=== PATIENT | female | born 1960 | race Caucasian/White ===

== ENCOUNTER 2023-02-11 09:30 | Emergency (ER) | payer BC, SELFPAY ==
[2023-02-11 09:40] VITALS: BP 94/77; PULSE 107; RESP 18; TEMP 37.1; O2SAT 98; BMI 30.3
--- NOTE | 2023-02-11 09:50 | XR_ITS ---
[facility] [id number] Patient Name: ANDREA JEWELL MRN: [id number] date: 1960 Sex: F Assigned Patient Location: ER Current Patient Location: ED.MAIN Accession/Order Number: [id number] Exam Date: 02/11/2023 10:05 Report Date: 02/11/2023 10:49 At the request of: SHILOH METZGER Procedure: XR chest 1V EXAM: XR chest 1V HISTORY: SOB, Covid positive COMPARISON: None. TECHNIQUE: Chest X-ray AP, 1 view FINDINGS: Support devices: None. Lungs/pleura: No consolidation, effusion, or pneumothorax. Heart and mediastinum: Normal contours. Bones: No acute abnormality identified. XR/XR chest 1V Impression: No consolidation to suggest pneumonia. However, Covid pneumonia can be radiographically occult in early phase. Electronically authenticated by: CHARMAINE HYATT Date: 02/11/2023 10:49
--- NOTE | 2023-02-11 09:51 | ED_ITS ---
HPI - URI/Sore Throat General Chief Complaint: Upper Respiratory Infection Stated Complaint: COUGH/FEVER Time Seen by Provider: 02/11/23 09:40 Source: patient Limitations: no limitations History of Present Illness HPI Narrative: 62-year-old female presents for cough and not feeling well. She's been sick for three days. She tested positive for coated this morning at home. No vomiting or diarrhea. She's not vaccinated. She's had Covid previously. Her cough has been nonproductive. No vomiting or diarrhea. Related Data Home Medications Medication Instructions Recorded Confirmed aspirin 81 mg capsule 81 mg PO DAILY 02/11/23 02/11/23 atorvastatin 80 mg tablet 80 mg PO DAILY 02/11/23 02/11/23 clopidogrel 75 mg tablet mg 02/11/23 lisinopril 10 mg tablet 10 mg PO DAILY 02/11/23 02/11/23 metoprolol succinate 25 mg 25 mg PO Q12H 02/11/23 02/11/23 tablet,extended release 24 hr Allergies Allergy/AdvReac Type Severity Reaction Status Date / Time tetanus and diphtheria AdvReac Intermediate Verified 02/11/23 09:39 toxoids Review of Systems ROS0 Narrative A ten point review of systems is negative except as noted above. PFSH PFSH Social History Smoking status: Never smoker Exam Narrative Exam Narrative: Nurses note and vital signs reviewed and patient is not hypoxic. General: The patient appears well and in no apparent distress. Patient is resting comfortably on cart. Skin: Warm, dry, no pallor noted. There is no rash noted. Head: Normocephalic, atraumatic Eye: Normal conjunctiva, no drainage Ears, Nose, Mouth, and Throat: oral mucosa is moist. Nares patent. Cardiovascular: Regular Rate and Rhythm Respiratory: Patient is in no distress, no accessory muscle use, lungs are clear to auscultation, no wheezing, rales or rhonchi Back: non-tender GI: soft and nontender Musculoskeletal: The patient has no evidence of calf tenderness, no pitting edema, symmetrical pulses noted bilaterally Neurological: A&O, normal speech Psychiatric: Cooperative Constitutional Vital Signs, click to edit/add: Last Vital Signs Temp 98.7 F 02/11/23 09:40 Pulse 107 H 02/11/23 09:40 Resp 18 02/11/23 09:40 BP 94/77 02/11/23 09:40 Pulse Ox 98 02/11/23 09:40 O2 Del Method Room Air 02/11/23 09:40 Course Vital Signs Vital signs: Vital Signs Temperature 98.7 F 02/11/23 09:40 Pulse Rate 107 H 02/11/23 09:40 Respiratory Rate 18 02/11/23 09:40 Blood Pressure 94/77 02/11/23 09:40 Pulse Oximetry 98 02/11/23 09:40 Oxygen Delivery Method Room Air 02/11/23 09:40 Temperature 98.7 F 02/11/23 09:40 Pulse Rate 107 H 02/11/23 09:40 Respiratory Rate 18 02/11/23 09:40 Blood Pressure 94/77 02/11/23 09:40 Pulse Oximetry 98 02/11/23 09:40 Oxygen Delivery Method Room Air 02/11/23 09:40 MDM - URI/Sore Throat MDM Narrative Medical decision making narrative: chest x-ray per radiology shows no acute findings. There is no indication for further testing and she is able to be treated at home. Treatment diagnosis and follow-up were discussed with the patient. Differential Diagnosis Differential diagnosis: Likely upper respiratory infection, viral infection and other (Covid, pneumonia) Imaging Data Chest x-ray: Radiologist's impression: Procedure: XR chest 1V EXAM: XR chest 1V HISTORY: SOB, Covid positive COMPARISON: None. TECHNIQUE: Chest X-ray AP, 1 view FINDINGS: Support devices: None. Lungs/pleura: No consolidation, effusion, or pneumothorax. Heart and mediastinum: Normal contours. Bones: No acute abnormality identified. Impression: No consolidation to suggest pneumonia. However, Covid pneumonia can be radiographically occult in early phase. Electronically authenticated by: CHARMAINE HYATT Date: 02/11/2023 10:49 Discharge Plan Discharge Chief Complaint: Upper Respiratory Infection Clinical Impression: COVID-19 Patient Disposition: Home, Self-Care Time of Disposition Decision: 10:59 Mode of Transportation: Private Vehicle Prescriptions / Home Meds: No Action atorvastatin 80 mg tablet 80 mg PO DAILY clopidogrel 75 mg tablet lisinopril 10 mg tablet 10 mg PO DAILY metoprolol succinate 25 mg tablet extended release 24 hr 25 mg PO Q12H aspirin 81 mg capsule 81 mg PO DAILY Instructions: Droplet Precautions (ED), COVID-19 (Coronavirus Disease 2019) (ED), Face Coverings (Masks) and COVID-19 (ED), How to Recover from COVID-19 at Home (ED) Stand Alone Forms: Portal Instructions Referrals: Kenya Guardado NP [Primary Care Provider] - 1 week
== END 2023-02-11 11:08 | disposition home or self-care (01) ==
PROVIDERS: Emergency Provider Emergency Medicine; PCP Nurse Practitioner
DX: U07.1 COVID-19 (principal); Z28.310 Unvaccinated for COVID-19; Z86.16 Personal history of COVID-19; Z79.82 Long term (current) use of aspirin; Z79.899 Other long term (current) drug therapy
CPT/HCPCS: 71045; 99283

== ENCOUNTER 2023-11-21 11:12 | Outpatient (OUT) | payer BC, SELFPAY ==
--- NOTE | 2023-11-21 | MM_ITS ---
Patient Name: ANDREA JEWELL MR#: [id number] : 1960 Exam Date: 11/21/2023 Ordering Doctor: ALPESH Guardado CNP RADIOLOGY REPORT PROCEDURE: MM TOMOSYNTHESIS SCREENING BI COMPARISON: MG MAMM SCREEN RENE W CAD, 09/10/2019. MG MAMM SCREEN 3D RENE CAD, 12/07/2020. INDICATIONS: SCREENING Calculator Name NCI Breast Cancer Risk Assessment Tool 5 Year Breast Cancer Risk 1.20% Lifetime Breast Cancer Risk 5.70% Personal Breast Cancer No Personal Ovarian Cancer No Treatments None Family Cancers Grandfather-maternal with lung cancer at age ~45; Grandmother-maternal with colon cancer at age ~64. LOCATION: [facility] BREAST COMPOSITION: The breasts are heterogeneously dense,which may obscure small masses. FINDINGS: DIAGNOSTIC CATEGORY 2--BENIGN FINDING. NO CHANGE FROM COMPARISON. Scattered benign-appearing calcifications are present. Scattered benign-appearing lymph nodes are present. RIGHT BREAST: No significant suspicious finding. LEFT BREAST: No significant suspicious finding. RECOMMENDATIONS: ROUTINE MAMMOGRAM AND CLINICAL EVALUATION IN 12 MONTHS. PLEASE NOTE: A NORMAL MAMMOGRAM DOES NOT EXCLUDE THE POSSIBILITY OF BREAST CANCER. A CLINICALLY SUSPICIOUS PALPABLE LUMP SHOULD BE BIOPSIED. Dictated by: Deshawn Gonzalez MD on 11/21/2023 at 15:39 Approved by: Deshawn Gonzalez MD on 11/21/2023 at 15:41
== END 2023-11-21 11:13 | disposition home or self-care (01) ==
PROVIDERS: PCP Nurse Practitioner; Visit Provider Nurse Practitioner
DX: Z12.31 Encounter for screening mammogram for malignant neoplasm of breast (principal); Z80.1 Family history of malignant neoplasm of trachea, bronchus and lung; Z80.0 Family history of malignant neoplasm of digestive organs
CPT/HCPCS: 77063; 77067

== ENCOUNTER 2023-11-28 07:32 | Outpatient (OUT) | payer BC, SELFPAY ==
--- OUTSIDE RECORDS SUMMARY | 2023-11-28 07:35 | XMS_ITS | CCD ---
Author Organization [facility] CliniSyde Care Team Providers Care Precipitator Operator Name Role Phone UNKNOWN, PROVIDER Unavailable Unavailable HOWARD, VLADISLAV Unavailable Unavailable UNKNOWN, PROVIDER Unavailable Unavailable HOWARD, VLADISLAV Unavailable Unavailable Unavailable Unavailable Aichholz, Kenya Jo Unavailable MISC, DR COTE Admitting Unavailable MISC, DR COTE Attending Unavailable DR JOANN COOLEY Consulting Unavailable [facility] KENYA Primary Care Unavailable Madan Barroso Consulting Unavailable AICHOLZ, FORM MAKER KENYA Primary Care Unavailable LAKSHMIPATHY ., NARENDRANATH Admitting Milly vailable LAKSHMIPATHY ., NARENDRANATH Attending Milly vailable DR JOANN COOLEY Admitting Unavailable MICHELE, DR JOANN Juan Attending Unavailable DR JOANN COOLEY Consulting Unavailable AICHHOLZ, FORM MAKER KENYA Primary Care Unavailable DOMONIQUE TILLMAN Consulting Unavailable [facility], [facility] KENYA Primary Care Unavailable LAKSHMIPATHY ., NARENDRANATH Consulting Milly vailable LAKSHMIPATHY ., NARENDRANATH Admitting Milly vailable LAKSHMIPATHY ., NARENDRANATH Attending Milly vailable [facility], [facility] KENYA Primary Care Unavailable ARLENE HUERTAS Consulting Unavailable LAKSHMIPATHY ., NARENDRANATH Admitting Milly vailable LAKSHMIPATHY ., NARENDRANATH Attending Milly vailable LAKSHMIPATHY ., NARENDRANATH Consulting Milly vailable DR RICARDO NGUYEN V Consulting Unavailable AICHOLZ, [facility] KENYA Primary Care Unavailable FAWWAD, LACKEY H Admitting Unavailable FAWWAD, LACKEY H Attending Unavailable FAWWAD, LACKEY H Consulting Unavailable Madan Barroso Consulting Unavailable AICHHOLZ, [employer] KENYA Primary Care Unavailable FAWWAD, LACKEY H Admitting Unavailable FAWWAD, LACKEY H Attending Unavailable SHAIKH Gavin MILLER Consulting Unavailable AICHHOLZ, [employer] KENYA Primary Care Unavailable BHUMIKA, DR MOORE Admitting Unavailable STEPANIC, DR MOORE Attending Unavailable STEPANIC, DR MOORE Consulting Unavailable CONCHA, DR NASIM Brooks Admitting Unavailabl e CONCHA, DR NASIM Brooks Attending Unavailabl e CONCHA, DR NASIM Brooks Consulting Unavailabl e AICHHOLZ, [employer] KENYA Primary Care Unavailable WEST, DR RICARDO Damico Consulting Unavailable AICHHOLZ, [employer] MA[employer] KENYA Admitting Unavailable AICHHOLZ, [employer] KENYA Attending Unavailable AICHHOLZ, [employer] MA[employer] KENYA Primary Care Unavailable AICHHOLZ, [employer] KENYA Consulting Unavailable Aichholz, Mrs. Kenya Phillips Primary Care Unavailab chetna Cooley, MsChamp Savagena Janelle Quijano Referring Rajwinder Cooley, Ms. Barbara Quijano Attending Rajwinder Kern, Dr. Nasmi Mckenzie Attending Unava ilable Aicnickolas, Mrs. Kenya Phillips Primary Care Unavailab chetna Kern, Dr. Nasim Mckenzie Referring Unava NASIM Worley Referring Unavailable AICKAREN, KENYA PHILLIPS Primary Care Unavailable NASIM KERN Attending Unavailable AICHHOLJose Francisco, KENYA JACQUELINE Primary Care Unavailable AICHJOONZ, KENYA Attending Unavailable OSVALDO PAEZ Attending Unavailable CALOS KUHN Attending Unavailable CALOS KUHN Referring Unavailable Allergies Allergy Classification Reported Allergen(s) Allergy Type Date of Onset Reaction(s) Facility (12 sources) Isosorbide; Translations: [isosorbide] Drug Allergy 03-27-19 24 [facility] Repository (10 sources) oxyCODONE; Translations: [oxyCODONE HCl TABS] Drug Allergy Gatro[facility] upset, [facility] Work [facility]: (10 sources) Tetanus Toxoid Fluid SOLN; Translations: [Tetanus Toxoid Fluid SOLN] Allergy to drug (finding) Other [facility] Work Phone: (1 source) Acetaminophen / oxyCODONE Drug Allergy [facility] Repository (1 source) Allopurinol Drug Allergy 08-19-19 13 [facility] Repository (2 sources) oxyCODONE; Translations: [OXYCODONE] Drug Allergy 03-27-[address] [facility] Repository (2 sources) Tetanus vaccine; Translations: [TETANUS TOXOID] Propensity to adverse reactions to drug (disorder) 03-27-[address] [facility] Repository Medications Completed/Discontinued Medications Medication Drug Class(es) Dates Sig (Normalized) Sig (Original) aspirin 81 mg delayed release oral tablet (7 sources) Platelet Aggregation Inhibitor, Nonsteroidal Anti-inflammatory Drug take 1 tablet by mouth once daily Aspirin 81 MG Oral Tablet Delayed Release TAKE 1 TABLET DAILY. Quantity: 90 Refills: 3 Ordered: 16-Sep-2022 Nasim Kern DO Active atorvastatin 80 mg oral tablet (7 sources) HMG-CoA Reductase Inhibitor Start: 11-30-2021 take 1 tablet by mouth at bedtime Atorvastatin Calcium 80 MG Oral Tablet TAKE 1 TABLET Bedtime Quantity: 90 Refills: 3 Ordered: 16-Sep-2022 Nasim Kern DO Start : 30-Nov-2021 Active take 1 tablet by mouth at bedtim e Atorvastatin Calcium 80 MG Oral Tablet TAKE 1 TABLET AT BEDTIME. Quantity: 90 Refills: 3 Ordered: 07-Sep-2021 DO Active clopidogrel 75 mg oral tablet (7 sources) P2Y12 Platelet Inhibitor Start: 02-15-2021 take 1 tablet by mouth once daily Clopidogrel Bisulfate 75 MG Oral Tablet TAKE 1 TABLET DAILY. Quantity: 90 Refills: 3 Ordered: 09-Feb-2022 Nasim Kern DO Start : 15-Feb-2021 Active lisinopril 10 mg oral tablet (8 sources) Angiotensin Converting Enzyme Inhibitor Start: 04-13-2021 take 1 tablet by mouth once daily Lisinopril 10 MG Oral Tablet TAKE 1 TABLET BY MOUTH EVERY DAY Quantity: 90 Refills: 3 Ordered: 30-Mar-2022 Nasim Kern DO Start : 13-Apr-2021 Active 24 hr metoprolol succinate 25 mg extended release oral tablet (8 sources) beta-Adrenergic Tk Start: 04-12-2021 take 1 tablet by mouth once daily Metoprolol Succinate ER 25 MG Oral Tablet Extended Release 24 Hour TAKE 1 TABLET BY MOUTH EVERY DAY Quantity: 90 Refills: 3 Ordered: 30-Mar-2022 Nasim Kern DO Start : 12-Apr-2021 Active nitroglycerin 0.4 mg sublingual tablet (7 sources) Nitrate Vasodilator Nitroglycerin 0.4 MG Sublingual Tablet Sublingual PLACE 1 TABLET UNDER THE TONGUE EVERY 5 MINUTES FOR UP TO 3 DOSES NEEDED FOR CHEST PAIN.CALL 911 IF PAIN PERSISTS. Quantity: 1 Refills: 0 Ordered: 07-Sep-2021 DO Active oxyCODONE (2 sources) Opioid Agonist oxyCODONE HCl TA BS TAKE 1 TABLET EVERY 8 HOURS NEEDED FOR PAIN. Quantity: 0 Refills: 0 Ordered: 16-Sep-2022 DO Active Problems Active Problems Problem Classification Problem Date Documented Date Episodic/Chronic Acute myocardial infarction (3 sources) Acute myocardial infarction; Translations: [Acute myocardial infarction, unspecified] Onset: 01-11-2017 Coronary atherosclerosis and other heart disease (19 sources) Angina pectoris, unspecified; Translations: [Coronary atherosclerosis] Onset: 05-10-2017 Chronic Coronary atherosclerosis and other heart disease (5 sources) Coronary angioplasty status; Translations: [CORONARY ANGIOPLASTY STATUS] Onset: 09-22-2021 Episodic Disorders of lipid metabolism (8 sources) Hyperlipidemia; Translations: [Other and unspecified hyperlipidemia] Onset: 09-27-2021 Chronic Essential hypertension (15 sources) Essential hypertension; Translations: [Unspecified essential hypertension] Onset: 09-21-2021 Chronic Essential hypertension (1 source) Essential hypertension Onset: 05-10-2017 Immunizations and screening for infectious disease (7 sources) Patient encounter status; Translations: [Other specified vaccination] Episodic Joint disorders and dislocations; trauma-related (4 sources) Unspecified internal derangement of left knee; Translations: [UNS INTERNAL DERANGEMENT LEFT KNEE] Onset: 08-03-2021 Chronic Other bone disease and musculoskeletal deformities (1 source) Osteonecrosis, unspecified; Translations: [OSTEONECROSIS UNSPECIFIED] Onset: 07-14-2022 Chronic Other connective tissue disease (4 sources) Trochanteric bursitis, left hip; Translations: [TROCHANTERIC BURSITIS LEFT HIP] Onset: 06-30-2022 Episodic Other infections; including parasitic (7 sources) H/O: infectious disease; Translations: [Personal history of other infectious and parasitic diseases] Episodic Other nervous system disorders (1 source) Other specified mononeuropathies of left lower limb; Translations: [OTH SPEC MONONEUROPATH LT LOW LIMB] Onset: 07-12-2022 Chronic Other nervous system disorders (1 source) Other chronic pain; Translations: [OTHER CHRONIC PAIN] Onset: 07-04-2022 Chronic Other nervous system disorders (1 source) Other specified mononeuropathies; Translations: [OTHER SPECIFIED MONONEUROPATHIES] Onset: 07-04-2022 Chronic Other non-traumatic joint disorders (5 sources) Pain in left hip; Translations: [PAIN IN LEFT HIP] Onset: 07-04-2022 Episodic Other nutritional; endocrine; and metabolic disorders (1 source) Obesity; Translations: [Obesity, unspecified] Chronic Other nutritional; endocrine; and metabolic disorders (2 sources) Body mass index (BMI) 30.0-30.9, adult; Translations: [Body mass index (BMI) 30.0-30.9, adult] Onset: 09-27-2023 Chronic Other nutritional; endocrine; and metabolic disorders (7 sources) Overweight in adulthood with body mass index of 25 or more but less than 30; Translations: [Overweight] Episodic Other skin disorders (1 source) Presence of artificial skin; Translations: [PRESENCE OF ARTIFICIAL SKIN] Onset: 09-27-2021 Chronic Residual codes; unclassified (2 sources) Other specified health status; Translations: [Other specified health status] Onset: 09-27-2023 Episodic Spondylosis; intervertebral disc disorders; other back problems (4 sources) Lumbago with sciatica, unspecified side; Translations: [LUMBAGO WITH SCIATICA UNS SIDE] Onset: 06-03-2022 Episodic Unclassified (1 source) Old myocardial infarction / I25.2(ICD-9) Onset: 05-10-2017 Unclassified (1 source) Coronary angioplasty status / Z98.61(ICD-9) Onset: 05-10-2017 Unclassified (1 source) Shortness of breath / R06.02(ICD-9) Onset: 05-10-2017 Unclassified (1 source) Chest pain, unspecified / R07.9(ICD-9) Onset: 05-10-2017 Unclassified (1 source) Angina pectoris, unspecified / I20.9(ICD-9) Onset: 05-10-2017 Unclassified (1 source) Athscl heart disease of [place] cor art w unsp ang pctrs / I25.119(ICD-9) Onset: 05-10-2017 Unclassified (1 source) Pure hypercholesterolemia, unspecified / E78.00(ICD-9) Onset: 05-10-2017 Unclassified (1 source) Family hx of ischem heart dis and oth dis of the circ sys / Z82.49(ICD-9) Onset: 05-10-2017 Unclassified (1 source) CONTACT W/AND (SUSP) EXPOS COVID-19; Translations: [CONTACT W/AND (SUSP) EXPOS COVID-19] Onset: 09-27-2021 Past or Other Problems Problem Classification Problem Date Documented Da te Episodic/Chronic E Codes: Natural/environment (1 source) Overexertion from prolonged static or awkward postures, initial encounter; Translations: [OVEREXERT PROLNG STAT/AWK PST INIT] Onset: 07-27-2021 Episodic Other connective tissue disease (4 sources) Pain in left leg; Translations: [PAIN IN LEFT LEG] Onset: 07-26-2021 Episodic Other non-traumatic joint disorders (3 sources) Pain in left knee; Translations: [PAIN IN LEFT KNEE] Onset: 07-25-2021 Episodic Sprains and strains (1 source) Strain of other muscle(s) and tendon(s) at lower leg level, left leg, initial encounter; Translations: [STRAIN OTH MSC TEND LOW LT LEG INIT] Onset: 07-27-2021 Episodic Unclassified (7 sources) Never smoked tobacco; Translations: [Never a smoker] Results Test Name Value Interpretation Reference Range Facility STRESS TEST ONLYon STRESS TEST ONLY [address], [address] [place] [address] Exercise Stress Test Patient Name: ANDREA JEWELL Ordering Provider: [id number] NASIM KERN Study Date: 10/19/2023 Reading Physician: [id number] Dupree MD MRN/PID: [id number] Supervising Physician: Jovanni Dupree MD Fellow: Date of /Age: 3 1960 / 63 years Fellow: Gender: F Nurse: Lorenza Aquino RN Admission Status: Top Precipitator Operator: NA Height: 167.64 cm Technologist: Weight: 86.18 kg Additional Staff: BSA: 1.96 m2 BMI: 30.67 kg/m2 Patient Location: Study Type: STRESS TEST ONLY Diagnosis/ICD: Old myocardial infarction-I25.2; Atherosclerotic heart disease-I25.10 Indication: Hypertension CPT Codes: Stress Test Interpretation-86585; Stress Test Supervision-[id number] Falls Risk: Low: Patient has low risk for sustaining a fall; environmental safety interventions in place. Study Details: Correct procedure and correct patient verified verbally. Patient Performance: The patient exercised to stage I on a Adis protocol for 3 minutes and 7 seconds, achieving 4.70 METS. The peak heart rate achieved was 117 bpm, which was 74 % of the age predicted target heart rate of 159 bpm. The resting blood pressure was 112/76 mmHg with a heart rate of 77 bpm. The standing blood pressure was 110/78 mmHg with a heart rate of 78 bpm. The patient's functional capacity was below average. The patient developed leg fatigue and fatigue during the stress exam. The symptoms resolved with rest. The blood pressure response was normal. The test was terminated due to: fatigue and leg fatigue and musculoskeletal weakness. Mild sinus tachycardia. Double Product (HR x BP): 166. Baseline ECG: Resting ECG showed normal sinus rhythm. Normal sinus rhythm. Stress Stage Data: + +--- +------+-------+ HR Sys BP Kumar BP + +--- +------+-------+ Baseline Resting 77 112 76 + +--- +------+-------+ Baseline Standing 78 110 78 + +--- +------+-------+ Stage I 115 128 74 + +--- +------+-------+ Stage II 117 142 68 + +--- +------+-------+ Recovery ECG: The heart rate recovery was normal. + +---+---- --+-------+ HR Sys BP Kumar BP + +---+---- --+-------+ Recovery I 117 142 68 + +---+---- --+-------+ Recovery II 117 132 70 + +---+---- --+-------+ Recovery III 85 122 76 + +---+---- --+-------+ Recovery IV 82 112 72 + +---+---- --+-------+ Summary: 1. Submaximal graded exercise stress test without diagnostic ST-T changes for ischemia. 2. No provoked chest pain or arrhythmia. 3. Appropriate hemodynamic response to exercise. 4. Poor exercise tolerance. [id number] Carina Dupree MD Electronically signed on 10/19/2023 at 4:59:33 PM Final [facility] Office Visit (Cardiology)on 09-16-2022 Follow-up visit Diagnoses/Problems Assessed Atherosclerosis of coronary artery of [place] heart without angina pectoris (414.01) (I25.10) Essential hypertension (401.9) (I10) History of PTCA (V45.82) (Z98.61) History of mycobacterial infection (V12.09) (Z86.19) Hyperlipidemia (272.4) (E78.5) Overweight with body mass index (BMI) of 29 to 29.9 in adult (278.02,V85.25) (E66.3,Z68.29) Orders Atherosclerosis of coronary artery of [place] heart without angina pectoris, Essential hypertension, History of mycobacterial infection, History of PTCA, Hyperlipidemia ALT - Alanine Aminotransferase, Serum; Status:Active; Requested for:[id number]; AST; Status:Active; Requested for:[id number]; Basic Metabolic Panel; Status:Active; Requested for:[id number]; CRP, High Sensitivity; Status:Active; Requested for:[id number]; Lipid Panel; Status:Active; Requested for:[id number]; Atherosclerosis of coronary artery of [place] heart without angina pectoris, History of PTCA Renew: Aspirin 81 MG Oral Tablet Delayed Release; TAKE 1 TABLET DAILY Hyperlipidemia Renew: Atorvastatin Calcium 80 MG Oral Tablet; TAKE 1 TABLET Bedtime Patient Instructions Please bring all medicines, vitamins, and herbal supplements with you when you come to the office. Prescriptions will not be filled unless you are compliant with your follow up appointments or have a follow up appointment scheduled as per instruction of your physician. Refills should be requested at the time of your visit. Follow up in 1 year The provider reviewed the following test(s) and result(s) with the patient: laboratory tests Chief Complaint ANDREA JEWELL is being seen for an annual follow-up of. Patient is a 62-year-old female returns for follow-up she is doing very well. She is already undergone knee and hip replacement without any adverse consequences or major adverse cardiac events. She has a history of SCAD status post anterior UT in 2017, with extensive revascularization of the LAD, remains on DAPT therapy now 6 years out but I believe this can be discontinued at this juncture. She has preserved left ventricular function, no heart failure, no angina or nitrate usage or hospitalizations other than her orthopedic procedures Recommendations: Discontinue clopidogrel, proceed with high-sensitivity CRP and lipid panel and follow-up otherwise in 1 year Surgical History Problems History of Cardiac catheterization with stent placement History of section Denied: History of Complete colonoscopy History of Foot surgery History of Hip replacement History of Percutaneous transluminal coronary angioplasty Current Meds Medication NameInstruction Aspirin EC Low Dose 81 MG Oral Tablet Delayed ReleaseTAKE 1 TABLET DAILY DIRECTED. Atorvastatin Calcium 80 MG Oral TabletTAKE 1 TABLET Bedtime Clopidogrel Bisulfate 75 MG Oral TabletTAKE 1 TABLET DAILY. Lisinopril 10 MG Oral TabletTAKE 1 TABLET BY MOUTH EVERY DAY Metoprolol Succinate ER 25 MG Oral Tablet Extended Release 24 HourTAKE 1 TABLET BY MOUTH EVERY DAY Nitroglycerin 0.4 MG Sublingual Tablet SublingualPLACE 1 TABLET UNDER THE TONGUE EVERY 5 MINUTES FOR UP TO 3 DOSES NEEDED FOR CHEST PAIN.CALL 911 IF PAIN PERSISTS. oxyCODONE HCl TABSTAKE 1 TABLET EVERY 8 HOURS NEEDED FOR PAIN. Allergies Medication isosorbide Adverse Reaction; Headache; Updated By: Tara Martinez; 09/07/2021 10:39:05 AM oxyCODONE HCl TABS Adverse Reaction; Gatrointestinal upset; Vomiting; Updated By: Tara Martinez; 09/07/2021 10:39:05 AM Tetanus Toxoid Fluid SOLN Allergy; Updated By: Tara Martinez; 09/07/2021 10:39:05 AM Social History Problems Caffeine use (V49.89) (Z78.9) pop and tea occasionally Never a smoker No alcohol use No illicit drug use Review of Systems Constitutional: not feeling tired. Cardiovascular: no intermittent leg claudication and as noted in HPI. Respiratory: no cough and no shortness of breath. Gastrointestinal: no change in bowel habits and no blood in stools. Integumentary: no skin rashes. Neurological: no seizures and no frequent falls. All other systems have been reviewed and are negative for complaint. Vitals Vital Signs Recorded: [id number] 10:10AM Heart Rate92, L Radial Yqiezope777, LUE, Sitting Lisxzwesw87, LUE, Sitting Height5 ft 6 in Jjrzvf105 lb BMI Bszudasyzr72.54 kg/m2 BSA Calculated1.93 Tobacco Useb) No Physical Exam Constitutional: alert and in no acute distress. Neck: neck is supple, symmetric, trachea midline, no masses and no thyromegaly . Pulmonary: no increased work of breathing or signs of respiratory distress and lungs clear to auscultation. Cardiovascular: carotid pulses 2+ bilaterally with no bruit , JVP was normal, no thrills , regular rhythm, normal S1 and S2, no murmurs , pedal pulses 2+ bilaterally and no edema . Abdomen: abdomen non-tender, no masses and no hepatomegaly . Skin: skin warm and dry, normal skin turgor . Psychiatric judgment and insight is no (more content not included)... Normal Second Half Playbook Tobacco Screening.on 023 Tobacco use status [facility] b) No -[facility] 250 DO Work Phone: Office Visit (Cardiology)on 07-15-2022 Follow-up visit Diagnoses/Problems Assessed Atherosclerosis of coronary artery of [place] heart without angina pectoris (414.01) (I25.10) Essential hypertension (401.9) (I10) Hyperlipidemia (272.4) (E78.5) Class 1 obesity with body mass index (BMI) of 30.0 to 30.9 in adult (278.00,V85.30) (E66.9,Z68.30) Orders Class 1 obesity with body mass index (BMI) of 30.0 to 30.9 in adult Healthy Weight Tips; Status:Complete; Done: [id number] Patient Instructions Please bring all medicines, vitamins, and herbal supplements with you when you come to the office. Prescriptions will not be filled unless you are compliant with your follow up appointments or have a follow up appointment scheduled as per instruction of your physician. Refills should be requested at the time of your visit. PLAN: Through informed decision making process incorporating patients unique circumstances, the following treatment plan will be initiated: 1. Prescription drug management of cardiovascular medication for efficacy, adherence to treatment, side effect assessment and polypharmacy. Current treatment clinically warranted and to continue without modifications. 2. Return for follow-up; in the interim, contact the office if new symptoms arise. Dr. Kern as scheduled 3. Ok to interrupt Plavix 5-7 days prior to procedure and resume post-op once ok with surgeon Chief Complaint Cardiac risk stratification prior to left THR. ANDREA JEWELL is being seen for a cardiovascular evaluation of pre-operative clearance. Patient presents to the office ambulatory with steady gait. Last evaluated in clinic Dr. Kern September 2021. Following that office visit she had uneventful total knee replacement with Plavix interruption, no postoperative MACE. She presents to the office today to obtain cardiac risk stratification prior to a left total hip replacement, no date scheduled. She denies any hospitalizations or significant changes to interval medical history other than progressive hip pain. 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 Heart rate is slightly elevated in the office related to being anxious and worried and also discomfort is contributing. She is compliant with metoprolol. Cardiovascular history: 1. 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 p/m/dLAD PCI/VANNESSA Diag2 PTCA CX AND RCA normal 2. Dec 2016 Echo: EF 50-55%, MR trace 3. No documented history of dysrhythmia Patient presents to the office today with activity level > 4 METS. Daily activity includes: Factory work, housework including mopping and sweeping the floors. Total DASI: 23.45 METs: 5.62 Prior angina: Sudden onset of diaphoresis and shortness of breath, denies reoccurrence Last nitroglycerin usage: Denies EKG in office: Normal sinus rhythm without evidence of ischemia ACC/AHA guidelines: 1. Major clinical markers: -Acute coronary syndrome or UT within 30 days: No -Decompensated heart failure: No -Significant arrhythmia: No -Severe valvular heart disease: No 2. Intermediate clinical markers -History of ischemic heart disease (prior UT, current chest pain secondary to ischemia, use of nitrates or EKG changes): Yes -Compensated/prior heart failure: No -Diabetes requiring insulin: No -Renal insufficiency with creatinine greater than 2: No 3. Minor clinical markers: -Age greater than or equal to 70: No -Abnormal EKG: No -Rhythm other than sinus rhythm: No -Low functional capacity: No -Prior CVA: No -Uncontrolled hypertension: No Surgery specific risk: Intermediate orthopedic repair According to ACC/AHA guidelines, a patient with functional capacity greater than 4 METS proceeding with intermediate surgical specific risk may proceed to the operating room without additional testing. RM Revised Cardiac Risk Index: Low risk with 0.9% Mace Concomitant medication review: No cardiovascular contraindication to interrupt antiplatelet treatment. At this time, there are no prohibitive cardiovascular risk to proceed with much-needed procedure. History of Present Illness The patient states she has been generally doing well since the last visit. Comorbid Illnesses: hypertension and hyperlipidemia. Symptoms: denies chest pain at rest, denies exertional chest pain, denies dyspnea, denies fatigue, denies exercise intolerance, denies palpitations, denies edema, denies orthopnea, denies dizziness and denies orthostatic dizziness. Associated symptoms: no syncope. Her symptoms do not limit her activities. Disease Monitoring: Surgical History Problems History of Cardiac catheterization with stent placement History of section Denied: History of Complete colonoscopy History of Foot surgery History of Percutaneous transluminal coronary angioplasty Current Meds Medication NameInstruction Aspirin EC Low Dose 81 MG Oral Tablet Delayed Release (more content not included)... Normal Second Half Playbook Tobacco Screening.on 023 Adult depression screening assessment No -[facility] DO Work Phone: Tobacco use status CPHS b) No -[facility] DO Work Phone: MRI HIP LT WO CONon 07-12-19 23 MRI HIP LT WO CON HISTORY: Left hip pa in for the past 4 months. MRI HIP LT WO CON: 07/11/2022 9:52 AM EDT COMPARISON: Radiographs of the pelvis and left hip 05/19/2022. TECHNIQUE: Multiplanar, multisequence MRI images of the pelvis and left hip were obtained without contrast. FINDINGS: There is mild discogenic disease at the L4-L5 level. The bone marrow signal intensity appears age appropriate. Within the subchondral bone of the superior aspect of the right femoral head there is a small curvilinear focus of decreased T1 and STIR signal intensity measuring 5 x 11 mm in transverse and AP dimension. There is no significant surrounding bone marrow edema. There are mild degenerative changes of the pubic symphysis. There is a large serpiginous area of abnormal decreased T1 and STIR signal intensity involving the subchondral bone of 100% of the weightbearing portion of the superior and anterosuperior aspect of the left femoral head. This associated with mild collapse of the articular surface in these regions. There is a large amount of surrounding bone marrow edema throughout the left femoral head/neck. There appear to be mild degenerative changes of the left hip joint. There is a large joint effusion of the left hip. There is a small amount of soft tissue edema along the lateral aspect of the greater trochanters bilaterally, but there is no significant tendinopathy or tear of the gluteal tendons. IMPRESSION: 1. There is a large focus of avascular necrosis involving 100% of the weightbearing portion of the left femoral head with mild collapse of the articular surface and a large amount of surrounding bone marrow edema in the left femoral head/neck. There are associated mild degenerative changes of the left hip joint and a large joint effusion of the left hip. 2. There is a small 5 x 11 mm chronic appearing focus of avascular necrosis involving the superior aspect of the right femoral head, but there is no surrounding bone marrow edema or collapse of the articular surface identified. 3. Possible mild bilateral greater trochanteric bursitis without evidence of significant gluteal tendinopathy. This report was placed in the wet read folder to be faxed and called to the referring clinician's office (Danay Land) on the afternoon of 07/11/2022 shortly after the study was presented for interpretation. Electronically authenticated by: ARLENE HUERTAS Date: 2022-07-11 13:15 Normal [facility] MRI LSPINE WO CONon 06-04-19 MRI LSPINE WO CON EXAMINATION: MRI LSPINE WO CON HISTORY: Lumbago with sciatica COMPARISON: No relevant comparison available. TECHNIQUE: A variety of imaging planes and parameters were utilized for visualization of suspected pathology. FINDINGS: For the purposes of numbering, sagittal T2 image # 8 extends from the T11 vertebral body superiorly to the S2-S3 level inferiorly. PARASPINAL AREA: Normal with no visible mass. BONES: Normal alignment with no acute fracture or spondylolisthesis. Mild heterogeneous appearance of the marrow, likely age-related change CORD/CAUDA EQUINA: Normal caliber, contour, and signal intensity. DISC LEVELS: 12-L1: No significant disc/facet abnormality, spinal stenosis, or foraminal stenosis. L1-L2: No significant disc/facet abnormality, spinal stenosis, or foraminal stenosis. L2-L3: Mild disc desiccation. Left foraminal disc protrusion extending up to 2 mm. No central or foraminal stenosis L3-L4: Mild disc space narrowing and disc desiccation. Mild diffuse disc bulge. No central or foraminal stenosis L4-L5: Disc desiccation. Mild diffuse disc bulge with no central or foraminal stenosis L5-S1: No significant disc/facet abnormality, spinal stenosis, or foraminal stenosis. IMPRESSION: Mild discogenic changes. No central or foraminal stenosis Electronically authenticated by: RICARDO NGUYEN Date: 2022-06-03 15:23 Normal [facility] XR LSPINE MIN 4 VIEWSon 05-04 XR LSPINE MIN 4 VIEWS EXAMINATION: XR LSPINE MIN 4 VIEWS HISTORY: Lumbago with sciatica ; lumbar and left hip pain for 4 months COMPARISON: No relevant comparison available. FINDINGS: BONES: No significant spondylosis, scoliosis, fracture, or visible bony lesion. DISC SPACES: No significant disc height narrowing, subluxation, or endplate abnormality. PARASPINOUS: Negative. No paraspinous abnormality is seen. OTHER: Negative. IMPRESSION: 1. No appreciable significant degenerative changes of the lumbar spine. Consider MRI for further evaluation if symptoms persist. Electronically authenticated by: MADAN ZIAMYLIZBETH Date: 2022-05-19 09:42 Normal [facility] CBC AUTO DIFFon 09-21-2021 BASO # 0.0 103/ul Normal 0.0-0.1 [facility] Comment on above: Performed By: #### C BC #### [facility] [address] [address] [address] Gwendolyn Maza Basophils/100 WBC (Bld) 0.4 % Normal 0.2-2.0 [facility] Comment on above: Performed By: #### C BC #### [facility] [address] [place] [address] Dr. Gwendolyn Maza EO # 0.1 103/ul Normal 0.0-0.7 [facility] Comment on above: Performed By: #### C BC #### [facility] [address] [address] [address] Gwendolyn Maza Eosinophils/100 WBC (Bld) 1.9 % Normal 0.9-7.0 [facility] Comment on above: Performed By: #### C BC #### [facility] [address] [place] [address] Dr. Gwendolyn Maza Erythrocyte distribution width (RBC) [Ratio] 12.2 % Normal 11.0-15.0 [facility] Comment on above: Performed By: #### C BC #### [facility] [address] [place] [address] Dr. Gwendolyn Maza Hematocrit (Bld) [Volume fraction] 38.1 % Normal 36.0-48.0 [facility] Comment on above: Performed By: #### C BC #### [facility] [address] [place] [address] Dr. Gwendolyn Maza Hemoglobin (Bld) [Mass/Vol] 12.8 g/dL Normal 12.0-16.0 [facility] Comment on above: Performed By: #### C BC #### [facility] [address] [place] [address] Dr. Gwendolyn Maza IG # 0.01 10e3/ul Normal 0.00-0.03 [facility] Comment on above: Performed By: #### C BC #### [facility] [address] [place] [address] Dr. Gwendolyn Mzaa IG % 0.2 % Normal 0.0-0.5 [facility] Comment on above: Performed By: #### C BC #### [facility] [address] [place] [address] Dr. Gwendolyn Maza LYMPH # 0.9 103/ul Critically low 1.2-3.8 [facility] Comment on above: Performed By: #### C BC #### [facility] [address] [place] [address] Dr. Gwendolyn Maza Lymphocytes/100 WBC (Bld) 17.6 % Critically low 20.5-60.0 [facility] Comment on above: Performed By: #### C BC #### [facility] [address] [place] [address] Dr. Gwendolyn Maza MANUAL DIFF REQ NO Normal [facility] Comment on above: Performed By: #### C BC #### [facility] [address] [place] [address] Dr. Gwendoyln Maza MCH (RBC) [Entitic mass] 30.3 pg Normal 26.7-34.0 [facility] Comment on above: Performed By: #### C BC #### [facility] [address] [place] [address] Dr. Gwendolyn Maza MCHC (RBC) [Mass/Vol] 33.6 g/dL Normal 29.9-35.2 [facility] Comment on above: Performed By: #### C BC #### [facility] [address] [place] [address] Dr. Gwendolyn Maza MCV (RBC) [Entitic vol] 90.1 fL Normal 81.0-99.0 [facility] Comment on above: Performed By: #### C BC #### [facility] [address] [place] [address] Dr. Gwendolyn Maza MONO # 0.5 103/ul Normal 0.3-0.8 [facility] Comment on above: Performed By: #### C BC #### [facility] [address] [place] [address] Dr. Gwendolyn Maza Monocytes/100 WBC (Bld) 8.5 % Normal 1.7-12.0 [facility] Comment on above: Performed By: #### C BC #### [facility] [address] [place] [address] Dr. Gwendolyn Maza NEUT # 3.8 103/ul Normal 1.4-6.5 [facility] Comment on above: Performed By: #### C BC #### [facility] [address] [place] [address] Dr. Gwendolyn Maza Neutrophils/100 WBC (Bld) 71.4 % Normal 43.0-75.0 [facility] Comment on above: Performed By: #### C BC #### [facility] [address] [place] [address] Dr. Gwendolyn Maza Platelet mean volume (Bld) [Entitic vol] 8.4 fL Critically low 9.5-13.5 [facility] Comment on above: Performed By: #### C BC #### [facility] [address] [place] [address] Dr. Gwendolyn Maza PLT 229 103/ul Normal 150-450 [facility] Comment on above: Performed By: #### C BC #### [facility] [address] [place] [address] Dr. Gwendolyn Maza RBC 4.23 106/ul Normal 4.20-5.40 [facility] Comment on above: Performed By: #### C BC #### [facility] [address] [place] [address] Dr. Gwendolyn Maza WBC 5.3 103/ul Normal 4.0-11.0 [facility] Comment on above: Performed By: #### C BC #### [facility] [address] [place] [address] Dr. Gwendolyn Maza Covid-19 PCR (CVDTB)on 09-03 SARS-CoV-2 (COVID-19) RNA SAUL+probe Ql (Unsp spec) Not detected Normal NOT DETECTED [facility] Comment on above: Result Comment: When diagnostic testing is negative, the possibility of a false negative should be considered in the context of a patient's recent exposures and the presence of clinical signs and symptoms consistent with SARS-CoV-2. This test is not yet approved or cleared by the [place] FDA. When there are no FDA-approved or cleared tests available, and other criteria are met, FDA can make tests available under an emergency access mechanism called an Emergency Use Authorization (EUA). The EUA for this test is supported by the Engagement Lead of Health and Human Service's declaration that circumstances exist to justify the emergency use of in vitro diagnostics for the detection and/or diagnosis of the virus that causes COVID-19. This EUA will remain in effect for the duration of the COVID-19 declaration justifying emergency of IVDs, unless it is terminated or revoked by the FDA (after which the test may no longer be used). Performed By: #### C VDTB #### [facility] [address] [place] [address] Dr. Gwendolyn Maza LIPID PROFILEon 09-21-2021 CHOL-HDL RATIO NORM SEE BELOW Normal [facility] Comment on above: Result Comment: 3.3 - 4.4 LOW RISK 4.4 - 7.1 AVERAGE RISK 7.1 - 11.0 MODERATE RISK >11.0 HIGH RISK Performed By: #### C BC #### [facility] [address] [place] [address] Dr. Gwendolyn Maza Cholesterol [Mass/Vol] 207 mg/dL Critically high <=200 [facility] Comment on above: Performed By: #### C BC #### [facility] [address] [place] [address] Dr. Gwendolyn Maza Cholesterol in HDL [Mass/Vol] 49 mg/dL Normal 40-60 [facility] Comment on above: Performed By: #### C BC #### [facility] [address] [place] [address] Dr. Gwendolyn Maza Cholesterol in LDL [Mass/Vol] 112.2 mg/dL Normal [facility] Comment on above: Performed By: #### C BC #### [facility] [address] [address] [address] Gwendolyn Maza Cholesterol.total/ Cholesterol in HDL [Mass ratio] 4.2 {ratio} Normal [facility] Comment on above: Performed By: #### C BC #### [facility] [address] [address] [address] Gwendolyn Maza HDL NORMAL > or = 60 mg/dl - LO W CARDIOVASCULAR RISK <40 mg/dl - HIGH CARDIOVASCULAR RISK Normal [facility] Comment on above: Performed By: #### C BC #### [facility] [address] [address] [address] Gwendolyn Maza LDL CALC NORMAL SEE BELOW Normal [facility] Comment on above: Result Comment: <100 mg/dl OPTIMAL 100 - 129 mg/dl NEAR OR ABOVE OPTIMAL 130 - 159 mg/dl BORDERLINE HIGH 160 - 189 mg/dl HIGH >190 mg/dl VERY HIGH Performed By: #### C BC #### [facility] [address] [address] [address] Gwendolyn Maza Triglyceride [Mass/Vol] 229 mg/dL Critically high <=150 [facility] Comment on above: Performed By: #### C BC #### [facility] [address] [address] [address] Gwendolyn Maza VLDL CALC 45.8 mg/dL Normal [facility] Comment on above: Performed By: #### C BC #### [facility] [address] [address] [address] Gwendolyn Maza PROF CHEM 8 (BAS METB)on Anion gap [Moles/Vol] 11.5 mmol/L Normal [facility] Comment on above: Performed By: #### C BC #### [facility] [address] [place] [address] Dr. Gwendolyn Maza Calcium [Mass/Vol] 9.3 mg/dL Normal 8.5-10.1 [facility] Comment on above: Performed By: #### C BC #### [facility] [address] [address] [address] Gwendolyn Maza Chloride [Moles/Vol] 104 mmol/L Normal 98-107 [facility] Comment on above: Performed By: #### C BC #### [facility] [address] [address] [address] Gwendolyn Maza CO2 [Moles/Vol] 28.9 mmol/L Normal 21.0-32.0 [facility] Comment on above: Performed By: #### C BC #### [facility] [address] [address] [address] Gwendolyn Maza Creatinine [Mass/Vol] 1.21 mg/dL Critically high 0.55-1.02 [facility] Comment on above: Performed By: #### C BC #### [facility] [address] [place] [address] Dr. Gwendolyn Maza EGFR-AF GAMBIAN 55 mL/min/1.73m2 Critically low >=60 [facility] Comment on above: Performed By: #### C BC #### [facility] [address] [place] [address] Dr. Gwendolyn Maza EGFR-NON AF GAMBIAN 46 mL/min/1.73m2 Critically low >=60 [facility] Comment on above: Performed By: #### C BC #### [facility] [address] [place] [address] Dr. Gwendolyn Maza Glucose [Mass/Vol] 105 mg/dL Normal 74-106 [facility] Comment on above: Performed By: #### C BC #### [facility] [address] [place] [address] Dr. Gwendolyn Maza Potassium [Moles/Vol] 4.4 mmol/L Normal 3.5-5.1 [facility] Comment on above: Performed By: #### C BC #### [facility] [address] [address] [address] Gwendolyn Maza Sodium [Moles/Vol] 140 mmol/L Normal 136-145 [facility] Comment on above: Performed By: #### C BC #### [facility] [address] [address] [address] Gwendolyn Maza Urea nitrogen [Mass/Vol] 23.0 mg/dL Critically high 7.0-18.0 [facility] Comment on above: Performed By: #### C BC #### [facility] [address] [place] [address] Dr. Gwendolyn Maza Urea nitrogen/Creatinin e [Mass ratio] 19.0 mg/mg Normal [facility] Comment on above: Performed By: #### C BC #### [facility] [address] [place] [address] Dr. Gwendolyn Pavonn 09-21-2021 AST [Catalytic activity/Vol] 20 U/L Normal 15-37 [facility] Comment on above: Performed By: #### C BC #### [facility] [address] [place] [address] Dr. Gwendolyn Jarrett 09-21-2021 ALT [Catalytic activity/Vol] 44 U/L Normal 14-59 [facility] Comment on above: Performed By: #### C BC #### [facility] [address] [place] [address] Dr. Gwendolyn Maza PHQ-2 VITALSon 09-07-2021 Adult depression screening assessment No [facility] DO Work Phone: Fall risk assessment c) Not medically indicated [facility] 250 DO Work Phone: Tobacco use status [facility] b) No [facility] DO Work Phone: MRI KNEE LT WO CONon 022 MRI KNEE LT WO CON EXAMINATION: MRI KNE E LT WO CON HISTORY: Derangement of left knee COMPARISON: No relevant comparison available. TECHNIQUE: A complete multi-planar MRI was performed. FINDINGS: MEDIAL COMPARTMENT MEDIAL MENISCUS: Oblique tear extending into the inferior surface of the posterior horn. Partial extrusion of the medial meniscus truncated appearance of the medial portion of the posterior horn best seen on coronal image 23. A free fragment is not definitively seen CARTILAGE: Mild to moderate chondromalacia BONES: Joint space narrowing and marginal osteophyte formation MCL AND MEDIAL CAPSULE: Normal medial collateral ligament and medial capsule. LATERAL COMPARTMENT LATERAL MENISCUS: Increased signal in the anterior horn possibly representing a tear CARTILAGE: No visible defect. BONES: No marrow pathology, fracture, or significant arthropathy. LCL/POSTEROLAT COMPLEX: Normal lateral collateral ligament, fascicles, lateral capsule and ligaments. ANTERIOR COMPARTMENT PATELLA: No marrow pathology, fracture, or significant arthropathy. CARTILAGE: Moderate chondromalacia of the medial patellar facet with subchondral bone edema TENDONS: Normal. EFFUSION: Small joint effusion. ACL: Mildly increased signal with intact fibers PCL: Normal appearing ligament. MENISCOFEMORAL: Normal meniscofemoral ligaments. OTHER: Negative. 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 FINDINGS: REGION: Left lower extremity THROMBI: None. COMPRESSIBILITY: Normal compressibility. FLOW: Normal waveform and antegrade flow between 5 and 20 cm/s. OTHER: None. IMPRESSION: 1. No deep vein thrombus within the left lower extremity. Electronically authenticated by: MADAN BARROSO Date: 2021-07-26 11:03 Normal [facility] XR KNEE LT 4V or >on 022 XR KNEE LT 4V or > PLAIN FILM OF THE KN EE LEFT HISTORY: Knee pain. COMPARISON: None TECHNIQUE: 4 views of the knee are submitted for review. FINDINGS: Tibial spine spurring is demonstrated. There is no evidence for acute fracture. Bone mineralization is within normal limits. Soft tissues are edematous. Joint spaces demonstrate degenerative change. IMPRESSION: Degenerative change of the knee. Electronically authenticated by: DOMONIQUE TILLMAN Date: 2021-07-25 00:58 Normal [facility] Vital Signs Date Time Vital Sign Value Performing Clinician Anirudh mendez 09-16-2022 10:10-0400 Body height 167.64 cm Kenya Guardado Work Phone: [facility] DO Work Phone: 09-16-2022 10:10-0400 Body mass index (BMI) [Ratio] 29.54 kg/m2 Kenya Guardado Work Phone: [facility] 250 DO Work Phone: 09-16-2022 10:10-0400 Body surface area Derived from formula 1.93 m2 Kenya Guardado Work Phone: [facility] DO Work Phone: 09-16-2022 10:10-0400 Body weight 83.01 kg Kenya Guardado Work Phone: [facility] 250 DO Work Phone: 09-16-2022 10:10-0400 Diastolic blood pressure 60 mm[Hg] Kenya Guardado Work Phone: [facility] DO Work Phone: 09-16-2022 10:10-0400 Heart rate 92 /min Kenya Guardado Work Phone: [facility] 250 DO Work Phone: 09-16-2022 10:10-0400 Systolic blood pressure 104 mm[Hg] Kenya Guardado Work Phone: [facility] 250 DO Work Phone: 07-15-2022 09:18-0400 Body height 167.64 cm Kenya Guardado Work Phone: [facility] 250 DO Work Phone: 07-15-2022 09:18-0400 Body mass index (BMI) [Ratio] 30.34 kg/m2 Kenya Guardado Work Phone: [facility] 250 DO Work Phone: 07-15-2022 09:18-0400 Body surface area Derived from formula 1.95 m2 Kenya Guardado Work Phone: [facility] 250 DO Work Phone: 07-15-2022 09:18-0400 Body weight 85.28 kg Kenya Guardado Work Phone: [facility] 250 DO Work Phone: 07-15-2022 09:18-0400 Diastolic blood pressure 84 mm[Hg] Kenya Alfonsoholjose francisco Work Phone: [facility] 250 DO Work Phone: 07-15-2022 09:18-0400 Heart rate 101 /min Kenya Alfonsoholjose francisco Work Phone: [facility] 250 DO Work Phone: 07-15-2022 09:18-0400 Systolic blood pressure 108 mm[Hg] Kenya Alfonsoholjose francisco Work Phone: [facility] 250 DO Work Phone: 09-07-2021 10:41-0400 Body height 167.64 cm Kenya Alfonsoholjose francisco Work Phone: [facility] 250 DO Work Phone: 09-07-2021 10:41-0400 Body mass index (BMI) [Ratio] 29.38 kg/m2 Kenya Alfonsoholjose francisco Work Phone: [facility] 250 DO Work Phone: 09-07-2021 10:41-0400 Body surface area Derived from formula 1.92 m2 Kenya Phillips Lorgavinholjose francisco Work Phone: [facility] 250 DO Work Phone: 09-07-2021 10:41-0400 Body weight 82.56 kg Kenya Phillips Lorgavinnickolas Work Phone: [facility] 250 DO Work Phone: 09-07-2021 10:41-0400 Diastolic blood pressure 68 mm[Hg] Kenya Phillips Aichholz Work Phone: [facility] 250 DO Work Phone: 09-07-2021 10:41-0400 Heart rate 72 /min Kenya Jacqueline Aichholz Work Phone: [facility] 250 DO Work Phone: 09-07-2021 10:41-0400 Systolic blood pressure 110 mm[Hg] Kenya Jacqueline Aichholz Work Phone: [facility] 250 DO Work Phone: Encounters Encounter Date Encounter Type Care Provider Facility Start: 11-15-2023 End: 11-15-2023 ambulatory CALOS KUHN Not Available Start: 11-13-2023 End: 11-13-2023 ambulatory OSVALDO PAEZ Not Available Start: 11-08-2023 End: 11-08-2023 ambulatory KENYA GUARDADO Not Available Start: 10-19-2023 End: 10-19-2023 ambulatory [facility] Start: 09-27-2023 End: 09-27-2023 ambulatory [facility] Start: 09-16-[address] Reyes [facility] Facility: Start: 09-16-2022 Office outpatient vi sit 15 minutes Kenya Jacqueline Aichholz Work Phone: [facility] 250 DO Work Phone: Start: 09-16-2022 Patient encounter procedure Kenya Jacqueline Aichholz Work Phone: [facility] 250 DO Work Phone: Start: 07-15-2022 Office outpatient vi sit 25 minutes Kenya Jacqueline Aichholz Work Phone: [facility] DO Work Phone: Start: 07-15-2022 [address] Mrs[address] Kenya Guardado Facility:[id number] Start: 07-11-2022 End: 07-12-2022 ambulatory ALPESH GUARDADO Facility:[facility] Start: 07-08-2022 ambulatory ALPESH GUARDADO Facil ity:[facility] Start: 06-30-2022 End: 07-01-2022 ambulatory ALPESH GUARDADO Facility:[facility] Start: 06-03-2022 End: 06-04-[address] RICARDO NGUYEN Facility:[facility] Start: 05-19-2022 End: 05-20-2022 ambulatory Madan Barroso Facility:[facility] Start: 03-30-2022 Rx Renewal Kenya Alfonsoho lz Work Phone: [facility] DO Work Phone: Start: 02-08-2022 Rx Renewal Kenya Alfonsoho lz Work Phone: [facility] DO Work Phone: Start: 09-27-2021 Encounter for preprocedural laboratory examination DR TERESA BAI [facility] Start: 09-21-2021 End: 09-22-2021 Encounter for preprocedural laboratory examination ALPESH GUARDADO Facility:H1 Start: 09-21-2021 End: 09-22-2021 ambulatory ALPESH GUARDADO Facility:H1 Start: 09-07-2021 Office outpatient vi sit 25 minutes Kenya Guardado Work Phone: [facility] 250 DO Work Phone: Start: 08-03-2021 End: 08-04-[address] RICARDO NGUYEN Facility:H1 Start: 07-26-2021 End: 07-27-[address] DOCTOR GARCIA Facility:H1 Start: 07-25-2021 End: 07-25-[address] JOANN COOLEY Facility:H1 Start: 04-12-2021 Rx Renewal Nasim mckinley DO Work Phone: [facility] 250 DO Work Phone: Start: 02-15-2021 Rx Renewal Nasim mckinley DO Work Phone: [facility] 250 DO Work Phone: Start: 05-10-2017 Ambulatory PROVIDER UNKNOWN Facili ty:[id number] Start: 01-11-2017 Ambulatory PROVIDER UNKNOWN Facili ty:[id number] Procedures Date Procedure Procedure Detail Performing Clinician Cardiac catheterization Kenya Phillips Aichholz Work Phone: section Kenya Phillips Aic olz Work Phone: History of percutane ous transluminal coronary angioplasty History of PTCA Kenya Phillips Aicholz Work Phone: Operative procedure on foot Kenya Phillips Aichholz Work Phone: Percutaneous translu ana coronary angioplasty Kenya Phillips Aichholz Work Phone: Total replacement of hip Lis dennis Phillips Aicholz Work Phone: NEGATED: Highlighted row has not occurred! Total colonoscopy Kenya Phillips Aicholz Work Phone: Plan of Treatment Date Care Activity Detail Author Start: 09-27-2023 FUV, Provider: Nasim Kern, Status: Pen, Time: 9:00 AM FUV, Provider: Nasim Kern, Status: Pen, Time: 9:00 AM [facility] DO Work Phone: Start: 09-07-2022 FUV, Provider: Nasim Kern, Status: Pen, Time: 9:40 AM FUV, Provider: Nasim Kern, Status: Pen, Time: 9:40 AM [facility] 250 DO Work Phone: Start: 09-07-2021 FUV, Provider: Nasim Kern, Status: Pen, Time: 10:15 AM FUV, Provider: Nasim Kern, Status: Pen, Time: 10:15 AM [facility] 250 DO Work Phone: Immunizations Immunization Date Immunization Notes Care Provider Cortez yeboah 12-04-2020 influenza, seasonal, injectable Kenya HorowitzPlain Vanillanickolas Work Phone: [facility] 250 DO Work Phone: Comment on above: Series: 01-04-2020 influenza, injectabl e, quadrivalent, preservative free Kenya Phillips Dine perfectjose francisco Work Phone: [place] [address] DO Work Phone: 12-05-2019 influenza virus vacc ine, unspecified formulation Kenya Phillips Dine perfectz Work Phone: [place] [address] DO Work Phone: 12-04-2018 influenza virus vacc ine, unspecified formulation Kenya Phillips Dine perfectjose francisco Work Phone: [place] [address] DO Work Phone: 04-02-2017 influenza virus vacc ine, unspecified formulation Kenya HorowitzChannel Mjose francisco Work Phone: [place] [address] DO Work Phone: 03-06-2017 pneumococcal polysaccharide vaccine, 23 valent Kenya Phillips Dine perfectjose francisco Work Phone: [place] [address] DO Work Phone: 12-05-2015 influenza virus vacc ine, unspecified formulation [facility] Work Phone: [place] [address] DO Work Phone: Payers Date Payer Category Payer Unknown [id number] 2.16.84 [id number] 1962 Unknown [id number] 2.16.84 0.1.099031.3.579.2.593 1962 Unknown [id number] 2.16.84 0.1.732908.3.579.2.593 1962 Unknown [id number] 2.16.84 0.1.852413.3.579.2.593 1962 Unknown [id number] 2.16.84 0.1.949127.3.579.2.593 1962 Unknown [id number] 2.16.84 0.1.440546.3.579.2.593 1962 Unknown [id number] 2.16.84 0.1.628373.3.579.2.593 1962 Unknown [id number] 2.16.84 0.1.836544.3.579.2.593 1962 Unknown [id number] 2.16.84 0.1.554591.3.579.2.593 1962 Unknown [id number] 2.16.84 0.1.213316.3.579.2.593 1962 Unknown [id number] 2.16. 840.1.424120.3.579.2.356 1962 Unknown [id number] 2.16. 840.1.480920.3.579.2.356 1962 Unknown [id number] 2.16.8 40.1.061781.3.579.2.1246 1962 Unknown [id number] 2.16.8 40.1.239655.3.579.2.1244 1962 Unknown [id number] 2.16.84 0.1.146771.3.579.2.1259 1962 Unknown [id number] 2.16.84 0.1.314459.3.579.2.1259 1962 Unknown [id number] 2.16.84 0.1.592626.3.579.2.1259 1962 Unknown [id number] 2.16.84 0.1.939905.3.579.2.1259 1959 Unknown [id number] 1959 Unknown [id number] Unknown [id number] Unknown ANTH Social History Date Type Detail Facility No alcohol use No alcohol use [facility] 250 DO Work Phone: Comment on above: pop and tea occasion ally; Consultation note 06-30-2022 Note Date & Type Note Facility 06-30-2022 Note CONSULTATION PROCEDURE DATE: 06/30/2022 PROCEDURE: Left trochanteric bursa injection in the office. PREOPERATIVE DIAGNOSIS: Pain secondary to left trochanteric bursitis. POSTOPERATIVE DIAGNOSIS: Pain secondary to left trochanteric bursitis. SOLUTION USED FOR INJECTION: 2 mL of 0.25% Marcaine, 2 mL of 2% lidocaine and Kenalog 10 mg, total of 5 mL and 2.5 mL used for the injection at each site. IMMEDIATE COMPLICATIONS: None. PROCEDURE: After informed consent was obtained from the patient, placed in the right lateral decubitus position. Skin overlying the area was prepped with alcohol. A 25 gauge 1 1/2 inch needle was inserted at an area just proximal to the insertion of the left gluteus medius, an area just superficial to the left greater trochanter. Needle tip was advanced. After encountering the same, we injected 2.5 mL of solution. No indication of intravascular or intraneural needle tip placement or injection. Post procedure needle was removed. Patient reports reduction in her pain symptoms. [facility] Consultation note 06-30-2022 Note Date & Type Note Facility 06-30-2022 Note CONSULTATION CONSULTATION DATE: 06/30/2022 TO: Kenya Guardado CNP CHIEF COMPLAINT: Includes left hip pain, buttock pain, groin pain. HISTORY OF PRESENT ILLNESS: Review of systems, past medical/surgical history were obtained and documented on the health questionnaire and is available upon request. She is a 62-year-old female, who reports having this pain starting three months ago. It occurred spontaneously, increased rapidly to its present state which she describes as 5-7/10, sharp in character, which increased with activities such as standing, walking and performing some transitioning maneuvers. She also reports that she is sensitive to even light touch over her left gluteal area and hip area. She feels most comfortable in the semi-recumbent position. She denies any change in bowel and bladder habits or new sensorimotor changes in the lower extremities. EXAM: Notable for patient having no clinical radiculopathy or myelopathy involving the lower extremities. She had exquisitely positive left sided FABERs sign with the patient experiencing left groin pain with this maneuver. She also has point tenderness at an area just proximal to the insertion of the gluteus medius, in an area that is consistent with her left trochanteric bursa. Lastly, the patient has dysesthesia and hyperesthesia overlying the distribution of the lateral cutaneous branch of the iliohypogastric nerve. 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 RECOMMENDATIONS: I have recommended she start aquatic therapy, obtain an MRI of the left hip without contrast. To proceed with a diagnostic left side injection of the lateral cutaneous branch of the iliohypogastric nerve under fluoroscopic guidance. I have given a script for aquatic therapy and Zanaflex 4 mg pills, one-quarter pill to one-half pill up to t.i.d. as tolerated. Of note, after undergoing left trochanteric bursa injection in the office, she reports a dramatic reduction in her pain symptoms. As part of providing excellent, safe, comprehensive care, the following was completed at our patient's visit: 1. A medication reconciliation and review to ensure accurate knowledge of current/active medications, including asking our patients to inform us about any khyv-quc-cuwqfyh medications or herbal remedies/nutritional supplements/alternative remedies. 2. A review to specifically ensure our patients have had annual screening for: elevated body mass index (BMI, see intake chart for exact total), tobacco use, screening for depression, and screening for unhealthy alcohol use. When screening is concerning, patients are provided with education and the specific recommendation to discuss the concerning health issue and treatment options with their primary care provider. [facility] Clinical Note 05-19-2022 Note Date & Type Note Facility 05-19-2022 Note PROCEDURE: XR HIP LT 2 3V W PELVIS HISTORY: Pain of left hip joint COMPARISON: None. FINDINGS: BONES:Small subchondral cyst within the femoral head, likely incidental. No fracture, dislocation, bone lesion. No significant joint space narrowing or periarticular degenerative osteophytes. SOFT TISSUES:No visible soft tissue swelling. EFFUSION:None visible. OTHER: Negative. IMPRESSION: 1. No acute bone abnormality. 2. Minimal degenerative changes. Electronically authenticated by: MADANALEKSANDER BARROSO Date: 2022-05-19 09:43 [facility] History of Present illness Narrative Note Date & Type Note Facility History of Present illness Narrative The patient states she has been generally doing well since the last visit. Comorbid Illnesses: hypertension and hyperlipidemia.Symptoms: denies chest pain at rest, denies exertional chest pain, denies dyspnea, denies fatigue, denies exercise intolerance, denies palpitations, denies edema, denies orthopnea, denies dizziness and denies orthostatic dizziness.Associated symptoms: no syncope.Her symptoms do not limit her activities.Disease Monitoring: [facility] 250 DO Work Phone: Summary Purpose Family History No Family History Records FoundUnknown Family Member Name Dates Details Family history of myocardial infarction: Father(V17.3, Z82.49) Status:Active No pertinent family history: Mother, Sister, Brother(V49.89, Z78.9) Status:Active Unknown Family Member Name Dates Details Family history of myocardial infarction: Father(V17.3, Z82.49) Status:Active No pertinent family history: Mother, Sister, Brother(V49.89, Z78.9) Status:Active Unknown Family Member Name Dates Details Family history of myocardial infarction: Father(V17.3, Z82.49) Status:Active No pertinent family history: Mother, Sister, Brother(V49.89, Z78.9) Status:Active Unknown Family Member Name Dates Details Family history of myocardial infarction: Father(V17.3, Z82.49) Status:Active No pertinent family history: Mother, Sister, Brother(V49.89, Z78.9) Status:Active Unknown Family Member Name Dates Details Family history of myocardial infarction: Father(V17.3, Z82.49) Status:Active No pertinent family history: Mother, Sister, Brother(V49.89, Z78.9) Status:Active Unknown Family Member Name Dates Details Family history of myocardial infarction: Father(V17.3, Z82.49) Status:Active No pertinent family history: Mother, Sister, Brother(V49.89, Z78.9) Status:Active Unknown Family Member Name Dates Details Family history of myocardial infarction: Father(V17.3, Z82.49) Status:Active No pertinent family history: Mother, Sister, Brother(V49.89, Z78.9) Status:Active Advance Directives No Advanced Directives Records FoundNo Advanced Directives Records FoundNo Advanced Directives Records FoundNo Advanced Directives Records FoundNo Advanced Directives Records FoundNo Advanced Directives Records FoundNo Advanced Directives Records Found Chief Complaint * ANDREA JEWELL is being seen for an annual follow-up of. * 61-year-old female returns for routine annual follow-up, she is doing extremely well and has no angina or recurrent coronary events. She underwent anterior UT secondary to SCAD (spontaneous coronary artery dissection); in 2017 and at that time underwent extensive revascularization of the LAD with dr hargrove-eluting stents. She remains on DAPT therapy. Last year's lipid panel was within goal * She is in need of preoperative clearance for arthroscopic knee surgery and is at overall low risk for any cardiac events especially given her excellent recovery and longevity over the past 5 years. * She will need to hold her clopidogrel and aspirin for at least 5 days prior to any surgical intervention and is clear for intended surgery. I would reinitiate her DAPT therapy following arthroscopy and will follow-up in 1 year and obtain appropriate lipid panel * Cardiac risk stratification prior to left THR. * ANDREA JEWELL is being seen for a cardiovascular evaluation of pre-operative clearance. * Patient presents to the office ambulatory with steady gait. Last evaluated in clinic Dr. Kern September 2021. Following that office visit she had uneventful total knee replacement with Plavix interruption, no postoperative MACE. She presents to the office today to obtain cardiac risk stratification prior to a left total hip replacement, no date scheduled. * She denies any hospitalizations or significant changes to interval medical history other than progressive hip pain. 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 Heart rate is slightly elevated in the office related to being anxious and worried and also discomfort is contributing. She is compliant with metoprolol. * Cardiovascular history: * 1. 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 * p/m/dLAD PCI/VANNESSA * Diag2 PTCA * CX & RCA normal * 2. Dec 2016 Echo: EF 50-55%, MR trace * 3. No documented history of dysrhythmia * Patient presents to the office today with activity level > 4 METS. Daily activity includes: Factory work, housework including mopping and sweeping the floors. * Total DASI: 23.45 * METs: 5.62 * Prior angina: Sudden onset of diaphoresis and shortness of breath, denies reoccurrence * Last nitroglycerin usage: Denies * EKG in office: Normal sinus rhythm without evidence of ischemia * ACC/AHA guidelines: * 1. Major clinical markers: * -Acute coronary syndrome or UT within 30 days: No * -Decompensated heart failure: No * -Significant arrhythmia: No * -Severe valvular heart disease: No * 2. Intermediate clinical markers * -History of ischemic heart disease (prior UT, current chest pain secondary to ischemia, use of nitrates or EKG changes): Yes * -Compensated/prior heart failure: No * -Diabetes requiring insulin: No * -Renal insufficiency with creatinine greater than 2: No * 3. Minor clinical markers: * -Age greater than or equal to 70: No * -Abnormal EKG: No * -Rhythm other than sinus rhythm: No * -Low functional capacity: No * -Prior CVA: No * -Uncontrolled hypertension: No * Surgery specific risk: Intermediate orthopedic repair * According to ACC/AHA guidelines, a patient with functional capacity greater than 4 METS proceeding with intermediate surgical specific risk may proceed to the operating room without additional testing. * RM Revised Cardiac Risk Index: Low risk with 0.9% Mace * Concomitant medication review: * No cardiovascular contraindication to interrupt antiplatelet treatment. * At this time, there are no prohibitive cardiovascular risk to proceed with much-needed procedure. ANDREA JEWELL is being seen for an annual follow-up of.* ANDREA JEWELL is being seen for an annual follow-up of. * Patient is a 62-year-old female returns for follow-up she is doing very well. She is already undergone knee and hip replacement without any adverse consequences or major adverse cardiac events. She has a history of SCAD status post anterior UT in 2017, with extensive revascularization of the LAD, re renan on DAPT therapy now 6 years out but I believe this can be discontinued at this juncture. * She has preserved left ventricular function, no heart failure, no angina or nitrate usage or hospitalizations other than her orthopedic procedures * Recommendations: Discontinue clopidogrel, proceed with high-sensitivity CRP and lipid panel and follow-up otherwise in 1 year Additional Source Comments INFORMATION SOURCE (unrecogn ized section and content) DATE CREATED AUTHOR 08/25/2017 [facility] Healthcare DATE CREATED AUTHOR AUTHOR'S ORGANIZ ATION 07/15/2022 [facility] DATE CREATED AUTHOR AUTHOR'S ORGANIZ ATION 09/17/2022 [facility] DATE CREATED AUTHOR AUTHOR'S ORGANIZ ATION 09/17/2022 [employer] DATE CREATED AUTHOR AUTHOR'S ORGANIZ ATION 10/24/2023 [facility] DATE CREATED AUTHOR AUTHOR'S ORGANIZ ATION 10/24/2023 [facility] DATE CREATED AUTHOR AUTHOR'S ORGANIZ ATION 11/20/2023 [facility] FOR RECORDS PERTAINING TO PATIENTS WHO ARE OR HAVE BEEN ENROLLED IN A CHEMICAL DEPENDENCY/SUBSTANCEABUSE PROGRAM, SOME INFORMATION MAY BE OMITTED. This clinical summary was aggregated from multiple sources. Caution should be exercised in using it in the provision of clinical care. This summary normalizes information from multiple sources, and as a consequence, information in this document may materially change the coding, format and clinical context of patient data. In addition, data may be omitted in some cases. CLINICAL DECISIONS SHOULD BE BASED ON THE PRIMARY CLINICAL RECORDS. [employer] provides no warranty or guarantee of the accuracy or completeness of information in this document.
== END 2023-11-28 07:33 | disposition home or self-care (01) ==
LOC: PST 07:32
PROVIDERS: PCP Nurse Practitioner; Visit Provider Surgery
DX: Z01.818 Encounter for other preprocedural examination (principal); Z12.11 Encounter for screening for malignant neoplasm of colon

== ENCOUNTER 2023-12-05 10:48 | Day surgery (SDC) | payer BC, SELFPAY ==
[2023-12-05 10:55] VITALS: BP 112/84; PULSE 90; TEMP 36.1; O2SAT 96; BMI 30.1
--- OUTSIDE RECORDS SUMMARY | 2023-12-05 11:05 | XMS_ITS | CCD ---
Author Organization [facility] [employer] Care Team Providers Care Engine Watchman Name Role Phone UNKNOWN, PROVIDER Unavailable Unavailable HOWARD, VLADISLAV Unavailable Unavailable UNKNOWN, PROVIDER Unavailable Unavailable HOWARD, VLADISLAV Unavailable Unavailable Unavailable Unavailable Aichholz, Kenya Jo Unavailable MISC, DR COTE Admitting Unavailable MISC, DR COTE Attending Unavailable DR JOANN COOLEY Consulting Unavailable [facility], [facility] KENYA Primary Care Unavailable Madan Barroso Consulting Unavailable AICHOLZ, VEHICLE BODY BUILDER KENYA Primary Care Unavailable LAKSHMIPATHY ., NARENDRANATH Admitting Milly vailable LAKSHMIPATHY ., NARENDRANATH Attending Milly vailable DR JOANN COOLEY Admitting Unavailable MICHELE, DR JAONN Juan Attending Unavailable DR JOANN COOLEY Consulting Unavailable AICHHOLZ, VEHICLE BODY BUILDER KENYA Primary Care Unavailable DOMONIQUE TILLMAN Consulting Unavailable [facility], [facility] KENYA Primary Care Unavailable LAKSHMIPATHY ., NARENDRANATH Consulting Milly vailable LAKSHMIPATHY ., NARENDRANATH Admitting Milly vailable LAKSHMIPATHY ., NARENDRANATH Attending Milly vailable AICHOL, [facility] KENYA Primary Care Unavailable ARLENE HUERTAS Consulting Unavailable LAKSHMIPATHY ., NARENDRANATH Admitting Milly vailable LAKSHMIPATHY ., NARENDRANATH Attending Milly vailable LAKSHMIPATHY ., NARENDRANATH Consulting Milly vailable DR RICARDO NGUYEN V Consulting Unavailable AICHOLZ, VEHIC[employer] B[employer] BUILDER KENYA Primary Care Unavailable FAWWAD, LACKEY H Admitting Unavailable FAWWAD, LACKEY H Attending Unavailable FAWWAD, LACKEY H Consulting Unavailable Madan Barroso Consulting Unavailable AICHHOLZ, VEHICLE BODY BUILDER KENYA Primary Care Unavailable FAWWAD, LACKEY H Admitting Unavailable FAWWAD, LACKEY H Attending Unavailable SHAIKH Gavin MILLER Consulting Unavailable AICHHOLZ, [employer]HIC[employer] BU[employer] KENYA Primary Care Unavailable BHUMIKA, DR MOORE Admitting Unavailable STEPANIC, DR MOORE Attending Unavailable STEPANIC, DR MOORE Consulting Unavailable CONCHA, DR NASIM Brooks Admitting Unavailabl e CONCHA, DR NASIM Brooks Attending Unavailabl e CONCHA, DR NASIM Brooks Consulting Unavailabl e AICHHOLZ, VEHICLE BODY BUILDER KENYA Primary Care Unavailable WEST, DR RICARDO Damico Consulting Unavailable AICHHOLZ, VEHICLE B[employer] BUILDER KENYA Admitting Unavailable AICHHOLZ, VEHICLE BODY BUILDER KENYA Attending Unavailable AICHHOLZ, VEHICLE BODY BUILDER KENYA Primary Care Unavailable AICHHOLZ, VEHICLE BODY BUILDER KENYA Consulting Unavailable Aichholz, Mrs. Kenya Phillips Primary Care Unavailab chetna Cooley, MsChamp Savagena Janelle Quijano Referring Rajwinder Cooley, Ms. Barbara Quijano Attending Rajwinder Kern, Dr. Nasim Mckenzie Attending Unava ilable Aicnickolas, Mrs. Kenya Phillips Primary Care Unavailab chetna eKrn, Dr. Nasim Mckenzie Referring Unava NASIM Worley Referring Unavailable AICKAREN, KENYA PHILLIPS Primary Care Unavailable NASIM KERN Attending Unavailable AICHHOLJose Francisco, KENYA JACQUELINE Primary Care Unavailable AICHJOONZ, KENYA Attending Unavailable OSVALDO PEAZ Attending Unavailable CALOS KUHN Attending Unavailable CALOS KUHN Referring Unavailable Allergies Allergy Classification Reported Allergen(s) Allergy Type Date of Onset Reaction(s) Facility (12 sources) Isosorbide; Translations: [isosorbide] Drug Allergy 03-27-19 24 [facility] Repository (10 sources) oxyCODONE; Translations: [oxyCODONE HCl TABS] Drug Allergy [facility] upset, [facility]: (10 sources) Tetanus Toxoid Fluid SOLN; Translations: [Tetanus Toxoid Fluid SOLN] Allergy to drug (finding) Other [facility] Work [facility]: (1 source) Acetaminophen / oxyCODONE Drug Allergy [facility] Repository (1 source) Allopurinol Drug Allergy 08-19-19 13 [facility] Repository (2 sources) oxyCODONE; Translations: [OXYCODONE] Drug Allergy 03-27-19 [facility] Repository (2 sources) Tetanus vaccine; Translations: [TETANUS TOXOID] Propensity to adverse reactions to drug (disorder) 03-27-19 [facility] Repository Medications Completed/Discontinued Medications Medication Drug Class(es) [...] Unclassified (1 source) Athscl heart disease of ewiia[place]ayp cor art w unsp ang pctrs / [...] Facility STRESS TEST ONLYon STRESS TEST ONLY [address], [address] [place] [address] Exercise Stress Test Patient Name: ANDREA JEWELL Ordering Provider: [id number] NASIM KERN Study Date: 10/19/2023 Reading Physician: [id number] Dupree MD MRN/PID: [id number] Supervising Physician: Jovanni Dupree MD Fellow: Date of /Age: 3 1960 / 63 years Fellow: Gender: F Nurse: Lorenza Aquino RN Admission Status: Wooden Barrel Mechanic: NA Height: 167.64 cm Technologist: Weight: 86.18 kg Additional Staff: BSA: 1.96 m2 BMI: 30.67 kg/m2 Patient Location: Study Type: STRESS TEST ONLY Diagnosis/ICD: Old myocardial infarction-I25.2; Atherosclerotic heart disease-I25.10 Indication: Hypertension CPT Codes: Stress Test Interpretation-80791; Stress Test Supervision-[id number] Falls Risk: Low: Patient has low risk [...] response to exercise. 4. Poor exercise tolerance. [id number] Carina Dupree MD Electronically signed on 10/19/2023 at 4:59:33 PM Final [facility] Office Visit (Cardiology)on 09-16-2022 Follow-up visit Diagnoses/Problems Assessed Atherosclerosis of coronary artery of ewiiaapaay[place] heart without angina pectoris (414.01) (I25.10) Essential hypertension (401.9) (I10) History of PTCA (V45.82) (Z98.61) History of mycobacterial infection (V12.09) (Z86.19) Hyperlipidemia (272.4) (E78.5) Overweight with body mass index (BMI) of 29 to 29.9 in adult (278.02,V85.25) (E66.3,Z68.29) Orders Atherosclerosis of coronary artery of ewiiaapaayp heart without angina pectoris, Essential hypertension, History of mycobacterial infection, History of PTCA, Hyperlipidemia ALT - Alanine Aminotransferase, Serum; Status:Active; Requested for:[id number]; AST; Status:Active; Requested for:[id number]; Basic Metabolic Panel; Status:Active; Requested for:[id number]; CRP, High Sensitivity; Status:Active; Requested for:[id number]; Lipid Panel; Status:Active; Requested for:[id number]; Atherosclerosis of coronary artery of ewiiaapaayp heart without angina pectoris, History of PTCA [...] a history of SCAD status post anterior W[place] in 2017, with extensive revascularization of the [...] negative for complaint. Vitals Vital Signs Recorded: [id number] 10:10AM Heart Rate92, L Radial Cszejcfd717, LUE, Sitting Nussqxfpb26, LUE, Sitting Height5 ft 6 in Ehxxvi479 lb BMI Byjamnlbqc91.54 kg/m2 BSA Calculated1.93 Tobacco Useb) No Physical [...] is no (more content not included)... Normal [facility] Tobacco Screening.on 023 Tobacco use status [facility] b) No -[facility] 250 DO Work Phone: Office Visit (Cardiology)on 07-15-2022 Follow-up visit Diagnoses/Problems Assessed Atherosclerosis of coronary artery of ewiiaapaayp heart without angina pectoris (414.01) (I25.10) Essential hypertension (401.9) (I10) Hyperlipidemia (272.4) (E78.5) Class 1 obesity with body mass index (BMI) of 30.0 to 30.9 in adult (278.00,V85.30) (E66.9,Z68.30) Orders Class 1 obesity with body mass index (BMI) of 30.0 to 30.9 in adult Healthy Weight Tips; Status:Complete; Done: [id number] Patient Instructions Please bring all medicines, vitamins, [...] Major clinical markers: -Acute coronary syndrome or [place] within 30 days: No -Decompensated heart failure: No -Significant arrhythmia: No -Severe valvular heart disease: No 2. Intermediate clinical markers -History of ischemic heart disease (prior [place], current chest pain secondary to ischemia, use [...] Delayed Release (more content not included)... Normal [facility] Tobacco Screening.on 023 Adult depression screening assessment No -[facility] [facility] DO Work Phone: Tobacco use status [facility] b) No -[facility] 250 DO Work Phone: MRI HIP LT [...] by: ARLENE HUERTAS Date: 2022-07-11 13:15 Normal [facility] MRI LSPINE WO CONon 06-04-19 MRI LSPINE [...] by: RICARDO NGUYEN Date: 2022-06-03 15:23 Normal [facility] XR LSPINE MIN 4 VIEWSon 05-04 XR [...] MADAN ZIAMYLIZBETH Date: 2022-05-19 09:42 Normal [facility] CBC AUTO DIFFon 09-21-2021 BASO # 0.0 103/ul Normal 0.0-0.1 [facility] Comment on above: Performed By: #### C BC #### [facility] [address] [address] [address] Gwendolyn Maza Basophils/100 WBC (Bld) 0.4 % Normal 0.2-2.0 [facility] Comment on above: Performed By: #### C BC #### [facility] [address] [place] [address] Dr. Gwendolyn Maza EO # 0.1 103/ul Normal 0.0-0.7 [facility] Comment on above: Performed By: #### C BC #### [facility] [address] [address] [address] Gwendolyn Maza Eosinophils/100 WBC (Bld) 1.9 % Normal 0.9-7.0 [facility] Comment on above: Performed By: #### C BC #### [facility] [address] [place] [address] Dr. Gwendolyn Maza Erythrocyte distribution width (RBC) [Ratio] 12.2 % Normal 11.0-15.0 [facility] Comment on above: Performed By: #### C BC #### [facility] [address] [place] [address] Dr. Gwendolyn Maza Hematocrit (Bld) [Volume fraction] 38.1 % Normal 36.0-48.0 [facility] Comment on above: Performed By: #### C BC #### [facility] [address] [place] [address] Dr. Gwendolyn Maza Hemoglobin (Bld) [Mass/Vol] 12.8 g/dL Normal 12.0-16.0 [facility] Comment on above: Performed By: #### C BC #### [facility] [address] [place] [address] Dr. Gwendolyn Maza IG # 0.01 10e3/ul Normal 0.00-0.03 [facility] Comment on above: Performed By: #### C BC #### [facility] [address] [place] [address] Dr. Gwendolyn Maza IG % 0.2 % Normal 0.0-0.5 [facility] Comment on above: Performed By: #### C BC #### [facility] [address] [place] [address] Dr. Gwendolyn Maza LYMPH # 0.9 103/ul Critically low 1.2-3.8 [facility] Comment on above: Performed By: #### C BC #### [facility] [address] [place] [address] Dr. Gwendolyn Maza Lymphocytes/100 WBC (Bld) 17.6 % Critically low 20.5-60.0 [facility] Comment on above: Performed By: #### C BC #### [facility] [address] [place] [address] Dr. Gwendolyn Maza MANUAL DIFF REQ NO Normal [facility] Comment on above: Performed By: #### C BC #### [facility] [address] [place] [address] Dr. Gwendolyn Maza MCH (RBC) [Entitic mass] 30.3 pg Normal 26.7-34.0 [facility] Comment on above: Performed By: #### C BC #### [facility] [address] [place] [address] Dr. Gwendolyn Maza MCHC (RBC) [Mass/Vol] 33.6 g/dL Normal 29.9-35.2 [facility] Comment on above: Performed By: #### C BC #### [facility] [address] [place] [address] Dr. Gwendolyn Maza MCV (RBC) [Entitic vol] 90.1 fL Normal 81.0-99.0 [facility] Comment on above: Performed By: #### C BC #### [facility] [address] [place] [address] Dr. Gwendolyn Maza MONO # 0.5 103/ul Normal 0.3-0.8 [facility] Comment on above: Performed By: #### C BC #### [facility] [address] [place] [address] Dr. Gwendolyn Maza Monocytes/100 WBC (Bld) 8.5 % Normal 1.7-12.0 [facility] Comment on above: Performed By: #### C BC #### [facility] [address] [place] [address] Dr. Gwendolyn Maza NEUT # 3.8 103/ul Normal 1.4-6.5 [facility] Comment on above: Performed By: #### C BC #### [facility] [address] [place] [address] Dr. Gwendolyn Maza Neutrophils/100 WBC (Bld) 71.4 % Normal 43.0-75.0 [facility] Comment on above: Performed By: #### C BC #### [facility] [address] [place] [address] Dr. Gwendolyn Maza Platelet mean volume (Bld) [Entitic vol] 8.4 fL Critically low 9.5-13.5 [facility] Comment on above: Performed By: #### C BC #### [facility] [address] [place] [address] Dr. Gwendolyn Maza PLT 229 103/ul Normal 150-450 [facility] Comment on above: Performed By: #### C BC #### [facility] [address] [place] [address] Dr. Gwendolyn Maza RBC 4.23 106/ul Normal 4.20-5.40 [facility] Comment on above: Performed By: #### C BC #### [facility] [address] [place] [address] Dr. Gwendolyn Maza WBC 5.3 103/ul Normal 4.0-11.0 [facility] Comment on above: Performed By: #### C BC #### [facility] [address] [place] [address] Dr. Gwendolyn Maza Covid-19 PCR (CVDTB)on 09-03 SARS-CoV-2 (COVID-19) RNA SAUL+probe Ql (Unsp spec) Not detected Normal NOT DETECTED [facility] Comment on above: Result Comment: When [...] for this test is supported by the Smt Machine Operator of Health and Human Service's declaration that [...] used). Performed By: #### C VDTB #### [facility] [address] [place] [address] Dr. Gwendolyn Maza LIPID PROFILEon 09-21-2021 CHOL-HDL RATIO NORM SEE BELOW Normal [facility] Comment on above: Result Comment: 3.3 - 4.4 LOW RISK 4.4 - 7.1 AVERAGE RISK 7.1 - 11.0 MODERATE RISK >11.0 HIGH RISK Performed By: #### C BC #### [facility] [address] [place] [address] Dr. Gwendolyn Maza Cholesterol [Mass/Vol] 207 mg/dL Critically high <=200 [facility] Comment on above: Performed By: #### C BC #### [facility] [address] [place] [address] Dr. Gwendolyn Maza Cholesterol in HDL [Mass/Vol] 49 mg/dL Normal 40-60 [facility] Comment on above: Performed By: #### C BC #### [facility] [address] [place] [address] Dr. Gwendolyn Maza Cholesterol in LDL [Mass/Vol] 112.2 mg/dL Normal [facility] Comment on above: Performed By: #### C BC #### [facility] [address] [address] [address] Gwendolyn Maza Cholesterol.total/ Cholesterol in HDL [Mass ratio] 4.2 {ratio} Normal [facility] Comment on above: Performed By: #### C BC #### [facility] [address] [address] [address] Gwendolyn Maza HDL NORMAL > or = 60 mg/dl - LO W CARDIOVASCULAR RISK <40 mg/dl - HIGH CARDIOVASCULAR RISK Normal [facility] Comment on above: Performed By: #### C BC #### [facility] [address] [address] [address] Gwendolyn Maza LDL CALC NORMAL SEE BELOW Normal [facility] Comment on above: Result Comment: <100 mg/dl OPTIMAL 100 - 129 mg/dl NEAR OR ABOVE OPTIMAL 130 - 159 mg/dl BORDERLINE HIGH 160 - 189 mg/dl HIGH >190 mg/dl VERY HIGH Performed By: #### C BC #### [facility] [address] [address] [address] Gwendolyn Maza Triglyceride [Mass/Vol] 229 mg/dL Critically high <=150 [facility] Comment on above: Performed By: #### C BC #### [facility] [address] [address] [address] Gwendolyn Maza VLDL CALC 45.8 mg/dL Normal [facility] Comment on above: Performed By: #### C BC #### [facility] [address] [address] [address] Gwendolyn Maza PROF CHEM 8 (BAS METB)on Anion gap [Moles/Vol] 11.5 mmol/L Normal [facility] Comment on above: Performed By: #### C BC #### [facility] [address] [place] [address] Dr. Gwendolyn Maza Calcium [Mass/Vol] 9.3 mg/dL Normal 8.5-10.1 [facility] Comment on above: Performed By: #### C BC #### [facility] [address] [address] [address] Gwendolyn Maza Chloride [Moles/Vol] 104 mmol/L Normal 98-107 [facility] Comment on above: Performed By: #### C BC #### [facility] [address] [address] [address] Gwendolyn Maza CO2 [Moles/Vol] 28.9 mmol/L Normal 21.0-32.0 [facility] Comment on above: Performed By: #### C BC #### [facility] [address] [address] [address] Gwendolyn Maza Creatinine [Mass/Vol] 1.21 mg/dL Critically high 0.55-1.02 [facility] Comment on above: Performed By: #### C BC #### [facility] [address] [place] [address] Dr. Gwendolyn Maza EGFR-AF PRYDEINIG 55 mL/min/1.73m2 Critically low >=60 [facility] Comment on above: Performed By: #### C BC #### [facility] [address] [place] [address] Dr. Gwendolyn Maza EGFR-NON AF PRYDEINIG 46 mL/min/1.73m2 Critically low >=60 [facility] Comment on above: Performed By: #### C BC #### [facility] [address] [place] [address] Dr. Gwendolyn Mzaa Glucose [Mass/Vol] 105 mg/dL Normal 74-106 [facility] Comment on above: Performed By: #### C BC #### [facility] [address] [place] [address] Dr. Gwendolyn Maza Potassium [Moles/Vol] 4.4 mmol/L Normal 3.5-5.1 [facility] Comment on above: Performed By: #### C BC #### [facility] [address] [address] [address] Gwendolyn Maza Sodium [Moles/Vol] 140 mmol/L Normal 136-145 [facility] Comment on above: Performed By: #### C BC #### [facility] [address] [address] [address] Gwendolyn Maza Urea nitrogen [Mass/Vol] 23.0 mg/dL Critically high 7.0-18.0 [facility] Comment on above: Performed By: #### C BC #### [facility] [address] [place] [address] Dr. Gwendolyn Maza Urea nitrogen/Creatinin e [Mass ratio] 19.0 mg/mg Normal [facility] Comment on above: Performed By: #### C BC #### [facility] [address] [place] [address] Dr. Gwendolyn Pavonn 09-21-2021 AST [Catalytic activity/Vol] 20 U/L Normal 15-37 [facility] Comment on above: Performed By: #### C BC #### [facility] [address] [place] [address] Dr. Gwendolyn Jarrett 09-21-2021 ALT [Catalytic activity/Vol] 44 U/L Normal 14-59 [facility] Comment on above: Performed By: #### C BC #### [facility] [address] [place] [address] Dr. Gwendolyn Maza PHQ-2 VITALSon 09-07-2021 Adult depression screening assessment No [facility] 250 DO Work Phone: Fall risk assessment c) Not medically indicated [facility] 250 DO Work Phone: Tobacco use status [facility] b) No [facility] 250 DO Work Phone: MRI KNEE LT [...] by: RICARDO NGUYEN Date: 2021-08-03 16:42 Normal [facility] US TUCKER DOP LEG LTon 07-27-19 22 US TUCEKR DOP LEG LT EXAMINATION: US TUCKER DOP LEG LT HISTORY: Pain in left leg COMPARISON: No relevant comparison available. FINDINGS: REGION: Left lower extremity THROMBI: None. COMPRESSIBILITY: Normal compressibility. FLOW: Normal waveform and antegrade flow between 5 and 20 cm/s. OTHER: None. IMPRESSION: 1. No deep vein thrombus within the left lower extremity. Electronically authenticated by: MADAN BARROSO Date: 2021-07-26 11:03 Normal [facility] XR KNEE LT 4V or >on [...] by: DOMONIQUE TILLMAN Date: 2021-07-25 00:58 Normal [facility] Vital Signs Date Time Vital Sign Value Performing Clinician Anirudh mendez 09-16-2022 10:10-0400 Body height 167.64 cm Kenya Guardado Work Phone: [facility] 250 DO Work Phone: 09-16-2022 10:10-0400 Body mass index (BMI) [Ratio] 29.54 kg/m2 Kenya Guardado Work Phone: [facility] 250 DO Work Phone: 09-16-2022 10:10-0400 Body surface area Derived from formula 1.93 m2 Kenya Guardado Work Phone: [facility] 250 DO Work Phone: 09-16-2022 10:10-0400 Body weight 83.01 kg Kenya Guardado Work Phone: [facility] 250 DO Work Phone: 09-16-2022 10:10-0400 Diastolic blood pressure 60 mm[Hg] Kenya Guardado Work Phone: [facility] 250 DO Work Phone: 09-16-2022 10:10-0400 Heart rate 92 /min Kenya Guardado Work Phone: [facility] [facility] DO Work Phone: 09-16-2022 10:10-0400 Systolic blood pressure 104 mm[Hg] Kenya Guardado Work Phone: [facility] [facility] DO Work Phone: 07-15-2022 09:18-0400 Body height 167.64 cm Kenya Guardado Work Phone: [facility] 250 DO Work Phone: 07-15-2022 09:18-0400 Body mass index (BMI) [Ratio] 30.34 kg/m2 Kenya Guardado Work Phone: [facility] 250 DO Work Phone: 07-15-2022 09:18-0400 Body surface area Derived from formula 1.95 m2 Kenya Guardado Work Phone: [facility] [facility] DO Work Phone: 07-15-2022 09:18-0400 Body weight 85.28 kg Kenya Guardado Work Phone: [facility] 250 DO Work Phone: 07-15-2022 09:18-0400 Diastolic blood pressure 84 mm[Hg] Kenya Alfonsoholjose franicsco Work Phone: [facility] 250 DO Work Phone: 07-15-2022 09:18-0400 Heart rate 101 /min Kenya Alfonsoholjose francisco Work Phone: [facility] 250 DO Work Phone: 07-15-2022 09:18-0400 Systolic blood pressure 108 mm[Hg] Kenya Alfonsoholjose francisco Work Phone: [facility] 250 DO Work Phone: 09-07-2021 10:41-0400 Body height 167.64 cm Kenya Alfonsoholjose francisco Work Phone: [facility] [facility] DO Work Phone: 09-07-2021 10:41-0400 Body mass index (BMI) [Ratio] 29.38 kg/m2 Kenya Alfonsoholjose francisco Work Phone: [facility] [facility] DO Work Phone: 09-07-2021 10:41-0400 Body surface area Derived from formula 1.92 m2 Kenya Phillips Lorgavinholjose francisco Work Phone: [facility] 250 DO Work Phone: 09-07-2021 10:41-0400 Body weight 82.56 kg Kenya Phillips Lorgavinnickolas Work Phone: [facility] 250 DO Work Phone: 09-07-2021 10:41-0400 Diastolic blood pressure 68 mm[Hg] Kenya Phillips Aichholz Work Phone: [facility] 250 DO Work Phone: 09-07-2021 10:41-0400 Heart rate 72 /min Kenya Jacqueline Aichholz Work Phone: [facility] 250 DO Work Phone: 09-07-2021 10:41-0400 Systolic blood pressure 110 mm[Hg] Kenya Jacqueline Aichholz Work Phone: [facility] 250 DO Work Phone: Encounters Encounter Date Encounter Type Care Provider Facility Start: 11-15-2023 End: 11-15-2023 ambulatory CALOS KUHN Not Available Start: 11-13-2023 End: 11-13-2023 ambulatory OSVALDO PAEZ Not Available Start: 11-08-2023 End: 11-08-2023 ambulatory KENYA GUARDADO Not Available Start: 10-19-2023 End: 10-19-2023 ambulatory [facility] Start: 09-27-2023 End: 09-27-2023 ambulatory [facility] Ambulatory Start: 09-16-[address] Reyes [facility] Facility: Start: 09-16-2022 Office outpatient vi sit 15 minutes Kenya Jacqueline Aichholz Work Phone: [facility] 250 DO Work Phone: Start: 09-16-2022 Patient encounter procedure Kenya Jacqueline Aichholz Work Phone: [facility] 250 DO Work Phone: Start: 07-15-2022 Office outpatient vi sit 25 minutes Kenya Jacqueline Aichholz Work Phone: [facility] 250 DO Work Phone: Start: 07-15-2022 ambulatory Mrs. Kenya Guardado Facility:[id number] Start: 07-11-2022 End: 07-12-2022 ambulatory ALPESH GUARDAOD Facility:H1 Start: 07-08-2022 ambulatory ALPESH GUARDADO Facil ity:H1 Start: 06-30-2022 End: 07-01-2022 ambulatory ALPESH GUARDADO Facility:H1 Start: 06-03-2022 End: 06-04-[address] RICARDO NGUYEN Facility:H1 Start: 05-19-2022 End: 05-20-2022 ambulatory Madan Barroso Facility:H1 Start: 03-30-2022 Rx Renewal Kenya Alfonsoho lz Work Phone: [facility] 250 DO Work Phone: Start: 02-08-2022 Rx Renewal Kenya Alfonsoho lz Work Phone: [facility] 250 DO Work Phone: Start: 09-27-2021 Encounter for preprocedural laboratory examination DR TERESA BAI [facility] Start: 09-21-2021 End: 09-22-2021 Encounter for preprocedural laboratory examination ALPESH GUARDADO Facility:[facility]1 Start: 09-21-2021 End: 09-22-2021 ambulatory ALPESH GUARDADO Facility:H1 Start: 09-07-2021 Office outpatient vi sit 25 minutes Kenya Guardado Work Phone: [facility] 250 DO Work Phone: Start: 08-03-2021 End: 08-04-[address] RICARDO NGUYEN Facility:H1 Start: 07-26-2021 End: 07-27-[address] DOCTOR GARCIA Facility:H1 Start: 07-25-2021 End: 07-25-[address] JOANN COOLEY Facility:H1 Start: 04-12-2021 Rx Renewal Nasim mckinley DO Work Phone: [facility] 250 DO Work Phone: Start: 02-15-2021 Rx Renewal Nasim mckinley DO Work Phone: [facility] DO Work Phone: Start: 05-10-2017 [...] Nasim Kern, Status: Pen, Time: 9:[address] [facility] DO Work Phone: Start: 09-07-2022 FUV, Provider: Nasim Kern, Status: Pen, Time: 9:40 AM FUV, Provider: Nasim Kern, Status: Pen, Time: 9:[address] [facility] DO Work Phone: Start: 09-07-2021 FUV, Provider: Nasim Kern, Status: Pen, Time: 10:15 AM FUV, Provider: Nasim Kern, Status: Pen, Time: 10:15 AM [facility] 250 DO Work Phone: Immunizations Immunization Date Immunization Notes Care Provider Cortez yeboah 12-04-2020 influenza, seasonal, injectable Kenya HorowitzVenX Medicalnickolas Work Phone: [facility] 250 DO Work Phone: Comment on above: Series: 01-04-2020 influenza, injectabl e, quadrivalent, preservative free Kenya Phillips RegulatoryBinderjose francisco Work Phone: [place] [address] DO Work Phone: 12-05-2019 influenza virus vacc ine, unspecified formulation Kenya Phillips RegulatoryBinderz Work Phone: [place] [address] DO Work Phone: 12-04-2018 influenza virus vacc ine, unspecified formulation Kenya Phillips RegulatoryBinderjose francisco Work Phone: [place] [address] DO Work Phone: 04-02-2017 influenza virus vacc ine, unspecified formulation Kenya HorowitzStartersFundjose francisco Work Phone: [place] [address] DO Work Phone: 03-06-2017 pneumococcal polysaccharide vaccine, 23 valent Kenya Phillips RegulatoryBinderjose francisco Work Phone: [place] [address] DO Work Phone: 12-05-2015 influenza virus vacc ine, unspecified formulation [facility] Work Phone: [place] [address] DO Work Phone: Payers Date Payer Category Payer Unknown [id number] 2.16.84 [id number] 1962 Unknown [id number] 2.16.84 [id number] 1962 Unknown [id number] 2.16.84 0.1.769470.3.579.2.593 1962 Unknown [id number] 2.16.84 0.1.287020.3.579.2.593 1962 Unknown [id number] 2.16.84 0.1.968380.3.579.2.593 1962 Unknown [id number] 2.16.84 0.1.731039.3.579.2.593 1962 Unknown [id number] 2.16.84 0.1.936395.3.579.2.593 1962 Unknown [id number] 2.16.84 0.1.346668.3.579.2.593 1962 Unknown [id number] 2.16.84 0.1.353788.3.579.2.593 1962 Unknown [id number] 2.16.84 0.1.129173.3.579.2.593 1962 Unknown [id number] 2.16. 840.1.473904.3.579.2.356 1962 Unknown [id number] 2.16. 840.1.324469.3.579.2.356 1962 Unknown [id number] 2.16.8 40.1.264920.3.579.2.1246 1962 Unknown [id number] 2.16.8 40.1.616582.3.579.2.1244 1962 Unknown [id number] 2.16.84 0.1.514986.3.579.2.1259 1962 Unknown [id number] 2.16.84 0.1.963952.3.579.2.1259 1962 Unknown [id number] 2.16.84 0.1.294334.3.579.2.1259 1962 Unknown [id number] 2.16.84 0.1.852366.3.579.2.1259 1959 Unknown [id number] 1959 Unknown [id number] Unknown [id number] Unknown ANTH Social History Date Type Detail Facility No alcohol use No alcohol use [facility] 250 DO Work Phone: Comment [...] reports reduction in her pain symptoms. [facility] Consultation note 06-30-2022 Note Date & [...] our patients to inform us about any [id number]-[id number] medications or herbal remedies/nutritional supplements/alternative remedies. 2. [...] options with their primary care provider. [facility] Clinical Note 05-19-2022 Note Date & [...] by: MADANALEKSANDER BARROSO Date: 2022-05-19 09:43 [facility] History of Present illness Narrative Note [...] symptoms do not limit her activities.Disease Monitoring: [facility] 250 DO Work Phone: Summary Purpose Family [...] or recurrent coronary events. 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 Intermediate clinical markers * -History of ischemic heart disease (prior WV, current chest pain secondary to ischemia, use [...] a history of SCAD status post anterior WV in 2017, with extensive revascularization of the [...] section and content) DATE CREATED AUTHOR 08/25/2017 [facility] DATE CREATED AUTHOR AUTHOR'S ORGANIZ ATION 07/15/2022 [facility] DATE CREATED AUTHOR AUTHOR'S ORGANIZ ATION 09/17/2022 [facility] DATE CREATED AUTHOR AUTHOR'S ORGANIZ ATION 09/17/2022 [facility] DATE CREATED AUTHOR AUTHOR'S ORGANIZ ATION 10/24/2023 [facility] DATE CREATED AUTHOR AUTHOR'S ORGANIZ ATION 10/24/2023 [facility] DATE CREATED AUTHOR AUTHOR'S ORGANIZ ATION 11/20/2023 [facility] Specialists [facility] FOR RECORDS PERTAINING TO PATIENTS WHO [...] BE BASED ON THE PRIMARY CLINICAL RECORDS. [employer] provides no warranty or guarantee of the accuracy or completeness of information in this document.
[2023-12-05] MEDS: LACTATED RINGER'S SOLUTION 1,000 ML 50 ML IV (11:12)
[2023-12-05 12:12] VITALS: BP 121/55; PULSE 82; O2SAT 96
--- NOTE | 2023-12-05 12:15 | W.PM.PROCNOT ---
Date of procedure: 12/05/23 Pre-op diagnosis: screening colonoscopy Post-op diagnosis: same as pre-op Procedure: Previous colonoscopy: never procedure: screening colonoscopy The patient was given IV conscious sedation.? The patient's SPO2 remained above 90% throughout the procedure. The colonoscope was inserted per rectum and advanced under direct vision to the cecum without difficulty.? The prep was good.? Findings: Terminal ileum os: normal Cecum/Ascending colon: normal Transverse colon: normal Descending/Sigmoid colon: normal Rectum/Anus: examined in normal and retroflexed positions and was normal Withdrawal Time was (minutes): 8* The colon was decompressed and the scope was removed.? The patient tolerated the procedure well. Recommendations/Plan: 1.? Lifestyle and dietary modifications as discussed 2.? F/U in 10 years for repeat c-scope 3.? Discussed with the family Anesthesia: MAC Surgeon: Romie Nichole Estimated blood loss (mL): 0 Pathology: none sent Condition: stable Disposition: PACU
[2023-12-05 12:27] VITALS: BP 121/55; PULSE 76; O2SAT 98
[2023-12-05 12:42] VITALS: BP 124/87; PULSE 81
== END 2023-12-05 12:42 | disposition home or self-care (01) ==
PROVIDERS: PCP Nurse Practitioner; Visit Provider Surgery
PROC: (CPT 00812; principal; 2023-12-05 11:50)
DX: Z12.11 Encounter for screening for malignant neoplasm of colon (principal); Z80.0 Family history of malignant neoplasm of digestive organs; I25.10 Atherosclerotic heart disease of native coronary artery without angina pectoris; E78.5 Hyperlipidemia, unspecified; Z95.5 Presence of coronary angioplasty implant and graft; I50.9 Heart failure, unspecified; I11.0 Hypertensive heart disease with heart failure
CPT/HCPCS: 00812; 45378; J2704

== ENCOUNTER 2024-01-08 14:47 | Outpatient (REF) | payer BC, SELFPAY ==
[2024-01-08 15:10] LABS: Internal Control Within Normal Limits; SARS-CoV-2 Ag NEGATIVE (NEGATIVE)
== END 2024-01-08 14:48 | disposition home or self-care (01) ==
LOC: LAB 14:47
PROVIDERS: PCP Nurse Practitioner; Visit Provider Nurse Practitioner
DX: J06.9 Acute upper respiratory infection, unspecified (principal)
CPT/HCPCS: 87811

== ENCOUNTER 2024-06-29 18:59 | Emergency (ER) | payer BC, SELFPAY ==
[2024-06-29 19:03] VITALS: BP 180/100; PULSE 88; TEMP 36.8; O2SAT 96; BMI 31.6
--- NOTE | 2024-06-29 19:12 | PC.NURSE ---
left hip pain, no obvious displacement observed
[2024-06-29] MEDS: KETOROLAC TROMETHAMINE 10 MG TABLET PO (19:34)
--- NOTE | 2024-06-29 19:54 | ED_ITS ---
HPI - Extremity Problem General Chief complaint: Extremity Problem, Nontraumatic Stated complaint: LEFT HIP PAIN Time Seen by Provider: 06/29/24 19:16 Source: patient Mode of arrival: walk-in History of Present Illness HPI Narrative: cc - left hip pain Pt with chronic left hip pain and prior left THR presents with steadily worsening pain in the lateral aspect of the left hip. She denies any injury. She is on her feet for 12 hours per shift at work. She also has long history of low back pain and has noticed some increase in pain in the lateral aspect of the left lower back, when I asked her about it. She is not complaining of it being a focal issue now-her biggest concern is the lateral left hip pain. Related Data Home Medications ?Medication ?Instructions ?Recorded ?Confirmed aspirin 81 mg capsule 81 mg PO DAILY 02/11/23 06/29/24 atorvastatin 80 mg tablet 80 mg PO DAILY 02/11/23 06/29/24 lisinopril 10 mg tablet 10 mg PO DAILY 02/11/23 06/29/24 metoprolol succinate 25 mg 25 mg PO DAILY 02/11/23 06/29/24 tablet,extended release 24 hr nitroglycerin 0.4 mg sublingual 0.4 mg sublingual Q5M 11/27/23 06/29/24 tablet Previous Rx's ?Medication ?Instructions ?Recorded methylprednisolone 4 mg tablets in 4 mg PO DAILY #21 ea 06/29/24 a dose pack (Medrol (Kamran)) Allergies Allergy/AdvReac Type Severity Reaction Status Date / Time isosorbide AdvReac Severe Headache Verified 11/27/23 10:18 oxycodone AdvReac Severe Dizziness Verified 11/27/23 10:19 tetanus and diphtheria AdvReac Intermediate Dizziness Verified 11/27/23 10:18 toxoids [facility] Medical History (Updated 06/29/24 @ 20:00 by Stephan Wooten) Foot fracture ?S92.909A - Unspecified fracture of unspecified foot, initial encounter for closed fracture (ICD-10) PONV (postoperative nausea and vomiting) ?R11.2 - Nausea with vomiting, unspecified (ICD-10) ?Z98.890 - Other specified postprocedural states (ICD-10) Myocardial infarction ?I21.9 - Acute myocardial infarction, unspecified (ICD-10) HTN (hypertension) ?I10 - Essential (primary) hypertension (ICD-10) Heart disease ?I51.9 - Heart disease, unspecified (ICD-10) CHF (congestive heart failure) ?I50.9 - Heart failure, unspecified (ICD-10) Surgical History (Updated 12/05/23 @ 11:03 by Aimee Negro, RN) Hx of total hip arthroplasty ?Z96.649 - Presence of unspecified artificial hip joint (ICD-10) H/O coronary angioplasty ?Z98.61 - Coronary angioplasty status (ICD-10) H/O section ?Z98.891 - History of uterine scar from previous surgery (ICD-10) Family History (Updated 12/05/23 @ 11:03 by Aimee Negro, RN) Other Family history of diabetes mellitus Family history of hypertension Family history of stroke Glaucoma Heart disease Social History (Updated 12/05/23 @ 11:02 by Aimee Negro, RN) Within the past year, how often did you have a drink containing alcohol: never Score interpretation: A score less than 3 is consistent with normal alcohol consumption. Smoking status: Never smoker Second hand tobacco smoke exposure: Yes Non-prescribed substance use: denies use Previous occupational history: [employer] Highest level of school completed/degree received: high school graduate Little interest or pleasure in doing things: not at all Feeling down, depressed, or hopeless: not at all Exam Narrative Exam Narrative: Vital signs reviewed and nurse's notes. The patient is not hypoxic. General: Alert, no acute distress, patient resting comfortably Skin: warm, intact, no pallor noted Head: Normocephalic, atraumatic Eye: Normal conjunctiva Respiratory: No acute distress Musculoskeletal: No evidence of deformity to the L hip. There is no swelling. There is no ecchymosis. No erythema or warmth noted. DP and PT pulses are intact 2+. Normal sensation, normal capillary refill less than 2 seconds. There is no cyanosis or mottling noted. The patient has tenderness to the lateral aspect of the left hip along what would be the greater trochanter. The patient has no tenderness to palpation or pain with movement of the left femur and left knee, respectively. The patient was able to flex and extend as well as internally and externally rotate the left hip although with pain. Patient was able to extend leg off the cart without difficulty. The patient has no pelvic instability. The patient has no shortening or rotation noted to the bilateral lower extremities. Passive internal rotation worsens the pain while passive external rotation decreases it. Examination of the lumbar spine shows some tenderness around the L1-L2 area as well as some left paraspinal soft tissue tenderness in that same region/dermatome. Neurological: alert and orient x4, normal sensory and motor observed without sensory deficit in the left lower extremity including at and distal to the left hip. Psychiatric: Cooperative Constitutional Vital Signs, click to edit/add: Last Vital Signs Temp 98.2 F 06/29/24 19:03 Pulse 88 06/29/24 19:03 Resp 18 06/29/24 19:03 BP 180/100 H 06/29/24 19:03 Pulse Ox 96 06/29/24 19:03 O2 Del Method Room Air 06/29/24 19:03 Course Vital Signs Vital signs: Vital Signs Temperature 98.2 F 06/29/24 19:03 Pulse Rate 88 06/29/24 19:03 Respiratory Rate 18 06/29/24 19:03 Blood Pressure 180/100 H 06/29/24 19:03 Pulse Oximetry 96 06/29/24 19:03 Oxygen Delivery Method Room Air 06/29/24 19:03 Temperature 98.2 F 06/29/24 19:03 Pulse Rate 88 06/29/24 19:03 Respiratory Rate 18 06/29/24 19:03 Blood Pressure 180/100 H 06/29/24 19:03 Pulse Oximetry 96 06/29/24 19:03 Oxygen Delivery Method Room Air 06/29/24 19:03 MDM - Extremity (Nontraumatic) MDM Narrative Medical decision making narrative: The patient was given oral Toradol for pain and x-rays of the left hip and pelvis were obtained. Hardware is intact without dislocation. I do not see any acetabular changes to suggest subtle fracture and I do not see any proximal femoral changes either. Patient was informed of results and given reassurance. She does have some associated radiation of pain stemming from the lumbar spine at the region that correlates with the same portion of the hip which is causing her pain. She also likely has some hip strain associated with arthritic changes that are chronic as well as increased prolonged use secondary to her activity. She was given a dose of steroid in the ED and then discharged home with a Medrol Dosepak prescription. She will continue to take Tylenol as needed for pain. I cautioned her about concurrent NSAID use while taking the Medrol. She will need to follow-up with her orthopedist or her primary care physician for further evaluation and treatment Discharge Plan Discharge Chief Complaint: Extremity Problem, Nontraumatic Clinical Impression: Acute pain of left hip, Acute left lumbar radiculopathy Patient Disposition: Home, Self-Care Time of Disposition Decision: 20:00 Prescriptions / Home Meds: New methylprednisolone [Medrol (Kamrna)] 4 mg tablets,dose pack 4 mg PO DAILY Qty: 21 0RF No Action atorvastatin 80 mg tablet 80 mg PO DAILY lisinopril 10 mg tablet 10 mg PO DAILY metoprolol succinate 25 mg tablet extended release 24 hr 25 mg PO DAILY aspirin 81 mg capsule 81 mg PO DAILY nitroglycerin 0.4 mg tablet, sublingual 0.4 mg sublingual Q5M Rx Instructions: do not exceed 3 doses per episode Print Language: Macedonian Instructions: Lumbar Radiculopathy (ED), Hip Pain (ED) Referrals: Kenya Guardado INSTRUCTIONAL SYSTEMS DESIGNER [Primary Care Provider] - 1 week
[2024-06-29] MEDS: PREDNISONE 20 MG TABLET 60 MG PO (20:07)
[2024-06-29 20:12] VITALS: BP 142/88
== END 2024-06-29 20:14 | disposition home or self-care (01) ==
PROVIDERS: Emergency Provider Emergency Medicine; PCP Nurse Practitioner
DX: M25.552 Pain in left hip (principal); M54.16 Radiculopathy, lumbar region
CPT/HCPCS: 73502; 99283; J7512

== ENCOUNTER 2024-07-31 12:23 | Outpatient (OUT) | payer BC, SELFPAY ==
--- OUTSIDE RECORDS SUMMARY | 2024-07-24 09:15 | XMS_ITS | Encounter Summary ---
Author Organization [facility] Address [address] [facility] [place] [address] Care Team Providers Care Shim Plug Cutter Name Role Phone Orlando Beatty MD Primary Care Provider [phone] Kenya Guardado NURSE SEXUAL ASSAULT Unavailable [phone] Reason for Referral * Imaging (Routine) - Authorized Specialty Diagnoses / Procedures Referred By Contac t Referred To Contact Radiology Diagnoses Acute left lumbar radiculopathy Procedures MR lumbar spine wo contrast Morris Puri PA [address] [place] [address] Phone: tel: fax: [facility] [address] [place] [address] Phone: tel: fax: Referral ID Status Reason Start Date Expiration Date V isits Requested Visits Authorized [id number] Authorized 07/24/2024 01/20/2025 1 1 Reason for Visit * Reason Comments Follow-up Encounter Details Date Type Department Care Team ([facility] Contact Info) Description 07/24/2024 9:15 AM EDT [facility] Visit [facility] [address] [address] Morris Puri PA [address] [place] [id number] Acute hip pain, left (Primary Dx); Acute left lumbar radiculopathy; History of total hip replacement, left Social History Tobacco Use Types Packs/Day Years Used Date Smoking Tobacco: Never Smokeless Tobacco: Never Alcohol Use Standard Drinks/Week Comments Never 0 (1 standard drink = 0.6 oz pure alcohol) caffine: soda 2 20oz bottles daily Humiliation, Afraid, Rape, and Kick questionnair e Answer Date Recorded Within the last year, have y ou been afraid of your partner or ex-partner? Patient declined 02/06/2023 Within the last year, have y ou been humiliated or emotionally abused in other ways by your partner or ex-partner? Patient declined 02/06/2023 Within the last year, have y ou been kicked, hit, slapped, or otherwise physically hurt by your partner or ex-partner? Patient declined 02/06/2023 Within the last year, have y ou been raped or forced to have any kind of sexual activity by your partner or ex-partner? Patient declined 02/06/2023 Social Connection and Isolation Panel [NHANES] A nswer Date Recorded In a typical week, how many times do you talk on the phone with family, friends, or neighbors? Three times a week 02/06/2023 How often do you get togethe r with friends or relatives? Twice a week 02/06/2023 How often do you attend chur or judaism services? Never 02/06/2023 Do you belong to any clubs o r organizations such as samaritan groups, unions, fraternal or athletic groups, or school groups? No 02/06/2023 How often do you attend meet ings of the clubs or organizations you belong to? Never 02/06/2023 Are you , , di vorced, , never , or living with a partner? 02/06/2023 AUDIT-C Answer Date Recorded Q1: How often do you have a drink containing alcohol? Never 02/06/2023 Q2: How many drinks containi ng alcohol do you have on a typical day when you are drinking? Patient does not drink Q3: How often do you have si x or more drinks on one occasion? Never 02/06/2023 Overall Financial Resource Strain (CARDIA) Answe r Date Recorded How hard is it for you to pa y for the very basics like food, housing, medical care, and heating? Not very hard 02/06/2023 [facility] [place] of Occupat ional Health - Occupational Stress Questionnaire Answer Date Recorded Do you feel stress - tense, restless, nervous, or anxious, or unable to sleep at night because your mind is troubled all the time - these days? Not at all 02/06/2023 Exercise Vital Sign Answer Date Recorde d On average, how many days pe r week do you engage in moderate to strenuous exercise (like a brisk walk)? 3 days On average, how many minutes do you engage in exercise at this level? Patient declined 02/06/2023 Hunger Vital Sign Answer Date Recorded Within the past 12 months, y ou worried that your food would run out before you got the money to buy more. Sometimes true Within the past 12 months, t he food you bought just didn't last and you didn't have money to get more. Never true 06/2022 PRAPARE - Transportation Answer Date Re corded In the past 12 months, has l ack of transportation kept you from medical appointments or from getting medications? No 06/2022 In the past 12 months, has l ack of transportation kept you from meetings, work, or from getting things needed for daily living? No 02/06/2023 Housing Stability Vital Sign Answer Colin [...] place to sleep or slept in a snf (including now)? Patient refused 02/06/2023 Comments Unknown Sex and Gender Information Value Date Recorded Sex Assigned at Not on file Legal Sex Female 8:15 PM EDT Gender Identity Not on file Sexual Orientation Not on file documented as of this encounter Progress Notes * BEATRIZ Cabrera - 07/24/2024 9:15 AM EDT Images from [...] requiring urgent evaluation. Visit was preformed using [employer]-pest control pilot speech recognition. documented in this encounter Plan of Treatment Upcoming Encounters Date Type Department Care Team (Late st Contact Info) Description 08/07/2024 11:00 AM EDT [facility] [address] [place] [address] Morris Puri PA [address] [facility] [address] [place] [address] 08/15/2024 11:30 AM EDT Office Visit [facility] [address] [place] [address] Kenya Guardado, TIFFANI [address] [place] [address] 11/11/2024 11:00 AM EDT Office Visit [facility] [address] [place] [address] Kenya Guardado, TIFFANI [address] [place] [address] 11/14/2025 9:00 AM EDT Office Visit [facility] [address] [place] [address] Morris Puri PA [address] [place] [address] [place] [address] Scheduled Orders Name Type Priority Associated Diagnoses Orde r Schedule MR lumbar spine wo contrast Imaging Routine Acute left lumbar radiculopathy Expected: 07/24/2024 (Approximate), Expires: 07/24/2025 documented as of this encounter Procedures Procedure [...] left documented in this encounter Care Teams Shim Plug Cutter Relationship Specialty Start Date End Date Orlando Beatty MD [address] [place] [address] PCP - General Family Medicine 11/08/23 Kenya Guardado NP [address] [place] [address] Nurse Practitioner Family Medicine 11/08/23 documented as of this encounter
--- OUTSIDE RECORDS SUMMARY | 2024-07-24 09:50 | XMS_ITS | Encounter Summary ---
Author Organization [facility] Address [address] [place] [address] Care Team Providers Care Respiratory Care Instructor Name Role Phone Orlando Beatty MD Primary Care Provider [phone] Kenya Guardado GLASS MOULD CLEANER Unavailable [phone] Encounter Details Date Type Department Care Team ([facility] Contact Info) Description 07/24/2024 9:50 AM EDT Ancillary Procedure [facility] [address] [place] [address] Social History Tobacco Use Types Packs/Day Years [...] 02/06/2023 How often do you attend chur ch or caodaism services? Never 02/06/2023 Do you belong to any clubs o r organizations such as baptist groups, unions, fraternal or athletic groups, or [...] care, and heating? Not very hard 02/06/2023 [facility] of Occupat ional Health - Occupational Stress [...] place to sleep or slept in a detention (including now)? Patient refused 02/06/2023 Comments Unknown Sex and Gender Information Value Date Recorded Sex Assigned at Not on file Legal Sex Female 8:15 PM EDT Gender Identity Not on file Sexual Orientation Not on file documented as of this encounter Plan of Treatment Upcoming Encounters Date Type Department Care Team (Late st Contact Info) Description 08/07/2024 11:00 AM EDT [facility] [address] [place] [address] Morris Puri PA [address] [place] [address] [place] [address] 08/15/2024 11:30 AM EDT [facility] Visit [facility] [address] [place] [place] [address] Kenya Guardado NP [address] [place] [address] 11/11/2024 11:00 AM EDT Office Visit [facility] [address] [place] [address] Kenya Guardado NP [address] [place] [address] 11/14/2025 9:00 AM EDT [facility] Visit [facility] [address] [facility] [address] Morris Puri, BEATRIZ [address] [facility] [address] [place] [address] documented as of this encounter Procedures Procedure [...] t documented in this encounter Visit Diagnoses Not on filedocumented in this encounter Care Teams Respiratory Care Instructor Relationship Specialty Start Date End Date Orlando Beatty MD [address] [place] [address] PCP - General Family Medicine 11/08/23 Kenya Guardado NP [address] [place] [address] Nurse Practitioner Family Medicine 11/08/23 documented as of this encounter
--- OUTSIDE RECORDS SUMMARY | 2024-07-31 11:30 | XMS_ITS | Encounter Summary ---
Author Organization [facility] Address [address] [place] [address] Care Team Providers Care Senior Administrative Assistant Name Role Phone Orlando Beatty MD Primary Care Provider [phone] Kenya Guardado COMPRESSED GAS TESTER Unavailable [phone] Reason for Visit * Reason Comments Fatigue Encounter Details Date Type Department Care Team ([facility] Contact Info) Description 07/31/2024 11:30 AM EDT Office Visit [facility] [address] [place] [address] Kenya Guardado, COMPRESSED GAS TESTER [address] [place] [address] Essential hypertension (CMS/HCC) (Primary Dx); Atherosclerosis of tatitlek coronary artery of tatitlek heart without angina pectoris (CMS/HCC); Mixed hyperlipidemia (CMS/HCC); Dizziness and giddiness; Arthralgia, unspecified joint; Other fatigue; Polyuria Social History Tobacco Use Types Packs/Day Years [...] week 07/31/2024 How often do you attend catholic or congregation serv ices? Never 07/31/2024 Do you belong to any clubs o r organizations such as catholic groups, unions, fraternal or athletic groups, or [...] care, and heating? Not very hard 07/31/2024 [facility] of Occupat ional Health - Occupational Stress [...] place to sleep or slept in a senior living (including now)? Patient refused 02/06/2023 Housing Stability Vital Sign Answer Colin e Recorded In the last 12 months, was t here a time when you were not able to pay the mortgage or rent on time? No 07/31/2024 Number of Times Moved in the Last Year Not on fi le 07/31/2024 At any time in the past 12 m [facility], were you homeless or living in a senior living (including now)? No 07/31/2024 Comments Unknown Sex and Gender Information Value Date Recorded Sex Assigned at Not on file Legal Sex Female 8:15 PM EDT Gender Identity Not on file Sexual Orientation Not on file documented as of this encounter Last Filed Vital Signs Vital Sign Reading Time Taken Comments Blood Pressure 122/80 07/31/2024 11:27 AM EDT Pulse 86 07/31/2024 11:27 AM EDT Temperature 36.9 C (98.5 F) 07/31/2024 11:27 AM EDT Respiratory Rate 19 07/31/2024 11:27 AM EDT Oxygen Saturation 98% 07/31/2024 11:27 AM EDT Inhaled Oxygen Concentration - - Weight 86.6 kg (191 lb) 07/31/2024 11:27 AM EDT Height - - Body Mass Index 30.83 01/08/2024 1:39 PM EST documented in this encounter Functional Status * Audit-C Score Answer Date of Assessment Author 0 07/31/2024 7:58 AM EDT Mychart, Generic * Q1: How often do you have a drink containing alcohol? Answer Date of Assessment Author Never 07/31/2024 7:58 AM EDT Mychart, Generic * Q2: How many drinks containing [...] as of this encounter Progress Notes * Kenya Guardado NP - 07/31/2024 6:49 AM EDTAssociated Problem(s): Hyperlipidemia (CMS/HCC) On statin therapy Check labs yearly and prn dose changes * Kenya Guardado NP - 07/31/2024 6:48 AM EDTAssociated Problem(s): Essential hypertension (CMS/HCC) Please check blood pressure daily and record DASH diet Limit caffeine Take medication as directed Contact office if chest pain, pressure, dizziness, shortness of breath, swelling legs Recommend slow position changes Meds: b diego, and raghav * Kenya Guardado NP - 07/31/2024 6:48 AM EDTAssociated Problem(s): Atherosclerosis of coronary artery of tatitlek heart without angina pectoris (C MS/HCC) Current meds: asa, statin, raghav, b diego documented in this encounter Plan of Treatment Upcoming Encounters Date Type Department Care Team (Late st Contact Info) Description 08/07/2024 11:00 AM EDT [facility] Visit [facility] [address] [address] Morris Puri PA 112 [facility] [address] [place] [address] 08/15/2024 11:30 AM EDT Office Visit [facility] [address] [place] [address] Kenya Guardado NP [address] [place] [address] 11/11/2024 11:00 AM EDT Office Visit [facility] [address] [place] [address] Kenya Guardado, TIFFANI [address] [place] [address] 11/14/2025 9:00 AM EDT Office Visit [facility] [address] [facility] [place] [address] Morris Puri PA 112 [facility] [address] [place] [address] documented as of this encounter Visit Diagnoses Diagnosis Essential hypertension (CMS/HCC)- Primary Unspecified essential hypertension Atherosclerosis of tatitlek coronary artery of tatitlek heart without angina pectoris (CMS/HCC) Mixed hyperlipidemia (CMS/HCC) Mixed hyperlipidemia Dizziness and giddiness Arthralgia, unspecified joint Other fatigue Polyuria documented in this encounter Care Teams Senior Administrative Assistant Relationship Specialty Start Date End Date Orlando Beatty MD [address] [place] [address] PCP - General Family Medicine 11/08/23 Kenya Guardado NP [address] [place] [address] Nurse Practitioner Family Medicine 11/08/23 documented as of this encounter
--- OUTSIDE RECORDS SUMMARY | 2024-07-31 12:26 | XMS_ITS | Encounter Summary ---
Author Organization [facility] Address [address] [place] [address] Care Team Providers Care Photographer Aerial Name Role Phone Orlando Beatty MD Primary Care Provider [phone] Kenya Guardado NP Unavailable [phone] Encounter Details Date Type Department Care Team (Latest Contact Info) Description 07/24/2024 Travel Social History Tobacco Use Types Packs/Day Years [...] often do you attend chur ch or zoroastrian services? Never 02/06/2023 Do you belong to any clubs o r organizations such as jehovah's witness groups, unions, fraternal or athletic groups, or [...] care, and heating? Not very hard 02/06/2023 [facility] of Occupat ional Health - Occupational Stress [...] place to sleep or slept in a custodial (including now)? Patient refused 02/06/2023 Comments Unknown [...] AM EDT Office Visit [facility] [address] [place] [address] Morris Puri PA [address] [facility] [place] [address] 08/15/2024 11:30 AM EDT Office Visit [facility] [address] [place] [address] Kenya Guardado NP [address] [place] [address] 11/11/2024 11:00 AM EDT Office Visit [facility] [address] [place] [address] Kenya Guardado NP [address] [place] [address] 11/14/2025 9:00 AM EDT Office Visit [facility] [place] [address] Morris Puri PA [address] [place] [address] [place] [address] documented as of this encounter Visit Diagnoses Not on filedocumented in this encounter Care Teams Photographer Aerial Relationship Specialty Start Date End Date Orlando Beatty MD [address] [place] [address] PCP - General Family Medicine 11/08/23 Kenya Guardado NP [address] [place] [address] Nurse Practitioner Family Medicine 11/08/23 documented as of this encounter
--- OUTSIDE RECORDS SUMMARY | 2024-07-31 12:26 | XMS_ITS | Encounter Summary ---
Author Organization [facility] Address [address] [place] [address] Phone Care Team Providers Care Aquaculturist Name Role Phone Kenya Guardado CONSTRUCTION PERSON-CERTIFIED ENDOSCOPY TECHNICIAN Primary Care Provider Encounter Details Date Type Department Care Team (Late st Contact Info) Description 08/31/2023 Scanned Document [facility] [address] [place] [address] Scanning, Generic Provider Social History Tobacco Use Types Packs/Day Years Used Date Smoking Tobacco: Never Alcohol Use Standard Drinks/Week Comments Never 0 (1 standard drink = 0.6 oz pur e alcohol) Comments Unknown Sex and Gender Information Value Date Recorded Sex Assigned at Not on file Legal Sex Female 9:53 PM EST Gender Identity Not on file Sexual Orientation Not on file documented as of this encounter Plan of Treatment Upcoming Encounters Date Type Department Care Team (Late st Contact Info) Description 09/26/2024 1:10 PM EDT Office Visit [facility] [address] [facility] [address] [place] [address] Eric Brewster, [address] [facility] 2, [address] [place], [place] [phone] documented as of this encounter Visit Diagnoses Not on filedocumented in this encounter Care Teams Aquaculturist Relationship Specialty Start Date End Date Kenya Guardado APRN-CERTIFIED ENDOSCOPY TECHNICIAN [address] [place] [address] PCP - General 03/06/99 documented as of this encounter
--- OUTSIDE RECORDS SUMMARY | 2024-07-31 12:26 | XMS_ITS | Encounter Summary ---
Author Organization [facility] Address [address] [place] [address] Phone Care Team Providers Care Flat Ironer Name Role Phone Kenya Guardado PARKING LOT LABORER-MANAGER TRANSFER Primary Care Provider Encounter Details Date Type Department Care Team (Late st Contact Info) Description 09/01/2023 Scanned Document [facility] [address] [place] [address] Scanning, Generic Provider Social History Tobacco Use [...] Description 09/26/2024 1:10 PM EDT Office Visit [facility] [address] [facility] [address] [place] [address] Eric Brewster, [address] [facility] 2, [address] [place], [place] [phone] documented as of this encounter Visit Diagnoses Not on filedocumented in this encounter Care Teams Flat Ironer Relationship Specialty Start Date End Date Kenya Guardado APRN-MANAGER TRANSFER [address] [place] [address] PCP - General 03/06/99 documented as of this encounter
--- OUTSIDE RECORDS SUMMARY | 2024-07-31 12:26 | XMS_ITS | Encounter Summary ---
Author Organization [facility] Address [address] [place] [address] Care Team Providers Care Language Arts Teacher Name Role Phone Orlando Beatty MD Primary Care Provider Kenya Guardado NP Unavailable [phone] Encounter Details Date Type Department Care Team (Latest Contact Info) Description 07/31/2024 Travel Social History Tobacco Use Types Packs/Day [...] week 07/31/2024 How often do you attend zoroastrian or yarsanism serv ices? Never 07/31/2024 Do you belong to any clubs o r organizations such as zoroastrian groups, unions, fraternal or athletic groups, or [...] care, and heating? Not very hard 07/31/2024 [facility] of Occupat ional Health - Occupational Stress [...] or rent on time? Patient refused 02/07/20 Number of Places Lived in the Last Year Not on f ile 02/06/2023 In the last 12 months, was t here a time when you did not have a steady place to sleep or slept in a mcfp (including now)? Patient refused 02/06/2023 Housing Stability Vital Sign Answer Colin e Recorded In the last 12 months, was t here a time when you were not able to pay the mortgage or rent on time? No 07/31/2024 Number of Times Moved in the Last Year Not on fi le 07/31/2024 At any time in the past 12 m [facility], were you homeless or living in a mcfp (including now)? No 07/31/2024 Comments Unknown Sex and Gender Information Value Date Recorded Sex Assigned at Not on file Legal Sex Female 8:15 PM EDT Gender Identity Not on file Sexual Orientation Not on file documented as of this encounter Functional Status * Audit-C Score Answer Date of Assessment Author 0 07/31/2024 7:58 AM EDT Mycjaniat, Generic * Q1: How often do you [...] Assessment Author Never 07/31/2024 7:58 AM EDT Mycjaniat, Generic documented as of this encounter Plan of Treatment Upcoming Encounters Date Type Department Care Team (Late st Contact Info) Description 08/07/2024 11:00 AM EDT [facility] Visit [facility] [address] [place] [address] Morris Puri PA 112 [facility] [address] [place] [address] 08/15/2024 11:30 AM EDT Office Visit [facility] [address] [place] [address] Kenya Guardado NP [address] [place] [address] 11/11/2024 11:00 AM EDT Office Visit [facility] [address] [place] [address] Kenya Guardado NP [address] [place] [address] 11/14/2025 9:00 AM EDT Office Visit [facility] [address] [place] [address] Morris Puri PA 112 [facility] [address] [place] [address] documented as of this encounter Visit Diagnoses Not on filedocumented in this encounter Care Teams Language Arts Teacher Relationship Specialty Start Date End Date Orlnado Beatty MD [address] [place] [address] PCP - General Family Medicine 11/08/23 Kenya Guardado NP [address] [place] [address] Nurse Practitioner Family Medicine 11/08/23 documented as of this encounter
--- OUTSIDE RECORDS SUMMARY | 2024-07-31 12:26 | XMS_ITS | Encounter Summary ---
Author Organization [facility] Address [address] [place] [address] Care Team Providers Care Fire Medic Name Role Phone Orlando Beatty MD Primary Care Provider [phone] Orlando Beatty MD Primary Care Provider [phone] Kenya Guardado NP Unavailable [phone] Encounter Details Date Type Department Care Team (Late Contact Info) Description 09/08/2022 Abstract [facility] [address] [place] [address] Alexis Bo, REFRIGERATOR TESTER [address] [place] [address] Social History Tobacco Use Types Packs/Day Years Used Date Smoking Tobacco: Never Smokeless Tobacco: Never Alcohol Use Standard Drinks/Week Comments Never 0 (1 standard drink = 0.6 oz pur e alcohol) Comments Unknown Sex and Gender Information Value Date Recorded Sex Assigned at Not on file Legal Sex Female 8:15 PM EDT Gender Identity Not on file Sexual Orientation Not on file COVID-19 Exposure Response Date Recorded In the last 10 days, have yo u been in contact with someone who was confirmed or suspected to have Coronavirus/COVID-19? No / Unsure 08/31/2022 8:48 AM EDT documented as of this encounter Plan of Treatment Upcoming Encounters Date Type Department Care Team ([facility] Contact Info) Description 08/07/2024 11:00 AM EDT Office Visit [facility] [address] [place] [address] Morris Puri PA [address] [facility] [address] [place] [address] 08/15/2024 11:30 AM EDT Office Visit [facility] [address] [place] [address] Kenya Guardado, TIFFANI [address] [place] [address] 11/11/2024 11:00 AM EDT Office Visit [facility] [address] [place] [address] Kenya Guardado, TIFFANI [address] [place] [address] 11/14/2025 9:00 AM EDT Office Visit [facility] [address] [place] [address] Morris Puri PA [address] [facility] [address] [place] [address] documented as of this encounter Visit Diagnoses Not on filedocumented in this encounter Care Teams Fire Medic Relationship Specialty Start Date End Date Orlando Beatty MD PCP - General Cardiology 07/14/22 11/07/23 Orlando Beatty MD [address] [place] [address] PCP - General Family Medicine 11/08/23 Kenya Guardado NP [address] [place] [address] Nurse Practitioner Family Medicine 11/08/23 documented as of this encounter
--- OUTSIDE RECORDS SUMMARY | 2024-07-31 12:26 | XMS_ITS | Encounter Summary ---
Author Organization [facility] Address [address] [place] [address] Care Team Providers Care Vocational Ed Instructor Name Role Phone Orlando Beatty MD Primary Care Provider [phone] Kenya Guardado NP Unavailable [phone] Encounter Details Date Type Department Care Team (Latest Contact Info) Description 07/17/2024 Travel Social History Tobacco Use Types Packs/Day [...] often do you attend chur ch or holiness services? Never 02/06/2023 Do you belong to any clubs o r organizations such as temple groups, unions, fraternal or athletic groups, or [...] care, and heating? Not very hard 02/06/2023 [facility] of Occupat ional Health - Occupational [...] place to sleep or slept in a correction (including now)? Patient refused 02/06/2023 Comments Unknown [...] EDT Office Visit [facility] [address] [place] [address] Morris Puri PA [address] [facility] [place] [address] 08/15/2024 11:30 AM EDT Office Visit [facility] [address] [place] [address] Kenya Guardado NP [address] [place] [address] 11/11/2024 11:00 AM EDT Office Visit [facility] [address] [place] [address] Kenya Guardado NP [address] [place] [address] 11/14/2025 9:00 AM EDT Office Visit [facility] [place] [address] Morris Puri PA [address] [place] [address] [place] [address] documented as of this encounter Visit Diagnoses Not on filedocumented in this encounter Care Teams Vocational Ed Instructor Relationship Specialty Start Date End Date Orlando Beatty MD [address] [place] [place] [address] PCP - General Family Medicine 11/08/23 Kenya Guardado NP [address] [place] [address] Nurse Practitioner Family Medicine 11/08/23 documented as of this encounter
--- OUTSIDE RECORDS SUMMARY | 2024-07-31 12:26 | XMS_ITS | Encounter Summary ---
Author Organization [facility] Address [address] [place] [address] Care Team Providers Care Museum Archivist Name Role Phone Orlando Beatty MD Primary Care Provider Kenya Guardado NP Unavailable [phone] Reason for Visit * Reason Onset Date Comments MRI 07/25/2024 Encounter Details Date Type Department Care Team ([facility] Contact Info) Description 07/25/2024 Telephone [facility] [address] [facility] [address] [place] [address] Morris Puri PA 112 [facility] 150 [place] [address] MRI Social History Tobacco Use Types Packs/Day Years [...] often do you attend chur ch or evangelical services? Never 02/06/2023 Do you belong to any clubs o r organizations such as episcopal groups, unions, fraternal or athletic groups, or [...] care, and heating? Not very hard 02/06/2023 [facility] of Occupat ional Health - [...] place to sleep or slept in a longterm (including now)? Patient refused 02/06/2023 Comments Unknown Sex and Gender Information Value Date Recorded Sex Assigned at Not on file Legal Sex Female 8:15 PM EDT Gender Identity Not on file Sexual Orientation Not on file documented as of this encounter Miscellaneous Notes * Telephone Encounter - DANIAL Mclean - 07/25/2024 11:32 AM EDT Called and left VM for Nena, patient does want MRI at [facility]. I faxed over the notes * Telephone Encounter - Naomy Dhaliwal - 07/25/2024 9:57 AM EDT Nena called from [facility] scheduling. She wanted to make sure the MRI order is suppose to go to them and not [facility]. If so please send office notes. Please call her back to let her know. [phone] ext [phone] documented in this encounter Plan of Treatment Upcoming Encounters Date Type Department Care Team (Late st Contact Info) Description 08/07/2024 11:00 AM EDT Office Visit [facility] [address] [place] [address] Morris Puri PA [address] [place] [facility] [address] [place] [address] 08/15/2024 11:30 AM EDT Office Visit [facility] [address] [place] [address] Kenya Guardado NP [address] [place] [address] 11/11/2024 11:00 AM EDT Office Visit [facility] [address] [place] [address] Kenya Guardado NP [address] [place] [address] 11/14/2025 9:00 AM EDT Office Visit [facility] [address] [place] [address] Morris Puri PA [address] [place] [facility] [address] [place] [address] documented as of this encounter Visit Diagnoses Not on filedocumented in this encounter Care Teams Museum Archivist Relationship Specialty Start Date End Date Orlando Beatty MD [address] [place] [address] PCP - General Family Medicine 11/08/23 Kenya Guardado NP [address] [place] [address] Nurse Practitioner Family Medicine 11/08/23 documented as of this encounter
--- OUTSIDE RECORDS SUMMARY | 2024-07-31 12:26 | XMS_ITS | Encounter Summary ---
Author Organization [facility] Address [address] [facility] [place] [address] Care Team Providers Care Infirmary Attendant Name Role Phone Orlando Beatty MD Primary Care Provider [phone] Kenya Guardado CHUCKING MACHINE OPERATOR Unavailable [phone] Encounter Details Date Type Department Care Team (Late Contact Info) Description 07/24/2024 Bamboo flowsheet [facility] [address] [place] [address] Morris Puri, BEATRIZ [address] [phone] Social History Tobacco Use Types Packs/Day Years [...] How often do you attend chur or denominational services? Never 02/06/2023 Do you belong to any clubs o r organizations such as anabaptism groups, unions, fraternal or athletic groups, or [...] care, and heating? Not very hard 02/06/2023 [facility] of Occupat ional [facility] - Occupational Stress Questionnaire Answer Date Recorded [...] skilled nursing (including now)? Patient refused 02/06/2023 Comments Unknown [...] 11:00 AM EDT Office Visit [facility] [address] [place] [address] Morris Puri PA [address] [place] [address] 08/15/2024 11:30 AM EDT Office Visit [facility] [address] [place] [address] Kenya Guardado NP [address] [place] [address] 11/11/2024 11:00 AM EDT Office Visit [facility] [address] [place] [address] Kenya Guardado NP [address] [place] [address] 11/14/2025 9:00 AM EDT Office Visit [facility] [address] [place] [address] Morris Puri, PA [address] [facility] [place] [address] documented as of this encounter Visit Diagnoses Not on filedocumented in this encounter Care Teams Infirmary Attendant Relationship Specialty Start Date End Date Orlando Beatty MD [address] [place] [address] PCP - General Family Medicine 11/08/23 Kenya Guardado NP [address] [place] [address] Nurse Practitioner Family Medicine 11/08/23 documented as of this encounter
--- OUTSIDE RECORDS SUMMARY | 2024-07-31 12:26 | XMS_ITS | Clinical Summary ---
Author Organization [facility] Address [address] [place] [address] Phone Care Team Providers Care Administrative Clerk Name Role Phone LorKenya olson Jacqueline FAMILY MEDICINE CHAIR-PLIER WORKER Primary Care Provider Allergies Active Allergy Reactions Criticality Noted Date Comments Isosorbide Headache 03/27/2023 Oxycodone GI Upset,Nausea/vomiting 03/27/2023 Tetanus Toxoid Unknown 03/27/2023 Medications aspirin 81 mg EC tablet Take 1 tablet (81 mg) by mouth once daily. Active nitroglycerin (Nitrostat) 0.[address] 1 tablet (0.4 mg) under the tongue every 5 minutes if needed for chest pain. Active atorvastatin (Lipitor) 80 mg tabletIndications :Hyperlipidemia, unspecified Take 1 tablet (80 mg) by mouth once daily. 90 tablet 3 4 11/09/19 25 Active lisinopril 10 mg tabletIndications :Essential (primary) hypertension TAKE 1 TABLET BY MOUTH EVERY DAY 90 tablet 3 5 Active metoprolol succinate XL (Toprol-XL) 25 mg 24 hr tabletIndications :Atherosclerotic heart disease of [place] coronary artery without angina pectoris TAKE 1 TABLET BY MOUTH EVERY DAY 90 tablet 3 5 Active Active Problems Problem Noted Date Diagnosed Date History of OK (myocardial infarction) 09/27/2023 BMI 30.0-30.9,adult 09/27/2023 Never smoked tobacco 09/27/2023 Atherosclerosis of coronary artery of [place] heart without angina pectoris 03/27/2023 Essential hypertension 03/27/2023 History of mycobacterial infection 03/27/2023 History of PTCA 03/27/2023 Hyperlipidemia 03/27/2023 Immunizations Immunization Administration Dates Next Due Influenza, seasonal, injectable 12/04/2020,12/04 Pneumococcal polysaccharide vaccine, 23-valent, age 2 years and older (PNEUMOVAX 23) 03/06/2017 Family History Medical History Relation Name Comments No Known Problems Brother Heart attack Father No Known Problems Mother No Known Problems Sister Relation Name Status Comments Brother Father Mother Sister Social History Tobacco Use Types Packs/Day Years Used Date Smoking Tobacco: Never Smokeless Tobacco: Never Alcohol Use Standard Drinks/Week Comments Never 0 (1 standard drink = 0.6 oz pur e alcohol) Comments Unknown Sex and Gender Information Value Date Recorded Sex Assigned at Not on file Legal Sex Female 9:53 PM EST Gender Identity Not on file Sexual Orientation Not on file Last Filed Vital Signs Vital Sign Reading Time Taken Comments Blood Pressure 112/76 10/19/2023 2:21 PM EDT Pulse 77 10/19/2023 2:21 PM EDT Temperature - - Respiratory Rate - - Oxygen Saturation - - Inhaled Oxygen Concentration - - Weight 86.4 kg (190 lb 6.4 oz) 09/27/2023 8:57 A M EDT Height 167.6 cm (5' 6 ) 09/27/2023 8:57 AM EDT Body Mass Index 30.73 09/27/2023 8:57 AM EDT Plan of Treatment Upcoming Encounters Date Type Department Care Team (Late st Contact Info) Description 09/26/2024 1:10 PM EDT Office Visit [facility] [address] [facility] [address] [place] [address] Eric Brewster, [address] [facility] [address], [address] [place] [address] Health Maintenance Due Date Last Done Comments CT Colonography 1960 Colonoscopy 1962 Colorectal Cancer Screening 1962 FIT-DNA (Cologuard) 1962 FIT 1962 HIV Screening 1960 Lipid Panel 1962 Sigmoidoscopy 1962 Yearly Adult Physical 1962 MMR Vaccines (1 of 1 - Standard series) 05/29/1963 Hepatitis C Screening 1980 Cervical Cancer Screening 05/29/1983 HPV/Cotest 05/29/1983 Pap Smear 05/29/1983 DTaP/Tdap/Td Vaccines (1 - Tdap) 1984 Mammogram 2002 Zoster Vaccines (1 of 2) 2012 Pneumococcal Vaccine (2 of 2 - PCV) 03/06/2018 03/06/2017, 10/04/2016 RSV High Risk: (Elderly (60+) or Population) (1 - Risk 60-74 years 1-dose series) 2022 COVID-19 Vaccine (1 - 2023- season) 2023 Influenza Vaccine (Season Ended) 2024 12/04/2020, 01/04/2020, 12/05/2019, Additional history exists HIB Vaccines Aged Out No longer eligi ble based on patient's age to complete this topic HPV Vaccines Aged Out No longer eligi ble based on patient's age to complete this topic Hepatitis A Vaccines Aged Out No long er eligible based on patient's age to complete this topic Hepatitis B Vaccines Aged Out No long er eligible based on patient's age to complete this topic IPV Vaccines Aged Out No longer eligi ble based on patient's age to complete this topic Meningococcal Vaccine Aged Out No ricardo esther eligible based on patient's age to complete this topic Rotavirus Vaccines Aged Out No longer eligible based on patient's age to complete this topic [facility] Care Teams Administrative Clerk Relationship Specialty Start Date End Date Kenya Guardado, FAMILY MEDICINE CHAIR-PLIER WORKER [address] [place] [address] PCP - General 03/06/99
--- OUTSIDE RECORDS SUMMARY | 2024-07-31 12:26 | XMS_ITS | Clinical Summary ---
Author Organization [facility] Address [address] [place] [address] Care Team Providers Care Distribution Center Supervisor Name Role Phone Orlando Beatty MD Primary Care Provider [phone] Kenya Guardado RODENT EXTERMINATOR Unavailable [phone] Allergies Active Allergy Reactions Criticality Noted Date Comments Isosorbide Headache 03/27/2023 Oxycodone Nausea Only 08/08/2022 Oxycodone-Acetaminophen Dizziness,Other 017 Tetanus Immune Globulin Unknown 08/08/2022 Tetanus Toxoid Unknown 03/27/2023 Medications lisinopril 10 MG tablet 1 (one) time each day at the same time. Active atorvastatin (Lipitor) 80 MG tablet 1 (one) time each day at the same time. Active aspirin 81 MG EC tablet 1 (one) time each day at the same time. Active nitroglycerin (Nitrostat) 0.4 MG SL tablet As needed. Active metoprolol succinate XL (Toprol-XL) 25 MG 24 hr tablet Take 25 mg by mouth in the morning. 09/25/2022 Active Hospital, Clinic, or Other Facility Administered Medication Ordered Dose Route Frequency Start Date End Date Status bupivacaine PF (Marcaine) 0.5 % injection 2 mLIndications:Trocha nteric bursitis of left hip 2 mL IJ Once PRN Procedure 07/03/2024 07/03/2024 Ended methylPREDNISolone Acetate (DEPO-Medrol) injection 40 mgIndications:Trocha nteric bursitis of left hip 40 mg IX Once PRN Procedure 07/03/2024 07/03/2024 Ended Active Problems Problem Noted Date Diagnosed Date Dizziness and giddiness 07/31/2024 Arthralgia 07/31/2024 Other fatigue 07/31/2024 Polyuria 07/31/2024 Nausea 01/08/2024 Assessment & Plan (01/08/2024 2:08 PM EST): Zofran ODT prn Fluids, rest If unable to urinate more than 3 times daily contact office Chronic kidney disease, stage 3a (HCC) Assessment & Plan (11/08/2023 11:49 AM EDT): Per lab reading Gets labs done yearly through work I have requested she provide me a copy of this Herpes zoster 11/08/2023 Wellness examination 11/08/2023 Assessment & Plan (11/08/2023 11:49 AM EDT): Reviewed Ht/Wt/BMI Recommend eye exam yearly Recommend dental exams twice a year Balance work/leisure activities Exercises is recommended most days of the week (appropriate as chronic conditions allow) Follow up yearly and prn Encounter for screening mamm ogram for malignant neoplasm of breast 11/08/2023 Colon cancer screening 11/08/2023 Class 1 obesity due to exces s calories with serious comorbidity and body mass index (BMI) of 31.0 to 31.9 in adult 11/08/2023 Assessment & Plan (11/08/2023 11:51 AM EDT): Discussed increase protein, less carb Exercise difficult to to joint pain-suggest aquatic History of PR (myocardial infarction) 09/27/2023 Atherosclerosis of coronary artery of [place] heart without angina pectoris 03/27/2023 Assessment & Plan (07/31/2024 6:48 AM EDT): Current meds: asa, statin, raghav, b diego Assessment & Plan (11/08/2023 11:50 AM EDT): Stable, had recent stress and cardiology fu Essential hypertension 03/27/2023 Assessment & Plan (07/31/2024 6:48 AM EDT): Please check blood pressure daily and record DASH diet Limit caffeine Take medication as directed Contact office if chest pain, pressure, dizziness, shortness of breath, swelling legs Recommend slow position changes Meds: b diego, and raghav Assessment & Plan (01/08/2024 2:07 PM EST): Elevated, secondary to not feeling well No med dose changes Assessment & Plan (11/08/2023 11:50 AM EDT): stable History of mycobacterial infection 03/27/2023 Hyperlipidemia 03/27/2023 Assessment & Plan (07/31/2024 6:49 AM EDT): On statin therapy Check labs yearly and prn dose changes Primary osteoarthritis of left hip 08/25/2022 Left hip pain 08/25/2022 Status post left hip replacement 08/25/2022 Difficulty walking 08/25/2022 Arthritis of right foot 08/08/2022 AVN (avascular necrosis of bone) 08/08/2022 Internal derangement of left knee 08/08/2022 Resolved Problems Problem Noted Date Diagnosed Date Resolved Date Viral upper respiratory illness 01/08/2024 07/31/2024 Assessment & Plan (01/08/2024 2:08 PM EST): Likely symptoms are viral, Will order COVID test Fluids, rest, treat symptoms BMI 30.0-30.9,adult 09/27/2023 11/08/19 24 Encounters Date Type Department Care Team Description 07/31/2024 11:30 AM EDT Office Visit [facility] [address] [place] [place] [address] Kenya Guardado NP Essential hypertension (CMS/HCC) (Primary Dx); Atherosclerosis of [place] coronary artery of [place] heart without angina pectoris (CMS/HCC); Mixed hyperlipidemia (CMS/HCC); Dizziness and giddiness; Arthralgia, unspecified joint; Other fatigue; Polyuria 07/31/2024 Bamboo flowsheet [facility] [address] [place] [address] Kenya Guardado, TIFFANI 07/31/2024 Travel 07/25/2024 Telephone [facility] [address] [place] [phone] Morris Puri PA MRI 07/24/2024 9:50 AM EDT Ancillary Procedure [facility] [place] [address] 07/24/2024 9:15 AM EDT Office Visit [facility] [place] [address] Morris Puri PA Acute hip pain, left (Primary Dx); Acute left lumbar radiculopathy; History of total hip replacement, left 07/24/2024 Bamboo flowsheet [facility] [address] Morris Puri PA 07/24/2024 Travel 07/17/2024 Travel 07/03/2024 10:45 AM EDT Office Visit [facility] [address] Morris Puri PA Acute hip pain, left (Primary Dx); History of total hip replacement, left; Trochanteric bursitis of left hip 07/03/2024 Travel 07/02/2024 Travel 07/01/2024 Orders Only [facility] [address] [facility] [address] [place] [phone] Unallocated, [facility] MD Alexx 07/01/2024 Telephone [facility] [address] [place] [address] Kenya Guardado, TIFFANI Referral from Last 3 Months Immunizations Immunization Administration Dates Next Due Influenza, High Dose Seasonal, Preservative Free 01/07/2019 Influenza, Split (incl. purified surface antigen ) 01/08/2019 Influenza, Unspecified 12/05/2023 Influenza, injectable, quadrivalent, preservativ e free 01/04/2020 Influenza, seasonal, injectable 12/04/2020,12/04 Pneumococcal Polysaccharide PPSV23 03/06/2017, Family History Medical History Relation Name Comments Heart disease Father Ra Stroke Father Ra Diabetes Mother Anna Hypertension Mother Anna Relation Name Status Comments Father Ra Mother Anna Social History Tobacco Use Types Packs/Day Years Used Date Smoking Tobacco: Never Smokeless Tobacco: Never Tobacco Cessation:Counseling Given: Not Answered Alcohol Use Standard Drinks/Week Comments Never 0 [...] How often do you attend adventism or hinduism serv ices? Never 07/31/2024 Do you belong [...] care, and heating? Not very hard 07/31/2024 [facility] - Occupational [...] place to sleep or slept in a [place] (including now)? Patient refused 02/06/2023 Housing Stability Vital Sign Answer Colin e Recorded In the last 12 months, was t here a time when you were not able to pay the mortgage or rent on time? No 07/31/2024 Number of Times Moved in the Last Year Not on fi le 07/31/2024 At any time in the past 12 m [facility], were you homeless or living in a [place] facility (including now)? No 07/31/2024 Comments Unknown Sex [...] (191 lb) 07/31/2024 11:27 AM EDT Height 167.6 cm (5' 6 ) 01/08/2024 1:39 PM EST Body Mass Index 30.83 01/08/2024 1:39 PM EST Plan of Treatment Upcoming Encounters Date Type Department Care Team (Late st Contact Info) Description 08/07/2024 11:00 AM EDT [facility] Visit [facility] [address] [facility] [place] [address] Morris Puri, PA [address] [place] [address] 08/15/2024 11:30 AM EDT Office Visit [facility] [address] [place] [phone] Kenya Guardado, TIFFANI [address] [place] [address] 11/11/2024 11:00 AM EDT Office Visit [facility] [address] [place] [address] Kenya Guardado NP [address] [place] [address] 11/14/2025 9:00 AM EDT Office Visit [facility] [address] [place] [address] Morris Puri, BEATRIZ [address] [place] [address] Health Maintenance Due Date Last Done Comments CT Colonography 1962 Colonoscopy 1962 Colorectal Cancer Screening 1962 FIT-DNA 1962 FIT 1962 FOBT 1962 Sigmoidoscopy 1962 Pap Smear 05/29/1983 Cervical Cancer Screening 1992 HPV/Cotest 1992 Mammogram 11/20/2024 11/21/2023 Influenza Vaccine Completed 12/05/2023, , 01/04/2020, Additional history exists Procedures Procedure Name Priority Date/Time Associated Diagnosis Comments XR LUMBAR SPINE 2-3 VIEWS Routine 07/24/2024 9:46 AM EDT Acute left lumbar radiculopathy LARGE JOINT ARTHROCENTESIS Routine 07/03/2024 11:12 AM EDT Trochanteric bursitis of left hip XR HIP 2 OR 3 VW LEFT Routine 07/01/2024 10:01 AM EDT MM TOMOSYNTHESIS SCREENING BI 11/21/2023 3:41 PM EDT from Last 3 Months or Most Recently Relevant to Health Maintenance Results * XR lumbar spine 2 or 3 views (07/24/2024 9:46 AM EDT) Anatomical Region Laterality Modality Spine, L-spine Radiographic Minoo ging Narrative 07/24/2024 9:27 PM EDT Imaging Result: AP and Lateral lumbar spine: Left hip prosthesis, No acute fracture or dislocation Slight anterolisthesis L5-S1, mild facet arthritis. Bowel gas unremarkable Impression: mild degenerative changes lumbar spine. Morris HENDERSON IMG XR PROCEDURES Final Resul t * L Inj/Asp: L greater trochanteric bursa (07/03/2024 11:12 AM EDT) Narrative Morris Puri PA - 07/03/2024 11:12 AM EDT BEATRIZ Cabrera 07/03/2024 12:34 PM L Inj/Asp: L greater trochanteric bursa on 07/03/2024 11:12 AM Indications: pain Details: 21 G needle, lateral approach Medications: 40 mg methylPREDNISolone Acetate 20 MG/ML; 2 mL bupivacaine PF 0.5 % Outcome: tolerated well, no immediate complications UTILIZING ASEPTIC TECHNIQUE PT GIVEN INJECTION IN LEFT HIP BURSA NEUROVASC INTACT S/P INJ, TOLERATED WELL Simin at bedside for injection snag grinder Procedure, treatment alternatives, risks and benefits explained, specific risks discussed. Consent was given by the patient. Morris HENDERSON IN CLINIC/BEDSIDE ORDERABLES Final Result * XR hip left 2 or 3 views (07/01/2024 10:01 AM EDT) Anatomical Region Laterality Modality Lower Extremities, Hip Left Radiograp hic Imaging [facility] Provider Unallocated IMG XR PROCEDURES F inal Result * MM TOMOSYNTHESIS SCREENING BI (11/21/2023 3:41 PM EDT) Anatomical Region Laterality Modality Other 11/21/2023 3:41 PM EDT Narrative 11/21/2023 3:42 PM EDT [address] [address] Mammography Report Signed Patient: INA JEWELL MR#: [id number] : 1960 Acct:[id number] Age/Sex: 63 / F ADM Date: 11/21/23 Loc: MAMMO Attending Dr: Kenya Guardado NP Ordering Physician: Kenya Guardado NP Results: Date of Service: 11/21/23 Follow Up: Procedure(s): MM tomosynthesis screening BI Accession Number(s): [id number] cc: Kenya Guardado NP Patient Name: INA JEWELL MR#: [id number] : 1960 Exam Date: 11/21/2023 Ordering Doctor: ALPESH Guardado CNP RADIOLOGY REPORT PROCEDURE: MM TOMOSYNTHESIS SCREENING BI COMPARISON: MG MAMM SCREEN RENE W CAD, 09/10/2019. MG MAMM SCREEN 3D RENE CAD, 12/07/2020. INDICATIONS: SCREENING Calculator Name NCI Breast Cancer Risk Assessment Tool 5 Year Breast Cancer Risk 1.20% Lifetime Breast Cancer Risk 5.70% Personal Breast Cancer No Personal Ovarian Cancer No Treatments None Family Cancers Grandfather-maternal with lung cancer at age 45; Grandmother-maternal with colon cancer at age 64. LOCATION: [facility] BREAST COMPOSITION: The breasts are heterogeneously dense,which may obscure small masses. FINDINGS: DIAGNOSTIC CATEGORY 2--BENIGN FINDING. NO CHANGE FROM COMPARISON. Scattered benign-appearing calcifications are present. Scattered benign-appearing lymph nodes are present. RIGHT BREAST: No significant suspicious finding. LEFT BREAST: No significant suspicious finding. RECOMMENDATIONS: ROUTINE MAMMOGRAM AND CLINICAL EVALUATION IN 12 MONTHS. PLEASE NOTE: A NORMAL MAMMOGRAM DOES NOT EXCLUDE THE POSSIBILITY OF BREAST CANCER. A CLINICALLY SUSPICIOUS PALPABLE LUMP SHOULD BE BIOPSIED. Dictated by: Deshawn Gonzalez MD on 11/21/2023 at 15:39 Approved by: Deshawn Gonzalez MD on 11/21/2023 at 15:41 Dictated By: Deshawn Gonzalez M.D. Signed By: 11/21/23 1542 DD/ 1541 TD/TT: Cat Scan Technologist: Procedure Note Radiology, Radiologist, MD - 11/21/2023 [place] [address] Mammography Report Signed Patient: INA JEWELL LMR#: [id number] : 1960Acct:[id number] Age/Sex: 63 / FADM Date: 11/21/23 Loc: MAMMO Attending Dr: Kenya Guardado NP Ordering Physician: Aichholz,Kenya NPResults: Date of Service: 11/21/23Follow Up: Procedure(s): MM tomosynthesis screening BI Accession Number(s): [id number] cc: Kenya Guardado NP Patient Name: INA JEWELL MR#: [id number] : 1960 Exam Date: 11/21/2023 Ordering Doctor: ALPESH Guardado DONOR SPECIALIST RADIOLOGY REPORT PROCEDURE: MM TOMOSYNTHESIS SCREENING BI COMPARISON: MG MAMM SCREEN RENE W CAD, 09/10/2019. MG MAMM SCREEN 3DBIL CAD, 12/07/2020. INDICATIONS: SCREENING Calculator Name NCI Breast Cancer Risk Assessment Tool 5 Year Breast Cancer Risk 1.20% Lifetime Breast Cancer Risk 5.70% Personal Breast Cancer No Personal Ovarian Cancer No Treatments None Family Cancers Grandfather-maternal with lung cancer at age 45; Grandmother-maternal with colon cancer at age 64. LOCATION: [facility] BREAST COMPOSITION: The breasts are heterogeneously dense,which may obscure small masses. FINDINGS: DIAGNOSTIC CATEGORY 2--BENIGN FINDING. NO CHANGE FROM COMPARISON. Scattered benign-appearing calcifications are present. Scattered benign-appearing lymph nodes are present. RIGHT BREAST: No significant suspicious finding. LEFT BREAST: No significant suspicious finding. RECOMMENDATIONS: ROUTINE MAMMOGRAM AND CLINICAL EVALUATION IN 12 MONTHS. PLEASE NOTE: A NORMAL MAMMOGRAM DOES NOT EXCLUDE THE POSSIBILITY OFBREAST CANCER. A CLINICALLY SUSPICIOUS PALPABLE LUMP SHOULD BE BIOPSIED. Dictated by: Deshawn Gonzalez MD on 11/21/2023 at 15:39 Approved by: Deshawn Gonzalez MD on 11/21/2023 at 15:41 Dictated By: Deshawn Gonzalez M.D. Signed By:11/21/23 1542 DD/ 1541 TD/TT: Cat Scan Technologist: Kenya Guardado NP [facility] Final Result from Last 3 Months or Most Recently Relevant to Health Maintenance Insurance [facility] Care Teams Distribution Center Supervisor Relationship Specialty Start Date End Date Orlando Beatty MD [address] [place] [phone] PCP - General Family Medicine 11/08/23 Kenya Guardado NP [address] [place] [address] Nurse Practitioner Family Medicine 11/08/23
--- OUTSIDE RECORDS SUMMARY | 2024-07-31 12:26 | XMS_ITS | Encounter Summary ---
Author Organization [facility] Address [address] [place] [address] Care Team Providers Care Director Of Child Welfare Services Name Role Phone Orlando Beatty MD Primary Care Provider [phone] Orlando Beatty MD Primary Care Provider [phone] Kenya Guardado NP Unavailable [phone] Encounter Details Date Type Department Care Team (Late st Contact Info) Description 10/19/2023 Clinisync Result Encounter [facility] External Department Unsolicited Provider, Generic External Data Social History Tobacco Use Types Packs/Day Years Used Date Smoking Tobacco: Never Smokeless Tobacco: Never Alcohol Use Standard Drinks/Week Comments Never 0 (1 standard drink = 0.6 oz pur e alcohol) Humiliation, Afraid, Rape, and Kick questionnair e [...] often do you attend chur ch or episcopal services? Never 02/06/2023 Do you belong to any clubs o r organizations such as oriental orthodox groups, unions, fraternal or athletic groups, or [...] hard 02/06/2023 [facility] of Occupat ional Health - Occupational Stress [...] place to sleep or slept in a group home (including now)? Patient refused 02/06/2023 Comments Unknown [...] AM EDT Office Visit [facility] [address] [facility] [place] [address] Morris Puri PA [address] [address] 08/15/2024 11:30 AM EDT Office Visit [facility] [address] [place] [address] Kenya Guardado NP [address] [place] [address] 11/11/2024 11:00 AM EDT Office Visit [facility] [address] [place] [address] Kenya Guardado NP [address] [place] [address] 11/14/2025 9:00 AM EDT Office Visit [facility] [address] [facility] [place] [place] [address] Morris Puri PA [address] [facility] 150 [place] [address] documented as of this encounter Procedures Procedure Name Priority Date/Time Associated Diagnosis Comments STRESS TEST ONLY 10/19/2023 2:53 PM EDT documented in this encounter Results * Stress test (10/19/2023 2:53 PM EDT) Anatomical Region Laterality Modality Heart Other 10/19/2023 2:53 PM EDT Narrative 10/19/2023 4:59 PM EDT [place] [address] Exercise Stress Test Patient Name: INA JEWELL Ordering Provider: [id number] NASIM KERN Study Date: 10/19/2023 Reading Physician: [id number] Dupree MD MRN/PID: [id number] Supervising Physician: [id number] Dupree MD Fellow: Date of /Age: 3 1960 / 63 years Fellow: Gender: F Nurse: Lorenza Aquino RN Admission Status: Machine Iii Coremaker: NA Height: 167.64 cm Technologist: Weight: 86.18 kg Additional Staff: BSA: 1.96 m2 BMI: 30.67 kg/m2 Patient Location: Study Type: STRESS TEST ONLY Diagnosis/ICD: Old myocardial infarction-I25.2; Atherosclerotic heart disease-I25.10 Indication: Hypertension CPT Codes: Stress Test Interpretation-42712; Stress Test Supervision-[id number] Falls Risk: Low: Patient has low risk [...] Normal sinus rhythm. Stress Stage Data: + +---+------+-------+ HR Sys BP Kumar BP + +---+------+-------+ Baseline Resting 77 112 76 + +---+------+-------+ Baseline Standing 78 110 78 + +---+------+-------+ Stage I 115 128 74 + +---+------+-------+ Stage II 117 142 68 + +---+------+-------+ Recovery ECG: The heart rate recovery was normal. + +---+------+-------+ HR Sys BP Kumar BP + +---+------+-------+ Recovery I 117 142 68 + +---+------+-------+ Recovery II 117 132 70 + +---+------+-------+ Recovery III 85 122 76 + +---+------+-------+ Recovery IV 82 112 72 + +---+------+-------+ Summary: 1. Submaximal graded exercise stress test without diagnostic ST-T changes for ischemia. 2. No provoked chest pain or arrhythmia. 3. Appropriate hemodynamic response to exercise. 4. Poor exercise tolerance. [id number] Carina Dupree MD Electronically signed on 10/19/2023 at 4:59:33 PM Final Procedure Note Radiology, Radiologist, - 10/19/[address], [place] [address] Exercise Stress Test Patient Name: INA JEWELL Ordering Provider: [id number] KERN Study Date: 10/19/2023 Reading Physician: [id number] Chawla MRN/PID: [id number] Supervising Physician: [id number] Chawla Fellow: Date of /Age: 3 1960 / 63 years Fellow: Gender: F Nurse: Jovana HANKINS Admission Status: Machine Iii Coremaker: BONITA Height: 167.64 cm Technologist: Weight: 86.18 kg Additional Staff: BSA: 1.96 m2 BMI: 30.67 kg/m2 Patient Location: Study Type: STRESS TEST ONLY Diagnosis/ICD: Old myocardial infarction-I25.2; Atherosclerotic heart disease-I25.10 Indication: Hypertension CPT Codes: Stress Test Interpretation-49444; Stress TestSupervision-60630 Falls Risk: Low: Patient has low risk for sustaining a fall; environmentalsafety interventions in place. Study Details: Correct procedure and correct patient verified verbally. Patient Performance: The patient exercised to stage I on a Adis protocolfor 3 minutes and 7 seconds, achieving 4.70 METS. The peak heart rateachieved was 117 bpm, which was 74 % of the age predicted target heartrate of 159 bpm. The resting blood pressure was 112/76 mmHg with a heartrate of 77 bpm. The standing blood pressure was 110/78 mmHg with a heartrate of 78 bpm. The patient's functional capacity was below average. Thepatient developed leg fatigue and fatigue during the stress exam. Thesymptoms resolved with rest. The blood pressure response was normal. Thetest was terminated due to: fatigue and leg fatigue and musculoskeletalweakness. Mild sinus tachycardia. Double Product (HR x BP): 166. Baseline ECG: Resting ECG showed normal sinus rhythm. Normal sinusrhythm. Stress Stage Data: + +---+------+-------+ HR Sys BP Kumar BP + +---+------+-------+ Baseline Resting 77 112 76 + +---+------+-------+ Baseline Standing 78 110 78 + +---+------+-------+ Stage I 115 128 74 + +---+------+-------+ Stage II 117 142 68 + +---+------+-------+ Recovery ECG: The heart rate recovery was normal. + +---+------+-------+ HR Sys BP Kumar BP + +---+------+-------+ Recovery I 117 142 68 + +---+------+-------+ Recovery II 117 132 70 + +---+------+-------+ Recovery III 85 122 76 + +---+------+-------+ Recovery IV 82 112 72 + +---+------+-------+ Summary: 1. Submaximal graded exercise stress test without diagnostic ST-T changesfor ischemia. 2. No provoked chest pain or arrhythmia. 3. Appropriate hemodynamic response to exercise. 4. Poor exercise tolerance. [id number] Carina Dupree MD Electronically signed on 10/19/2023 at 4:59:33 PM Final Generic External Data Provider CV STRESS PROCEDU RES Final Result documented in this encounter Visit Diagnoses Not on filedocumented in this encounter Care Teams Director Of Child Welfare Services Relationship Specialty Start Date End Date Orlando Beatty MD PCP - General Cardiology 07/14/22 11/07/23 Orlando Beatty MD [address] [place] [address] PCP - General Family Medicine 11/08/23 Kenya Guardado NP [address] [place] [address] Nurse Practitioner Family Medicine 11/08/23 documented as of this encounter
--- OUTSIDE RECORDS SUMMARY | 2024-07-31 12:26 | XMS_ITS | Encounter Summary ---
Author Organization [facility] Address [address] [place] [address] Care Team Providers Care Tugboat Engineer Name Role Phone Orlando Beatty MD Primary Care Provider [phone] Orlando Beatty MD Primary Care Provider [phone] Kenya Guardado NP Unavailable [phone] Encounter Details Date Type Department Care Team (Late st Contact Info) Description 02/17/2023 Orders Only [facility] [address] [place] [address] Anmol Harden MD [address] [place], [place] [address] Social History Tobacco Use Types Packs/Day Years [...] often do you attend chur ch or mu-ism services? Never 02/06/2023 Do you belong to any clubs o r organizations such as taoism groups, unions, fraternal or athletic groups, or [...] care, and heating? Not very hard 02/06/2023 [facility] of Occupat ional Health - Occupational Stress [...] a [facility] (including now)? Patient refused 02/06/2023 Comments Unknown [...] suspected to have Coronavirus/COVID-19? No / Unsure 02/06/2023 2:49 PM EST documented as of this encounter Plan of Treatment Upcoming Encounters Date Type Department Care Team (Late st Contact Info) Description 08/07/2024 11:00 AM EDT Office Visit [facility] [address] [place] [address] Morris Puri PA [address] [place] [address] [place] [address] 08/15/2024 11:30 AM EDT Office Visit [facility] [address] [place] [address] Kenya Guardado, TIFFANI [address] [place] [address] 11/11/2024 11:00 AM EDT Office Visit [facility] [address] [place] [address] Kenya Guardado NP [address] [place] [address] 11/14/2025 9:00 AM EDT Office Visit [facility] [address] [place] [address] Morris Puri, BEATRIZ [address] [place] [address] [place], [place] [address] documented as of this encounter Procedures Procedure Name Priority Date/Time Associated Diagnosis Comments XR CHEST 1 VIEW Routine 02/11/2023 11:16 AM EST documented in this encounter Results * XR chest 1 view (02/11/2023 11:16 AM EST) Anatomical Region Laterality Modality Chest Radiographic Minoo ging us Anmol Harden MD IMG XR PROCEDURES Final Resul t documented in this encounter Visit Diagnoses Not on filedocumented in this encounter Care Teams Tugboat Engineer Relationship Specialty Start Date End Date Orlando Beatty MD PCP - General Cardiology 07/14/22 11/07/23 Orlando Beatty MD [address] [place] [address] PCP - General Family Medicine 11/08/23 Kenya Guardado NP [address] [place] [address] Nurse Practitioner Family Medicine 11/08/23 documented as of this encounter
--- OUTSIDE RECORDS SUMMARY | 2024-07-31 12:26 | XMS_ITS | Encounter Summary ---
Author Organization [facility] Address [address] [place] [address] Phone Care Team Providers Care Business Operations Coordinator Name Role Phone Kenya Guardado Jacqueline SPANGLERN-LEASE BROKER Primary Care Provider Encounter Details Date Type Department Care Team (Late st Contact Info) Description 09/18/[address] [facility] [address] [place] [address] Scanning, Generic Provider Social History Tobacco Use [...] Description 09/26/2024 1:10 PM EDT Office Visit [facility] [address] [address] Eric Brewster, DO 703 [facility] 2, [address] [place] [address] documented as of this encounter Procedures Procedure Name Priority Date/Time Associated Diagnosis Comments OUTSIDE IMAGING SCAN 09/18/2023 documented in this encounter Results * OUTSIDE IMAGING SCAN (09/18/2023) Anatomical Region Laterality Modality Other Narrative 09/18/2023 Ordered by an unspecified provider. us Generic Provider Scanning OUTSIDE SCAN Final Result documented in this encounter Visit Diagnoses Not on filedocumented in this encounter Care Teams Business Operations Coordinator Relationship Specialty Start Date End Date Kenya Guardado, PATTERN MARKER-LEASE BROKER [address] [place] [address] PCP - General 03/06/99 documented as of this encounter
--- OUTSIDE RECORDS SUMMARY | 2024-07-31 12:26 | XMS_ITS | Clinical Summary ---
Author [facility] Address [id number] [address] [place] [address] Care Team Providers Care Employment Service Specialist Name Role Phone Kenya Guardado NEWCOMER HOSTESS-COUNTER SUPERVISOR Primary Care Provider Social History Tobacco Use Types Packs/Day Years Used Date Smoking Tobacco: Never Assessed Childcare Answer Date Recorded Childcare Unknown 08/15/2018 Employment Answer Date Recorded Employment Unknown 08/15/2018 Comments Unknown Sex and Gender Information Value Date Recorded Sex Assigned at Not on file Legal Sex Female 11:33 AM EDT Gender Identity Not on file Sexual Orientation Not on file Plan of Treatment Health Maintenance Due Date Last Done Comments Depression Screening 1974 Tobacco Screening 1974 Adult BMI Screening 1980 DTaP,Tdap and Td Vaccines (1 - Tdap) 1981 Pap Smear 05/29/1983 Zoster (Shingles) Vaccine (1 of 2) 2012 Influenza Vaccine 11/04/2024 12/04/2020, , 12/05/2019, Additional history exists Medical Devices Not on file Insurance [employer] Member Subscriber Plan / Payer (Ef fective 2020-Present) Name:Ina Cancino Relation to Subscriber:Self Name:Ina Cancino Payer ID:[id number] (NAIC) Type:Not on file Address: [address] [place] [address] Care Teams Employment Service Specialist Relationship Specialty Start Date End Date Kenya Guardado, NEWCOMER HOSTESS-COUNTER SUPERVISOR PCP - General Nurse Practitioner 08/09/22
--- OUTSIDE RECORDS SUMMARY | 2024-07-31 12:26 | XMS_ITS | Encounter Summary ---
Author Organization [facility] Address [address] [place] [address] Care Team Providers Care Senior Staff Consultant Name Role Phone Orlando Beatty MD Primary Care Provider [phone] Orlando Beatty MD Primary Care Provider [phone] Kenya Guardado BUS AND TROLLEY INSPECTING DISPATCHER Unavailable [phone] Encounter Details Date Type Department Care Team ([facility] Contact Info) Description 11/06/2022 Abstract [facility] 112 [facility] 150 [place] [address] Morris Puri PA 112 [facility] 150 [place] [address] Social History Tobacco Use Types Packs/Day Years [...] suspected to have Coronavirus/COVID-19? No / Unsure 10/28/2022 9:27 AM EDT documented as of this encounter Plan of Treatment Upcoming Encounters Date Type Department Care Team ([facility] Contact Info) Description 08/07/2024 11:00 AM EDT Office Visit [facility] [address] [place] [address] Morris Puri PA [address] [facility] [address] [place] [address] 08/15/2024 11:30 AM EDT Office Visit [facility] [address] [place] [address] Kenya Guardado, TIFFANI [address] [place] [address] 11/11/2024 11:00 AM EDT Office Visit [facility] [address] [place] [address] Kenya Guardado, TIFFANI [address] [place] [address] 11/14/2025 9:00 AM EDT Office Visit [facility] [address] [place] [address] Morris Puri PA [address] [facility] [address] [place] [address] documented as of this encounter Visit Diagnoses Not on filedocumented in this encounter Care Teams Senior Staff Consultant Relationship Specialty Start Date End Date Orlando Beatty MD PCP - General Cardiology 07/14/22 11/07/23 Orlando Beatty MD [address] [place] [address] PCP - General Family Medicine 11/08/23 Kenya Guardado NP [address] [place] [address] Nurse Practitioner Family Medicine 11/08/23 documented as of this encounter
--- OUTSIDE RECORDS SUMMARY | 2024-07-31 12:27 | XMS_ITS | Encounter Summary ---
Author Organization [facility] Address [address] [place] [address] Care Team Providers Care Founder And Chief Executive Officer Name Role Phone Orlando Beatty MD Primary Care Provider [phone] Orlando Beatty MD Primary Care Provider [phone] Kenya Guardado APPLE CHECKER Unavailable [phone] Encounter Details Date Type Department Care Team ([facility] Contact Info) Description 08/12/2022 Abstract [facility] 112 [facility] 150 [place] [address] Morris Puri PA 112 [facility] 150 [place] [address] Social History Tobacco Use Types Packs/Day Years [...] suspected to have Coronavirus/COVID-19? No / Unsure 08/01/2022 9:29 AM EDT documented as of this encounter Plan of Treatment Upcoming Encounters Date Type Department Care Team ([facility] Contact Info) Description 08/07/2024 11:00 AM EDT Office Visit [facility] [address] [place] [address] Morris Puri PA 112 [facility] [address] [place] [address] 08/15/2024 11:30 AM EDT Office Visit [facility] [address] [place] [address] Kenya Guardado, TIFFANI [address] [place] [address] 11/11/2024 11:00 AM EDT Office Visit [facility] [address] [place] [address] Kenya Guardado, TIFFANI [address] [place] [address] 11/14/2025 9:00 AM EDT Office Visit [facility] [address] [place] [address] Morris Puri PA [address] [facility] [address] [place] [address] documented as of this encounter Visit Diagnoses Not on filedocumented in this encounter Care Teams Founder And Chief Executive Officer Relationship Specialty Start Date End Date Orlando Beatty MD PCP - General Cardiology 07/14/22 11/07/23 Orlando Beatty MD [address] [place] [address] PCP - General Family Medicine 11/08/23 Kenya Guardado NP [address] [place] [address] Nurse Practitioner Family Medicine 11/08/23 documented as of this encounter
--- OUTSIDE RECORDS SUMMARY | 2024-07-31 12:27 | XMS_ITS | Encounter Summary ---
Author Organization [facility] Address [address] [place] [address] Care Team Providers Care Science Interpreter Name Role Phone Orlando Beatty MD Primary Care Provider [phone] Kenya Guardado AUTO DAMAGE ADJUSTER Unavailable [phone] Encounter Details Date Type Department Care Team ([facility] Contact Info) Description 07/31/2024 Bamboo flowsheet [facility] [address] [place] [address] Kenya Guardado, AUTO DAMAGE ADJUSTER [address] [place] [address] Social History Tobacco Use Types Packs/Day Years [...] week 07/31/2024 How often do you attend restorationism or restorationist serv ices? Never 07/31/2024 Do you belong to any clubs o r organizations such as restorationism groups, unions, fraternal or athletic groups, or [...] care, and heating? Not very hard 07/31/2024 [facility] [place] of Occupat ional Health - Occupational Stress [...] place to sleep or slept in a half-way (including now)? Patient refused 02/06/2023 Housing Stability Vital Sign Answer Colin e Recorded In the last 12 months, was t here a time when you were not able to pay the mortgage or rent on time? No 07/31/2024 Number of Times Moved in the Last Year Not on fi le 07/31/2024 At any time in the past 12 m [facility], were you homeless or living in a half-way (including now)? No 07/31/2024 Comments Unknown Sex and Gender Information Value Date Recorded Sex Assigned at Not on file Legal Sex Female 8:15 PM EDT Gender Identity Not on file Sexual Orientation Not on file documented as of this encounter Functional Status * Audit-C Score Answer Date of Assessment Author 0 07/31/2024 7:58 AM EDT Ralpht, Generic * Q1: How often do you [...] Mychart, Generic documented as of this encounter Plan of Treatment Upcoming Encounters Date Type Department Care Team (Late st Contact Info) Description 08/07/2024 11:00 AM EDT [facility] Visit [facility] [address] [place] [address] Morris Puri PA 112 [facility] [address] [place] [address] 08/15/2024 11:30 AM EDT Office Visit [facility] [address] [place] [address] Kenya Guardado NP [address] [place] [address] 11/11/2024 11:00 AM EDT Office Visit [facility] [address] [place] [address] Kenya Guardado NP [address] [place] [address] 11/14/2025 9:00 AM EDT Office Visit [facility] [address] [place] [address] Morris Puri PA 112 [facility] [address] [place] [address] documented as of this encounter Visit Diagnoses Not on filedocumented in this encounter Care Teams Science Interpreter Relationship Specialty Start Date End Date Orlando Beatty MD [address] [place] [address] PCP - General Family Medicine 11/08/23 Kenya Guardado NP [address] [place] [address] Nurse Practitioner Family Medicine 11/08/23 documented as of this encounter
--- OUTSIDE RECORDS SUMMARY | 2024-07-31 12:27 | XMS_ITS | Encounter Summary ---
Author Organization [facility] Address [address] [place] [address] Care Team Providers Care Rn Ortho Name Role Phone Orlando Beatty MD Primary Care Provider [phone] Kneya Guardado [employer] Unavailable [phone] Encounter Details Date Type Department Care Team (Late Contact Info) Description 11/21/2023 Clinisync Result Encounter [facility] External Department Unsolicited Kenya Guardado, TIFFANI [address] [place] [address] Social History Tobacco Use Types Packs/Day Years [...] often do you attend chur ch or worship services? Never 02/06/2023 Do you belong to [...] care, and heating? Not very hard 02/06/2023 [facility] of Occupat ional Health - Occupational [...] place to sleep or slept in a fdc (including now)? Patient refused 02/06/2023 Comments Unknown [...] Visit [facility] [address] [place] [address] Morris Puri, BEATRIZ [address] [place] [address] [place] [address] 08/15/2024 11:30 AM EDT Office Visit [facility] [address] [place] [address] Kenya Guardado NP [address] [place] [address] 11/11/2024 11:00 AM EDT Office Visit [facility] [address] [place] [address] Kenya Guardado NP [address] [place] [address] 11/14/2025 9:00 AM EDT Office Visit [facility] [address] [place] [address] Morris Puri, PA [address] [facility] 150 [place] [address] documented as of this encounter Procedures Procedure Name Priority Date/Time Associated Diagnosis Comments MM TOMOSYNTHESIS SCREENING BI 11/21/2023 3:41 PM EDT documented in this encounter Results * MM TOMOSYNTHESIS SCREENING BI (11/21/2023 3:41 PM EDT) Anatomical Region Laterality Modality Other 11/21/2023 3:41 PM EDT Narrative 11/21/2023 3:42 PM EDT [address] [address] Mammography Report Signed Patient: INA JEWELL MR#: [id number] : 1960 Acct:[id number] Age/Sex: 63 / F ADM Date: 11/21/23 Loc: MAMMO Attending Dr: Kenya Guardado NP Ordering Physician: Kenya Guardado NP Results: Date of Service: 11/21/23 Follow Up: Procedure(s): MM tomosynthesis screening BI Accession Number(s): [id number] cc: Kenya Guardado NP Patient Name: INA JEWELL MR#: [id number] : 1960 Exam Date: 11/21/2023 Ordering Doctor: [...] colon cancer at age 66. LOCATION: [facility] BREAST COMPOSITION: The breasts are heterogeneously dense,which [...] Signed By: 11/21/23 1542 DD/ 1541 TD/TT: Business Dean: Procedure Note Radiology, Radiologist, MD - 11/21/2023 [place] [address] Mammography Report Signed Patient: INA JEWELL LMR#: [id number] : 1960Acct:[id number] Age/Sex: 63 / FADM Date: 11/21/23 Loc: MAMMO Attending Dr: Kenya Guardado NP Ordering Physician: Kenya Guardado NPResults: Date of Service: 11/21/23Follow Up: Procedure(s): MM tomosynthesis screening BI Accession Number(s): [id number] cc: Kenya Guardado NP Patient Name: INA JEWELL MR#: [id number] : 1960 Exam Date: 11/21/2023 Ordering Doctor: [...] colon cancer at age 66. LOCATION: [facility] BREAST COMPOSITION: The breasts are heterogeneously dense,which [...] M.D. Signed By:11/21/23 1542 DD/ 1541 TD/TT: Business Dean: Kenya Guardado NP [facility] Final Result documented in this encounter Visit Diagnoses Not on filedocumented in this encounter Care Teams Rn Ortho Relationship Specialty Start Date End Date Orlando Beatty MD [address] [place] [address] PCP - General Family Medicine 11/08/23 Kenya Guardado NP [address] [place] [address] Nurse Practitioner Family Medicine 11/08/23 documented as of this encounter
--- OUTSIDE RECORDS SUMMARY | 2024-07-31 12:27 | XMS_ITS | Encounter Summary ---
Author Organization [facility] Address [address] [place] [address] Care Team Providers Care Sea Captain Name Role Phone Orlando Beatty MD Primary Care Provider [phone] Kenya Guardado AIRLINE DISPATCHER Unavailable [phone] Encounter Details Date Type Department Care Team (Late st Contact Info) Description 07/01/2024 Orders Only [facility] [address] [facility] [address] [place] [address] Unallocated, [facility] Provider, [address] [place] [address] Social History Tobacco Use Types Packs/Day Years [...] How often do you attend chur or mandaeism services? Never 02/06/2023 Do you belong to any clubs o r organizations such as alevism groups, unions, fraternal or athletic groups, or [...] care, and heating? Not very hard 02/06/2023 [facility] - Occupational Stress Questionnaire Answer Date Recorded [...] Office Visit [facility] [address] [place] [phone] Morris Puri PA [address] [place] [address] 08/15/2024 11:30 AM EDT Office Visit [facility] [address] [place] [phone] Kenya Guardado NP [address] [place] [address] 11/11/2024 11:00 AM EDT Office Visit [facility] [address] [place] [phone] Kenya Guardado NP [address] [place] [phone] 11/14/2025 9:00 AM EDT Office Visit [facility] [address] [place] [phone] Morris Puri, BEATRIZ [address] [place] [address] documented as of this encounter Procedures Procedure Name Priority Date/Time Associated Diagnosis Comments XR HIP 2 OR 3 VW LEFT Routine 07/01/2024 10:01 AM EDT documented in this encounter Results * XR hip left 2 or 3 views (07/01/2024 10:01 AM EDT) Anatomical Region Laterality Modality Lower Extremities, Hip Left Radiograp hic Imaging us [facility] Provider Unallocated IMG XR PROCEDURES F inal Result documented in this encounter Visit Diagnoses Not on filedocumented in this encounter Care Teams Sea Captain Relationship Specialty Start Date End Date Orlando Beatty MD [address] [place] [phone] PCP - General Family Medicine 11/08/23 Kenya Guardado NP [address] [place] [phone] Nurse Practitioner Family Medicine 11/08/23 documented as of this encounter
--- OUTSIDE RECORDS SUMMARY | 2024-07-31 12:27 | XMS_ITS | Encounter Summary ---
Author Organization [facility] Address [address] [place] [address] Phone Care Team Providers Care Fast Food Assistant Restaurant Manager Name Role Phone Kenya Guardado FILAMENT SHAPER-PATIENT CARE SECRETARY Primary Care Provider Encounter Details Date Type Department Care Team (Late st Contact Info) Description 10/01/2020 Orders Only [facility] [address] [place] [address] Conversion, Onbase Social History Tobacco Use Types Packs/Day Years Used Date Smoking Tobacco: Never Assessed Comments Unknown Sex and Gender Information Value Date Recorded Sex Assigned at Not on file Legal Sex Female 9:53 PM EST Gender Identity Not on file Sexual Orientation Not on file documented as of this encounter Plan of Treatment Upcoming Encounters Date Type Department Care Team (Late st Contact Info) Description 09/26/2024 1:10 PM EDT Office Visit [facility] [address] [place] [phone] Eric Brewster, [address] [facility] [address] [place], [place] [phone] Scheduled Orders Name Type Priority Associated Diagnoses Orde r Schedule OUTSIDE LAB SCAN Lab Ordered: 10/01/2020 documented as of this encounter Visit Diagnoses Not on filedocumented in this encounter Care Teams Fast Food Assistant Restaurant Manager Relationship Specialty Start Date End Date Kenya Guardado APRN-PATIENT CARE SECRETARY [address] [place] [phone] PCP - General 03/06/99 documented as of this encounter
--- OUTSIDE RECORDS SUMMARY | 2024-07-31 12:27 | XMS_ITS | Encounter Summary ---
Author Organization [facility] Address [address] [place] [address] Phone Care Team Providers Care Family Helper Name Role Phone Kenya Guardado WOODWIND INSTRUMENTS INSPECTOR-HEALTH AND SAFETY COORDINATOR Primary Care Provider Encounter Details Date Type Department Care Team (Late st Contact Info) Description 09/12/2019 Orders Only [facility] [address] [place] [address] Conversion, Onbase Social History Tobacco Use Types [...] Office Visit [facility] [address] [facility] [address] [place] [phone] Eric Brewster, [address] [facility] [address] [place], [place] [phone] Scheduled Orders Name Type Priority Associated Diagnoses Orde r Schedule OUTSIDE LAB SCAN Lab Ordered: 09/12/2019 OUTSIDE LAB SCAN Lab Ordered: 09/12/2019 documented as of this encounter Visit Diagnoses Not on filedocumented in this encounter Care Teams Family Helper Relationship Specialty Start Date End Date Kenya Guardado APRN-HEALTH AND SAFETY COORDINATOR [address] [place] [phone] PCP - General 03/06/99 documented as of this encounter
[2024-07-31 12:42] LABS: Basophils Percent Auto 0.4 % (0.2-2.0); Eosinophils Absolute Auto 0.2 10^3/uL (0.0-0.7); Eosinophils Percent Auto 3.6 % (0.9-7.0); Hematocrit 31.9 % (36.0-48.0); Hemoglobin 10.5 g/dL (12.0-16.0); Immature Granulocytes Abs Auto 0.01 10^3/uL (0.00-0.03); Immature Granulocytes Pct Auto 0.2 % (0.0-0.5); Lymphocytes Absolute Auto 0.8 10^3/uL (1.2-3.8); Lymphocytes Percent Auto 15.9 % (20.5-60.0); Mean Corpuscular HGB Conc 32.9 g/dL (29.9-35.2); Mean Corpuscular Hemoglobin 31.4 pg (26.7-34.0); Mean Corpuscular Volume 95.5 fL (81.0-99.0); Mean Platelet Volume 8.4 fL (9.5-13.5); Monocytes Absolute Auto 0.4 10^3/uL (0.3-0.8); Monocytes Percent Auto 8.5 % (1.7-12.0); Neutrophils Absolute Auto 3.4 10^3/uL (1.4-6.5); Neutrophils Percent Auto 71.4 % (43.0-75.0); Platelet Count 236 10^3/uL (150-450); Red Blood Count 3.34 10^6/uL (4.20-5.40); Red Cell Distribution Width 13.2 % (11.0-15.0); White Blood Count 4.7 10^3/uL (4.0-11.0)
[2024-07-31 12:46] LABS: Erythrocyte Sedimentation Rate 31 mm/hr (<=30)
[2024-07-31 12:58] LABS: Bilirubin Urine NEGATIVE (NEGATIVE); Blood Urine NEGATIVE (NEGATIVE); Clarity Urine CLEAR (CLEAR); Color Urine LT. YELLOW (YELLOW); Glucose Urine UA NEGATIVE (NEGATIVE); Ketones Urine NEGATIVE (NEGATIVE); Leukocyte Esterase Urine NEGATIVE (NEGATIVE); Nitrite Urine NEGATIVE (NEGATIVE); Protein Urine NEGATIVE (NEG/TRACE); Urobilinogen Urine 0.2 EU/dL (0.2-1.0); pH Urine 5.5 (5.0-9.0)
[2024-07-31 13:08] LABS: Bacteria Urine TRACE #/HPF (NONE SEEN); RBC Urine 0-2 #/HPF (0-2); WBC Urine 0-2 #/HPF (NONE SEEN)
[2024-07-31 13:09] LABS: Cast Seen? SEEN #/LPF (NONE SEEN); Crystals Seen? None Seen #/HPF (None Seen); Hyaline Casts Urine RARE; Mucus Urine SMALL (NONE SEEN); Squamous Epithelial Cell Urine FEW #/LPF (NONE/RARE)
[2024-07-31 13:13] LABS: Alanine Aminotransferase 32 U/L (14-59); Albumin Globulin Ratio 0.9; Albumin Level 3.5 g/dL (3.4-5.0); Alkaline Phosphatase 122 U/L (46-116); Anion Gap 13.6; Aspartate Amino Transferase 13 U/L (15-37); Bilirubin Total 0.3 mg/dL (0.2-1.0); Carbon Dioxide 21.7 mmol/L (21.0-32.0); Chloride 111 mmol/L (98-107); Estimated GFR (African America 34 (>=60 mL/min/1.73m^2); Estimated GFR (Non-African Ame 28 (>=60 mL/min/1.73m^2); Free T3 2.14 pg/mL (2.18-3.98); Globulin 3.7 g/dL; Glucose 103 mg/dL (74-106); Sodium 140 mmol/L (136-145); Thyroid Stimulating Hormone 1.107 uIU/mL (0.358-3.740); Total Protein 7.2 g/dL (6.4-8.2); Uric Acid 5.1 mg/dL (2.6-6.0)
[2024-07-31 13:52] LABS: Free T4 0.89 ng/dL (0.76-1.46)
[2024-07-31 16:00] LABS: C Reactive Protein <0.50 mg/dL (<=0.50); Potassium 6.3 mmol/L (3.5-5.1)
[2024-08-01 04:07] LABS: Vitamin B12 276 pg/mL (232-1245)
[2024-08-01 17:09] LABS: Thyroglobulin Antibody <1.0 IU/mL (0.0-0.9); Thyroid Peroxidase (TPO) Ab 11 IU/mL (0-34)
[2024-08-01 20:11] LABS: Antinuclear Antibodies, IFA Negative (.)
== END 2024-07-31 12:24 | disposition home or self-care (01) ==
LOC: LAB 12:24
PROVIDERS: PCP Nurse Practitioner; Visit Provider Nurse Practitioner
DX: R42 Dizziness and giddiness (principal); M25.50 Pain in unspecified joint; R53.83 Other fatigue; I25.10 Atherosclerotic heart disease of native coronary artery without angina pectoris
CPT/HCPCS: 36415; 80053; 81001; 82607; 82728; 82746; 83540; 83735; 84439; 84443; 84481; 84550; 85025; 85652; 86038; 86140; 86376; 86800

== ENCOUNTER 2024-07-31 23:02 | Emergency (ER) | payer BC, SELFPAY ==
--- OUTSIDE RECORDS SUMMARY | 2024-07-31 23:06 | XMS_ITS | CCD ---
Author Organization [facility] Care Team Providers Care Manager Video Games Name Role Phone UNKNOWN, PROVIDER Unavailable Unavailable HOWARD, VLADISLAV Unavailable Unavailable UNKNOWN, PROVIDER Unavailable Unavailable HOWARD, VLADISLAV Unavailable Unavailable Unavailable Unavailable [place] Jacqueline Unavailable MISC, DR COTE Admitting Unavailable MISC, DR COTE Attending Unavailable DR JOANN COOLEY Consulting Unavailable AICHOLZ, CUSTOMER SERVICE ANALYST KENYA Primary Care Unavailable Cathleen Barroso Consulting Unavailable AICHOLZ, CUSTOMER SERVICE ANALYST KENYA Primary Care Unavailable LAKSHMIPATHY ., NARENDRANATH Admitting Milly vailable LAKSHMIPATHY ., NARENDRANATH Attending Milly vailable DR JOANN COOLEY Admitting Unavailable MICHELE, DR JOANN Juan Attending Unavailable DR JOANN COOLEY Consulting Unavailable AICHHOLZ, CUSTOMER SERVICE ANALYST KENYA Primary Care Unavailable DOMONIQUE TILLMAN Consulting Unavailable AICHOL, [facility] KENYA Primary Care Unavailable LAKSHMIPATHY ., NARENDRANATH Consulting Milly vailable LAKSHMIPATHY ., NARENDRANATH Admitting Milly vailable LAKSHMIPATHY ., NARENDRANATH Attending Milly vailable AICHOLZ, [facility] KENYA Primary Care Unavailable ARLENE HUERTAS Consulting Unavailable LAKSHMIPATHY ., NARENDRANATH Admitting Milly vailable LAKSHMIPATHY ., NARENDRANATH Attending Milly vailable LAKSHMIPATHY ., NARENDRANATH Consulting Milly vailable DR RICARDO NGUYEN V Consulting Unavailable AICHOLZ, CUSTOMER SERVICE ANALYST KENYA Primary Care Unavailable FAWWAD, LACKEY H Admitting Unavailable FAWWAD, LACKEY H Attending Unavailable FAWWAD, LACKEY H Consulting Unavailable Cathleen Barroso Consulting Unavailable AICHOLZ, CUSTOMER SERVICE ANALYST KENYA Primary Care Unavailable FAWWAD, LACKEY H Admitting Unavailable FAWWAD, LACKEY H Attending Unavailable FAWWAD, LACKEY H Consulting Unavailable AICHHOLZ, CUSTOMER SERVICE ANALYST KENYA Primary Care Unavailable STEPANIC, DR MOORE Admitting Unavailable STEPANIC, DR MOORE Attending Unavailable STEPANIC, DR MOORE Consulting Unavailable CONCHA, DR ERIC Brooks Admitting Unavailabl e CONCHA, DR ERIC Brooks Attending Unavailabl e CONCHA, DR ERIC Brooks Consulting Unavailabl e AICHHOLZ, CUSTOMER SERVICE ANALYST KENYA Primary Care Unavailable WEST, DR RICARDO Damico Consulting Unavailable AICHHOLZ, CUSTOMER SERVICE ANALYST KENYA Admitting Unavailable AICHHOLZ, CUSTOMER SERVICE ANALYST KENYA Attending Unavailable AICHHOLZ, CUSTOMER SERVICE ANALYST KENYA Primary Care Unavailable AICHHOLZ, CUSTOMER SERVICE ANALYST KENYA Consulting Unavailable Aichholz, Mrs. Kenya Phillips Primary Care Unavailab chetna Cooley, Champ Quijano Referring Rajwinder Cooley, Ms. Barbara Quijano Attending Rajwinder Kern, Dr. Eric Mckenzie Attending Unava ilable Lorhlamont, Mrs. Kenya Phillips Primary Care Unavailab chetna Kern, Dr. Eric Mckenzie Referring Unava ilERIC Tovar Referring Unavailable AICKAREN, KENYA PHILLIPS Primary Care Unavailable ERIC KERN Attending Unavailable AICKAREN, KENYA PHILLIPS Primary Care Unavailable Jaci GIVENS, [place] Primary Care Provider [phone] Aicholjose francisco BILL OF LADING CLERK, [place] Unavailable [place] RELOCATION COMMISSIONER-CUSTOMER SERVICE ANALYST, Kenya Phillips Primary Care Provider CALOS PURI Attending Unavailable CALOS PURI Attending Unavailable KENYA GUARDADO Attending Unavailable OSVALDO NICHOLE Attending Unavailable CALOS PURI Attending Unavailable CALOS PURI Referring Unavailable CALOS PURI Referring Unavailable KENYA GUARDADO Attending Unavailable Allergies Allergy Classification Reported Allergen(s) Allergy Type Date of Onset Reaction(s) Facility (13 sources) Isosorbide; Translations: [isosorbide] Drug Allergy 4 Headache [facility] Repository (20 sources) oxyCODONE; Translations: [oxyCODONE HCl TABS] Drug Allergy 3 Nausea Only, GI Upset, Nausea/vomitin g [facility] Work Phone: (10 sources) Tetanus Toxoid Fluid SOLN; Translations: [Tetanus Toxoid Fluid SOLN] Allergy to drug (finding) Other -[facility] [facility] DO Work Phone: (1 source) Acetaminophen / oxyCODONE Drug Allergy [facility] Repository (1 source) Allopurinol Drug Allergy 3 [facility] Rep[facility] (2 sources) oxyCODONE; Translations: [OXYCODONE] Drug Allergy 4 [facility] Repository (20 sources) Tetanus vaccine; Translations: [TETANUS TOXOID] Propensity to adverse reactions to drug (disorder) 4 Unknown [facility] Repository (20 sources) Acetaminophen / oxyCODONE Drug Allergy 7 Dizziness, Other [facility] Work Phone: (20 sources) Isosorbide Drug Allergy 4 Headache [facility] Work Phone: (20 sources) Tetanus immune globulin Drug Allergy 3 Unknown [facility] Healthcare Medications Current Medications Medication Drug Class(es) Dates Sig (Normalized) Sig (Original) aspirin 81 mg delayed release oral tablet (20 sources) Platelet Aggregation Inhibitor, Nonsteroidal Anti-inflammatory Drug aspirin 81 MG EC tablet 1 (one) time each day at the same time. Active bisacodyl 5 mg delayed release oral tablet (2 sources) Stimulant Laxative Start: 11-13-2023 End: 11-13-2023 take 1 tablet by mouth once bisacodyl (Dulcolax) 5 MG EC tablet Indications: Encounter for screening colonoscopy Take 1 tablet (5 mg) by mouth 1 time for 1 dose Do not crush, chew, or split. Take as detailed on clinic hand out for colonoscopy prep 1 tablet 11/13/2023 11/13/2023 Active folic acid 1 mg / polysaccharide iron complex 150 mg / vitamin b12 0.025 mg oral capsule (3 sources) Vitamin B12 Start: 09-09-2022 End: 11-08-2023 take 1 capsule by mouth once daily in the morning Poly-Iron 150 Forte 150-25-1 MG-MCG-MG capsule Take 150 mg by mouth Daily in the Morning 09/09/2022 11/08/2023 Discontinued lisinopril 10 mg oral tablet (20 sources) Angiotensin Converting Enzyme Inhibitor Start: 04-13-2021 take 1 tablet by mouth once daily lisinopril 10 mg tablet Indications: Essential (primary) hypertension TAKE 1 TABLET BY MOUTH EVERY DAY 90 tablet 3 03/31/2023 Active 24 hr metoprolol succinate 25 mg extended release oral tablet (20 sources) beta-Adrenergic Diego Start: 03-31-2023 take 1 tablet by mouth once daily metoprolol succinate XL (Toprol-XL) 25 mg 24 hr tablet Indications: Atherosclerotic heart disease of [place] coronary artery without angina pectoris TAKE 1 TABLET BY MOUTH EVERY DAY 90 tablet 3 03/31/2023 Active Start: 09-25-2022 take 1 tablet by prateek th every twenty-four hours in the morning metoprolol succinate XL (Toprol-XL) 25 MG 24 hr tablet Take 25 mg by mouth in the morning. 09/25/2022 Active Start: 04-12-2021 take 1 tablet by mouth once da ray Metoprolol Succinate ER 25 MG Oral Tablet Extended Release 24 Hour TAKE 1 TABLET BY MOUTH EVERY DAY Quantity: 90 Refills: 3 Ordered: 30-Mar-2022 Eric Kern DO Start : 12-Apr-2021 Active nitroglycerin 0.4 mg subling ual tablet (20 sources) Nitrate Vasodilator nitroglyceri n (Nitrostat) 0.4 MG SL tablet As needed. Active nitroglycerin (N itrostat) 0.[address] 1 tablet (0.4 mg) under the tongue every 5 minutes if needed for chest pain. Active ondansetron 4 mg disintegrating oral tablet (3 sources) Serotonin-3 Receptor Antagonist Start: 01-08-2024 End: 01-13-2024 take 1 tablet by mouth every eight hours for nausea ondansetron ODT (Zofran-ODT) 4 MG disintegrating tablet Indications: Viral upper respiratory illness , Nausea Take 1 tablet (4 mg) by mouth every 8 (eight) hours if needed for vomiting or nausea for up to 5 days 15 tablet 01/08/2024 01/13/2024 Active polyethylene glycol 3350 64331 mg powder for oral solution (2 sources) Osmotic Laxative Start: 11-13-2023 End: 11-13-2023 take 17 g by mouth once polyethylene glycol, PEG, 3350 (Glycolax) 17 GM/SCOOP powder Indications: Colonoscopy Take 238 g by mouth 1 (one) time for 1 dose Take as detailed from clinic hand out for colonoscopy prep 238 g 11/13/2023 11/13/2023 Active tiZANidine 4 mg oral tablet (3 sources) Central alpha-2 Adrenergic Agonist Start: 07-02-2022 End: 11-08-2023 tiZANidine (Zanaflex) 4 MG tablet TAKE 1/4 to ONE-HALF OF a TABLET BY MOUTH THREE TIMES DAILY 07/02/2022 11/08/2023 Discontinued Completed/Discontinued Medications Medication Drug Class(es) Dates Sig (Normalized) Sig (Original) amoxicillin 500 mg oral tablet (5 sources) Penicillin-class Antibacterial Start: 11-15-2023 End: 01-08-2024 take 4 tablets by mouth once at mealtime amoxicillin (Amoxil) 500 MG tablet Indications: Status post left hip replacement 4 tabs PO once 30-60 mins before procedure with food 4 tablet 3 11/15/2023 01/08/2024 Discontinued (Therapy completed) atorvastatin 80 mg oral tablet (20 sources) HMG-CoA Reductase Inhibitor Start: 11-30-2021 take 1 tablet by mouth at bedtime Atorvastatin Calcium 80 MG Oral Tablet TAKE 1 TABLET Bedtime Quantity: 90 Refills: 3 Ordered: 16-Sep-2022 Eric Kern DO Start : 30-Nov-2021 Active 5 ml bupivacaine hydrochloride 5 mg/ml injection (4 sources) Amide Local Anesthetic Start: 07-03-2024 End: 07-03-2024 bupivacaine PF (Marcaine) 0.5 % injection 2 mL Start: 07-03-2024 End: 07-03-2024 2 mL, Injection, Once PRN Pr ocedure, Starting on Mon07/03/24 at 1112, For 1 dose clopidogrel 75 mg oral tablet (10 sources) P2Y12 Platelet Inhibitor Start: 02-15-2021 End: 11-08-2023 take 1 tablet by mouth once daily Clopidogrel Bisulfate 75 MG Oral Tablet TAKE 1 TABLET DAILY. Quantity: 90 Refills: 3 Ordered: 09-Feb-2022 Eric Kern DO Start : 15-Feb-2021 Active methylPREDNISolone acetate 20 mg/ml injectable suspension (4 sources) Corticosteroid Start: 07-03-2024 End: 07-03-2024 methylPREDNISolone Acetate (DEPO-Medrol) injection 40 mg Start: 07-03-2024 End: 07-03-2024 40 mg, Intra-articular, Once PRN Procedure, Starting on Mon07/03/24 at 1112, For 1 dose oxyCODONE (2 sources) Opioid Agonist oxyCODONE HCl TA BS TAKE 1 TABLET EVERY 8 HOURS NEEDED FOR PAIN. Quantity: 0 Refills: 0 Ordered: 16-Sep-2022 DO Active Problems Active Problems Problem Classification Problem Date Documented Date Episodic/Chronic Acute myocardial infarction (3 sources) Acute myocardial infarction; Translations: [Acute myocardial infarction, unspecified] Onset: 01-11-2017 Chronic kidney disease (20 sources) Chronic kidney disease stage 3A ; Translations: [Chronic kidney disease, stage 3a (HCC)] Onset: 11-08-2023 11-08-2023 Chronic Conditions associated with dizziness or vertigo (5 sources) Dizziness and giddiness; Translations: [Dizziness and giddiness] Onset: 07-31-2024 07-31-2024 Episodic Coronary atherosclerosis and other heart disease (20 sources) Angina pectoris, unspecified; Translations: [Coronary atherosclerosis] Onset: 05-10-2017 Chronic Coronary atherosclerosis and other heart disease (5 sources) Coronary angioplasty status; Translations: [CORONARY ANGIOPLASTY STATUS] Onset: 09-22-2021 Episodic Disorders of lipid metabolism (20 sources) Hyperlipidemia; Translations: [Other and unspecified hyperlipidemia] Onset: 09-27-2021 11-08-2023 Chronic Essential hypertension (20 sources) Essential hypertension; Translations: [Unspecified essential hypertension] Onset: 09-21-2021 Chronic Essential hypertension (1 source) Essential hypertension Onset: 05-10-2017 Genitourinary symptoms and ill-defined conditions (5 sources) Polyuria; Translations: [Polyuria] Onset: 07-31-2024 07-31-2024 Episodic Joint disorders and dislocations; trauma-related (20 sources) Unspecified internal derangement of left knee; Translations: [Derangement of left knee] Onset: 08-03-2021 Chronic Malaise and fatigue (5 sources) Fatigue; Translations: [Other fatigue] Onset: 07-31-2024 07-31-2024 Episodic Osteoarthritis (20 sources) Arthritis of right foot; Translations: [Primary osteoarthritis, right ankle and foot] Onset: 08-08-2022 08-08-2022 Chronic Other bone disease and musculoskeletal deformities (1 source) Osteonecrosis, unspecified; Translations: [OSTEONECROSIS UNSPECIFIED] Onset: 07-14-2022 Chronic Other bone disease and musculoskeletal deformities (20 sources) Avascular necrosis of bone; 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] Onset: 08-08-2022 08-08-2022 Chronic Other connective tissue disease (20 sources) History of repair of hip joint; Translations: [Presence of left artificial hip joint] Onset: 08-25-2022 08-25-2022 Chronic Other connective tissue disease (4 sources) History of total replacement of left hip joint; Translations: [Presence of left artificial hip joint] 07-03-2024 Chronic Other connective tissue disease (4 sources) Trochanteric bursitis, left hip; Translations: [TROCHANTERIC BURSITIS LEFT HIP] Onset: 06-30-2022 Episodic Other connective tissue disease (4 sources) Trochanteric bursitis of left hip; Translations: [Trochanteric bursitis, left hip] 07-03-2024 Episodic Other nervous system disorders (1 source) Other specified mononeuropathies of left lower limb; Translations: [OTH SPEC MONONEUROPATH LT LOW LIMB] Onset: 07-12-2022 Chronic Other nervous system disorders (1 source) Other chronic pain; Translations: [OTHER CHRONIC PAIN] Onset: 07-04-2022 Chronic Other nervous system disorders (1 source) Other specified mononeuropathies; Translations: [OTHER SPECIFIED MONONEUROPATHIES] Onset: 07-04-2022 Chronic Other nervous system disorders (20 sources) Difficulty walking; Translations: [Difficulty in walking, not elsewhere classified] Onset: 08-25-2022 08-25-2022 Chronic Other non-traumatic joint disorders (5 sources) Pain in left hip; Translations: [PAIN IN LEFT HIP] Onset: 07-04-2022 Episodic Other non-traumatic joint disorders (5 sources) Joint pain; Translations: [Pain in unspecified joint] Onset: 07-31-2024 07-31-2024 Episodic Other nutritional; endocrine; and metabolic disorders (1 source) Obesity; Translations: [Obesity, unspecified] Chronic Other nutritional; endocrine; and metabolic disorders (2 sources) Body mass index (BMI) 30.0-30.9, adult; Translations: [Body mass index (BMI) 30.0-30.9, adult] Onset: 09-27-2023 Chronic Other nutritional; endocrine; and metabolic disorders (20 sources) Obesity caused by energy imbalance; Translations: [Class 1 obesity due to excess calories with serious comorbidity and body mass index (BMI) of 31.0 to 31.9 in adult] Onset: 11-08-2023 11-08-2023 Chronic Other nutritional; endocrine; and metabolic disorders [...] Spondylosis; intervertebral disc disorders; other back problems (8 sources) Lumbago with sciatica, unspecified side; Translations: [Lumbar radiculopathy] Onset: 06-03-2022 Episodic Unclassified (1 source) Old myocardial infarction / I25.2(ICD-9) Onset: 05-10-2017 Unclassified (1 source) Coronary angioplasty status / Z98.61(ICD-9) Onset: 05-10-2017 Unclassified (1 source) Shortness of breath / R06.02(ICD-9) Onset: 05-10-2017 Unclassified (1 source) Chest pain, unspecified / R07.9(ICD-9) Onset: 05-10-2017 Unclassified (1 source) Angina pectoris, unspecified / I20.9(ICD-9) Onset: 05-10-2017 Unclassified (1 source) Athscl heart disease of [place] cor art w unsp ang pctrs / [...] PROLNG STAT/AWK PST INIT] Onset: 07-27-2021 Episodic Immunizations and screening for infectious disease (20 sources) Patient encounter status; Translations: [Other specified vaccination] Onset: 11-08-2023 11-08-2023 Episodic Nausea and vomiting (15 sources) Nausea; Translations: [Nausea] Onset: 01-08-2024 01-08-2024 Episodic Other connective tissue disease (4 sources) Pain in left leg; Translations: [PAIN IN LEFT LEG] Onset: 07-26-2021 Episodic Other infections; including parasitic (20 sources) H/O: infectious disease; Translations: [Personal history of other infectious and parasitic diseases] Onset: 03-27-2023 11-08-2023 Episodic Other non-traumatic joint disorders (3 sources) Pain in left knee; Translations: [PAIN IN LEFT KNEE] Onset: 07-25-2021 Episodic Other non-traumatic joint disorders (20 sources) Hip pain; Translations: [Pain in left hip] Onset: 08-25-2022 08-25-2022 Episodic Other nutritional; endocrine; and metabolic disorders (20 sources) Body mass index 30+ - obesity; Translations: [Body mass index (BMI) 30.0-30.9, adult] Onset: 09-27-2023 Resolved: 11-08-2023 11-08-2023 Chronic Other upper respiratory infections (15 sources) Viral upper respiratory tract infection; Translations: [Acute upper respiratory infection, unspecified] Onset: 01-08-2024 Resolved: 07-31-2024 01-08-2024 Episodic Residual codes; unclassified (1 source) Never smoked tobacco; Translations: [Other specified health status] Onset: 09-27-2023 09-27-2023 Episodic Sprains and strains (1 source) Strain of other muscle(s) and tendon(s) at lower leg level, left leg, initial encounter; Translations: [STRAIN OTH MSC TEND LOW LT LEG INIT] Onset: 07-27-2021 Episodic Unclassified (7 sources) Never smoked tobacco; Translations: [Never a smoker] Viral infection (20 sources) Herpes zoster; Translations: [Zoster without complications] Onset: 11-08-2023 11-08-2023 Episodic Results Test Name Value Interpretation Reference Range Facility ALL CBC WITH AUTO DIFFon BASOPHILS ABSOLUTE AUTO 0 [facility] Basophils/100 WBC (Bld) 0.4 % 0.2 - 2.0 % [facility] Eosinophils/100 WBC (Bld) 3.6 % 0.9 - 7.0 % [facility] Erythrocyte distribution width (RBC) [Ratio] 13.2 % 11.0 - 15.0 % [facility] Hematocrit (Bld) [Volume fraction] 31.9 % Low 36.0 - 48.0 % [facility] Hemoglobin (Bld) [Mass/Vol] 10.5 g/dL Low 12.0 - 16.0 g/dL [facility] IMMATURE GRANULOCYTES ABS AUTO 0.01 [facility] Immature granulocytes/100 WBC (Bld) 0.2 % 0.0 - 0.5 % [facility] LYMPHOCYTES ABSOLUTE AUTO 0.8 Low [facility] Lymphocytes/100 WBC (Bld) 15.9 % Low 20.5 - 60.0 % [facility] MCH (RBC) [Entitic mass] 31.4 pg 26.7 - 34.0 pg [facility] MCHC (RBC) [Mass/Vol] 32.9 g/dL 29.9 - 35.2 g/dL [facility] MCV (RBC) [Entitic vol] 95.5 fL 81.0 - 99.0 fL [facility] MONOCYTES ABSOLUTE AUTO 0.4 [facility] Monocytes/100 WBC (Bld) 8.5 % 1.7 - 12.0 % [facility] NEUTROPHILS ABSOLUTE AUTO 3.4 [facility] Neutrophils/100 WBC (Bld) 71.4 % 43.0 - 75.0 % [facility] Platelet mean volume (Bld) [Entitic vol] 8.4 fL Low 9.5 - 13.5 fL [facility] TB EO # 0.2 [facility] TB PLT 236 [facility] TB RBC 3.34 Low [facility] TB WBC 4.7 [facility] ALL SED RATEon 07-31-2024 TBH SED RATE 31 High NINF [facility] No Panel Informationon 07-31 Interpretation and review of laboratory results Abnormal [facility] 2 or 3 Views on 07-24-2024 Imaging Result: AP and Lateral lumbar spine: Left hip prosthesis, No acute fracture or dislocation Slight anterolisthesis L5-S1, mild facet arthritis. Bowel gas unremarkable Impression: mild degenerative changes lumbar spine. 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 Consent was given by the patient. [facility] SARS-COV-2 AG*on 01-08-2024 SARS-CoV-2 (COVID-19) RNA SAUL+probe Ql (Unsp spec) Negative NEGATIVE [facility] Comment on above: This test has not be en FDA cleared or approved, but has been authorized by the FDA under an Emergency Use Authorization (EUA) for use by authorized laboratories certified under CLIA that meet the requirements to perform moderate or high complexity testing. This test has been authorized only for the detection of proteins from SARS-CoV-2, not for any other viruses or pathogens. The emergency use of this test is authorized for the duration of the declaration that circumstances exist justifying the authorization of emergency use of in vitro diagnostic tests for detection and/or diagnosis of Covid-19 under section 564(b)(1) of the Act, 21 U.S.C. 360bbb-3(b)(1), unless the declaration is terminated or authorization is revoked sooner. [facility] Procedu reon 10-19-[address], [address] [facility], [place] [address] Exercise Stress Test Patient Name: INA JEWELL Ordering Provider: [id number] ERIC KERN Study Date: 10/19/2023 Reading Physician: [id number] Dupree MD MRN/PID: [id number] Supervising Physician: [id number] Dupree MD Fellow: Date of /Age: 3 1960 / 63 years Fellow: Gender: F Nurse: Lorenza Aquino RN Admission Status: Departure Clerk: NA Height: 167.64 cm Technologist: Weight: 86.18 kg Additional Staff: BSA: 1.96 m2 BMI: 30.67 kg/m2 Patient Location: Study Type: STRESS TEST ONLY Diagnosis/ICD: Old myocardial infarction-I25.2; Atherosclerotic heart disease-I25.10 Indication: Hypertension CPT Codes: Stress Test Interpretation-10100; Stress Test Supervision-[id number] Falls Risk: Low: Patient has low risk [...] response to exercise. 4. Poor exercise tolerance. [id number] Carina Dupree MD Electronically signed on 10/19/2023 at 4:59:33 PM Final Carina Contreras MD - 10/19/[address], [address], [place] [address] Exercise Stress Test Patient Name: INA JEWELL Ordering Provider: [id number] ERIC KERN Study Date: 10/19/2023 Reading Physician: [id number] Carina Dupree MD MRN/PID: [id number] Supervising Physician: [id number] Dupree MD Fellow: Date of /Age: 3 1960 / 63 years Fellow: Gender: F Nurse: Lorenza Aquino RN Admission Status: Departure Clerk: NA Height: 167.64 cm Technologist: Weight: 86.18 kg Additional Staff: BSA: 1.96 m2 BMI: 30.67 kg/m2 Patient Location: Study Type: STRESS TEST ONLY Diagnosis/ICD: Old myocardial infarction-I25.2; Atherosclerotic heart disease-I25.10 Indication: Hypertension CPT Codes: Stress Test Interpretation-01169; Stress Test Supervision-[id number] Falls Risk: Low: Patient has low risk [...] response to exercise. 4. Poor exercise tolerance. [id number] Carina Dupree MD Electronically signed on 10/19/2023 at 4:59:33 PM Final [facility] Work Phone: Cardiac stress study Procedu reOrdered By: Carina Dupree on 10-19-2023 [facility] Work Phone: STRESS TEST ONLYon STRESS TEST ONLY [facility] [address], [address] [place] [address] Exercise Stress Test Patient Name: INA JEWELL Ordering Provider: [id number] ERIC KERN Study Date: 10/19/2023 Reading Physician: [id number] Dupree MD MRN/PID: [id number] Supervising Physician: [id number] Dupree MD Fellow: Date of /Age: 3 1960 / 63 years Fellow: Gender: F Nurse: Lorenza Aquino RN Admission Status: Departure Clerk: BONITA Height: 167.64 cm Technologist: Weight: 86.18 kg Additional Staff: BSA: 1.96 m2 BMI: 30.67 kg/m2 Patient Location: Study Type: STRESS TEST ONLY Diagnosis/ICD: Old myocardial infarction-I25.2; Atherosclerotic heart disease-I25.10 Indication: Hypertension CPT Codes: Stress Test Interpretation-10320; Stress Test Supervision-[id number] Falls Risk: Low: Patient has low risk [...] response to exercise. 4. Poor exercise tolerance. [id number] Carina Dupree MD Electronically signed on 10/19/2023 at 4:59:33 PM Final [facility] Office Visit (Cardiology)on 09-16-2022 Follow-up visit Diagnoses/Problems Assessed Atherosclerosis of coronary artery of [place] heart without angina pectoris (414.01) (I25.10) Essential hypertension (401.9) (I10) History of PTCA (V45.82) (Z98.61) History of mycobacterial infection (V12.09) (Z86.19) Hyperlipidemia (272.4) (E78.5) Overweight with body mass index (BMI) of 29 to 29.9 in adult (278.02,V85.25) (E66.3,Z68.29) Orders Atherosclerosis of coronary artery of sho[place] heart without angina pectoris, Essential hypertension, History of mycobacterial infection, History of PTCA, Hyperlipidemia ALT - Alanine Aminotransferase, Serum; Status:Active; Requested for:[id number]; AST; Status:Active; Requested for:[id number]; Basic Metabolic Panel; Status:Active; Requested for:[id number]; CRP, High Sensitivity; Status:Active; Requested for:[id number]; Lipid Panel; Status:Active; Requested for:[id number]; Atherosclerosis of coronary artery of sho[place] heart without angina pectoris, History of PTCA [...] with the patient: laboratory tests Chief Complaint INA JEWELL is being seen for an annual follow-up of. Patient is a 62-year-old female returns for follow-up she is doing very well. She is already undergone knee and hip replacement without any adverse consequences or major adverse cardiac events. She has a history of SCAD status post anterior OR in 2017, with extensive revascularization of the [...] negative for complaint. Vitals Vital Signs Recorded: [id number] 10:10AM Heart Rate92, L Radial Uvnzytwz998, LUE, Sitting Gdvvazzrg03, LUE, Sitting Height5 ft 6 in Kkmpyu298 lb BMI Dutytmocpm19.54 kg/m2 BSA Calculated1.93 Tobacco Useb) No Physical [...] is no (more content not included)... Normal [employer] Tobacco Screening.on 023 Tobacco use status HS b) No -[facility] [employer] 250 DO Work Phone: Office Visit (Cardiology)on 07-15-2022 Follow-up visit Diagnoses/Problems Assessed Atherosclerosis of coronary artery of sho[place] heart without angina pectoris (414.01) (I25.10) Essential hypertension (401.9) (I10) Hyperlipidemia (272.4) (E78.5) Class 1 obesity with body mass index (BMI) of 30.0 to 30.9 in adult (278.00,V85.30) (E66.9,Z68.30) Orders Class 1 obesity with body mass index (BMI) of 30.0 to 30.9 in adult Healthy Weight Tips; Status:Complete; Done: [id number] Patient Instructions Please bring all medicines, vitamins, [...] Cardiac risk stratification prior to left THR. INA JEWELL is being seen for a cardiovascular [...] Major clinical markers: -Acute coronary syndrome or OR within 30 days: No -Decompensated heart failure: No -Significant arrhythmia: No -Severe valvular heart disease: No 2. Intermediate clinical markers -History of ischemic heart disease (prior OR, current chest pain secondary to ischemia, use [...] Delayed Release (more content not included)... Normal [employer] Tobacco Screening.on 023 Adult depression screening assessment No [facility] 250 DO Work Phone: Tobacco use status CPHS b) No [facility] 250 DO Work Phone: MRI [...] by: ARLENE HUERTAS Date: 2022-07-11 13:15 Normal [facility] MRI LSPINE WO CONon 06-04-19 23 [place] CON EXAMINATION: MRI LSPINE WO CON [...] by: RICARDO NGUYEN Date: 2022-06-03 15:23 Normal [facility] XR LSPINE MIN 4 VIEWSon 05-04 XR [...] evaluation if symptoms persist. Electronically authenticated by: CATHLEEN BARROSO Date: 2022-05-19 09:42 Normal [facility] CBC AUTO DIFFon 09-21-2021 BASO # 0.0 103/ul Normal 0.0-0.1 [facility] Comment on above: Performed By: #### C BC #### [facility] [address] [address] [address] Gwendolyn Maza Basophils/100 WBC (Bld) 0.4 % Normal 0.2-2.0 [facility] Comment on above: Performed By: #### C BC #### [facility] [address] [address] [address] Gwendolyn Maza EO # 0.1 103/ul Normal 0.0-0.7 [facility] Comment on above: Performed By: #### C BC #### [facility] [address] [place] [address] Dr. Gwendolyn Maza Eosinophils/100 WBC (Bld) 1.9 % Normal 0.9-7.0 [facility] Comment on above: Performed By: #### C BC #### [facility] [address] [place] [address] Dr. Gwendolyn Maza Erythrocyte distribution width (RBC) [Ratio] 12.2 % Normal 11.0-15.0 [facility] Comment on above: Performed By: #### C BC #### [facility] [address] [place] [address] Dr. Gwendolyn Maza Hematocrit (Bld) [Volume fraction] 38.1 % Normal 36.0-48.0 [facility] Comment on above: Performed By: #### C BC #### [facility] [address] [place] [address] Dr. Gwendolyn Maza Hemoglobin (Bld) [Mass/Vol] 12.8 g/dL Normal 12.0-16.0 [facility] Comment on above: Performed By: #### C BC #### [facility] [address] [place] [address] Dr. Gwendolyn Maza IG # 0.01 10e3/ul Normal 0.00-0.03 [facility] Comment on above: Performed By: #### C BC #### [facility] [address] [place] [address] Dr. Gwendolyn Maza IG % 0.2 % Normal 0.0-0.5 [facility] Comment on above: Performed By: #### C BC #### [facility] [address] [place] [address] Dr. Gwendolyn Maza LYMPH # 0.9 103/ul Critically low 1.2-3.8 [facility] Comment on above: Performed By: #### C BC #### [facility] [address] [place] [address] Dr. Gwendolyn Maza Lymphocytes/100 WBC (Bld) 17.6 % Critically low 20.5-60.0 [facility] Comment on above: Performed By: #### C BC #### [facility] [address] [place] [address] Dr. Gwendolyn Maza MANUAL DIFF REQ NO Normal [facility] Comment on above: Performed By: #### C BC #### [facility] [address] [place] [address] Dr. Gwendolyn Maza MCH (RBC) [Entitic mass] 30.3 pg Normal 26.7-34.0 [facility] Comment on above: Performed By: #### C BC #### [facility] [address] [place] [address] Dr. Gwendolyn Maza MCHC (RBC) [Mass/Vol] 33.6 g/dL Normal 29.9-35.2 [facility] Comment on above: Performed By: #### C BC #### [facility] [address] [place] [address] Dr. Gwendolyn Maza MCV (RBC) [Entitic vol] 90.1 fL Normal 81.0-99.0 [facility] Comment on above: Performed By: #### C BC #### [facility] [address] [place] [address] Dr. Gwendolyn Maza MONO # 0.5 103/ul Normal 0.3-0.8 [facility] Comment on above: Performed By: #### C BC #### [facility] [address] [place] [address] Dr. Gwendolyn Maza Monocytes/100 WBC (Bld) 8.5 % Normal 1.7-12.0 [facility] Comment on above: Performed By: #### C BC #### [facility] [address] [place] [address] Dr. Gwendolyn Maza NEUT # 3.8 103/ul Normal 1.4-6.5 [facility] Comment on above: Performed By: #### C BC #### [facility] [address] [place] [address] Dr. Gwendolyn Maza Neutrophils/100 WBC (Bld) 71.4 % Normal 43.0-75.0 [facility] Comment on above: Performed By: #### C BC #### [facility] [address] [address] [address] Gwendolyn Maza Platelet mean volume (Bld) [Entitic vol] 8.4 fL Critically low 9.5-13.5 [facility] Comment on above: Performed By: #### C BC #### [facility] [address] [place] [address] Dr. Gwendolyn Maza PLT 229 103/ul Normal 150-450 [facility] Comment on above: Performed By: #### C BC #### [facility] [address] [address] [address] Gwendolyn Maza RBC 4.23 106/ul Normal 4.20-5.40 [facility] Comment on above: Performed By: #### C BC #### [facility] [address] [place] [address] Dr. Gwendolyn Maza WBC 5.3 103/ul Normal 4.0-11.0 [facility] Comment on above: Performed By: #### C BC #### [facility] [address] [place] [address] Dr. Gwendolyn Maza [facility]03 SARS-CoV-2 (COVID-19) RNA SAUL+probe Ql (Unsp spec) Not detected Normal NOT DETECTED [facility] Comment on above: Result Comment: When diagnostic [...] for this test is supported by the Medical Lab Director of Health and Human Service's declaration that [...] used). Performed By: #### C VDTB #### [facility] [address] [address] [address] Gwendolyn Maza LIPID PROFILEon 09-21-2021 CHOL-HDL RATIO NORM SEE BELOW Normal [facility] Comment on above: Result Comment: 3.3 - 4.4 LOW RISK 4.4 - 7.1 AVERAGE RISK 7.1 - 11.0 MODERATE RISK >11.0 HIGH RISK Performed By: #### C BC #### [facility] [address] [address] [address] Gwendolyn Maza Cholesterol [Mass/Vol] 207 mg/dL Critically high <=200 [facility] Comment on above: Performed By: #### C BC #### [facility] [address] [place] [address] Dr. Gwendolyn Maza Cholesterol in HDL [Mass/Vol] 49 mg/dL Normal 40-60 [facility] Comment on above: Performed By: #### C BC #### [facility] [address] [address] [address] Gwendolyn Maza Cholesterol in LDL [Mass/Vol] 112.2 mg/dL Normal [facility] Comment on above: Performed By: #### C BC #### [facility] [address] [place] [address] Dr. Gwendolyn Maza Cholesterol.total/Ch olesterol in HDL [Mass ratio] 4.2 {ratio} Normal [facility] Comment on above: Performed By: #### C BC #### [facility] [address] [address] [address] Gwendolyn Maza HDL NORMAL > or = 60 mg/dl - LO W CARDIOVASCULAR RISK <40 mg/dl - HIGH CARDIOVASCULAR RISK Normal [facility] Comment on above: Performed By: #### C BC #### [facility] [address] [place] [address] Dr. Gwendolyn Maza LDL CALC NORMAL SEE BELOW Normal [facility] Comment on above: Result Comment: <100 mg/dl OPTIMAL 100 - 129 mg/dl NEAR OR ABOVE OPTIMAL 130 - 159 mg/dl BORDERLINE HIGH 160 - 189 mg/dl HIGH >190 mg/dl VERY HIGH Performed By: #### C BC #### [facility] [address] [address] [address] Gwendolyn Maza Triglyceride [Mass/Vol] 229 mg/dL Critically high <=150 [facility] Comment on above: Performed By: #### C BC #### [facility] [address] [address] [address] Gwendolyn Maza VLDL CALC 45.8 mg/dL Normal [facility] Comment on above: Performed By: #### C BC #### [facility] [address] [place] [address] Dr. Gwendolyn Maza PROF CHEM 8 (BAS METB)on Anion gap [Moles/Vol] 11.5 mmol/L Normal [facility] Comment on above: Performed By: #### C BC #### [facility] [address] [place] [address] Dr. Gwendolyn Maza Calcium [Mass/Vol] 9.3 mg/dL Normal 8.5-10.1 [facility] Comment on above: Performed By: #### C BC #### [facility] [address] [address] [address] Gwendolyn Maza Chloride [Moles/Vol] 104 mmol/L Normal 98-107 [facility] Comment on above: Performed By: #### C BC #### [facility] [address] [place] [address] Dr. Gwendolyn Maza CO2 [Moles/Vol] 28.9 mmol/L Normal 21.0-32.0 [facility] Comment on above: Performed By: #### C BC #### [facility] [address] [address] [address] Gwendolyn Maza Creatinine [Mass/Vol] 1.21 mg/dL Critically high 0.55-1.02 [facility] Comment on above: Performed By: #### C BC #### [facility] [address] [place] [address] Dr. Gwendolyn Maza EGFR-AF HAITIAN 55 mL/min/1.73m2 Critically low >=60 [facility] Comment on above: Performed By: #### C BC #### [facility] [address] [address] [address] Gwendolyn Maza EGFR-NON AF HAITIAN 46 mL/min/1.73m2 Critically low >=60 [facility] Comment on above: Performed By: #### C BC #### [facility] [address] [address] [address] Gwendolyn Maza Glucose [Mass/Vol] 105 mg/dL Normal 74-106 [facility] Comment on above: Performed By: #### C BC #### [facility] [address] [address] [address] Gwendolyn Maza Potassium [Moles/Vol] 4.4 mmol/L Normal 3.5-5.1 [facility] Comment on above: Performed By: #### C BC #### [facility] [address] [address] [address] Gwendolyn Maza Sodium [Moles/Vol] 140 mmol/L Normal 136-145 [facility] Comment on above: Performed By: #### C BC #### [facility] [address] [address] [address] Gwendolyn Maza Urea nitrogen [Mass/Vol] 23.0 mg/dL Critically high 7.0-18.0 [facility] Comment on above: Performed By: #### C BC #### [facility] [address] [address] [address] Gwendolyn Maza Urea nitrogen/Creatinine [Mass ratio] 19.0 mg/mg Normal [facility] Comment on above: Performed By: #### C BC #### [facility] [address] [address] [address] Gwendolyn Maza SGOTon 09-21-2021 AST [Catalytic activity/Vol] 20 U/L Normal 15-37 [facility] Comment on above: Performed By: #### C BC #### [facility] [address] [address] [address] Gwendolyn Maza SGPTon 09-21-2021 ALT [Catalytic activity/Vol] 44 U/L Normal 14-59 [facility] Comment on above: Performed By: #### C BC #### [facility] [address] [address] [address] Gwendolyn Maza PHQ-2 VITALSon 09-07-2021 Adult depression screening assessment No [facility] 250 DO Work Phone: Fall risk assessment c) Not medically indicated [facility] 250 DO Work Phone: Tobacco use status CPHS b) No [facility] 250 DO Work Phone: MRI KNEE LT [...] by: RICARDO NGUYEN Date: 2021-08-03 16:42 Normal [facility] US TUCKER DOP LEG LTon 07-27-19 [...] the left lower extremity. Electronically authenticated by: CATHLEEN BARROSO Date: 2021-07-26 11:03 Normal [facility] XR KNEE LT 4V or [...] by: DOMONIQUE TILLMAN Date: 2021-07-25 00:58 Normal [facility] Vital Signs Date Time Vital Sign Value Performing Clinician Facility 07-31-2024 11:27-0400 Body mass index (BMI) [Ratio] 30.83 kg/m2 Kenya Debby [employer]ING CLERK Work Phone: [facility] 07-31-2024 11:27-0400 Body temperature 98.49 [degF] Kenya Alfonsolamont BILL OF LADING CLERK Work Phone: [facility] 07-31-2024 11:27-0400 Body weight 86.64 kg Kenya Guardado BILL OF LADING CLERK Work Phone: [facility] 07-31-2024 11:27-0400 Diastolic blood pressure 80 mm[Hg] Kenya Debby BILL OF LADING CLERK Work Phone: [facility] 07-31-2024 11:27-0400 Heart rate 86 /min Kenya Guardado BILL OF LADING CLERK Work Phone: [facility] 07-31-2024 11:27-0400 Respiratory rate 19 /min Kenya Alfonsolamont BILL OF LADING CLERK Work Phone: [facility] 07-31-2024 11:27-0400 SaO2% (BldA) [Mass fraction] 98 % Kenya Debby BILL OF LADING CLERK Work Phone: [facility] 07-31-2024 11:27-0400 Systolic blood pressure 122 mm[Hg] Kenya Guardado BILL OF LADING CLERK Work Phone: [facility] 01-08-2024 13:39-0500 Body height 167.6 cm Kenya Guardado BILL OF LADING CLERK Work Phone: [facility] 01-08-2024 13:39-0500 Body mass index (BMI) [Ratio] 31.09 kg/m2 Kenya Guardado BILL OF LADING CLERK Work Phone: [facility] 01-08-2024 13:39-0500 Body temperature 97.59 [degF] Kenya Guardado BILL OF LADING CLERK Work Phone: [facility] 01-08-2024 13:39-0500 Body weight 87.36 kg Kenya Guardado BILL OF LADING CLERK Work Phone: [facility] 01-08-2024 13:39-0500 Diastolic blood pressure 102 mm[Hg] Kenya Guardado B[employer] OF LADING CLERK Work Phone: [facility] 01-08-2024 13:39-0500 Heart rate 78 /min Kenya Guardado B[employer] OF LADING CLERK Work Phone: [facility] 01-08-2024 13:39-0500 Respiratory rate 18 /min Kenya Guardado B[employer] OF LADING CLERK Work Phone: [facility] 01-08-2024 13:39-0500 SaO2% (BldA) [Mass fraction] 96 % Kenya Guardado B[employer] OF LADING CLERK Work Phone: [facility] 01-08-2024 13:39-0500 Systolic blood pressure 160 mm[Hg] Kenya Guardado BILL OF LADING CLERK Work Phone: [facility] 11-13-2023 10:12-0400 Body height 167.6 cm Jewel Toned DO Work Phone: [facility] 11-13-2023 10:12-0400 Body mass index (BMI) [Ratio] 30.86 kg/m2 [employer] Work Phone: [facility] 11-13-2023 10:12-0400 Body weight 86.73 kg Osvaldo Nichole DO Work Phone: [facility] 11-13-2023 10:12-0400 Diastolic blood pressure 72 mm[Hg] Osvaldo Nichole DO Work Phone: [facility] 11-13-2023 10:12-0400 Heart rate 85 /min Osvaldo Nichole DO Work Phone: [facility] 11-13-2023 10:12-0400 Respiratory rate 16 /min Osvaldo Nichole DO Work Phone: [facility] 11-13-2023 10:12-0400 SaO2% (BldA) [Mass fraction] 95 % Osvaldo Nichole DO Work Phone: [facility] 11-13-2023 10:12-0400 Systolic blood pressure 124 mm[Hg] Osvaldo Nichole DO Work Phone: [facility] 11-08-2023 11:06-0400 Body height 167.6 cm Kenya Parishz BILL OF LADING CLERK Work Phone: [facility] 11-08-2023 11:06-0400 Body mass index (BMI) [Ratio] 31.15 kg/m2 Kenya Kadenholz BILL OF LADING CLERK Work Phone: [facility] 11-08-2023 11:06-0400 Body temperature 97.81 [degF] Kenay Parishz BILL OF LADING CLERK Work Phone: [facility] 11-08-2023 11:06-0400 Body weight 87.54 kg Kenya Aichholz BILL OF LADING CLERK Work Phone: [facility] 11-08-2023 11:06-0400 Diastolic blood pressure 82 mm[Hg] Kenya Aichholz BILL OF LADING CLERK Work Phone: [facility] 11-08-2023 11:06-0400 Heart rate 82 /min Kenya Aichholz BILL OF LADING CLERK Work Phone: [facility] 11-08-2023 11:06-0400 Respiratory rate 18 /min Kenya Kadenholz BILL OF LADING CLERK Work Phone: [facility] 11-08-2023 11:06-0400 SaO2% (BldA) [Mass fraction] 96 % Kenya Guardado BILL OF LADING CLERK Work Phone: [facility] 11-08-2023 11:06-0400 Systolic blood pressure 122 mm[Hg] Kenya Guardado BILL OF LADING CLERK Work Phone: [facility] 10-19-2023 14:21-0400 Diastolic blood pressure 76 mm[Hg] Madelaine [address] [place] [address] 10-19-2023 14:21-0400 Heart rate 77 /min [address] 10-19-2023 14:21-0400 Systolic blood pressure 112 mm[Hg] [address] 09-16-2022 10:10-0400 Body height 167.64 cm Kenya Alfonsoholjose francisco Work Phone: [facility] 250 DO Work Phone: 09-16-2022 10:10-0400 Body mass index (BMI) [Ratio] 29.54 kg/m2 Kenya Alfonsoholz Work Phone: [facility] 250 DO Work Phone: 09-16-2022 10:10-0400 Body surface area Derived from formula 1.93 m2 Kenya Alfonsoholz Work Phone: [facility] 250 DO Work Phone: 09-16-2022 10:10-0400 Body weight 83.01 kg Kenya Alfonsoholz Work Phone: [facility] 250 DO Work Phone: 09-16-2022 10:10-0400 Diastolic blood pressure 60 mm[Hg] Kenya Horowitzhholz Work Phone: [facility] 250 DO Work Phone: 09-16-2022 10:10-0400 Heart rate 92 /min Kenya Phillips Aichholz Work Phone: [facility] 250 DO Work Phone: 09-16-2022 10:10-0400 Systolic blood pressure 104 mm[Hg] Kenya Phillips Aichholz Work Phone: [facility] 250 DO Work Phone: 07-15-2022 09:18-0400 Body height 167.64 cm Kenya Phillips Aichholz Work Phone: [facility] 250 DO Work Phone: 07-15-2022 09:18-0400 Body mass index (BMI) [Ratio] 30.34 kg/m2 Kenya Phillips Aichholz Work Phone: [facility] 250 DO Work Phone: 07-15-2022 09:18-0400 Body surface area Derived from formula 1.95 m2 Kenya Phillips Aichholz Work Phone: [facility] 250 DO Work Phone: 07-15-2022 09:18-0400 Body weight 85.28 kg Kenya Phillips Aichholz Work Phone: [facility] 250 DO Work Phone: 07-15-2022 09:18-0400 Diastolic blood pressure 84 mm[Hg] Kenya Phillips Aichholz Work Phone: [facility] 250 DO Work Phone: 07-15-2022 09:18-0400 Heart rate 101 /min Kenya Phillips Aichholz Work Phone: [facility] 250 DO Work Phone: 07-15-2022 09:18-0400 Systolic blood pressure 108 mm[Hg] Kenya Phillips Aichholz Work Phone: [facility] 250 DO Work Phone: 09-07-2021 10:41-0400 Body height 167.64 cm Kenya Phillips Aichholz Work Phone: [facility] 250 DO Work Phone: 09-07-2021 10:41-0400 Body mass index (BMI) [Ratio] 29.38 kg/m2 Kenya Phillips Aichholz Work Phone: [facility] 250 DO Work Phone: 09-07-2021 10:41-0400 Body surface area Derived from formula 1.92 m2 Kenya Phillips Aichholz Work Phone: [facility] 250 DO Work Phone: 09-07-2021 10:41-0400 Body weight 82.56 kg Kenya Phillips Aichholz Work Phone: [facility] 250 DO Work Phone: 09-07-2021 10:41-0400 Diastolic blood pressure 68 mm[Hg] Kenya Phillips Aichholz Work Phone: [facility] 250 DO Work Phone: 09-07-2021 10:41-0400 Heart rate 72 /min Kenya Phillips Aichholz Work Phone: [facility] 250 DO Work Phone: 09-07-2021 10:41-0400 Systolic blood pressure 110 mm[Hg] Kenya Phillips Aichholz Work Phone: [facility] 250 DO Work Phone: Encounters Encounter Date Encounter Type Care Provider Facility Start: 07-31-2024 End: 07-31-2024 Bamboo flowsheet Kenya Alfonsolamont BILL OF LADING CLERK Work Phone: [facility] Start: 07-31-2024 End: 07-31-2024 Bamboo flowsheet Kenya Lugojose francisco BILL OF LADING CLERK Work Phone: [facility] Start: 07-31-2024 End: 07-31-2024 Clinisync Result Encounter Kenya Alfonsolamont BILL OF LADING CLERK Work Phone: [facility] External Department Unsolicited Start: 07-31-2024 End: 07-31-2024 Office outpatient visit 25 minutes Kenya Alfonsolamont BILL OF LADING CLERK Work Phone: [facility] Comment on above: Other fatigue (Prima ry Dx); Essential hypertension (CMS/HCC); Atherosclerosis of sho[place] coronary artery of sho[place] heart without angina pectoris (CMS/HCC); Mixed hyperlipidemia (CMS/HCC); Dizziness and giddiness; Arthralgia, unspecified joint; Polyuria Start: 07-24-2024 End: 07-24-2024 Bamboo flowsheet Calos HENDERSON Work Phone: [facility] Start: 07-24-2024 End: 07-24-2024 Bamboo flowsheet Calos HENDERSON Work Phone: [facility] Start: 07-24-2024 End: 07-24-2024 Office outpatient visit 15 minutes Calos HENDERSON Work Phone: [facility] Comment on above: Acute hip pain, left (Primary Dx); Acute left lumbar radiculopathy; History of total hip replacement, left Start: 07-24-2024 End: 07-24-2024 ambulatory CALOS PURI Not Available Start: 07-03-2024 End: 07-03-2024 Office outpatient visit 25 minutes Calos HENDERSON Work Phone: [facility] Comment on above: Acute hip pain, left (Primary Dx); History of total hip replacement, left; Trochanteric bursitis of left hip Start: 07-03-2024 End: 07-03-2024 ambulatory CALOS PURI Not Available Start: 01-08-2024 End: 01-08-2024 Bamboo flowsheet Kenya Alfonsolamont BILL OF LADING CLERK Work Phone: [facility] Start: 01-08-2024 End: 01-08-2024 Bamboo flowsheet Kenya Lugojose francisco BILL OF LADING CLERK Work Phone: [facility] Start: 01-08-2024 End: 01-08-2024 Clinisync Result Encounter Kenya Alfonsolamont BILL OF LADING CLERK Work Phone: [facility] External Department Unsolicited Start: 01-08-2024 End: 01-08-2024 Office outpatient visit 15 minutes Kenya Alfonsolamont BILL OF LADING CLERK Work Phone: [facility] Comment on above: Viral upper respirat ory illness (Primary Dx); Class 1 obesity due to excess calories with serious comorbidity and body mass index (BMI) of 31.0 to 31.9 in adult; Essential hypertension (CMS/HCC); Nausea Start: 01-08-2024 End: 01-08-2024 ambulatory KENYA ALFONSOJOONJose Francisco Not Available Start: 12-11-2023 End: 01-23-2024 Telephone encounter Alexis Bo BILL OF LADING CLERK Work Phone: [facility] Start: 11-15-2023 End: 11-15-2023 Bamboo flowsheet Calos HENDERSON Work Phone: [facility] Start: 11-15-2023 End: 11-15-2023 Bamboo flowsheet Calos HENDERSON Work Phone: [facility] Start: 11-15-2023 End: 11-15-2023 ambulatory CALOS PURI Not Available Start: 11-15-2023 End: 11-15-2023 Office outpatient visit 15 minutes Calos HENDERSON Work Phone: [facility] Comment on above: Status post left hip replacement (Primary Dx); Left hip pain Start: 11-13-2023 End: 11-13-2023 Bamboo flowsheet Osvaldo Dionisio DO Work Phone: [facility] Start: 11-13-2023 End: 11-13-2023 Bamboo flowsheet Osvaldo Nichole DO Work Phone: [facility] Start: 11-13-2023 End: 11-13-2023 Patient encounter procedure Osvaldo Nichole DO Work Phone: [facility] Comment on above: Encounter for screen ing colonoscopy (Primary Dx) Start: 11-13-2023 End: 11-13-2023 ambulatory OSVALDO NICHOLE Not Available Start: 11-08-2023 End: 11-08-2023 Bamboo flowsheet Kenya Guardado BILL OF LADING CLERK Work Phone: [facility] Start: 11-08-2023 End: 11-08-2023 Bamboo flowsheet Kenya Guardado BILL OF LADING CLERK Work Phone: [facility] Start: 11-08-2023 End: 11-08-2023 ambulatory KENYA GUARDADO Not Available Start: 11-08-2023 End: 11-08-2023 Patient encounter status Kenya Guardado BILL OF LADING CLERK Work Phone: [facility] Start: 11-08-2023 End: 11-08-2023 Periodic preventive med est patient 40-64yrs Kenya Guardado BILL OF LADING CLERK Work Phone: [facility] Comment on above: Wellness examination (Primary Dx); Chronic kidney disease, stage 3a (HCC) (CMS/HCC); Encounter for screening mammogram for malignant neoplasm of breast; Colon cancer screening; Essential hypertension (CMS/HCC); Class 1 obesity due to excess calories with serious comorbidity and body mass index (BMI) of 31.0 to 31.9 in adult Start: 10-19-2023 End: 10-19-2023 Subsequent hospital visit by physician Madelaine High [facility] Room 1 [facility] Comment on above: History of OR (myoca rdial infarction); History of PTCA; Atherosclerosis of coronary artery of shoalwater heart without angina pectoris, unspecified vessel or lesion type Start: 10-19-2023 End: 10-19-2023 ambulatory [facility] Start: 09-27-2023 End: 09-27-2023 ambulatory [facility] Ambulatory Start: 09-16-[address] Eric Kern Facility: Start: 09-16-2022 Office outpatient vi sit 15 minutes Kenya Phillips Aichholz Work Phone: -[facility] 250 DO Work Phone: Start: 09-16-2022 Patient encounter procedure Kenya Phillips Aichholz Work Phone: -[facility] 250 DO Work Phone: Start: 07-15-2022 Office outpatient vi sit 25 minutes Kenya Phillips Aichholz Work Phone: [facility] 250 DO Work Phone: Start: 07-15-2022 [address] Mrs[address] Kenya Phillips Lorgilbertlamont Facility: Start: 07-11-2022 End: 07-12-2022 ambulatory CUSTOMER SERVICE ANALYST KENYA DEBBY Facility:H1 Start: 07-08-2022 ambulatory ALPESH RIVERA LORGilbertJOONJose Francisco Facil ity:H1 Start: 06-30-2022 End: 07-01-2022 ambulatory CUSTOMER SERVICE ANALYST KENYA LORGilbertLAMONT Facility:H1 Start: 06-03-2022 End: 06-04-[address] RICARDO NGUYEN Facility:H1 Start: 05-19-2022 End: 05-20-2022 ambulatory Cathleen Barroso Facility:H1 Start: 03-30-2022 Rx Renewal Kenya Phillips Aichho lz Work Phone: [facility] 250 DO Work Phone: Start: 02-08-2022 Rx Renewal Kenya Phillips Aichho lz Work Phone: [facility] 250 DO Work Phone: Start: 09-27-2021 Encounter for preprocedural laboratory examination DR TERESA SU [facility] Start: 09-21-2021 End: 09-22-2021 Encounter for preprocedural laboratory examination ALPESH GUARDADO Facility:H1 Start: 09-21-2021 End: 09-22-2021 ambulatory ALPESH KENYA GUARDADO Facility:H1 Start: 09-07-2021 Office outpatient vi sit 25 minutes Kenya Jacqueline Guardado Work Phone: [facility] 250 DO Work Phone: Start: 08-03-2021 End: 08-04-[address] RICARDO NGUYEN Facility:H1 Start: 07-26-2021 End: 07-27-[address] DOCTOR GARCIA Facility:H1 Start: 07-25-2021 End: 07-25-[address] JOANN COOLEY Facility:H1 Start: 04-12-2021 Rx Renewal Eric Silverio n DO Work Phone: [facility] 250 DO Work Phone: Start: 02-15-2021 Rx Renewal Eric Silverio n DO Work Phone: [facility] 250 DO Work Phone: Start: 05-10-2017 Ambulatory PROVIDER UNKNOWN Facili ty:[id number] Start: 01-11-2017 Ambulatory PROVIDER UNKNOWN Facili ty:[id number] Procedures Date Procedure Procedure Detail Performing Clinician Start: 07-31-2024 ALL CBC WITH AUTO DIFF Kenya Guardado BILL OF LADING CLERK Work Phone: Start: 07-31-2024 ALL SED RATE Kenya Judy solano BILL OF LADING CLERK Work Phone: Start: 07-24-2024 Radex spine lumbosac ral 2/3 views Calos Puri PA Work Phone: Start: 07-03-2024 LARGE JOINT ARTHROCENTESIS Calos Puri PA Work Phone: Start: 01-08-2024 SARS-COV-2 AG* Kenya olson BILL OF LADING CLERK Work Phone: Start: 12-05-2023 Colonoscopy Kenya solano BILL OF LADING CLERK Work Phone: Start: 11-21-2023 Mammography Kenya solano BILL OF LADING CLERK Work Phone: Start: 10-19-2023 Cv strs tst xers&/or rx cont ecg trcg only Eric Kern DO Work Phone: Start: 03-27-2023 History of percutane ous transluminal coronary angioplasty History of PTCA Madelaine 1 Cardiac catheterization Kenya Phillips Aicholz Work Phone: section [facility] Work Phone: History of percutane ous transluminal coronary angioplasty History of PTCA Kenya Phillips Aicholz Work Phone: History of percutane ous transluminal coronary angioplasty History of PTCA Madelaine 1 Operative procedure on foot Kenya Horowitzholz Work Phone: Percutaneous translu ana coronary angioplasty Kenya Horowitzholz Work Phone: Total replacement of hip Lis dennis Alfonsoholz Work Phone: NEGATED: Highlighted row has not occurred! Total colonoscopy Kenya Alfonsoholjose francisco Work Phone: Plan of Treatment Date Care Activity Detail Author Start: 12-04-2033 Screening for malignant neoplasm of colon [facility] Start: 11-14-2025 End: 11-14-2025 Patient encounter procedure 11/14/2025 9:00 AM EDT Office Visit [facility] [address] [place] [address] Calos Puri, BEATRIZ [address] [place] [address] [facility] Start: 11-20-2024 Screening for malignant neoplasm of breast Mammogram [facility] Start: 11-11-2024 End: 11-11-2024 Patient encounter procedure 11/11/2024 11:00 AM EDT Office Visit [facility] [address] [place] [address] Kenya Guardado, TIFFANI [address] [place] [phone] [facility] Start: 09-26-2024 End: 09-26-2024 Patient encounter procedure 09/26/2024 9:10 AM EDT Office Visit [facility] [address] [facility] [address] [place] [address] Eric Kern DO [address] [facility] [address] [place] [address] [facility] Start: 08-15-2024 End: 08-15-2024 Patient encounter procedure 08/15/2024 11:30 AM EDT Office Visit [facility] [address] [place] [address] Kenya Guardado NP [address] [place] [phone] [facility] Start: 08-07-2024 End: 08-07-2024 Patient encounter procedure 08/07/2024 11:00 AM EDT Office Visit [facility] [address] [facility] [phone] Calos Puri PA [address] [facility] [address] [place] [address] [facility] Start: 07-31-2024 End: 07-31-2025 C reactive protein [Mass/volume] in Serum or Plasma C-reactive protein Lab Routine Arthralgia, unspecified joint Expected: 07/31/2024 (Approximate), Expires: 07/31/2025 [facility] Comment on above: Expected: 07/31/2024 (Approximate), Expi res: 07/31/2025 Start: 07-31-2024 End: 07-31-2025 CBC W Auto Differential panel - Blood [facility] Comment on above: Expected: 07/31/2024 (Approximate), Expi res: 07/31/2025 Start: 07-31-2024 End: 07-31-2025 Cobalamin (Vitamin B12) [Mass/volume] in Serum or Plasma Vitamin B12 Lab Routine Other fatigue Expected: 07/31/2024 (Approximate), Expires: 07/31/2025 [facility] Comment on above: Expected: 07/31/2024 (Approximate), Expi res: 07/31/2025 Start: 07-31-2024 End: 07-31-2025 Comprehensive metabolic 2000 panel - Serum or Plasma Comprehensive metabolic panel Lab Routine Essential hypertension (CMS/HCC) Mixed hyperlipidemia (CMS/HCC) Expected: 07/31/2024 (Approximate), Expires: 07/31/2025 [facility] Work Phone: Comment on above: Expected: 07/31/2024 (Approximate), Expi res: 07/31/2025 Start: 07-31-2024 End: 07-31-2025 Erythrocyte sedimentation rate Sedimentation rate, automated Lab Routine Arthralgia, unspecified joint Expected: 07/31/2024 (Approximate), Expires: 07/31/2025 [facility] Comment on above: Expected: 07/31/2024 (Approximate), Expi res: 07/31/2025 Start: 07-31-2024 End: 07-31-2025 Ferritin [Mass/volume] in Serum or Plasma Ferritin Lab Routine Other fatigue Expected: 07/31/2024 (Approximate), Expires: 07/31/2025 [facility] Comment on above: Expected: 07/31/2024 (Approximate), Expi res: 07/31/2025 Start: 07-31-2024 End: 07-31-2025 Folate [Mass/volume] in Serum or Plasma Folate Lab Routine Other fatigue Expected: 07/31/2024 (Approximate), Expires: 07/31/2025 [facility] Comment on above: Expected: 07/31/2024 (Approximate), Expi res: 07/31/2025 Start: 07-31-2024 End: 07-31-2025 Iron and Iron binding capacity panel - Serum or Plasma Iron level Lab Routine Other fatigue Expected: 07/31/2024 (Approximate), Expires: 07/31/2025 [facility] Comment on above: Expected: 07/31/2024 (Approximate), Expi res: 07/31/2025 Start: 07-31-2024 End: 07-31-2025 Magnesium [Mass/volume] in Serum or Plasma Magnesium Lab Routine Arthralgia, unspecified joint Other fatigue Expected: 07/31/2024 (Approximate), Expires: 07/31/2025 [facility] Comment on above: Expected: 07/31/2024 (Approximate), Expi res: 07/31/2025 Start: 07-31-2024 End: 07-31-2025 Thyroid peroxidase and thyroglobulin antibodies Thyroid peroxidase and thyroglobulin antibodies Lab Routine Other fatigue Expected: 07/31/2024 (Approximate), Expires: 07/31/2025 [facility] Comment on above: Expected: 07/31/2024 (Approximate), Expi res: 07/31/2025 Start: 07-31-2024 End: 07-31-2025 Thyrotropin [Units/volume] in Serum or Plasma TSH Lab Routine Dizziness and giddiness Other fatigue Expected: 07/31/2024 (Approximate), Expires: 07/31/2025 [facility] Comment on above: Expected: 07/31/2024 (Approximate), Expi res: 07/31/2025 Start: 07-31-2024 End: 07-31-2025 Thyroxine (T4) free [Mass/volume] in Serum or Plasma T4, free Lab Routine Dizziness and giddiness Other fatigue Expected: 07/31/2024 (Approximate), Expires: 07/31/2025 [facility] Comment on above: Expected: 07/31/2024 (Approximate), Expi res: 07/31/2025 Start: 07-31-2024 End: 07-31-2025 Triiodothyronine (T3) Free [Mass/volume] in Serum or Plasma T3, free Lab Routine Dizziness and giddiness Other fatigue Expected: 07/31/2024 (Approximate), Expires: 07/31/2025 [facility] Comment on above: Expected: 07/31/2024 (Approximate), Expi res: 07/31/2025 Start: 07-31-2024 End: 07-31-2025 Urate [Mass/volume] in Serum or Plasma Uric acid Lab Routine Arthralgia, unspecified joint Expected: 07/31/2024 (Approximate), Expires: 07/31/2025 [facility] Comment on above: Expected: 07/31/2024 (Approximate), Expi res: 07/31/2025 Start: 07-31-2024 End: 07-31-2025 Urinalysis complete panel - Urine Urinalysis with reflex microscopic (clean catch) Lab Routine Polyuria Expected: 07/31/2024 (Approximate), Expires: 07/31/2025 [facility] Comment on above: Expected: 07/31/2024 (Approximate), Expi res: 07/31/2025 Start: 07-31-2024 End: 07-31-2024 Patient encounter procedure [facility] Comment on above: Essential hypertension (CMS/HCC) (Primar y Dx); Atherosclerosis of shoalwater coronary artery of sho[place] heart without angina pectoris (CMS/HCC); Mixed hyperlipidemia (CMS/HCC) Start: 07-24-2024 End: 07-24-2025 MR Lumbar spine WO contrast MR lumbar spine wo contrast Imaging Routine Acute left lumbar radiculopathy Expected: 07/24/2024 (Approximate), Expires: 07/24/2025 [facility] Work Phone: Comment on above: Expected: 07/24/2024 (Approximate), Expi res: 07/24/2025 Start: 07-24-2024 End: 07-24-2024 Patient encounter procedure [facility] Comment on above: Arrived Start: 01-08-2024 End: 01-08-2024 Patient encounter procedure 01/08/2024 1:40 PM EST Office Visit [facility] [address] [place] [phone] Kenya Guardado NP [address] [place] [phone] Arrived [facility] Comment on above: Arrived Start: 01-03-2024 Influenza vaccination Influenza Vaccine (#1) [facility] Comment on above: Postponed from 11/05/2023 (Patient Does Not Have Time) Start: 11-15-2023 End: 11-15-2023 Patient encounter procedure 11/15/2023 8:45 AM EDT Office Visit [facility] [address] [place] [phone] Calos Puri, PA [address] [place] [address] [facility] Start: 11-13-2023 End: 11-13-2023 Patient encounter procedure 11/13/2023 10:00 AM EDT Office Visit [facility] [address] [place] [phone] Osvaldo Nichole DO [address] [place] [address] Arrived [facility] Comment on above: Arrived Start: 11-08-2023 End: 11-07-2024 CBC W Auto Differential panel - Blood CBC and differential Lab Routine Wellness examination Expected: 11/08/2023 (Approximate), Expires: 11/07/2024 [facility] Work Phone: Comment on above: Expected: 11/08/2023 (Approximate), Expi res: 11/07/2024 Start: 11-08-2023 End: 11-07-2024 Comprehensive metabolic 2000 panel - Serum or Plasma Comprehensive metabolic panel Lab Routine Wellness examination Expected: 11/08/2023 (Approximate), Expires: 11/07/2024 [facility] Comment on above: Expected: 11/08/2023 (Approximate), Expi res: 11/07/2024 Start: 11-08-2023 End: 11-07-2024 Lipid 1996 panel - Serum or Plasma Lipid panel Lab Routine Wellness examination Expected: 11/08/2023 (Approximate), Expires: 11/07/2024 [facility] Comment on above: Expected: 11/08/2023 (Approximate), Expi res: 11/07/2024 Start: 11-08-2023 End: 01-07-2025 MG Breast - bilateral Screening Bilateral screening mammogram Imaging Routine Encounter for screening mammogram for malignant neoplasm of breast Expected: 11/08/2023 (Approximate), Expires: 01/07/2025 [facility] Comment on above: Expected: 11/08/2023 (Approximate), Expi res: 01/07/2025 Start: 11-08-2023 End: 11-07-2024 Urinalysis complete panel - Urine Urinalysis with reflex microscopic (clean catch) Lab Routine Wellness examination Expected: 11/08/2023 (Approximate), Expires: 11/07/2024 [facility] Comment on above: Expected: 11/08/2023 (Approximate), Expi res: 11/07/2024 Start: 11-05-2023 Influenza vaccination Influenza Vaccine (#1) [facility] Start: 09-27-2023 FUV, Provider: Eric Kern, Status: Pen, Time: 9:00 AM FUV, Provider: Eric Kern, Status: Pen, Time: 9:00 AM [facility] [employer] [facility] Work Phone: Start: 11-04-2022 COVID-19 Vaccine ( season) COVID-19 Vaccine ( season) [facility] Start: 09-07-2022 FUV, Provider: Eric Kern, Status: Pen, Time: 9:40 AM FUV, Provider: Eric Kern, Status: Pen, Time: 9:40 AM [facility] [employer] 250 DO Work Phone: Start: 2022 RSV patients and/or patients aged 60+ years (1 - 1-dose 60+ series) RSV patients and/or patients aged 60+ years (1 - 1-dose 60+ series) [facility] Start: 09-07-2021 FUV, Provider: Eric Kern, Status: Pen, Time: 10:15 AM FUV, Provider: Eric Kern, Status: Pen, Time: 10:15 AM [facility] [employer] DO Work Phone: Start: 03-06-2018 Pneumococcal Vaccine: Pediatrics (0 to 5 Years) and At-Risk Patients (6 to 64 Years) (2 of 2 - PCV) Pneumococcal Vaccine: Pediatrics (0 to 5 Years) and At-Risk Patients (6 to 64 Years) (2 of 2 - PCV) [facility] Start: 2012 Zoster Vaccines (1 of 2) Zoster Vaccines (1 of 2) [facility] Start: 2002 Screening for malignant neoplasm of breast Mammogram [facility] Start: 1992 Screening for malignant neoplasm of cervix [facility] Start: 1984 DTaP/Tdap/Td Vaccines (1 - Tdap) DTaP/Tdap/Td Vaccines (1 - Tdap) [facility] Start: 05-29-1983 Screening for malignant neoplasm of cervix [facility] Start: 1980 Hepatitis C screening Hepatitis C Screening [facility] Start: 05-29-1963 MMR Vaccines (1 of 1 - Standard series) MMR Vaccines (1 of 1 - Standard series) [facility] Start: 1962 HIV screening HIV Screening [facility] Start: 1962 Lipid panel Lipid Panel [facility] Start: 1962 Screening for malignant neoplasm of colon [facility] Start: 1962 Yearly Adult Physical Yearly Adult Physical [facility] XR Hip - left 3 Views XR hip lef t 2 or 3 views Imaging Routine Left hip pain 11/15/2023 8:56 AM EDT [facility] Work Phone: Immunizations Immunization Date Immunization Notes Care Provider Cortez yeboah 12-05-2023 influenza virus vacc ine, unspecified formulation Kenya Guardado BILL OF LADING CLERK Work Phone: [facility] 12-04-2020 influenza, seasonal, injectable Kenya Guardado Work Phone: [place] [address] DO Work Phone: Comment on above: Series: 12-04-2020 influenza virus vacc ine, unspecified formulation Madelaine 1 [facility] Work Phone: 01-04-2020 influenza, injectabl e, quadrivalent, preservative free Kenya Phillips Aichholz Work Phone: [place] [address] DO Work Phone: 12-05-2019 influenza virus vacc ine, unspecified formulation Kenya Phillips Aichholz Work Phone: [place] [address] DO Work Phone: 12-05-2019 influenza, seasonal, injectable Madelaine 1 [facility] Work Phone: 01-08-2019 influenza virus vacc ine, split virus (incl. purified surface antigen) Kenya Aichholz BILL OF LADING CLERK Work Phone: [facility] 01-07-2019 influenza, high dose seasonal, preservative-free Kenya Aichholz BILL OF LADING CLERK Work Phone: [facility] 12-04-2018 influenza virus vacc ine, unspecified formulation Kenya Phillips Aichholz Work Phone: [place] [address] DO Work Phone: 04-02-2017 influenza virus vacc ine, unspecified formulation Kenya Phillips Aichholz Work Phone: [place] [address] DO Work Phone: 03-06-2017 pneumococcal polysaccharide vaccine, 23 valent Kenya Jacqueline Aichholz Work Phone: [place] [address] DO Work Phone: 10-04-2016 pneumococcal polysaccharide vaccine, 23 valent Kenya Aichholz BILL OF LADING CLERK Work Phone: [facility] 12-05-2015 influenza virus vacc ine, unspecified formulation Kenya Phillips Aichholz Work Phone: [facility] 250 DO Work Phone: Payers Date Payer Category [facility] [id number] 2020 Unknown 1962 Unknown [id number] [id number] .593 1962 Unknown [id number] 2.16.840.1.635900.3.579.2 .593 1962 Unknown [id number] 2.16.840.1.946163.3.579.2 .593 1962 Unknown [id number] 2.16.840.1.377844.3.579.2 .593 1962 Unknown [id number] 2.16.840.1.270117.3.579.2 .593 1962 Unknown [id number] 2.16.840.1.352388.3.579.2 .593 1962 Unknown [id number] 2.16.840.1.393514.3.579.2 .593 1962 Unknown [id number] 2.16.840.1.182762.3.579.2 .593 1962 Unknown [id number] 2.16.840.1.066604.3.579.2 .593 1962 Unknown [id number] 2.16.840.1.271604.3.579.2 .593 1962 Unknown [id number] 2.16.840.1.477851.3.579.2 .356 1962 Unknown [id number] 2.16.840.1.540159.3.579.2 .356 1962 Unknown [id number] 2.16.840.1.069803.3.579.2 .1246 1962 Unknown [id number] 2.16.840.1.728912.3.579.2 .1244 1962 Unknown [id number] 2.16.840.1.896763.3.579.2 .9 1962 Unknown [id number] 2.16.840.1.429927.3.579.2 .9 1962 Unknown [id number] 2.16.840.1.520077.3.579.2 .9 1962 Unknown [id number] 2.16.840.1.093397.3.579.2 .9 1962 Unknown [id number] 2.16.840.1.619596.3.579.2 .1258 1962 Unknown [id number] 2.16.840.1.302606.3.579.2 .9 1962 Unknown [id number] 2.16.840.1.105837.3.579.2 .9 1962 Unknown [id number] 2.16.840.1.447303.3.579.2 .1259 1959 Unknown [id number] 1959 Unknown [id number] Unknown [id number] Social History Date Type Detail Facility Start: 02-06-2023 End: 07-31-2024 No alcohol use No alcohol use [facility] Comment on above: pop and tea occasion ally; Start: 08-08-2022 End: 09-27-2023 Tobacco smoking status NHIS Never smoked tobacco [facility] Work Phone: Start: 08-08-2022 End: 09-27-2023 Tobacco use and exposure Smokeless tobacco non-user [facility] Work Phone: Start: 11-13-2023 End: 2025 Alcoholic beverage intake Lifetime non-drinker (finding) [facility] Work Phone: Start: 02-06-2023 End: 07-31-2024 Humiliation, Afraid, Rape, and Kick questionnaire [HARK] [facility] Within the last year , have you been afraid of your partner or ex-partner? Patient declined [facility] Do you belong to any clubs or organizations such as yarsani groups, unions, fraMeal Sharing or athletic groups, or school groups? No [facility] Are you now , , , , never or living with a partner? [facility] How often to you hav e a drink containing alcohol? Never [facility] How hard is it for y ou to pay for the very basics like food, housing, medical care, and heating Not very hard [facility] Do you feel stress - tense, restless, nervous, or anxious, or unable to sleep at night because your mind is troubled all the time - these days [OSQ] Not at all [facility] (I/We) worried whebuddy er (my/our) food would run out before (I/we) got money to buy more. Sometimes true [facility] The food that (I/we) bought just didn't last, and (I/we) didn't have money to get more. Never true [facility] Start: 11-08-2023 Alcohol Comment caffine: soda 2 20oz bottles daily [facility] Start: 1960 Sex assigned at Not on file [facility] Work Phone: Start: 10-09-2023 End: 10-19-2023 Exposure to SARS-CoV-2 (event) Not sure [facility] How often do you nee d to have someone help you when you read instructions, pamphlets, or other written material from your doctor or pharmacy [SILS] Rarely [facility] Functional Status Date Assessment Result Facility 07-31-2024 Total score [AUDIT-C] 0 08/01/19 7:58 AM EDT George Longo [facility] 07-31-2024 How often to you hav e a drink containing alcohol? Never 07/31/2024 7:58 AM EDT Mychart, Generic Never [facility] 07-31-2024 Functional status Patient does n ot drink 07/31/2024 7:58 AM EDT Mychart, Generic Patient does not drink [facility] 07-31-2024 How often do you hav e 6 or more drinks on 1 occasion? Never 07/31/2024 7:58 AM EDT Mychart, Generic Never [facility] Clinical Notes 05-19-2022 to 07-31-2024 Kenya Guardado NP - 07/31/2024 1:07 PM Suzanne Guardado NP - 07/31/2024 1:06 PM Suzanne Guardado NP - 07/31/2024 1:06 PM Suzanne Guardado NP - 07/31/2024 1:05 PM EDT Note Date & Type Note Facility 07-31-2024 History of Presen t illness Narrative Associated Problem(s): Other fatigue Unsure if her sxs are related to anxiety or something else Associated Problem(s): Arthralgia Check labs Associated Problem(s): Polyuria Check labs Associated Problem(s): Dizziness and giddiness Check labs ?anxiety Pt states in the last 6+ weeks she has felt tired, fatigue, no energy. She feels over exerted easily. States that even walking short distances she feels winded, SOB, and exhausted. She feels that her pace has even gotten slower. Pt does feel a tightness in her chest only happens after walking for a little while. Pt states if she puts her hands/arms over her head any length of time she feels lightheaded, dizzy, and nausea. Pt also feels hopeless, down, and anxious. BP difference in right and left arm Left- 90/70 Right 122/80 Images from the original note were not included. Ina Jewell is a 64 y.o. female presents with chief complaint of Fatigue HPI: Pt states in the last 6+ weeks she has felt tired, fatigue, no energy. She feels over exerted easily. States that even walking short distances she feels winded, SOB, and exhausted. She feels that her pace has even gotten slower. Pt does feel a tightness in her chest only happens after walking for a little while. Pt states if she puts her hands/arms over her head any length of time she feels lightheaded, dizzy, and nausea. Pt also feels hopeless, down, and anxious. BP difference in right and left arm Left- 90/70 Right 122/80 Fatigue This is a new problem. The current episode started more than 1 month ago. The problem occurs constantly. The problem has been gradually worsening. Associated symptoms include arthralgias, fatigue and myalgias. Pertinent negatives include no abdominal pain, chest pain, chills, congestion, coughing, diaphoresis, fever, headaches, joint swelling, nausea, rash, sore throat, vertigo, visual change or vomiting. The symptoms are aggravated by exertion. She has tried nothing for the symptoms. SUBJECTIVE: MEDICATIONS: Current Outpatient Medications Medication Instructions aspirin 81 MG EC tablet Every 24 hours atorvastatin (Lipitor) 80 MG tablet Every 24 hours lisinopril 10 MG tablet Every 24 hours metoprolol succinate XL (TOPROL-XL) 25 mg, Daily nitroglycerin (Nitrostat) 0.4 MG SL tablet As needed. ALLERGIES: Allergies Allergen Reactions Isosorbide Headache Oxycodone Nausea Only Oxycodone-Acetaminophen Dizziness and Other Tetanus Immune Globulin Unknown Tetanus Toxoid Unknown REVIEW OF SYMPTOMS: Review of Systems Constitutional: Positive for fatigue. Negative for appetite change, chills, diaphoresis and fever. HENT: Negative for congestion, ear pain and sore throat. Eyes: Negative for pain, discharge, redness and visual disturbance. Respiratory: Negative for cough, shortness of breath and wheezing. Cardiovascular: Negative for chest pain, palpitations and leg swelling. Gastrointestinal: Negative for abdominal pain, blood in stool, constipation, diarrhea, nausea and vomiting. Genitourinary: Negative for difficulty urinating, dysuria and frequency. Musculoskeletal: Positive for arthralgias and myalgias. Negative for back pain and joint swelling. Skin: Negative for rash and wound. Neurological: Positive for light-headedness. Negative for dizziness, vertigo, tremors, seizures, syncope and headaches. Psychiatric/Behavioral: Negative for behavioral problems, self-injury and suicidal ideas. The patient is nervous/anxious. Hematological: Does not bruise/bleed easily. Endocrine: Positive for polyuria. Negative for polydipsia and polyphagia. Allergic/Immunologic: Negative for environmental allergies and food allergies. PAST MEDICAL HISTORY Past Medical History: Diagnosis Date CHF (congestive heart failure) ([facility]) 12-07-2016 Heart disease 3 stents Hypertension ([facility]) OR (myocardial infarction) ([facility]) PONV (postoperative nausea and vomiting) 1982 Past Surgical History: Procedure Laterality Date SECTION, LOW TRANSVERSE 04-24-1982 12-29-1984 12-24-1985 CORONARY ANGIOPLASTY WITH STENT PLACEMENT [address] Kern FOOT FRACTURE SURGERY 2013 Dr. wright JOINT REPLACEMENT 09/22/2022 KNEE SURGERY Left 09/24/[address] Su TOTAL HIP ARTHROPLASTY Left 08/23/2022 Dr Su family history includes Diabetes in her mother; Heart disease in her father; Hypertension in her mother; Stroke in her father. OBJECTIVE: Visit Vitals BP 122/80 (BP Location: Right arm, Patient Position: Sitting, BP Cuff Size: Adult long) Pulse 86 Temp 98.5 F (Temporal) Resp 19 Wt 191 lb SpO2 98% BMI 30.83 kg/m Smoking Status Never BSA 2.01 m Physical Exam Vitals and nursing note reviewed. Constitutional: General: She is not in acute distress. Appearance: Normal appearance. She is not ill-appearing. HENT: Head: Normocephalic and atraumatic. Right Ear: Tympanic membrane, ear canal and external ear normal. Left Ear: Tympanic membrane, ear canal and external ear normal. Nose: Nose normal. No congestion or rhinorrhea. Mouth/Throat: Mouth: Mucous membranes are moist. Eyes: Extraocular Movements: Extraocular movements intact. Conjunctiva/sclera: Conjunctivae normal. Neck: Vascular: No carotid bruit. Cardiovascular: Rate and Rhythm: Normal rate and regular rhythm. Pulses: Normal pulses. Heart sounds: Normal heart sounds. No murmur heard. Pulmonary: Effort: Pulmonary effort is normal. Breath sounds: Normal breath sounds. No wheezing or rhonchi. Abdominal: General: Bowel sounds are normal. There is no distension. Palpations: Abdomen is soft. There is no mass. Tenderness: There is no abdominal tenderness. Musculoskeletal: Cervical back: Normal range of motion and neck supple. Right lower leg: No edema. Left lower leg: No edema. Comments: Cervical near full ROM MMT 3.5-4/5 bilat hand 4/5 bilat UE, 4.5/5 bilat LE No tender areas noted to reflect a pattern of fibro Lymphadenopathy: Cervical: No cervical adenopathy. Skin: General: Skin is warm and dry. Capillary Refill: Capillary refill takes 2 to 3 seconds. Findings: No rash. Neurological: General: No focal deficit present. Mental Status: She is alert and oriented to person, place, and time. Cranial Nerves: No cranial nerve deficit. Gait: Gait normal. Psychiatric: Mood and Affect: Mood normal. Behavior: Behavior normal. Thought Content: Thought content normal. Judgment: Judgment normal. ASSESSMENT AND PLAN: No follow-ups on file. Problem List Items Addressed This Visit Atherosclerosis of coronary artery of [place] heart without angina pectoris (CMS/HCC) Current meds: asa, statin, raghav, b diego Does not feel any sxs similar to her OR Relevant Orders CBC and differential CBC and differential Essential hypertension (CMS/HCC) - Primary Please check blood pressure daily and record DASH diet Limit caffeine Take medication as directed Contact office if chest pain, pressure, dizziness, shortness of breath, swelling legs Recommend slow position changes Meds: b diego, and raghav Relevant Orders Comprehensive metabolic panel Hyperlipidemia (CMS/HCC) On statin therapy Check labs yearly and prn dose changes Relevant Orders Comprehensive metabolic panel Dizziness and giddiness Check labs ?anxiety Relevant Orders CBC and differential TSH T3, free T4, free Arthralgia Check labs Relevant Orders CBC and differential Magnesium Uric acid Sedimentation rate, automated C-reactive protein Other fatigue Unsure if her sxs are related to anxiety or something else Relevant Orders CBC and differential Magnesium TSH T3, free T4, free CBC and differential Ferritin Iron level Thyroid peroxidase and thyroglobulin antibodies Vitamin B12 Folate Polyuria Check labs Relevant Orders Urinalysis with reflex microscopic (clean catch) Associated Problem(s): Hyperlipidemia (CMS/HCC) On statin therapy Check labs yearly and prn dose changes Associated Problem(s): Essential hypertension (CMS/HCC) Please check blood pressure daily and record DASH diet Limit caffeine Take medication as directed Contact office if chest pain, pressure, dizziness, shortness of breath, swelling legs Recommend slow position changes Meds: b diego, and raghav Associated Problem(s): Atherosclerosis of coronary artery of [place] heart without angina pectoris (CMS/HCC) Current meds: asa, statin, raghav, b diego Does not feel any sxs similar to her OR documented in this encounter [facility] 07-31-2024 Evaluation note Diagnosis Wellness examination- Primary Chronic kidney disease, stage 3a (HCC) (CMS/HCC) Encounter for screening mammogram for malignant neoplasm of breast Colon cancer screening Special screening for malignant neoplasms, colon Essential hypertension (CMS/HCC) Unspecified essential hypertension Class 1 obesity due to excess calories with serious comorbidity and body mass index (BMI) of 31.0 to 31.9 in adult Viral upper respiratory illness- Primary Class 1 obesity due to excess calories with serious comorbidity and body mass index (BMI) of 31.0 to 31.9 in adult Essential hypertension (CMS/HCC) Unspecified essential hypertension Nausea Nausea alone Other fatigue- Primary Essential hypertension (CMS/HCC) Unspecified essential hypertension Atherosclerosis of [place] coronary artery of [place] heart without angina pectoris (CMS/HCC) Mixed hyperlipidemia (CMS/HCC) Mixed hyperlipidemia Dizziness and giddiness Arthralgia, unspecified joint Polyuria documented [id number] History of Present illness Narrative* BEATRIZ Cabrera - 07/24/2024 9:15 AM EDT Images from the original note were not included. Orthopedic Office note: NAME: Ina Jewell : 1960 EST PT WITH LT HIP - S/P DEPO INJ 07/03 (3 WKS) HX LT JULIANO 08/23/[address] SU XRAY LUMBAR TODAY EPIC 07/24/24 XRAY LT [...] requiring urgent evaluation. Visit was preformed using [employer] speech recognition. documented in this encounterWashington [facility] [id number] Evaluation note* Diagnosis Wellness examination- Primary Chronic kidney disease, stage 3a (HCC) (CMS/HCC) Encounter for screening mammogram for malignant neoplasm of breast Colon cancer screening Special screening for malignant neoplasms, colon Essential hypertension (CMS/HCC) Unspecified essential hypertension Class 1 obesity due to excess calories with serious comorbidity and body mass index (BMI) of 31.0 to 31.9 in adult Viral upper respiratory illness- Primary Class 1 obesity due to excess calories with serious comorbidity and body mass index (BMI) of 31.0 to 31.9 in adult Essential hypertension (CMS/HCC) Unspecified essential hypertension Nausea Nausea alone Acute hip pain, left- Primary Acute left lumbar radiculopathy History of total hip replacement, left documented [facility] this encounter [facility] [id number] History of Present illness Narrative* BEATRIZ Cabrera - 07/03/2024 10:45 AM EDTAssociated Order(s): L Inj/Asp: L greater trochanteric bursa Images from the original note were not included. Orthopedic Office note: NAME: Ina Jewell : 1960 EST PT WITH LT HIP PAIN OFF AND ON FOR A WHILE- PT STATES PAIN WAS AWFUL ON Monday06/29/24; NO KNOWN INJURY - WENT TO [facility]; XRAY /MDP HX LT JULIANO 08/23/[address] SU XRAY LT HIP [facility] 06/29/24 (MERGED IN PACS) XRAY LT HIP EPIC 11/15/23 XRAY LT HIP CHANGE 09/20/22 NO BONE SCAN NO LABS MDP 06/29/24 PT STATES SYMPTOMS ARE LESS SEVERE SINCE STARTING MDP- PAIN LATERAL HIP- PAIN IS CONSTANT INCREASE PAIN WITH ACTIVITY- SOME INSTABILITY- PT FELT LIKE SHE HAD A NUMBNESS FEELING IN THIGH AREA-DIFFICULTY WITH STAIRS - +IBUPROFEN Physical Exam Hip Musculoskeletal Exam Gait Gait is normal. Inspection Leg length disparity: no discrepancy Left Erythema: none Ecchymosis: none Edema: none Deformity: none Previous incision: anterolateral Incision: well-healed Palpation Left Left hip palpation is normal. Increased warmth: none Tenderness: present Greater trochanteric region pain: moderate Lower lumbar region pain: mild Range of Motion Left Left hip range of motion is within functional limits. Active ROM: normal and no pain. Passive ROM: normal and no pain. Strength Left Left hip strength is normal. Extension: 5/5. Flexion: 5/5. Internal rotation: 5/5. External rotation: 5/5. Adduction: 5/5. Adduction is affected by pain. Abduction: 5/5. Neurovascular Left Left hip neurovascular exam is normal. Pulses - PT: normal Posterior tibial: 2+ General Constitutional: appears stated age Labored breathing: no Psychiatric: normal mood and affect Neurological: alert and oriented x3 Skin: intact Lymphadenopathy: none Orders Placed This Encounter Procedures L Inj/Asp This order was created via procedure documentation L Inj/Asp: L greater trochanteric bursa on 07/03/2024 11:12 AM Indications: pain Details: 21 G needle, lateral approach Medications: 40 mg methylPREDNISolone Acetate 20 MG/ML; 2 mL bupivacaine PF 0.5 % Outcome: tolerated well, no immediate complications UTILIZING ASEPTIC TECHNIQUE PT GIVEN INJECTION IN LEFT HIP BURSA NEUROVASC INTACT S/P INJ, TOLERATED WELL 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 Consent was given by the patient. Results - Imaging (X-ray, 06/29/2024): - No acute osseous abnormality - No lytic or blastic bony lesions - Left hip hardware appears intact ICD-10-CM 1. Acute hip pain, left M25.552 2. History of total hip replacement, left Z96.642 3. Trochanteric bursitis of left hip M70.62 Assessment & Plan Left hip pain. The pain is localized to the lateral aspect of the left hip, consistent with hip bursitis. There are no signs or symptoms of infection, and she has a painless passive range of motion of the hip. She is finishing a Medrol Dosepak with some improvement in symptoms but still experiences pain when lying on her left side and during ambulation. Treatment plan: She will continue to stay off work until Monday, focusing on ice and topical treatments. Voltaren gel is recommended twice daily. She is agreeable to an intra-bursal injection today. She admits to chronic low-level back pain, which may be contributing to her symptoms. There is no weakness in the left leg. Clinical decision making: Risks and benefits discussed. She is thankful and agreeable with the treatment plan. Follow-up: The patient will follow up in 3 weeks for reevaluation to see if symptoms have improved. Questions answered in laymen terms at the bedside. The diagnosis, home exercise plan and any ongoing restrictions/ recommendations reviewed. If unable to be reached in office, I recommend evaluation at nearest Emergency Room if any symptoms worsened or new symptoms develop for requiring urgent evaluation. Visit was preformed using [employer] speech recognition. documented in this encounterWashington County [facility] [id number] Evaluation note* Diagnosis Wellness examination- Primary Chronic kidney disease, stage 3a (HCC) ([facility]/HCC) Encounter for screening mammogram for malignant neoplasm of breast Colon cancer screening Special screening for malignant neoplasms, colon Essential hypertension (CMS/HCC) Unspecified essential hypertension Class 1 obesity due to excess calories with serious comorbidity and body mass index (BMI) of 31.0 to 31.9 in adult Viral upper respiratory illness- Primary Class 1 obesity due to excess calories with serious comorbidity and body mass index (BMI) of 31.0 to 31.9 in adult Essential hypertension (CMS/HCC) Unspecified essential hypertension Nausea Nausea alone Acute hip pain, left- Primary History of total hip replacement, left Trochanteric bursitis of left hip documented in this encounter [facility] [id number] History of Present illness Narrative* Kenya Guardado NP - 01/08/2024 2:08 PM ESTAssociated Problem(s): Viral upper respiratory illness Likely symptoms are viral, Will order COVID test Fluids, rest, treat symptoms * Kenya Guardado NP - 01/08/2024 2:08 PM ESTAssociated Problem(s): Nausea Zofran ODT prn Fluids, rest If unable to urinate more than 3 times daily contact office * Kenya Guardado NP - 01/08/2024 2:07 PM ESTAssociated Problem(s): Essential hypertension ([facility]/HCC) Elevated, secondary to not feeling well No med dose changes * YUMIKO MCCALL - 01/08/2024 1:40 PM EST Images from the original note were not included. Ina Jewell is a 63 y.o. female presents with chief complaint of No chief complaint on file. HPI: Sxs started today: +has flu shot, no covid or pneumonia shots No fever, +sinus pressure, runny nose, body aches, no vomiting, +nausea, sneezing, Grand child had sore throat, no other sick contacts SUBJECTIVE: MEDICATIONS: Current Outpatient Medications Medication Instructions aspirin 81 MG EC tablet Every 24 hours atorvastatin (Lipitor) 80 MG tablet Every 24 hours lisinopril 10 MG tablet Every 24 hours metoprolol succinate XL (TOPROL-XL) 25 mg, Daily nitroglycerin (Nitrostat) 0.4 MG SL tablet As needed. ALLERGIES: Allergies Allergen Reactions Isosorbide Headache Oxycodone Nausea Only Oxycodone-Acetaminophen Dizziness and Other Tetanus Immune Globulin Unknown Tetanus Toxoid Unknown REVIEW OF SYMPTOMS: Review of Systems Constitutional: Positive for chills, diaphoresis, fatigue and hot flashes. Negative for appetite change and fever. HENT: Positive for rhinorrhea and sneezing. Negative for congestion, ear pain and sore throat. Eyes: Negative for pain, discharge, redness and visual disturbance. Respiratory: Negative for cough, chest tightness, shortness of breath and wheezing. Cardiovascular: Negative for chest pain, palpitations and leg swelling. Gastrointestinal: Positive for nausea. Negative for abdominal pain, blood in stool, constipation, diarrhea and vomiting. Genitourinary: Negative for difficulty urinating, dysuria and frequency. Musculoskeletal: Negative for arthralgias, back pain, joint swelling and myalgias. Skin: Negative for rash and wound. Neurological: Negative for dizziness, tremors, seizures, syncope and headaches. Psychiatric/Behavioral: Negative for behavioral problems, self-injury and suicidal ideas. The patient is not nervous/anxious. Hematological: Does not bruise/bleed easily. Endocrine: Negative for polydipsia, polyphagia and polyuria. Allergic/Immunologic: Negative for environmental allergies and food allergies. PAST MEDICAL HISTORY Past Medical History: Diagnosis Date CHF (congestive heart failure) ([facility]) 12-07-2016 Heart disease 3 stents Hypertension ([facility]) OR (myocardial infarction) ([facility]) PONV (postoperative nausea and vomiting) 1982 Past Surgical History: Procedure Laterality Date SECTION, LOW TRANSVERSE 04-24-1982 12-29-1984 12-24-1985 CORONARY ANGIOPLASTY WITH STENT PLACEMENT [address] Kern FOOT FRACTURE SURGERY 2014 Dr. wright JOINT REPLACEMENT 09/22/2022 KNEE SURGERY Left 09/24/[address] Su TOTAL HIP ARTHROPLASTY Left 08/23/2022 Dr Su family history includes Diabetes in her mother; Heart disease in her father; Hypertension in her mother; Stroke in her father. OBJECTIVE: Visit Vitals BP (!) 160/102 (BP Location: Left arm, Patient Position: Sitting, BP Cuff Size: Adult long) Pulse 78 Temp 97.6 F (Temporal) Resp 18 Ht 5' 6 Wt 192 lb 9.6 oz SpO2 96% BMI 31.09 kg/m Smoking Status Never BSA 2.02 m Physical Exam Vitals and nursing note reviewed. Constitutional: General: She is not in acute distress. Appearance: Normal appearance. She is obese. She is ill-appearing (mod). HENT: Head: Normocephalic and atraumatic. Right Ear: Tympanic membrane, ear canal and external ear normal. Left Ear: Tympanic membrane, ear canal and external ear normal. Nose: Congestion and rhinorrhea present. Mouth/Throat: Mouth: Mucous membranes are moist. Pharynx: No oropharyngeal exudate or posterior oropharyngeal erythema. Eyes: General: No scleral icterus. Extraocular Movements: Extraocular movements intact. Conjunctiva/sclera: Conjunctivae normal. Pupils: Pupils are equal, round, and reactive to light. Cardiovascular: Rate and Rhythm: Normal rate and regular rhythm. Pulses: Normal pulses. Heart sounds: Normal heart sounds. Pulmonary: Effort: Pulmonary effort is normal. No respiratory distress. Breath sounds: Normal breath sounds. No stridor. No wheezing, rhonchi or rales. Chest: Chest wall: No tenderness. Musculoskeletal: General: Normal range of motion. Cervical back: Normal range of motion and neck supple. Right lower leg: No edema. Left lower leg: No edema. Lymphadenopathy: Cervical: No cervical adenopathy. Skin: General: Skin is warm and dry. Capillary Refill: Capillary refill takes 2 to 3 seconds. Findings: No rash. Neurological: General: No focal deficit present. Mental Status: She is alert and oriented to person, place, and time. Cranial Nerves: No cranial nerve deficit. Motor: No weakness. Psychiatric: Mood and Affect: Mood normal. Behavior: Behavior normal. Thought Content: Thought content normal. Judgment: Judgment normal. ASSESSMENT AND PLAN: No follow-ups on file. Problem List Items Addressed This Visit Essential hypertension (CMS/HCC) Elevated, secondary to not feeling well No med dose changes Class 1 obesity due to excess calories with serious comorbidity and body mass index (BMI) of 31.0 to 31.9 in adult - Primary Viral upper respiratory illness Likely symptoms are viral, Will order COVID test Fluids, rest, treat symptoms Relevant Medications ondansetron ODT (Zofran-ODT) 4 MG disintegrating tablet Nausea Zofran ODT prn Fluids, rest If unable to urinate more than 3 times daily contact office Relevant Medications ondansetron ODT (Zofran-ODT) 4 MG disintegrating tablet Pt woke up this morning okay, however a couple hours ago she started feeling nauseous, sinus pressure, runny nose, drainage, sneezing, dizziness, upset stomach, and foggy head, sweating, hot and coldflashes, and body aches. Headache Pt has eaten ( a muffin) Pt has taken her medications and otc IBU Pt had flu vaccine in dec Pt did not have pneumonia or covid vaccine done documented in this [facility]11-04-2024 Instructions* Patient Instructions* Kenya Guardado NP - 01/08/2024 1:40 PM EST Fluids, rest, Test for covid Ondansartan for nausea Follow up if not better If respiratory distress go to ER documented in this [facility]10-07-2024 Telephone encounter Note* Telephone Encounter - Jyoti Mckenzie - 12/11/2023 12:[address] Castanon office called they nee a note for this patient stating that she has to take antibiotic before cleaning. [facility] [id number] Miscellaneous Notes* Telephone Encounter - Jyoti Mckenzie - 12/11/2023 12:[address] Castanon office called they nee a note for this patient stating that she has to take antibiotic before cleaning. documented in this encounterWashington [facility] [id number] History of Present illness Narrative* BEATRIZ Cabrera - 11/15/2023 8:45 AM EDT Images from the original note were not included. HISTORY OF PRESENT ILLNESS: EST PT Ina Jewell is an 63 y.o. @ female. EST PT HERE FOR YEARLY RECHECK LT JULIANO 08/23/22(~1YR 3MO) - DOING WELL XRAY LT HIP TODAY EPIC 11/15/23 XRAY LT HIP CHANGE 09/20/22 NOTES SOME OCCASIONAL DISCOMFORT WITH INCREASE ACTIVITY AND AFTER 12HR WORK SHIFT- SOME DIFFICULTY WITH STAIRS- UNABLE TO LAY ON LT HIP -+IBUPROFEN PRN REVIEW OF SYSTEMS: General: Denies fever, fatigue or weight loss Lungs: Denies SOB Cardio: Denies chest pain GI: Denies indigestion or abdominal pain Neuro: Denies numbness or tingling, denies new onset paralysis Musculoskeletal: ( see note) PHYSICAL EXAM: Hip Musculoskeletal Exam Gait Gait is normal. Inspection Leg length disparity: no discrepancy Left Erythema: none Ecchymosis: none Edema: none Deformity: none Previous incision: anterolateral Incision: well-healed Palpation Left Left hip palpation is normal. Increased warmth: none Tenderness: none Range of Motion Left Left hip range of motion is within functional limits. Active ROM: normal. Passive ROM: normal. Strength Left Left hip strength is normal. Extension: 5/5. Flexion: 5/5. Internal rotation: 5/5. External rotation: 5/5. Adduction: 5/5. Abduction: 5/5. Neurovascular Left Left hip neurovascular exam is normal. Pulses - PT: normal Posterior tibial: 2+ General Constitutional: appears stated age Labored breathing: no Psychiatric: normal mood and affect Neurological: alert and oriented x3 Skin: intact Lymphadenopathy: none Procedures Orders Placed This Encounter Procedures XR hip left 2 or 3 views Order Specific Question: Reason for exam: Answer: PAIN ASSESSMENT: ICD-10-CM 1. Status post left hip replacement Z96.642 amoxicillin (Amoxil) 500 MG tablet 2. Left hip pain M25.552 XR hip left 2 or 3 views PLAN: Pt doing well. Discuss soreness lateral hip bursa.. pt had a few falls, but overall doing well. Recommend she call if she has a hard fall/ hip pain for sooner eval. Pt thankful. Recheck in 2 years. Dental prophylaxis discussed.. pt will call when ready for trigger finger with Dr. Su. Questions answered in laymen terms at the bedside. The diagnosis, home exercise plan and any ongoing restrictions/ recommendations reviewed. If unable to be reached in office, I recommend evaluation at nearest Emergency Room if any symptoms worsened or new symptoms develop for requiring urgent evaluation. documented in this encounterWashington County Memorial [id number] History of Present illness Narrative* Osvaldo Nichole DO - 11/13/2023 10:00 AM EDT General Surgery H&P Ina Jewell 1960 Ina Jewell is a 63 y.o. female presents with chief complaint of Colonoscopy (Pt presents today for a colonoscopy consult. She states that she has never had a colonoscopy before. She denies any abdominal pain, rectal bleeding, or any changes in bowel movements. She states that her grandfather did have colon cancer. She denies any concerns. ) Denies hx of unplanned weight loss. Denies fevers,chills, or sweats. Denies nausea or vomiting. Cardiac HX, prior stents on ASA. SUBJECTIVE: MEDICATIONS: ALLERGIES Current Outpatient Medications Medication Instructions aspirin 81 MG EC tablet Every 24 hours atorvastatin (Lipitor) 80 MG tablet Every 24 hours bisacodyl (DULCOLAX) 5 mg, Oral, Once, Do not crush, chew, or split. Take as detailed on clinic hand out for colonoscopy prep lisinopril 10 MG tablet Every 24 hours metoprolol succinate XL (TOPROL-XL) 25 mg, Oral, Daily nitroglycerin (Nitrostat) 0.4 MG SL tablet As needed. polyethylene glycol (PEG) 3350 (GLYCOLAX) 238 g, Oral, Once, Take as detailed from clinic hand out for colonoscopy prep Allergies Allergen Reactions Isosorbide Headache Oxycodone Nausea Only Oxycodone-Acetaminophen Dizziness and Other Tetanus Immune Globulin Unknown Tetanus Toxoid Unknown PAST MEDICAL HISTORY: SOCIAL HISTORY SURGICAL HISTORY: Past Medical History: Diagnosis Date CHF (congestive heart failure) ([facility]) 12-07-2016 Heart disease 3 stents Hypertension ([facility]) OR (myocardial infarction) ([facility]) PONV (postoperative nausea and vomiting) 1982 Social History Tobacco Use Smoking status: Never Smokeless tobacco: Never Vaping Use Vaping status: Never Used Substance Use Topics Alcohol use: Never Comment: caffine: soda 2 20oz bottles daily Drug use: Never Past Surgical History: Procedure Laterality Date SECTION, LOW TRANSVERSE 04-24-1982 12-29-1984 12-24-1985 CORONARY ANGIOPLASTY WITH STENT PLACEMENT [address] Kern FOOT FRACTURE SURGERY 2013 Dr. wright JOINT REPLACEMENT 09/22/2022 KNEE SURGERY Left 09/24/[address] Su TOTAL HIP ARTHROPLASTY Left 08/23/2022 Dr Su Family History Problem Relation Name Age of Onset Diabetes Mother Anna Hypertension Mother Anna Heart disease Father Ra Stroke Father Ra Allergies Allergen Reactions Isosorbide Headache Oxycodone Nausea Only Oxycodone-Acetaminophen Dizziness and Other Tetanus Immune Globulin Unknown Tetanus Toxoid Unknown Past Surgical History: Procedure Laterality Date SECTION, LOW TRANSVERSE 04-24-1982 12-29-1984 12-24-1985 CORONARY ANGIOPLASTY WITH STENT PLACEMENT [address] Kern FOOT FRACTURE SURGERY 2014 Dr. wright JOINT REPLACEMENT 09/22/2022 KNEE SURGERY Left 09/24/[address] Su TOTAL HIP ARTHROPLASTY Left 08/23/2022 Dr Su Tobacco Use: Low Risk (11/08/2023) Patient History Smoking Tobacco Use: Never Smokeless Tobacco Use: Never Passive Exposure: Not on file Alcohol Use: Not At Risk (02/06/2023) AUDIT-C Frequency of Alcohol Consumption: Never Average Number of Drinks: Patient does not drink Frequency of Binge Drinking: Never Depression: Not on file Physical Activity: Unknown (02/06/2023) Exercise Vital Sign Days of Exercise per Week: 3 days Minutes of Exercise per Session: Patient declined REVIEW OF SYMPTOMS: Review of Systems All other systems reviewed and are negative. 10 systems were reviewed. Positives noted above. Remainder are negative per CMS guidelines. OBJECTIVE: Visit Vitals BP 124/72 Pulse 85 Resp 16 Ht 5' 6 Wt 191 lb 3.2 oz SpO2 95% BMI 30.86 kg/m Smoking Status Never BSA 2.01 m Physical Exam Vitals reviewed. General: AAOx3, NAD Head: atraumatic normocephalic Neck: trachea midline. No masses or lymphadenopathy Heart: Regular rate and rhythm Lungs: equal chest rise and fall, non labored breathing Abdomen: soft, nontender, and non distended Ext: motor 5/5 all extremities with no gross deformities Psych: alert and oriented, behavior appropriate ASSESSMENT AND PLAN: Assessment/Plan Diagnoses and all orders for this visit: Encounter for screening colonoscopy - polyethylene glycol, PEG, 3350 (Glycolax) 17 GM/SCOOP powder; Take 238 g by mouth 1 (one) time for 1 dose Take as detailed from clinic hand out for colonoscopy prep - bisacodyl (Dulcolax) 5 MG EC tablet; Take 1 tablet (5 mg) by mouth 1 time for 1 dose Do not crush, chew, or split. Take as detailed on clinic hand out for colonoscopy prep Plan: Patient is average risk for colon cancer. Colonoscopy can be scheduled electively. Patient informedof the risks of procedure which include but not limited to bleeding, perforation, and risks of anesthesia. Patient understood risks and signed informed consent for the procedure under monitored anesthesia care. Handout for bowel prep provided in clinic. Patient was informed of the need for a ride home from the hospital and the need for someone to be with them for the following 24 hrs post procedure. Thank you, Lo Nichole DO documented in this encounterWashington County Memorial HospitalLfkjnfdrse83-26-2421 History of Present illness Narrative* Kenya Guardado NP - 11/08/2023 11:51 AM EDTAssociated Problem(s): Class 1 obesity due to excess calories with serious comorbidity and body mass index (BMI) of 31.0 to 31.9 in adult Discussed increase protein, less carb Exercise difficult to to joint pain-suggest aquatic * Kenya Guardado NP - 11/08/2023 11:50 AM EDTAssociated Problem(s): Essential hypertension (CMS/HCC) stable * Kenya Guardado NP - 11/08/2023 11:50 AM EDTAssociated Problem(s): Atherosclerosis of coronary artery of sho[place] heart without angina pectoris (C MS/HCC) Stable, had recent stress and cardiology fu * Kenya Guaraddo NP - 11/08/2023 11:49 AM EDTAssociated Problem(s): Wellness examination Reviewed Ht/Wt/BMI Recommend eye exam yearly Recommend dental exams twice a year Balance work/leisure activities Exercises is recommended most days of the week (appropriate as chronic conditions allow) Follow up yearly and prn * Kenya Guardado NP - 11/08/2023 11:49 AM EDTAssociated Problem(s): Chronic kidney disease, stage 3a (HCC) (CMS/HCC) Per lab reading Gets labs done yearly through work I have requested she provide me a copy of this * Kenya Guardado NP - 11/08/2023 11:00 AM EDT Images from the original note were not included. Ina Jewell is a 63 y.o. female presents with chief complaint of No chief complaint on file. HPI: Here for a wellness appt: Diet: chicken, carb, some veggies Activity: difficult d/t knee pain right, and left hip pain Mental: good No other concerns SUBJECTIVE: MEDICATIONS: Current Outpatient Medications Medication Instructions aspirin 81 MG EC tablet Every 24 hours atorvastatin (Lipitor) 80 MG tablet Every 24 hours lisinopril 10 MG tablet Every 24 hours metoprolol succinate XL (TOPROL-XL) 25 mg, Oral, Daily nitroglycerin (Nitrostat) 0.4 MG SL tablet As needed. ALLERGIES: Allergies Allergen Reactions Isosorbide Headache Oxycodone Nausea Only Oxycodone-Acetaminophen Dizziness and Other Tetanus Immune Globulin Unknown Tetanus Toxoid Unknown REVIEW OF SYMPTOMS: Review of Systems Constitutional: Negative for appetite change, chills and fever. HENT: Negative for congestion, ear pain and sore throat. Eyes: Negative for pain, discharge, redness and visual disturbance. Respiratory: Negative for cough, shortness of breath and wheezing. Cardiovascular: Negative for chest pain, palpitations and leg swelling. Gastrointestinal: Negative for abdominal pain, blood in stool, constipation, diarrhea, nausea and vomiting. Genitourinary: Negative for difficulty urinating, dysuria and frequency. Musculoskeletal: Positive for arthralgias. Negative for back pain, joint swelling and myalgias. Skin: Negative for rash and wound. Neurological: Negative for dizziness, tremors, seizures, syncope and headaches. Psychiatric/Behavioral: Negative for behavioral problems, self-injury and suicidal ideas. The patient is not nervous/anxious. Hematological: Does not bruise/bleed easily. Endocrine: Negative for polydipsia, polyphagia and polyuria. Allergic/Immunologic: Negative for environmental allergies and food allergies. PAST MEDICAL HISTORY Past Medical History: Diagnosis Date Heart disease 3 stents Hypertension (CMS/HCC) OR (myocardial infarction) ([facility]) Past Surgical History: Procedure Laterality Date CORONARY ANGIOPLASTY WITH STENT PLACEMENT [address] Kern FOOT FRACTURE SURGERY 2014 Dr. wright KNEE SURGERY Left 09/24/[address] Su TOTAL HIP ARTHROPLASTY Left 08/23/2022 Dr Su family history includes Diabetes in her mother; Heart disease in her father; Hypertension in her mother; Stroke in her father. OBJECTIVE: Visit Vitals BP 122/82 (BP Location: Left arm, Patient Position: Sitting, BP Cuff Size: Adult long) Pulse 82 Temp 97.8 F (Temporal) Resp 18 Ht 5' 6 Wt 193 lb SpO2 96% BMI 31.15 kg/m Smoking Status Never BSA 2.02 m Physical Exam Vitals and nursing note reviewed. Constitutional: General: She is not in acute distress. Appearance: Normal appearance. She is not ill-appearing. HENT: Head: Normocephalic and atraumatic. Right Ear: Ear canal and external ear normal. Left Ear: Tympanic membrane, ear canal and external ear normal. Nose: Nose normal. No congestion or rhinorrhea. Mouth/Throat: Mouth: Mucous membranes are moist. Pharynx: No oropharyngeal exudate or posterior oropharyngeal erythema. Eyes: Extraocular Movements: Extraocular movements intact. Conjunctiva/sclera: Conjunctivae normal. Neck: Vascular: No carotid bruit. Cardiovascular: Rate and Rhythm: Normal rate and regular rhythm. Pulses: Normal pulses. Heart sounds: Normal heart sounds. Pulmonary: Effort: Pulmonary effort is normal. Breath sounds: Normal breath sounds. Abdominal: General: Bowel sounds are normal. There is no distension. Palpations: Abdomen is soft. There is no mass. Tenderness: There is no abdominal tenderness. Musculoskeletal: General: Normal range of motion. Cervical back: Normal range of motion and neck supple. Right lower leg: No edema. Left lower leg: No edema. Lymphadenopathy: Cervical: No cervical adenopathy. Skin: General: Skin is warm and dry. Capillary Refill: Capillary refill takes 2 to 3 seconds. Findings: No rash. Neurological: General: No focal deficit present. Mental Status: She is alert and oriented to person, place, and time. Psychiatric: Mood and Affect: Mood normal. Behavior: Behavior normal. Thought Content: Thought content normal. Judgment: Judgment normal. ASSESSMENT AND PLAN: No follow-ups on file. Problem List Items Addressed This Visit Chronic kidney disease, stage 3a (HCC) (CMS/HCC) Per lab reading Gets labs done yearly through work I have requested she provide me a copy of this Essential hypertension (CMS/HCC) stable Wellness examination - Primary Reviewed Ht/Wt/BMI Recommend eye exam yearly Recommend dental exams twice a year Balance work/leisure activities Exercises is recommended most days of the week (appropriate as chronic conditions allow) Follow up yearly and prn Relevant Orders CBC and differential Comprehensive metabolic panel Lipid panel Urinalysis with reflex microscopic (clean catch) Encounter for screening mammogram for malignant neoplasm of breast Relevant Orders Bilateral screening mammogram Colon cancer screening Relevant Orders Ambulatory referral to General Surgery Class 1 obesity due to excess calories with serious comorbidity and body mass index (BMI) of 31.0 to 31.9 in adult Discussed increase protein, less carb Exercise difficult to to joint pain-suggest aquatic documented in this encounterWashington County Memorial [id number] NoteCONSULTATION PROCEDURE DATE: 06/30/2022 PROCEDURE: Left trochanteric bursa [...] removed. Patient reports reduction in her pain symptoms.[facility]Bfxowisa19-03-0315 Note CONSULTATION CONSULTATION DATE: 06/30/2022 TO: Kenya [...] our patients to inform us about any [id number] medications or herbal remedies/nutritional supplements/alternative remedies. 2. [...] and treatment options with their primary care provider.[facility] [id number] NotePROCEDURE: XR HIP LT 2 3V W PELVIS HISTORY: Pain of left hip joint COMPARISON: None. FINDINGS: BONES:Small subchondral cyst within the femoral head, likely incidental. No fracture, dislocation, bone lesion. No significant joint space narrowing or periarticular degenerative osteophytes. SOFT TISSUES:No visible soft tissue swelling. EFFUSION:None visible. OTHER: Negative. IMPRESSION: 1. No acute bone abnormality. 2. Minimal degenerative changes. Electronically authenticated by: CATHLEEN BARROSO Date: 2022-05-19 09:43[facility]* Diagnosis Wellness examination- Primary Chronic kidney disease, stage 3a (HCC) (CMS/HCC) Encounter for screening mammogram for malignant neoplasm of breast Colon cancer screening Special screening for malignant neoplasms, colon Essential hypertension (CMS/HCC) Unspecified essential hypertension Class 1 obesity due to excess calories with serious comorbidity and body mass index (BMI) of 31.0 to 31.9 in adult Viral upper respiratory illness- Primary Class 1 obesity due to excess calories with serious comorbidity and body mass index (BMI) of 31.0 to 31.9 in adult Essential hypertension (CMS/HCC) Unspecified essential hypertension Nausea Nausea alone [facility]* Diagnosis History of OR (myocardial infarction) Old myocardial infarction History of PTCA Postsurgical percutaneous transluminal coronary angioplasty status Atherosclerosis of coronary artery of sho[place] heart without angina pectoris, unspecified vessel or lesion type documented in this encounter [facility] Work Phone: Evaluation note* Diagnosis Wellness examination- Primary Chronic kidney disease, stage 3a (HCC) (CMS/HCC) Encounter for screening mammogram for malignant neoplasm of breast Colon cancer screening Special screening for malignant neoplasms, colon Essential hypertension (CMS/HCC) Unspecified essential hypertension Class 1 obesity due to excess calories with serious comorbidity and body mass index (BMI) of 31.0 to 31.9 in adult documented in this encounter [facility]* Diagnosis Encounter for screening colonoscopy- Primary documented in this encounter [facility]* Diagnosis Status post left hip replacement- Primary Left hip pain Pain in joint, pelvic region and thigh documented [facility] this encounter [facility]History [facility] Present [facility] Narrative* The patient states she has been generally doing well since the last visit. Comorbid Illnesses: hyper tension and hyperlipidemia. * Symptoms: denies chest pain at rest, denies exertional chest pain, denies dyspnea, denies fatigue, denies exercise intolerance, denies palpitations, denies edema, denies orthopnea, denies dizziness and denies orthostatic dizziness. * Associated symptoms: no syncope. * Her symptoms do not limit her activities. * Disease Monitoring: [facility] [address] DO Work Phone: Reason for referral (narrative)* Consultation (Routine) - Pending Review Specialty Diagnoses / Procedures Referred By Alonso dash Referred To Contact General Surgery Diagnoses Colon cancer screening Procedures IN OFFICE/OUTPATIENT [facility] HIGH MDM 60 MINUTES Kenya Guardado NP [address] [place] [address] Osvaldo Nicohle DO [address] [facility] [address] [place] [address] Referral ID Status Reason Start Date Expiration Date Visits Requested Visits Authorized [id number] Pending Review Specialty Services Required 11/08/2023 05/06/2024 1 1 [facility] Summary Purpose Family History Unknown Family Member Name Dates Details Family [...] Advanced Directives Records Found Chief Complaint * INA JEWELL is being seen for an annual follow-up of. * 61-year-old female returns for routine annual follow-up, she is doing extremely well and has no angina or recurrent coronary events. 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 She remains on DAPT therapy. Last [...] risk stratification prior to left THR. * INA JEWELL is being seen for a cardiovascular [...] clinical markers: * -Acute coronary syndrome or OR within 30 days: No * -Decompensated heart failure: No * -Significant arrhythmia: No * -Severe valvular heart disease: No * 2. Intermediate clinical markers * -History of ischemic heart disease (prior OR, current chest pain secondary to ischemia, use [...] cardiovascular risk to proceed with much-needed procedure. INA FANTA is being seen for an annual follow-up of.* INA JEWELL is being seen for an annual follow-up of. * Patient is a 62-year-old female returns for follow-up she is doing very well. She is already undergone knee and hip replacement without any adverse consequences or major adverse cardiac events. She has a history of SCAD status post anterior OR in 2017, with extensive revascularization of the [...] panel and follow-up otherwise in 1 year Reason for Referral Specialty Diagnoses / Procedures Referred By Contac t Referred To Contact Cardiology Diagnoses History of OR (myocardial infarction) History of PTCA Atherosclerosis of coronary artery of sho[place] heart without angina pectoris, unspecified vessel or lesion type Procedures Stress Test IN CV STRS TST XERS&/OR RX CONT ECG TRCG ONLY Eric Kern, DO [address] [facility] [address] [place] [address] Referral ID Status Reason Start Date Expiration Date V isits Requested Visits Authorized [id number] Authorized 09/27/2023 09/26/2024 1 1 Additional Source Comments INFORMATION SOURCE (unrecogn ized section and content) DATE CREATED AUTHOR 08/25/2017 [facility] DATE CREATED AUTHOR AUTHOR'S ORGANIZ ATION 07/15/2022 [facility] DATE CREATED AUTHOR AUTHOR'S ORGANIZ ATION 09/17/2022 [facility] DATE CREATED AUTHOR AUTHOR'S ORGANIZ ATION 09/17/2022 [employer] DATE CREATED AUTHOR AUTHOR'S ORGANIZ ATION 10/24/2023 [facility] DATE CREATED AUTHOR AUTHOR'S ORGANIZ ATION 10/24/2023 [facility] DATE CREATED AUTHOR AUTHOR'S ORGANIZ ATION 07/31/2024 [facility] dical Specialists [employer] Care Teams (unrecognized sec tion and content) Manager Video Games Relationship Specialty Start Date End Date Orlando Beatty MD [address] [place] [address] PCP - General Family Medicine 11/08/23 Kenya Guardado NP [address] [place] [address] Nurse Practitioner Family Medicine 11/08/23 Manager Video Games Relationship Specialty Start Date End Date Orlando Beatty MD [address] [place] [address] PCP - General Family Medicine 11/08/23 Kenya Guardado NP [address] [place] [address] Nurse Practitioner Family Medicine 11/08/23 Manager Video Games Relationship Specialty Start Date End Date Orlando Beatty MD [address] [place] [address] PCP - General Family Medicine 11/08/23 Kenya Guardado NP [address] [place] [address] Nurse Practitioner Family Medicine 11/08/23 Manager Video Games Relationship Specialty Start Date End Date Orlando Beatty MD [address] [place] [address] PCP - General Family Medicine 11/08/23 Kenya Guardado NP [address] [place] [address] Nurse Practitioner Family Medicine 11/08/23 Manager Video Games Relationship Specialty Start Date End Date Kenya Guardado, RELOCATION COMMISSIONER-CUSTOMER SERVICE ANALYST [address] [place] [address] PCP - General 03/06/99 Manager Video Games Relationship Specialty Start Date End Date Orlando Beatty MD [address] [place] [phone] PCP - General Family Medicine 11/08/23 Kenya Guardado NP [address] [place] [address] Nurse Practitioner Family Medicine 11/08/23 Manager Video Games Relationship Specialty Start Date End Date Orlando Beatty MD [address] [place] [address] PCP - General Family Medicine 11/08/23 Kenya Guardado NP [address] [place] [address] Nurse Practitioner Family Medicine 11/08/23 Manager Video Games Relationship Specialty Start Date End Date Orlando Beatty MD [address] [place] [address] PCP - General Family Medicine 11/08/23 Kenya Guardado NP [address] [place] [address] Nurse Practitioner Family Medicine 11/08/23 Manager Video Games Relationship Specialty Start Date End Date Orlando Beatty MD [address] [place] [address] PCP - General Family Medicine 11/08/23 Kenya Guardado NP [address] [place] [address] Nurse Practitioner Family Medicine 11/08/23 Manager Video Games Relationship Specialty Start Date End Date Orlando Beatty MD [address] [place] [address] PCP - General Family Medicine 11/08/23 Kenya Guardado NP [address] [place] [phone] Nurse Practitioner Family Medicine 11/08/23 Manager Video Games Relationship Specialty Start Date End Date Orlando Beatty MD [address] [place] [address] PCP - General Family Medicine 11/08/23 Kenya Guardado NP [address] [place] [address] Nurse Practitioner Family Medicine 11/08/23 Manager Video Games Relationship Specialty Start Date End Date Orlando Beatty MD [address] [place] [address] PCP - General Family Medicine 11/08/23 Kenya Guardado NP [address] [place] [address] Nurse Practitioner Family Medicine 11/08/23 Manager Video Games Relationship Specialty Start Date End Date Orlando Beatty MD [address] [place] [phone] PCP - General Family Medicine 11/08/23 Kenya Guardado NP [address] [place] [phone] Nurse Practitioner Family Medicine 11/08/23 Manager Video Games Relationship Specialty Start Date End Date Orlando Beatty MD [address] [place] [phone] PCP - General Family Medicine 11/08/23 Kenya Guardado NP [address] [place] [address] Nurse Practitioner Family Medicine 11/08/23 Manager Video Games Relationship Specialty Start Date End Date Orlando Beatty MD [address] [place] [phone] PCP - General Family Medicine 11/08/23 Kenya Guardado NP [address] [place] [phone] Nurse Practitioner Family Medicine 11/08/23 Manager Video Games Relationship Specialty Start Date End Date Orlando Beatty MD [address] [place] [phone] PCP - General Family Medicine 11/08/23 Kenya Guardado NP [address] [place] [phone] Nurse Practitioner Family Medicine 11/08/23 Reason for Visit (unrecogniz ed section and content) Specialty Diagnoses / Procedures Referred By Contac t Referred To Contact Cardiology Diagnoses History of OR (myocardial infarction) History of PTCA Atherosclerosis of coronary artery of sho[place]water heart without angina pectoris, unspecified vessel or lesion type Procedures Stress Test IN CV STRS TST XERS&/OR RX CONT ECG TRCG ONLY Eric Kern, [address] [facility] [address], [address] [place] [address] Referral ID Status Reason Start Date Expiration Date V isits Requested Visits Authorized [id number] Authorized 09/27/2023 09/26/2024 1 1 Reason Comments Colonoscopy Pt presents today fo r a colonoscopy consult. She states that she has never had a colonoscopy before. She denies any abdominal pain, rectal bleeding, or any changes in bowel movements. She states that her grandfather did have colon cancer. She denies any concerns. Reason Comments Pain Reason Comments Pain Reason Comments Follow-up Reason Comments Fatigue FOR RECORDS PERTAINING TO PATIENTS WHO ARE [...] BE BASED ON THE PRIMARY CLINICAL RECORDS. [employer] [facility]. provides no warranty or guarantee of the accuracy or completeness of information in this document.
[2024-07-31 23:09] VITALS: BP 137/66; PULSE 86; TEMP 36.8; O2SAT 95; BMI 30.4
--- NOTE | 2024-07-31 23:45 | ED.RECABL1 ---
HPI - Recheck/Abnormal Lab/Rx General Chief Complaint: Recheck/Abnormal Lab/Rx Stated Complaint: abnormal labs Time Seen by Provider: 07/31/24 23:30 Source: patient Mode of arrival: walk-in Limitations: no limitations History of Present Illness HPI narrative: patient states she has been tired and muscles sore. States her PCP ordered labs and she was informed her potassium was elevated and advised to go to the ER. She has no chest pain or dyspnea. Does not take potassium supplement Related Data Home Medications ?Medication ?Instructions ?Recorded ?Confirmed aspirin 81 mg capsule 81 mg PO DAILY 02/11/23 07/31/24 atorvastatin 80 mg tablet 80 mg PO DAILY 02/11/23 07/31/24 lisinopril 10 mg tablet 10 mg PO DAILY 02/11/23 07/31/24 metoprolol succinate 25 mg 25 mg PO DAILY 02/11/23 07/31/24 tablet,extended release 24 hr nitroglycerin 0.4 mg sublingual 0.4 mg sublingual Q5M 11/27/23 07/31/24 tablet Allergies Allergy/AdvReac Type Severity Reaction Status Date / Time isosorbide AdvReac Severe Headache Verified 07/31/24 23:14 oxycodone AdvReac Severe Dizziness Verified 07/31/24 23:14 tetanus and diphtheria AdvReac Intermediate Dizziness Verified 07/31/24 23:14 toxoids Review of Systems ROS Status of ROS 10 or more systems reviewed and unremarkable except as noted in history and below [facility] Medical History (Updated 08/01/24 @ 03:33 by German Wallace MD) Foot fracture ?S92.909A - Unspecified fracture of unspecified foot, initial encounter for closed fracture (ICD-10) PONV (postoperative nausea and vomiting) ?R11.2 - Nausea with vomiting, unspecified (ICD-10) ?Z98.890 - Other specified postprocedural states (ICD-10) Myocardial infarction ?I21.9 - Acute myocardial infarction, unspecified (ICD-10) HTN (hypertension) ?I10 - Essential (primary) hypertension (ICD-10) Heart disease ?I51.9 - Heart disease, unspecified (ICD-10) CHF (congestive heart failure) ?I50.9 - Heart failure, unspecified (ICD-10) Surgical History (Updated 12/05/23 @ 11:03 by Aimee Negro RN) Hx of total hip arthroplasty ?Z96.649 - Presence of unspecified artificial hip joint (ICD-10) H/O coronary angioplasty ?Z98.61 - Coronary angioplasty status (ICD-10) H/O section ?Z98.891 - History of uterine scar from previous surgery (ICD-10) Family History (Updated 12/05/23 @ 11:03 by Aimee Negro, CR) Other Family history of diabetes mellitus Family history of hypertension Family history of stroke Glaucoma Heart disease Social History (Updated 12/05/23 @ 11:02 by Aimee Negro, CR) Within the past year, how often did you have a drink containing alcohol: never Score interpretation: A score less than 3 is consistent with normal alcohol consumption. Smoking status: Never smoker Second hand tobacco smoke exposure: Yes Non-prescribed substance use: denies use Previous occupational history: [employer] Highest level of school completed/degree received: high school graduate Little interest or pleasure in doing things: not at all Feeling down, depressed, or hopeless: not at all Exam Constitutional Vital Signs, click to edit/add: Last Vital Signs Temp 98.3 F 07/31/24 23:09 Pulse 81 08/01/24 01:38 Resp 16 08/01/24 01:38 BP 137/66 07/31/24 23:09 Pulse Ox 97 08/01/24 01:38 O2 Del Method Room Air 08/01/24 01:38 Common normals: no apparent distress, average body habitus, oriented x3, no limitations, healthy appearing, alert and well nourished [facility] Common normals: normocephalic and head/scalp atraumatic Respiratory Common normals: normal respiratory effort, no retractions, no use of accessory muscles and clear to auscultation bilaterally Cardio Common normals: regular rate, regular rhythm, S1 normal heart sound and S2 normal heart sound Extremity Common normals: normal to inspection and full ROM Neuro Common normals: oriented x3, CN's II-XII intact bilaterally, moves all extremities and no focal motor deficits Psych Appearance: grossly normal Course Vital Signs Vital signs: Vital Signs Temperature 98.3 F 07/31/24 23:09 Pulse Rate 86 07/31/24 23:09 Respiratory Rate 20 07/31/24 23:09 Blood Pressure 137/66 07/31/24 23:09 Pulse Oximetry 95 07/31/24 23:09 Oxygen Delivery Method Room Air 07/31/24 23:09 Temperature 98.3 F 07/31/24 23:09 Pulse Rate 81 08/01/24 01:38 Respiratory Rate 16 08/01/24 01:38 Blood Pressure 137/66 07/31/24 23:09 Pulse Oximetry 97 08/01/24 01:38 Oxygen Delivery Method Room Air 08/01/24 01:38 MDM - Recheck/Abnormal Lab/Rx MDM Narrative Medical decision making narrative: patient presents with hyperkalemia. No clear cause but may be 2nd to lisinopril. EKG without changes of hyperkalemia. Patient treated and her potassium decreased from 6.3 down to 5.4. Patient discharged home to follow up with her doctor Lab Data Labs: Lab Results 08/01/24 08/01/24 Range/Units 00:06 02:50 WBC 4.4 (4.0-11.0) 10^3/uL RBC 3.19 L (4.20-5.40) 10^6/uL Hgb 10.1 L (12.0-16.0) g/dL Hct 30.9 L (36.0-48.0) % MCV 96.9 (81.0-99.0) fL MCH 31.7 (26.7-34.0) pg MCHC 32.7 (29.9-35.2) g/dL RDW 13.2 (11.0-15.0) % Plt Count 231 (150-450) 10^3/uL MPV 8.7 L (9.5-13.5) fL Neut % (Auto) 68.9 (43.0-75.0) % Lymph % (Auto) 19.9 L (20.5-60.0) % Millard % (Auto) 7.4 (1.7-12.0) % Eos % (Auto) 3.4 (0.9-7.0) % Baso % (Auto) 0.2 (0.2-2.0) % Neut # (Auto) 3.1 (1.4-6.5) 10^3/uL Lymph # (Auto) 0.9 L (1.2-3.8) 10^3/uL Millard # (Auto) 0.3 (0.3-0.8) 10^3/uL Eos # (Auto) 0.2 (0.0-0.7) 10^3/uL Baso # (Auto) 0.0 (0.0-0.1) 10^3/uL Abs Immat Gran (auto) 0.01 (0.00-0.03) 10^3/uL Imm/Tot Granulo (auto) 0.2 (0.0-0.5) % Sodium 142 (136-145) mmol/L Potassium 6.0 H 5.4 H (3.5-5.1) mmol/L Chloride 110 H (98-107) mmol/L Carbon Dioxide 20.0 L (21.0-32.0) mmol/L Anion Gap 18.0 BUN 44.0 H (7.0-18.0) mg/dL Creatinine 1.75 H (0.55-1.02) mg/dL Est GFR ( Amer) 36 L (>=60 mL/min/1.73m^2) Est GFR (Non-Af Amer) 29 L (>=60 mL/min/1.73m^2) BUN/Creatinine Ratio 25.1 Glucose 138 H (74-106) mg/dL Calcium 8.9 (8.5-10.1) mg/dL Discharge Plan Discharge Chief Complaint: Recheck/Abnormal Lab/Rx Clinical Impression: Acute hyperkalemia Patient Disposition: Home, Self-Care Prescriptions / Home Meds: No Action atorvastatin 80 mg tablet 80 mg PO DAILY lisinopril 10 mg tablet 10 mg PO DAILY metoprolol succinate 25 mg tablet extended release 24 hr 25 mg PO DAILY aspirin 81 mg capsule 81 mg PO DAILY nitroglycerin 0.4 mg tablet, sublingual 0.4 mg sublingual Q5M Rx Instructions: do not exceed 3 doses per episode Print Language: Mauritanian Instructions: Hyperkalemia (ED) Additional Instructions: follow up with your doctor in the next couple of days for recheck Referrals: Kenya Guardado NP [Primary Care Provider, Family Practice] - 1 week
[2024-08-01] MEDS: 0.9 % SODIUM CHLORIDE 1,000 ML 999 ML IV (00:08)
[2024-08-01 00:17] LABS: Basophils Percent Auto 0.2 % (0.2-2.0); Eosinophils Absolute Auto 0.2 10^3/uL (0.0-0.7); Eosinophils Percent Auto 3.4 % (0.9-7.0); Hematocrit 30.9 % (36.0-48.0); Hemoglobin 10.1 g/dL (12.0-16.0); Immature Granulocytes Abs Auto 0.01 10^3/uL (0.00-0.03); Immature Granulocytes Pct Auto 0.2 % (0.0-0.5); Lymphocytes Absolute Auto 0.9 10^3/uL (1.2-3.8); Lymphocytes Percent Auto 19.9 % (20.5-60.0); Mean Corpuscular HGB Conc 32.7 g/dL (29.9-35.2); Mean Corpuscular Hemoglobin 31.7 pg (26.7-34.0); Mean Corpuscular Volume 96.9 fL (81.0-99.0); Mean Platelet Volume 8.7 fL (9.5-13.5); Monocytes Absolute Auto 0.3 10^3/uL (0.3-0.8); Monocytes Percent Auto 7.4 % (1.7-12.0); Neutrophils Absolute Auto 3.1 10^3/uL (1.4-6.5); Neutrophils Percent Auto 68.9 % (43.0-75.0); Platelet Count 231 10^3/uL (150-450); Red Blood Count 3.19 10^6/uL (4.20-5.40); Red Cell Distribution Width 13.2 % (11.0-15.0); White Blood Count 4.4 10^3/uL (4.0-11.0)
[2024-08-01 00:28] LABS: BUN Creatinine Ratio 25.1; Calcium 8.9 mg/dL (8.5-10.1); Chloride 110 mmol/L (98-107); Estimated GFR (African America 36 (>=60 mL/min/1.73m^2); Estimated GFR (Non-African Ame 29 (>=60 mL/min/1.73m^2); Glucose 138 mg/dL (74-106); Sodium 142 mmol/L (136-145)
--- NOTE | 2024-08-01 00:57 | ECG_ITS ---
[facility] Test Date: 2024-08-01 Pat Name: ANDREA JEWELL Department: Room: - Gender: Female Funeral Director And Embalmer: : 1960 Requested By: [id number] Order Number: [id number] Reading MD: TERESA PRUITT M.D. Measurements Intervals [place] Rate: 81 P: 66 ND: 140 QRS: 54 QRSD: 74 T: 57 QT: 364 QTc: 401 Interpretive Statements 1100 Sinus rhythm 9110 normal ECG Compared to ECG 08/03/2017 23:16:17 No significant changes Electronically Signed On 08-01-2024 21:09:34 EDT by TERESA PRUITT M.D.
[2024-08-01] MEDS: SODIUM POLYSTYRENE SULFON 15 GM/60 ML ORAL.SUSP KAYEXALATE 30 GM PO (01:28)
[2024-08-01] MEDS: ALBUTEROL SULFATE 2.5 MG/3 ML VIAL NEB IH (01:35)
[2024-08-01 01:38] VITALS: PULSE 81; O2SAT 97
[2024-08-01 03:22] LABS: Potassium 5.4 mmol/L (3.5-5.1)
== END 2024-08-01 04:06 | disposition home or self-care (01) ==
PROVIDERS: Emergency Provider Internal Medicine; PCP Nurse Practitioner
DX: E87.5 Hyperkalemia (principal); R42 Dizziness and giddiness; M25.50 Pain in unspecified joint; R53.83 Other fatigue; I25.10 Atherosclerotic heart disease of native coronary artery without angina pectoris
CPT/HCPCS: 36415; 80048; 80053; 81001; 82607; 82728; 82746; 83540; 83735; 84132; 84439; 84443; 84481; 84550; 85025; 85652; 86038; 86140; 86376; 86800; 93005; 94640; 99285

== ENCOUNTER 2024-08-15 12:19 | Outpatient (OUT) | payer BC, SELFPAY ==
--- OUTSIDE RECORDS SUMMARY | 2024-07-24 09:15 | XMS_ITS | Encounter Summary ---
Author Organization [facility] Address [address] [place] [address] Care Team Providers Care Bank President Name Role Phone Orlando Beatty MD Primary Care Provider [phone] Kenya Guardado METALLURGICAL ENGINEERING TEACHER Unavailable [phone] Reason for Visit * Reason Comments Follow-up Encounter Details Date Type Department Care Team (Late Contact Info) Description 07/24/2024 9:15 AM EDT [facility] [address] [place] [address] Morris Puri PA [address] [address] Acute hip pain, left (Primary Dx); Acute left lumbar radiculopathy; History of total hip replacement, left Social History Tobacco Use Types Packs/Day Years Used Date Smoking Tobacco: Never Smokeless Tobacco: Never Alcohol Use Standard Drinks/Week Comments Never 0 (1 standard drink = 0.6 oz pure alcohol) caffine: soda 2 20oz bottles daily B1300 Health Literacy Answer Date Recor ded How often do you need to hav e someone help you when you read instructions, pamphlets, or other written material from your doctor or pharmacy? Rarely 07/31/2024 Humiliation, Afraid, Rape, and Kick questionnair e Answer Date Recorded Within the last year, have y ou been afraid of your partner or ex-partner? No 07/31/2024 Within the last year, have y ou been humiliated or emotionally abused in other ways by your partner or ex-partner? No Within the last year, have y ou been kicked, hit, slapped, or otherwise physically hurt by your partner or ex-partner? No 07/31/2024 Within the last year, have y ou been raped or forced to have any kind of sexual activity by your partner or ex-partner? No 07/31/2024 Social Connection and Isolation Panel [NHANES] A nswer Date Recorded In a typical week, how many times do you talk on the phone with family, friends, or neighbors? Once a week 07/31/2024 How often do you get togethe r with friends or relatives? Once a week 07/31/2024 How often do you attend adventism or catholic serv ices? Never 07/31/2024 Do you belong to any clubs o r organizations such as adventism groups, unions, fraternal or athletic groups, or school groups? No 07/31/2024 How often do you attend meet ings of the clubs or organizations you belong to? Patient declined 07/31/2024 Are you , , di vorced, , never , or living with a partner? 07/31/2024 AUDIT-C Answer Date Recorded Q1: How often do you have a drink containing alcohol? Never 07/31/2024 Q2: How many drinks containi ng alcohol do you have on a typical day when you are drinking? Patient does not drink Q3: How often do you have si x or more drinks on one occasion? Never 07/31/2024 Overall Financial Resource Strain (CARDIA) Answe r Date Recorded How hard is it for you to pa y for the very basics like food, housing, medical care, and heating? Not very hard 07/31/2024 [facility] [place] of Occupat ional Health - Occupational Stress Questionnaire Answer Date Recorded Do you feel stress - tense, restless, nervous, or anxious, or unable to sleep at night because your mind is troubled all the time - these days? Patient declined 07/31/2024 Exercise Vital Sign Answer Date Recorde d On average, how many days pe r week do you engage in moderate to strenuous exercise (like a brisk walk)? 0 days On average, how many minutes do you engage in exercise at this level? Patient declined 07/31/2024 Hunger Vital Sign Answer Date Recorded Within the past 12 months, y ou worried that your food would run out before you got the money to buy more. Never true 08/01/19 25 Within the past 12 months, t he food you bought just didn't last and you didn't have money to get more. Never true 07/31/2024 PRAPARE - Transportation Answer Date Re corded In the past 12 months, has l ack of transportation kept you from medical appointments or from getting medications? No 07/05 In the past 12 months, has l ack of transportation kept you from meetings, work, or from getting things needed for daily living? No 07/31/2024 Housing Stability Vital Sign Answer Colin e Recorded In the last 12 months, was t here a time when you were not able to pay the mortgage or rent on time? Patient refused 02/07/20 23 Number of Places Lived in the Last Year Not on f ile 02/06/2023 In the last 12 months, was t here a time when you did not have a steady place to sleep or slept in a skilled nursing (including now)? Patient refused 02/06/2023 Housing Stability Vital Sign Answer Colin e Recorded In the last 12 months, was t here a time when you were not able to pay the mortgage or rent on time? No 07/31/2024 Number of Times Moved in the Last Year Not on fi le 07/31/2024 At any time in the past [facility], were you homeless or living in a skilled nursing (including now)? No 07/31/2024 Comments Unknown Sex and Gender Information Value Date Recorded Sex Assigned at Not on file Legal Sex Female 8:15 PM EDT Gender Identity Not on file Sexual Orientation Not on file documented as of this encounter Functional Status * Audit-C Score Answer Date of Assessment Author 0 07/31/2024 7:58 AM EDT Donta, Generic * Q1: How often do you have a drink containing alcohol? Answer Date of Assessment Author Never 07/31/2024 7:58 AM EDT Donta, Generic * Q2: How many drinks containing alcohol do you have on a typical day when you are drinking? Answer Date of Assessment Author Patient does not drink 07/31/2024 7:58 AM EDT My chart, Generic * Q3: How often do you have six or more drinks on one occasion? Answer Date of Assessment Author Never 07/31/2024 7:58 AM EDT Mychart, Generic documented as of this encounter Progress Notes * Morris Puri, BEATRIZ - 07/24/2024 9:15 AM EDT Images from the original note were not included. Orthopedic Office note: NAME: Ina Cancino : 1960 EST PT WITH LT HIP - S/P DEPO INJ 07/03 (3 WKS) HX LT JULIANO 08/23/[address] BAI XRAY LUMBAR TODAY EPIC 07/24/24 XRAY LT HIP TBH 06/29/24 (MERGED IN PACS) XRAY LT HIP EPIC 11/15/23 XRAY LT HIP CHANGE 09/20/22 DEPO INJECTION 07/03/24 NO BONE SCAN NO LABS MDP 06/29/24 LITTLE RELIEF FROM INJECTION. PAIN CONTINUES LATERAL HIP. CONSTANT ACHE. WILL HAVE THROBBING WITH PROLONGED WB. +IBU AND VOLTAREN. +N/T IN FEET. +GIVING OUT. WAKES AT HS. MICHEAL: PAIN OFF AND ON FOR A WHILE- PT STATES PAIN WAS AWFUL ON Monday06/29/24; NO KNOWN INJURY Hip Musculoskeletal Exam Gait Gait is normal. Inspection Leg length disparity: no discrepancy Left Erythema: none Ecchymosis: none Edema: none Deformity: none Previous incision: anterolateral Incision: well-healed Palpation Left Left hip palpation is normal. Increased warmth: none Tenderness: present Greater trochanteric region pain: mild Lower lumbar region pain: moderate Lower lumbar region pain comment: pain radiating constan into left lateral thigh and left anterior lateral ricardo Palpation additional comments: + SLR 30 degrees with pain Range of Motion Left Left hip range of motion is within functional limits. Active ROM: normal and no pain. Passive ROM: normal and no pain. Strength Left Left hip strength is normal. Extension: 5/5. Flexion: 4+/5. Internal rotation: 5/5. External rotation: 5/5. External rotation is not affected by pain. Adduction: 5/5. Adduction is not affected by pain. Abduction: 5/5. Abduction is not affected by pain. Strength additional comments: Quad and Ham in 4/5 on left, 5/5 in right leg Neurovascular Left Left hip neurovascular exam is normal. Pulses - PT: normal Posterior tibial: 2+ Special Tests Left Log roll test: negative Special tests additional comments: Neg clonus, General Constitutional: appears stated age Labored breathing: no Psychiatric: normal mood and affect Neurological: alert and oriented x3 Skin: intact Lymphadenopathy: none No orders of the defined types were placed in this encounter. Procedures Results - Imaging: - X-rays show overall good alignment of lumbar spine - Very slight anterolisthesis of L5 on S1 - No evidence of fracture ICD-10-CM 1. Acute hip pain, left M25.552 2. Acute left lumbar radiculopathy M54.16 L5 3. History of total hip replacement, left Z96.642 Assessment & Plan Left lateral hip pain. She has pain traveling in the L5 dermatome in the left leg. Weakness is appreciated today with bothquad and hamstring function. Reflexes are symmetric, but no clonus noted. Discussed persistence of symptoms, weakness in the leg, symptoms worse with standing and some relief with sitting. Pain is not felt to be coming from her left hip prosthesis. Her hip bursa injection gave only negligible relief. Diagnostic plan: An MRI is recommended for further evaluation. X-rays discussed today at the bedside show overall good alignment of her lumbar spine with very slight anterolisthesis of L5 on S1 but no evidence of fracture. Treatment plan: Consider pain management referral versus neurosurgery referral. Clinical decision making: She is agreeable to MRI. Follow-up: pending MRI ( 2 wks) PROCEDURE The patient received a hip bursa injection in the past, which provided only negligible relief. Questions answered in laymen terms at the bedside. The diagnosis, home exercise plan and any ongoing restrictions/ recommendations reviewed. If unable to be reached in office, I recommend evaluation at nearest Emergency Room if any symptoms worsened or new symptoms develop for requiring urgent evaluation. Visit was preformed using [employer]-engine pilot speech recognition. documented in this encounter Miscellaneous Notes * Addendum Note - Kim Traylor, DANIAL - 07/24/2024 9:15 AM EDTAddended by: KIM TRAYLOR on: 08/07/2024 11:18 AM Modules accepted: Orders documented in this encounter Plan of Treatment Upcoming Encounters Date Type Department Care Team (Late st Contact Info) Description 11/11/2024 11:00 AM EDT Office Visit [facility] [address] [place] [address] Kenya Guardado NP [address] [place] [address] 11/14/2025 9:00 AM EDT [facility] Visit [facility] [address] [place] [address] Morris Puri, BEATRIZ [address] [address] documented as of this encounter Procedures Procedure Name Priority Date/Time Associated Diagnosis Comments XR LUMBAR SPINE 2-3 VIEWS Routine 07/24/2024 9:46 AM EDT Acute left lumbar radiculopathy documented in this encounter Results * XR lumbar spine 2 or 3 views (07/24/2024 9:46 AM EDT) Anatomical Region Laterality Modality Spine, L-spine Radiographic Minoo ging Narrative 07/24/2024 9:27 PM EDT Imaging Result: AP and Lateral lumbar spine: Left hip prosthesis, No acute fracture or dislocation Slight anterolisthesis L5-S1, mild facet arthritis. Bowel gas unremarkable Impression: mild degenerative changes lumbar spine. us Morris HENDERSON IMG XR PROCEDURES Final Resul t documented in this encounter Visit Diagnoses Diagnosis Acute hip pain, left- Primary Acute left lumbar radiculopathy History of total hip replacement, left documented in this encounter Care Teams Bank President Relationship Specialty Start Date End Date Orlando Beatty MD [address] [place] [address] PCP - General Family Medicine 11/08/23 Kenya Guardado NP [address] [place] [address] Nurse Practitioner Family Medicine 11/08/23 documented as of this encounter
--- OUTSIDE RECORDS SUMMARY | 2024-08-07 11:00 | XMS_ITS | Encounter Summary ---
Author Organization [facility] Address [address] [place] [address] Care Team Providers Care Radiocommunications Technician Name Role Phone Orlando Beatty MD Primary Care Provider [phone] Kenya Guardado EYEGLASS MAKER Unavailable [phone] Encounter Details Date Type Department Care Team ([facility] Contact Info) Description 08/07/2024 11:00 AM EDT [facility] Visit [facility] [address] [place] [phone] Morris Puri, PA [address] [address] Acute hip pain, left (Primary Dx); Acute left lumbar radiculopathy Social History Tobacco Use Types Packs/Day Years [...] week 07/31/2024 How often do you attend latter-day or synagogue serv ices? Never 07/31/2024 Do you belong to any clubs o r organizations such as latter-day groups, unions, fraternal or athletic groups, or [...] care, and heating? Not very hard 07/31/2024 [facility] - Occupational Stress Questionnaire Answer [...] place to sleep or slept in a care home (including now)? Patient refused 02/06/2023 Housing Stability Vital Sign Answer Colin e Recorded In the last 12 months, was t here a time when you were not able to pay the mortgage or rent on time? No 07/31/2024 Number of Times Moved in the Last Year Not on fi le 07/31/2024 At any time in the past 12 m ont, were you homeless or living in a care home (including now)? No 07/31/2024 Comments Unknown Sex and Gender Information Value Date Recorded Sex Assigned at Not on file Legal Sex Female 8:15 PM EDT Gender Identity Not on file Sexual Orientation Not on file documented as of this encounter Progress Notes * BEATRIZ Cabrera - 08/07/2024 11:00 AM EDT Images from the original note were not included. Orthopedic Office note: NAME: Ina Cancino : 1960 EST PT WITH LT HIP -HERE FOR MRI LUMBAR SPINE RESULTS [facility] (NOT DONE DUE TO COST) HX LT JULIANO 08/23/[address] BAI XRAY LUMBAR EPIC 07/24/24 XRAY LT HIP [facility] 06/29/24 (MERGED IN PACS) XRAY LT HIP EPIC 11/15/23 XRAY LT HIP CHANGE 09/20/22 DEPO INJECTION 07/03/24 NO BONE SCAN NO LABS MDP 06/29/24 NOTES SOME IMPROVEMENT, MORE MANAGEABLE NOW. ABLE TO MOVE AROUND A LITTLE BETTER. STATES HER POTASSIUM WAS HIGH, GETTING BACK IN CHECK. PAIN WILL BE LATERAL HIP. WILL HAVE TIGHTNESS IN LOW BACK. +ICEAND HEAT. +IBU PRN. DOES HAVE SOME TINGLING, STATES NOT INTENSE. SOMETIMES FEELS GIVING OUT IN HIP. OCCAS WAKES AT HS, BUT NOT OFTEN. DOES DO SOME LEG/FEET EXERCISES. MICHEAL: PAIN OFF AND ON FOR A WHILE- PT STATES PAIN WAS AWFUL ON Monday06/29/24; NO KNOWN INJURY Hip Musculoskeletal Exam Gait Limp: left Inspection Leg length disparity: no discrepancy Left Erythema: none Ecchymosis: none Edema: none Deformity: none Previous incision: anterolateral Incision: well-healed Palpation Right Tenderness: present Greater trochanteric region pain: mild Left Left hip palpation is normal. Increased warmth: none Tenderness: present Greater trochanteric region pain: mild Range of Motion Left Left hip range of motion is within functional limits. Active ROM: normal and no pain. Passive ROM: normal and no pain. Strength Left Left hip strength is normal. Extension: 5/5. Extension is not affected by pain. Flexion: 5/5. Flexion is not affected by pain. Internal rotation: 5/5. Internal rotation is not affected by pain. External rotation: 5/5. External rotation is not affected by pain. Adduction: 5/5. Adduction is not affected by pain. Abduction: 5/5. Abduction is not affected by pain. Neurovascular Left Left hip neurovascular exam is normal. Pulses - PT: normal Posterior tibial: 2+ Special Tests Left Log roll test: negative Special tests additional comments: Neg SLR today. General Constitutional: appears stated age Labored breathing: no Psychiatric: normal mood and affect Neurological: alert and oriented x3 Skin: intact Lymphadenopathy: none No orders of the defined types were placed in this encounter. Procedures Results ICD-10-CM 1. Acute hip pain, left M25.552 2. Acute left lumbar radiculopathy M54.16 Assessment & Plan Left lateral hip pain She notes mild soreness in the left lateral hip and pain in both hips in the same location if she weightbears and walks for an extended period. Symptoms improve with rest. The severe pain extending to the lateral ricardo has much improved. She reports mild discomfort in the L5 dermatome without any par esthesias. She prefers to hold off on getting an MRI due to cost, stating that symptoms are improving. She has been to pain management before and declines the need for injections at this time. A referral back to pain management will be considered if her symptoms persist or worsen. She is advised togo to the emergency room if she develops any bowel or bladder incontinence or saddle paresthesias, as discussed in layman's terms, emphasizing the urgency of treatment. She may use a cane if needed for gait support. Follow-up: The patient will follow up on a p.r.n. basis for continued monitoring of her hip replacement. Questions answered in laymen terms at the bedside. The diagnosis, home exercise plan and any ongoing restrictions/ recommendations reviewed. If unable to be reached in office, I recommend evaluation at nearest Emergency Room if any symptoms worsened or new symptoms develop for requiring urgent evaluation. Visit was preformed using [employer]-forest[employer] pilot speech recognition. documented in this encounter Plan of Treatment Upcoming Encounters Date Type Department Care Team (Late st Contact Info) Description 11/11/2024 11:00 AM EDT Office Visit [facility] [address] [place] [phone] Kenya Guardado NP [address] [place] [address] 11/14/2025 9:00 AM EDT Office Visit [facility] [address] [place] [phone] Morris Puri PA [address] [place] [address] documented as of this encounter Visit Diagnoses Diagnosis Acute hip pain, left- Primary Acute left lumbar radiculopathy documented in this encounter Care Teams Radiocommunications Technician Relationship Specialty Start Date End Date Orlando Beatty MD [address] [place] [phone] PCP - General Family Medicine 11/08/23 Kenya Guardado NP [address] [place] [phone] Nurse Practitioner Family Medicine 11/08/23 documented as of this encounter
--- OUTSIDE RECORDS SUMMARY | 2024-08-15 11:30 | XMS_ITS | Encounter Summary ---
Author Organization [facility] Address [address] [place] [address] Care Team Providers Care Veneer Marker Name Role Phone Orlando Beatty MD Primary Care Provider [phone] Kenya Guardado ADVERTISING AGENCY MANAGER Unavailable [phone] Reason for Visit * Reason Comments Fatigue Encounter Details Date Type Department Care Team ([facility] Contact Info) Description 08/15/2024 11:30 AM EDT Office Visit [facility] [address] [place] [address] Kenya Guardado, ADVERTISING AGENCY MANAGER [address] [place] [address] Essential hypertension (Primary Dx); Class 1 obesity due to excess calories with serious comorbidity and body mass index (BMI) of 31.0 to 31.9 in adult; Other fatigue; Hyperkalemia; Anemia due to other cause, not classified Social History Tobacco Use Types Packs/Day Years [...] week 07/31/2024 How often do you attend denominational or worship serv ices? Never 07/31/2024 Do you belong to any clubs o r organizations such as denominational groups, unions, fraternal or athletic groups, or [...] care, and heating? Not very hard 07/31/2024 [facility] ional Health - Occupational Stress [...] group home (including now)? Patient refused 02/06/2023 Housing Stability Vital Sign Answer Colin e Recorded In the last 12 months, was t here a time when you were not able to pay the mortgage or rent on time? No 07/31/2024 Number of Times Moved in the Last Year Not on fi le 07/31/2024 At any time in the past [address] [facility], were you homeless or living in a group home (including now)? No 07/31/2024 Comments Unknown Sex and Gender Information Value Date Recorded Sex Assigned at Not on file Legal Sex Female 8:15 PM EDT Gender Identity Not on file Sexual Orientation Not on file documented as of this encounter Last Filed Vital Signs Vital Sign Reading Time Taken Comments Blood Pressure 132/72 08/15/2024 11:40 AM EDT Pulse 91 08/15/2024 11:40 AM EDT Temperature 37.1 C (98.7 F) 08/15/2024 11:40 AM EDT Respiratory Rate 18 08/15/2024 11:40 AM EDT Oxygen Saturation 97% 08/15/2024 11:40 AM EDT Inhaled Oxygen Concentration - - Weight 87 kg (191 lb 12.8 oz) 08/15/2024 11:40 A M EDT Height - - Body Mass Index 30.96 01/08/2024 1:39 PM EST documented in this encounter Patient Instructions * Patient Instructions* Kenya Guardado NP - 08/15/2024 11:30 AM EDT Get updated blood work, documented in this encounter Progress Notes * Kenya Guardado NP - 08/15/2024 6:33 AM EDTAssociated Problem(s): Hyperkalemia Last visit labs indicated elevated CR as well as Potassium Order given for her to repeat labs: * Kenya Guardado NP - 08/15/2024 6:32 AM EDTAssociated Problem(s): Class 1 obesity due to excess calories with serious comorbidity and body mass index (BMI) of 31.0 to 31.9 in adult Discussed increase protein, less carb Exercise difficult to to joint pain-suggest aquatic * Kenya Guardado NP - 08/15/2024 6:32 AM EDTAssociated Problem(s): Essential hypertension Please check blood pressure daily and record DASH diet Limit caffeine Take medication as directed Contact office if chest pain, pressure, dizziness, shortness of breath, swelling legs Recommend slow position changes Meds: b diego, and raghav documented in this encounter Plan of Treatment Upcoming Encounters Date Type Department Care Team (Late st Contact Info) Description 11/11/2024 11:00 AM EDT Office Visit [facility] [address] [place] [phone] Kenya Guardado NP [address] [place] [phone] 11/14/2025 9:00 AM EDT [facility] [address] [facility] [place] [phone] Morris Puri PA [address] [place], [place] [phone] Scheduled Orders Name Type Priority Associated Diagnoses Orde r Schedule CBC and differential Lab Routine Essential hypertension Hyperkalemia Anemia due to other cause, not classified Expected: 08/15/2024 (Approximate), Expires: 08/15/2025 Phosphorus Lab Routine Hyperkalemia Anemia due to other cause, not classified Expected: 08/15/2024 (Approximate), Expires: 08/15/2025 documented as of this encounter Visit Diagnoses Diagnosis Essential hypertension- Primary Unspecified essential hypertension Class 1 obesity due to excess calories with serious comorbidity and body mass index (BMI) of 31.0 to 31.9 in adult Other fatigue Hyperkalemia Hyperpotassemia Anemia due to other cause, not classified documented in this encounter Care Teams Veneer Marker Relationship Specialty Start Date End Date Orlando Beatty MD [address] [place] [phone] PCP - General Family Medicine 11/08/23 Kenya Guardado NP [address] [place] [phone] Nurse Practitioner Family Medicine 11/08/23 documented as of this encounter
--- OUTSIDE RECORDS SUMMARY | 2024-08-15 12:23 | XMS_ITS | Encounter Summary ---
Author Organization [facility] Address [address] [facility] [place] [address] Care Team Providers Care Ammunition Assembly I Laborer Name Role Phone Orlando Beatty MD Primary Care Provider [phone] Kenya Guardado OPERA SINGER Unavailable [phone] Encounter Details Date Type Department Care Team (Late Contact Info) Description 08/07/2024 Bamboo flowsheet [facility] [address] [place] [address] Morris Puri, PA [address] [id number] Social History Tobacco Use Types Packs/Day Years [...] week 07/31/2024 How often do you attend roman catholic or mormon serv ices? Never 07/31/2024 Do you belong to any clubs o r organizations such as roman catholic groups, unions, fraternal or athletic groups, [...] care, and heating? Not very hard 07/31/2024 [facility] of Occupat ional Health - Occupational Stress [...] a detention (including now)? Patient refused 02/06/2023 Housing Stability Vital Sign Answer Colin e Recorded In the last 12 months, was t here a time when you were not able to pay the mortgage or rent on time? No 07/31/2024 Number of Times Moved in the Last Year Not on fi le 07/31/2024 At any time in the past 12 m [facility], were you homeless or living in a detention (including now)? No 07/31/2024 Comments Unknown Sex and Gender Information Value Date Recorded Sex Assigned at Not on file Legal Sex Female 8:15 PM EDT Gender Identity Not on file Sexual Orientation Not on file documented as of this encounter Plan of Treatment Upcoming Encounters Date Type Department Care Team (Late st Contact Info) Description 11/11/2024 11:00 AM EDT Office Visit [facility] [address] [place] [address] Kenya Guardado NP [address] [place] [address] 11/14/2025 9:00 AM EDT Office Visit [facility] [address] [facility] [place] [address] Morris Puri, BEATRIZ [address] [place] [address] [place] [address] documented as of this encounter Visit Diagnoses Not on filedocumented in this encounter Care Teams Ammunition Assembly I Laborer Relationship Specialty Start Date End Date Orlando Beatty MD [address] [place] [address] PCP - General Family Medicine 11/08/23 Kenya Guardado NP [address] [place] [place] [address] Nurse Practitioner Family Medicine 11/08/23 documented as of this encounter
--- OUTSIDE RECORDS SUMMARY | 2024-08-15 12:23 | XMS_ITS | Clinical Summary ---
Author Organization [facility] Address [address] [place] [address] Phone Care Team Providers Care Bilingual Kindergarten Teacher Name Role Phone LorKenya olson Jacqueline ALUMNAE SECRETARY-FOOD MANAGER Primary Care Provider Allergies Active Allergy Reactions [...] 24 hr tabletIndications :Atherosclerotic heart disease of [place] coronary artery without angina pectoris TAKE 1 TABLET BY MOUTH EVERY DAY 90 tablet 3 5 Active Active Problems Problem Noted Date Diagnosed Date History of [place] (myocardial infarction) 09/27/2023 BMI 30.0-30.9,adult 09/27/2023 Never smoked tobacco 09/27/2023 Atherosclerosis of coronary artery of [place] heart without angina pectoris 03/27/2023 Essential hypertension [...] Description 09/26/2024 1:10 PM EDT Office Visit [facility] [address] [facility] [address] [place] [address] Eric Brewster, [address] [facility] [address], [address] [place] [address] Health Maintenance Due Date Last Done Comments [...] patient's age to complete this topic [facility] Care Teams Bilingual Kindergarten Teacher Relationship Specialty Start Date End Date Kenya Guardado, ALUMNAE SECRETARY-FOOD MANAGER [address] [place] [address] PCP - General 03/06/99
--- OUTSIDE RECORDS SUMMARY | 2024-08-15 12:23 | XMS_ITS | Encounter Summary ---
Author Organization [facility] Address [address] [place] [address] Care Team Providers Care Rn Interventional Name Role Phone Orlando Beatty MD Primary Care Provider Kenya Guardado CERTIFIED TOWER CLIMBER Unavailable [phone] Encounter Details Date Type Department Care Team ([facility] Contact Info) Description 08/01/2024 Orders Only [facility] [address] [place] [address] German Wallace MD [address] [place] [phone] (Work) Social History Tobacco Use Types Packs/Day Years [...] How often do you attend catholic or yarsanism serv ices? Never 07/31/2024 Do [...] care, and heating? Not very hard 07/31/2024 [facility] of Occupat ional Health - Occupational Stress [...] any time in the past 12 m [facility], were you homeless or living in [...] Office Visit [facility] [address] [place] [address] Kenya Guardado NP [address] [place] [address] 11/14/2025 9:00 AM EDT Office Visit [facility] [address] [place] [address] Morris Puri PA [address] [facility] [address] [place] [address] documented as of this encounter Procedures Procedure Name Priority Date/Time Associated Diagnosis Comments ECG 12-LEAD Routine 08/01/2024 9:09 AM EDT documented in this encounter Results * ECG 12 lead (08/01/2024 9:09 AM EDT) us German Wallace MD ECG ORDERABLES Final Result documented in this encounter Visit Diagnoses Not on filedocumented in this encounter Care Teams Rn Interventional Relationship Specialty Start Date End Date Orlando Beatty MD [address] [place] [address] PCP - General Family Medicine 11/08/23 Kenya Guardado NP [address] [place] [address] Nurse Practitioner Family Medicine 11/08/23 documented as of this encounter
--- OUTSIDE RECORDS SUMMARY | 2024-08-15 12:23 | XMS_ITS | Encounter Summary ---
Author Organization [facility] Address [address] [place] [address] Care Team Providers Care Satellite Communications Operator Name Role Phone Orlando Beatty MD Primary Care Provider Kenya Guardado ACCOUNTING/FINANCE TUTOR Unavailable [phone] Encounter Details Date Type Department Care Team ([facility] Contact Info) Description 08/08/2024 Orders Only [facility] [address] [place] [address] Kenya Guardado, ACCOUNTING/FINANCE TUTOR [address] [place] [address] Hyperkalemia (Primary Dx); Chronic kidney disease, stage 3a ([facility]) Social History Tobacco Use Types Packs/Day Years [...] week 07/31/2024 How often do you attend anabaptist or protestant serv ices? Never 07/31/2024 Do you belong to any clubs o r organizations such as anabaptist groups, unions, fraternal or athletic groups, or [...] care, and heating? Not very hard 07/31/2024 [facility] [place] of Occupat ional Health - Occupational Stress [...] place to sleep or slept in a fci (including now)? Patient refused 02/06/2023 Housing Stability Vital Sign Answer Colin e Recorded In the last 12 months, was t here a time when you were not able to pay the mortgage or rent on time? No 07/31/2024 Number of Times Moved in the Last Year Not on fi le 07/31/2024 At any time in the past 12 m [facility], were you homeless or living in a fci (including now)? No 07/31/2024 Comments Unknown Sex [...] Visit [facility] [address] [place] [address] Kenya Guardado NP [address] [place] [address] 11/14/2025 9:00 AM EDT Office Visit [facility] [address] [place] [phone] Morris Puri PA [address] [place] [address] Scheduled Orders Name Type Priority Associated Diagnoses Orde r Schedule Basic metabolic panel Lab Routine Hyperkalemia Chronic kidney disease, stage 3a (CMS-HCC) Expected: 08/08/2024 (Approximate), Expires: 08/08/2025 documented as of this encounter Visit Diagnoses Diagnosis Hyperkalemia- Primary Hyperpotassemia Chronic kidney disease, stage 3a (CMS-HCC) documented in this encounter Care Teams Satellite Communications Operator Relationship Specialty Start Date End Date Orlando Beatty MD [address] [place] [address] PCP - General Family Medicine 11/08/23 Kenya Guardado NP [address] [place] [address] Nurse Practitioner Family Medicine 11/08/23 documented as of this encounter
--- OUTSIDE RECORDS SUMMARY | 2024-08-15 12:23 | XMS_ITS | Encounter Summary ---
Author Organization [facility] Address [address] [place] [address] Care Team Providers Care Digital Commentator Name Role Phone Orlando Beatty MD Primary Care Provider Kenya Guardado REGISTERED NURSE PRACTITIONER Unavailable [phone] Encounter Details Date Type Department Care Team ([facility] Contact Info) Description 08/15/2024 Bamboo flowsheet [facility] [address] [place] [address] Kenya Guardado, REGISTERED NURSE PRACTITIONER [address] [place] [address] Social History Tobacco Use Types Packs/Day Years [...] week 07/31/2024 How often do you attend congregation or sikh serv ices? Never 07/31/2024 Do you belong to any clubs o r organizations such as congregation groups, unions, fraternal or athletic groups, or [...] care, and heating? Not very hard 07/31/2024 [facility] [place] of Occupat ional Health - Occupational Stress [...] a fdc (including now)? Patient refused 02/06/2023 Housing Stability [...] were you homeless or living in a fdc (including now)? No 07/31/2024 Comments Unknown Sex [...] Visit [facility] [address] [place] [address] Kenya Guardado NP [address] [place] [address] 11/14/2025 9:00 AM EDT Office Visit [facility] [address] [place] [address] Morris Puri PA [address] [place] [address] documented as of this encounter Visit Diagnoses Not on filedocumented in this encounter Care Teams Digital Commentator Relationship Specialty Start Date End Date Orlando Beatty MD [address] [place] [address] PCP - General Family Medicine 11/08/23 Kenya Guardado NP [address] [place] [address] Nurse Practitioner Family Medicine 11/08/23 documented as of this encounter
--- OUTSIDE RECORDS SUMMARY | 2024-08-15 12:23 | XMS_ITS | Encounter Summary ---
Author Organization [facility] Address [address] [place] [address] Phone Care Team Providers Care Auto Seat Cover Installer Name Role Phone Kenya Guardado PLUMBING INSTALLER-GROUND INSTRUCTOR ADVANCED Primary Care Provider Encounter Details Date Type Department Care Team (Late st Contact Info) Description 08/31/2023 Scanned Document [facility] [address] [place] [address] Scanning, Generic Provider Social History Tobacco Use [...] Description 09/26/2024 1:10 PM EDT Office Visit [facility] [address] [facility] [address] [place] [address] Eric Brewster, [address] [facility] 2, [address] [place], [place] [address] documented as of this encounter Visit Diagnoses Not on filedocumented in this encounter Care Teams Auto Seat Cover Installer Relationship Specialty Start Date End Date Kenya Guardado APRN-GROUND INSTRUCTOR ADVANCED [address] [place] [address] PCP - General 03/06/99 documented as of this encounter
--- OUTSIDE RECORDS SUMMARY | 2024-08-15 12:23 | XMS_ITS | Encounter Summary ---
Author Organization [facility] Address [address] [place] [address] Care Team Providers Care Sugar Reprocess Operator Head Name Role Phone Orlando Beatty MD Primary Care Provider [phone] Orlando Beatty MD Primary Care Provider [phone] Kenya Guardado NP Unavailable [phone] Encounter Details Date Type Department Care [...] any clubs o r organizations such as yazidi groups, unions, fraternal or athletic groups, or [...] care, and heating? Not very hard 02/06/2023 [facility] of Occupat ional Health - Occupational [...] Office Visit [facility] [address] [place] [address] Kenya Guardado NP [address] [place] [address] 11/14/2025 9:00 AM EDT Office Visit [facility] [address] [place] [address] Morris Puri PA [address] [place] [address] documented as of this encounter Procedures Procedure Name Priority Date/Time Associated Diagnosis Comments STRESS TEST ONLY 10/19/2023 2:53 PM EDT documented in this encounter Results * Stress test (10/19/2023 2:53 PM EDT) Anatomical Region Laterality Modality Heart Other 10/19/2023 2:53 PM EDT Narrative 10/19/2023 4:[address] 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 4. Poor exercise tolerance. [id number] Carina Dupree MD Electronically signed on 10/19/2023 at 4:59:33 PM Final Procedure Note Radiology, Radiologist, - 10/19/[address], [address], [place] [address] Exercise Stress Test Patient Name: INA JEWELL Ordering Provider: [id number] KERN Study Date: 10/19/2023 Reading Physician: [id number] Chawla MRN/PID: [id number] Supervising Physician: [id number] Chawla Fellow: Date of /Age: 3 1960 / 63 years Fellow: Gender: F Nurse: Jovana HANKINS Admission Status: Jv Baseball Coach: BONITA Height: 167.64 cm Technologist: Weight: 86.18 kg Additional Staff: BSA: 1.96 m2 BMI: 30.67 kg/m2 Patient Location: Study Type: STRESS TEST ONLY Diagnosis/ICD: Old myocardial infarction-I25.2; Atherosclerotic heart disease-I25.10 Indication: Hypertension CPT Codes: Stress Test Interpretation-68679; Stress TestSupervision-[id number] Falls Risk: Low: Patient has low risk [...] response to exercise. 4. Poor exercise tolerance. [id number] Carina Dupree MD Electronically signed on 10/19/2023 at 4:59:33 PM Final us Generic External Data Provider CV STRESS PROCEDU RES Final Result documented in this encounter Visit Diagnoses Not on filedocumented in this encounter Care Teams Sugar Reprocess Operator Head Relationship Specialty Start Date End Date Orlando Beatty MD PCP - General Cardiology 07/14/22 11/07/23 Orlando Beatty MD [address] [place] [address] PCP - General Family Medicine 11/08/23 Kenya Guardado NP [address] [place] [address] Nurse Practitioner Family Medicine 11/08/23 documented as of this encounter
--- OUTSIDE RECORDS SUMMARY | 2024-08-15 12:23 | XMS_ITS | Clinical Summary ---
Author Organization [facility] Address [id number] [address] [place] [address] Care Team Providers Care Rejoiner Name Role Phone Kenya Guardado FIRST GRADE TEACHER-PEARL RESTORER Primary Care Provider Social History Tobacco Use [...] Medical Devices Not on file Insurance ANTHEM Care Teams Rejoiner Relationship Specialty Start Date End Date Kenya Guardado, FIRST GRADE TEACHER-PEARL RESTORER PCP - General Nurse Practitioner 08/09/22
--- OUTSIDE RECORDS SUMMARY | 2024-08-15 12:23 | XMS_ITS | Encounter Summary ---
Author Organization [facility] Address [address] [place] [address] Care Team Providers Care Data Analytics Specialist Name Role Phone Orlando Beatty MD Primary Care Provider [phone] Kenya Guardado NP Unavailable [phone] Encounter Details Date Type Department Care Team (Latest Contact Info) Description 08/11/2024 Travel Social History Tobacco Use Types Packs/Day [...] week 07/31/2024 How often do you attend scientologist or caodaism serv ices? Never 07/31/2024 Do you belong to any clubs o r organizations such as scientologist groups, unions, fraternal or athletic groups, or [...] care, and heating? Not very hard 07/31/2024 [facility] of Occupat ional Health - Occupational [...] any time in the past 12 m [facility], were you homeless or living in [...] 11:00 AM EDT Office Visit [facility] [address] [place] [address] Kenya Guardado NP [address] [place] [address] 11/14/2025 9:00 AM EDT Office Visit [facility] [address] [place] [address] Morris Puri PA [address] [place] [address] documented as of this encounter Visit Diagnoses Not on filedocumented in this encounter Care Teams Data Analytics Specialist Relationship Specialty Start Date End Date Orlando Beatty MD [address] [place] [address] PCP - General Family Medicine 11/08/23 Kenya Guardado NP [address] [place] [address] Nurse Practitioner Family Medicine 11/08/23 documented as of this encounter
--- OUTSIDE RECORDS SUMMARY | 2024-08-15 12:23 | XMS_ITS | Encounter Summary ---
Author Organization [facility] Address [address] [place] [address] Phone Care Team Providers Care Car Rental Manager Name Role Phone Kenya Guardado Jacqueline SPANGLERN-RECORDAK OPERATOR Primary Care Provider Encounter Details Date Type Department Care Team (Late st Contact Info) Description 09/18/2023 Scanned Document [facility] [address] [place] [phone] Scanning, Generic Provider Social History Tobacco Use [...] Description 09/26/2024 1:10 PM EDT Office Visit [facility] [address] [facility] [address] [place] [phone] Eric Brewster, DO [address] [facility] [address], [address] [place] [address] documented as of this encounter Procedures Procedure Name Priority Date/Time Associated Diagnosis Comments OUTSIDE IMAGING SCAN 09/18/2023 documented in this encounter Results * OUTSIDE IMAGING SCAN (09/18/2023) Anatomical Region Laterality Modality Other Narrative 09/18/2023 Ordered by an unspecified provider. us Generic Provider Scanning OUTSIDE SCAN Final Result documented in this encounter Visit Diagnoses Not on filedocumented in this encounter Care Teams Car Rental Manager Relationship Specialty Start Date End Date Kenya Guardado, BELT SPLICER-RECORDAK OPERATOR [address] [place] [phone] PCP - General 03/06/99 documented as of this encounter
--- OUTSIDE RECORDS SUMMARY | 2024-08-15 12:23 | XMS_ITS | Encounter Summary ---
Author Organization [facility] Address [address] [place] [address] Care Team Providers Care Crematory Operator Name Role Phone Orlando Beatty MD Primary Care Provider Kenya Guardado SENIOR PAYROLL ADMINISTRATOR Unavailable [phone] Encounter Details Date Type Department Care Team ([facility] Contact Info) Description 08/08/2024 Telephone [facility] [address] [place] [phone] Kenya Guardado, SENIOR PAYROLL ADMINISTRATOR [address] [place] [phone] Social History Tobacco Use Types Packs/Day Years [...] week 07/31/2024 How often do you attend nondenominational or voodoo serv ices? Never 07/31/2024 Do you belong to any clubs o r organizations such as nondenominational groups, unions, fraternal or athletic groups, or [...] care, and heating? Not very hard 07/31/2024 [facility] of Occupat ional Health - Occupational Stress [...] any time in the past 12 [address] [facility], were you homeless or living in a group home (including now)? No 07/31/2024 Comments Unknown Sex and Gender Information Value Date Recorded Sex Assigned at Not on file Legal Sex Female 8:15 PM EDT Gender Identity Not on file Sexual Orientation Not on file documented as of this encounter Miscellaneous Notes * Telephone Encounter - Kenya Guardado NP - 08/08/2024 2:12 PM EDT Please contact pt and I would like to know if she is feeling better since her last visit, and I want to order a fu blood test to see how potassium and kidneys are doing [place] documented in this encounter Plan of Treatment Upcoming Encounters Date Type Department Care Team (Late st Contact Info) Description 11/11/2024 11:00 AM EDT Office Visit [facility] [address] [place] [address] Kenya Guardado NP [address] [place] [phone] 11/14/2025 9:00 AM EDT Office Visit [facility] [address] [place] [phone] Morris Puri PA [address] [place] [address] documented as of this encounter Visit Diagnoses Not on filedocumented in this encounter Care Teams Crematory Operator Relationship Specialty Start Date End Date Orlando Beatty MD [address] [place] [phone] PCP - General Family Medicine 11/08/23 Kenya Guardado NP [address] [place] [phone] Nurse Practitioner Family Medicine 11/08/23 documented as of this encounter
--- OUTSIDE RECORDS SUMMARY | 2024-08-15 12:23 | XMS_ITS | Encounter Summary ---
Author Organization [facility] Address [address] [place] [address] Phone Care Team Providers Care Final Inspector Shuttle Name Role Phone Kenya Guardado GENERAL PARTNER-WASHTUB WORKER HELPER Primary Care Provider Encounter Details Date Type Department Care Team (Late st Contact Info) Description 09/01/2023 Scanned Document [facility] [address] [place] [phone] Scanning, Generic Provider Social History Tobacco Use [...] Description 09/26/2024 1:10 PM EDT Office Visit [facility] [address] [facility] [address] [place] [address] Eric Brewster, [address] [employer] [address], [address] [place], [place] [phone] documented as of this encounter Visit Diagnoses Not on filedocumented in this encounter Care Teams Final Inspector Shuttle Relationship Specialty Start Date End Date Kenya Guardado APRN-WASHTUB WORKER HELPER [address] [place] [phone] PCP - General 03/06/99 documented as of this encounter
--- OUTSIDE RECORDS SUMMARY | 2024-08-15 12:23 | XMS_ITS | Encounter Summary ---
Author Organization [facility] Address [address] [place] [address] Care Team Providers Care Cement Contractor Name Role Phone Orlando Beatty MD Primary Care Provider [phone] Orlando Beatty MD Primary Care Provider [phone] Kenya Guardado NP Unavailable [phone] Encounter Details Date Type Department Care Team (Late Contact Info) Description 09/08/2022 Abstract [facility] [address] [place] [address] Alexis Bo, PHARMACOEPIDEMIOLOGIST [address] [place], [place] [phone] Social History Tobacco Use Types Packs/Day Years [...] Upcoming Encounters Date Type Department Care Team ([facility] Contact Info) Description 11/11/2024 11:00 AM EDT Office Visit [facility] [address] [place] [address] Kenya Guardado, TIFFANI [address] [place] [phone] 11/14/2025 9:00 AM EDT Office Visit [facility] [address] [place] [phone] Morris Puri, PA [address] [place] [address] documented as of this encounter Visit Diagnoses Not on filedocumented in this encounter Care Teams Cement Contractor Relationship Specialty Start Date End Date Orlando Beatty MD PCP - General Cardiology 07/14/22 11/07/23 Orlando Beatty MD [address] [place] [phone] PCP - General Family Medicine 11/08/23 Kenya Guardado, TIFFANI [address] [place] [phone] Nurse Practitioner Family Medicine 11/08/23 documented as of this encounter
--- OUTSIDE RECORDS SUMMARY | 2024-08-15 12:24 | XMS_ITS | Clinical Summary ---
Author Organization [facility] Address [address] [place] [address] Care Team Providers Care Copper Miner Name Role Phone Orlando Beatty MD Primary Care Provider [phone] Kenya Guardado [employer] Unavailable [phone] Allergies Active Allergy Reactions Criticality Noted [...] by mouth in the morning. 09/25/2022 Active Active Problems Problem Noted Date Diagnosed Date Other specified anemias 08/15/2024 Hyperkalemia 08/08/2024 Assessment & Plan (08/15/2024 6:33 AM EDT): Last visit labs indicated elevated CR as well as Potassium Order given for her to repeat labs: Dizziness and giddiness 07/31/2024 Assessment & Plan (07/31/2024 1:05 PM EDT): Check labs ?anxiety Arthralgia 07/31/2024 Assessment & Plan (07/31/2024 1:06 PM EDT): Check labs Other fatigue 07/31/2024 Assessment & Plan (07/31/2024 1:07 PM EDT): Unsure if her sxs are related to anxiety or something else Polyuria 07/31/2024 Assessment & Plan (07/31/2024 1:06 PM EDT): Check labs Nausea 01/08/2024 Assessment & Plan (01/08/2024 2:08 PM EST): Zofran ODT prn Fluids, rest If unable to urinate more than 3 times daily contact office Chronic kidney disease, stage 3a 11/08/2023 Assessment & Plan (11/08/2023 11:49 AM [...] 31.9 in adult 11/08/2023 Assessment & Plan (08/15/2024 6:32 AM EDT): Discussed increase protein, less carb Exercise difficult to to joint pain-suggest aquatic Assessment & Plan (11/08/2023 11:51 AM EDT): Discussed increase protein, less carb Exercise difficult to to joint pain-suggest aquatic History of IA (myocardial infarction) 09/27/2023 Atherosclerosis of coronary artery of [place] heart without angina pectoris 03/27/2023 Assessment & Plan (07/31/2024 1:05 PM EDT): Current meds: asa, statin, raghav, b diego Does not feel any sxs similar to her IA Assessment & Plan (11/08/2023 11:50 AM EDT): Stable, had recent stress and cardiology fu Essential hypertension 03/27/2023 Assessment & Plan (08/15/2024 6:32 AM EDT): Please check blood pressure daily and record DASH diet Limit caffeine Take medication as directed Contact office if chest pain, pressure, dizziness, shortness of breath, swelling legs Recommend slow position changes Meds: b diego, and raghav Assessment & Plan (07/31/2024 6:48 AM EDT): [...] Encounters Date Type Department Care Team Description 08/15/2024 11:30 AM EDT Office Visit [facility] [address] [place] [address] Kenya Guardado NP Essential hypertension (Primary Dx); Class 1 obesity due to excess calories with serious comorbidity and body mass index (BMI) of 31.0 to 31.9 in adult; Other fatigue; Hyperkalemia; Anemia due to other cause, not classified 08/15/2024 Bamboo flowsheet [facility] [address] [place] [address] Kenya Guardado NP 08/11/2024 Travel 08/08/2024 Telephone [facility] [address] [place] [address] Kenya Guardado, TIFFANI 08/08/2024 Orders Only [facility] [address] [place] [address] Kenya Guardado NP Hyperkalemia (Primary Dx); Chronic kidney disease, stage 3a ([facility]) 08/07/2024 11:00 AM EDT Office Visit [facility] [address] [place] [phone] Morris Puri PA Acute hip pain, left (Primary Dx); Acute left lumbar radiculopathy 08/07/2024 Bamboo flowsheet [facility] [address] [place] [address] Morris Puri PA 08/07/2024 Travel 08/01/2024 Orders Only [facility] [address] [place] [address] German Wallace MD 07/31/2024 11:30 AM EDT Office Visit [facility] [address] [place] [address] Kenya Guardado NP Other fatigue (Primary Dx); Essential hypertension ; Atherosclerosis of [place] coronary artery of [place] heart without angina pectoris ; Mixed hyperlipidemia ; Dizziness and giddiness; Arthralgia, unspecified joint; Polyuria 07/31/2024 Telephone [facility] [address] [place] [address] Kenya Guardado NP 07/31/2024 Clinisync Result Encounter [facility] External Department Unsolicited Kenya Guardado NP 07/31/2024 Bamboo flowsheet [facility] [address] [place] [address] Kenya Guardado NP 07/31/2024 Travel 07/25/2024 Telephone [facility] [address] [place] [phone] Morris Puri PA MRI 07/24/2024 9:50 AM EDT Ancillary Procedure [facility] [place] [address] 07/24/2024 9:15 AM EDT Office Visit [facility] [place] [address] Morris Puri PA Acute hip pain, left (Primary Dx); Acute left lumbar radiculopathy; History of total hip replacement, left 07/24/2024 Bamboo flowsheet [facility] [place] [address] Morris Puri PA 07/24/2024 Travel 07/17/2024 Travel 07/03/2024 10:45 AM EDT Office Visit [facility] [place] [address] Morris Puri PA Acute hip pain, left (Primary Dx); History of total hip replacement, left; Trochanteric bursitis of left hip 07/03/2024 Travel 07/02/2024 Travel 07/01/2024 Orders Only [facility] [address] [place] [address] Unallocated, Noms MD Alexx 07/01/2024 Telephone [facility] [address] [place] [address] Kenya Guardado NP Referral from Last 3 Months Immunizations Immunization [...] week 07/31/2024 How often do you attend druze or zoroastrianism serv ices? Never 07/31/2024 Do you belong to any clubs o r organizations such as druze groups, unions, fraternal or athletic groups, or [...] care, and heating? Not very hard 07/31/2024 [facility] - [...] place to sleep or slept in a residential (including now)? Patient refused 02/06/2023 Housing Stability Vital Sign Answer Colin e Recorded In the last 12 months, was t here a time when you were not able to pay the mortgage or rent on time? No 07/31/2024 Number of Times Moved in the Last Year Not on fi le 07/31/2024 At any time in the past 12 m [facility], were you homeless or living in a residential (including now)? No 07/31/2024 Comments Unknown Sex [...] oz) 08/15/2024 11:40 A M EDT Height 167.6 cm (5' 6 ) 01/08/2024 1:39 PM EST Body Mass Index 30.96 01/08/2024 1:39 PM EST Plan of Treatment Upcoming Encounters Date Type Department Care Team (Late st Contact Info) Description 11/11/2024 11:00 AM EDT Office Visit [facility] [address] [place] [address] Kenya Guardado, TIFFANI [address] [place] [address] 11/14/2025 9:00 AM EDT Office Visit [facility] [address] [facility] [address] Morris Puri, PA [address] [place] [address] Health Maintenance Due Date Last Done Comments CT Colonography 1960 FIT-DNA 1962 FIT 1960 FOBT 1960 Sigmoidoscopy 1962 Pap Smear 05/29/1983 Cervical Cancer Screening 1992 HPV/Cotest 1992 Mammogram 11/20/2024 11/21/2023 Colonoscopy 12/04/2033 12/05/2023 Colorectal Cancer Screening 12/04/2033 Influenza Vaccine Completed 12/05/2023, , 01/04/2020, Additional history exists Procedures Procedure Name Priority Date/Time Associated Diagnosis Comments ECG 12-LEAD Routine 08/01/2024 9:09 AM EDT ANTINUCLEAR ANTIBODIES, IFA Routine 07/31/2024 12:35 PM EDT TBH THYROID ANTIBODIES Routine 12:35 PM EDT VITAMIN B12 Routine 07/31/2024 12:35 PM EDT ALL THYROID STIM HORMONE Routine 07/31/2024 12:35 PM EDT ALL T3 FREE Routine 07/31/2024 12:35 PM EDT ALL C REACTIVE PROTEIN Routine 12:35 PM EDT ALL MAGNESIUM Routine 07/31/2024 12:35 PM EDT ALL URIC ACID Routine 07/31/2024 12:35 PM EDT [facility] CMP (CMP) (FOR REMOTE COMMUNITY HEALTH USE) Routine 07/31/2024 12:35 PM EDT ALL THYROXINE (T4) FREE Routine 07/31/2024 12:35 PM EDT ALL FOLIC ACID Routine 07/31/2024 12:35 PM EDT [facility] FERRITIN Routine 07/31/2024 12:35 PM EDT HMHP IRON Routine 07/31/2024 12:35 PM EDT ALL SED RATE Routine 07/31/2024 12:35 PM EDT ALL CBC WITH AUTO DIFF Routine 12:35 PM EDT [facility] URINALYSIS, WITH MICROSCOPIC Routine 07/31/2024 12:28 PM EDT XR LUMBAR SPINE 2-3 VIEWS Routine 07/24/2024 9:46 AM EDT Acute left lumbar radiculopathy LARGE JOINT ARTHROCENTESIS Routine 07/03/2024 11:12 AM EDT Trochanteric bursitis of left hip XR HIP 2 OR 3 VW LEFT Routine 07/01/2024 10:01 AM EDT MM TOMOSYNTHESIS SCREENING BI 11/21/2023 3:41 PM EDT from Last 3 Months or Most Recently Relevant to Health Maintenance Results * ECG 12 lead (08/01/2024 9:09 AM EDT) German Wallace MD ECG ORDERABLES Final Result * VITAMIN B12 (07/31/2024 12:35 PM EDT) Pathologist [facility] VITAMIN B12 276 232 - 1245 pg/mL TBH Comment: Performed at: [address] [id number] Snap Shearer: Nhan Harvey PhD, Phone: [phone] 07/31/2024 12:3 5 PM EDT 07/31/2024 12:38 PM EDT Narrative CLINISYNC - 08/01/2024 4:07 AM EDT Kenya Guardado NP LAB BLOOD ORDERABLES Final Resu lt Performing Organization Address [facility] de Phone Number [facility] * ANTINUCLEAR ANTIBODIES, IFA (07/31/2024 12:35 PM EDT) Pathologist [facility] ANTINUCLEAR ANTIBODIES, IFA Negative . TBH Comment: Negative <1:80 Borderline 1:80 Positive >1:80 ICAP nomenclature: AC-0 For more information about Hep-2 cell patterns use ANApatterns.org, the official website for the International Consensus on Antinuclear Antibody (ISRA) Patterns (ICAP). Performed at: [address] [id number] Snap Shearer: Nhan Harvey PhD, Phone: [phone] 07/31/2024 12:3 5 PM EDT 07/31/2024 12:38 PM EDT Narrative CLINISYNC - 08/01/2024 8:11 PM EDT Kenya Guardado NP LAB BLOOD ORDERABLES Final Resu lt Performing Organization Address [facility] Co de Phone Number [facility] * TBH THYROID ANTIBODIES (07/31/2024 12:35 PM EDT) Pathologist [facility] THYROID PEROXIDASE (TPO) AB 11 0 - 34 IU/mL TBH THYROGLOBULIN ANTIBODY <1.0 0.0 - 0.9 IU/mL TBH Comment: Thyroglobulin Antibody measured by Abraham Deena Methodology It should be noted that the presence of thyroglobulin antibodies may not be pathogenic nor diagnostic, especially at very low levels. The assay rural carrier associate has found that four percent of individuals without evidence of thyroid disease or autoimmunity will have positive TgAb levels up to 4 IU/mL. Performed at: [address] [id number] Snap Shearer: Nhan Harvey PhD, Phone: [phone] 07/31/2024 12:3 5 PM EDT 07/31/2024 12:38 PM EDT Narrative CLINISYNC - 08/01/2024 8:11 PM EDT us Kenya Guardado [employer] CLINISYNC Final Result Performing Organization Address [facility] Co de Phone Number CLINISYNC [facility] * HMHP IRON (07/31/2024 12:35 PM EDT) TBH IRON 107.0 50.0 - 170.0 ug/dL TBH 07/31/2024 12:3 5 PM EDT 07/31/2024 12:38 PM EDT Narrative CLINISYNC - 07/31/2024 1:36 PM EDT us Kenya Guardado [employer] CLINISYNC Final Result Performing Organization Address [facility] Co de Phone Number CLIN[facility]NC [facility] * [facility] FERRITIN (07/31/2024 12:35 PM EDT) FERRITIN 205.0 8.0 - 252.0 ng/mL TBH 07/31/2024 12:3 5 PM EDT 07/31/2024 12:38 PM EDT Narrative CLINISYNC - 07/31/2024 2:04 PM EDT us Kenya Guardado [employer] CLINISYNC Final Result Performing Organization Address [facility]/ZIP Co de Phone Number CLINISYNC [facility] * (ABNORMAL) [facility] CMP (CMP) (FOR REMOTE COMMUNITY [facility]ALTH USE) (07/31/2024 12:35 PM EDT) SODIUM 140 136 - 145 mmol/L TBH POTASSIUM 6.3(HH) 3.5 - 5.1 mmol/L TBH Comment:RESULTS CALLED TO BONITA MCCALL MA CHLORIDE 111(H) 98 - 107 mmol/L TBH CARBON DIOXIDE 21.7 21.0 - 32.0 mmol/L TBH ANION GAP 13.6 TBH GLUCOSE 103 74 - 106 mg/dL TBH BLOOD UREA NITROGEN 46.0(H) 7.0 - 18.0 mg/dL TBH CREATININE 1.84(H) 0.55 - 1.02 mg/dL TBH TBH EGFR-AF ALBANIAN 34(L) >=60 mL/min/1. 73m 2 TBH TBH EGFR-NON AF ALBANIAN 28(L) >=60 mL/min/1. 73m 2 TBH BUN CREATININE RATIO 25.0 TBH CALCIUM 9.0 8.5 - 10.1 mg/dL TBH BILIRUBIN TOTAL 0.3 0.2 - 1.0 mg/dL TBH ASPARTATE AMINO TRANSFERASE 13(L) 15 - 37 U/L TBH ALANINE AMINOTRANSFERASE 32 14 - 59 U/L TBH ALKALINE PHOSPHATASE 122(H) 46 - 116 U/L TBH TOTAL PROTEIN 7.2 6.4 - 8.2 g/dL TBH ALBUMIN LEVEL 3.5 3.4 - 5.0 g/dL TBH GLOBULIN 3.7 g/dL TBH ALBUMIN GLOBULIN RATIO 0.9 TBH 07/31/2024 12:3 5 PM EDT 07/31/2024 12:38 PM EDT Narrative CLINISYNC - 07/31/2024 4:00 PM EDT us Kenya Guardado NP CLINISYNC Final Result [facility]NC [facility] * ALL URIC ACID (07/31/2024 12:35 PM EDT) URIC ACID 5.1 2.6 - 6.0 mg/dL TBH 07/31/2024 12:3 5 PM EDT 07/31/2024 12:38 PM EDT Narrative CLINISYNC - 07/31/2024 4:00 PM EDT us Kenya Alfonsonickolas [employer] CLINISYNC Final Result Performing Organization Address [facility] Phone Number [facility] * ALL THYROXINE (T4) FREE (07/31/2024 12:35 PM EDT) FREE T4 0.89 0.76 - 1.46 ng/dL TB 07/31/2024 12:3 5 PM EDT 07/31/2024 12:38 PM EDT Narrative CLINISYNC - 07/31/2024 2:04 PM EDT us Zambrano Lorgavinnickolas [employer] CLINISYNC Final Result Performing Organization Address [facility] * ALL THYROID STIM HORMONE (07/31/2024 12:35 PM EDT) THYROID STIMULATING HORMONE 1.107 0.358 - 3.740 uIU/mL TBH 07/31/2024 12:3 5 PM EDT 07/31/2024 12:38 PM EDT Narrative CLINISYNC - 07/31/2024 4:00 PM EDT us Zambrano Debby [employer] CLINISYNC Final Result Performing Organization Address [facility] Phone Number [facility] * (ABNORMAL) ALL T3 FREE (07/31/2024 12:35 PM EDT) FREE T3 2.14(L) 2.18 - 3.98 pg/mL TB 07/31/2024 12:3 5 PM EDT 07/31/2024 12:38 PM EDT Narrative CLINISYNC - 07/31/2024 4:00 PM EDT us Kenya Guardado [employer] CLINISYNC Final Result CLINISYNC TB * (ABNORMAL) ALL SED RATE (07/31/2024 12:35 PM EDT) Pathologist [facility] SED RATE 31(H) <=30 mm/hr TBH 07/31/2024 12:3 5 PM EDT 07/31/2024 12:38 PM EDT Narrative CLINISYNC - 07/31/2024 12:46 PM EDT Kenya Guardado [employer] CLINISYNC Final Result Performing Organization Address [facility] Co de Phone Number CLINISYNC TB * ALL MAGNESIUM (07/31/2024 12:35 PM EDT) MAGNESIUM 2.0 1.8 - 2.4 mg/dL TB 07/31/2024 12:3 5 PM EDT 07/31/2024 12:38 PM EDT Narrative CLINISYNC - 07/31/2024 4:00 PM EDT Kenya Guardado [employer] CLINISYNC Final Result Performing Organization Address [facility] Co de Phone Number CLINISYNC TB * ALL FOLIC ACID (07/31/2024 12:35 PM EDT) FOLATE 35.20 8.60 - 58.90 ng/mL TB 07/31/2024 12:3 5 PM EDT 07/31/2024 12:38 PM EDT Narrative CLINISYNC - 07/31/2024 2:04 PM EDT Kenya Guardado [employer] CLINISYNC Final Result Performing Organization Address [facility] Co de Phone Number CLINISYNC TB * (ABNORMAL) ALL CBC WITH AUTO DIFF (07/31/2024 12:35 PM EDT) Pathologist [facility] WBC 4.7 4.0 - 11.0 10 3/uL TBH TBH RBC 3.34(L) 4.20 - 5.40 10 6/uL TBH TBH HGB 10.5(L) 12.0 - 16.0 g/dL TBH TBH HCT 31.9(L) 36.0 - 48.0 % TBH TBH MCV 95.5 81.0 - 99.0 fL TBH TBH MCH 31.4 26.7 - 34.0 pg TBH TBH MCHC 32.9 29.9 - 35.2 g/dL TBH TBH RDW 13.2 11.0 - 15.0 % TBH TBH PLT 236 150 - 450 10 3/uL TBH TBH MPV 8.4(L) 9.5 - 13.5 fL TBH NEUTROPHILS PERCENT AUTO 71.4 43.0 - 75.0 % TBH LYMPHOCYTES PERCENT AUTO 15.9(L) 20.5 - 60.0 % TBH MONOCYTES PERCENT AUTO 8.5 1.7 - 12.0 % TBH TBH EO % 3.6 0.9 - 7.0 % TBH BASOPHILS PERCENT AUTO 0.4 0.2 - 2.0 % TBH IMMATURE GRANULOCYTES PCT AUTO 0.2 0.0 - 0.5 % TBH NEUTROPHILS ABSOLUTE AUTO 3.4 1.4 - 6.5 10 3/uL TBH LYMPHOCYTES ABSOLUTE AUTO 0.8(L) 1.2 - 3.8 10 3/uL TBH MONOCYTES ABSOLUTE AUTO 0.4 0.3 - 0.8 10 3/uL TBH TBH EO # 0.2 0.0 - 0.7 10 3/uL TBH BASOPHILS ABSOLUTE AUTO 0.0 0.0 - 0.1 10 3/uL TBH IMMATURE GRANULOCYTES ABS AUTO 0.01 0.00 - 0.03 10 3/uL TBH 07/31/2024 12:3 5 PM EDT 07/31/2024 12:38 PM EDT Narrative CLINISYNC - 07/31/2024 12:46 PM EDT us Kenya Guardado NP CLINISYNC Final Result [facility] * ALL C REACTIVE PROTEIN (07/31/2024 12:35 PM EDT) C REACTIVE PROTEIN <0.50 <=0.50 mg/dL TBH 07/31/2024 12:3 5 PM EDT 07/31/2024 12:38 PM EDT Narrative CLINISYNC - 07/31/2024 4:00 PM EDT Kenya Guardado [employer] CLINISYNC Final Result Performing Organization Address [facility] de Phone Number CLINIS[facility]NC [facility] * (ABNORMAL) HM[facility] URINALYSIS, WITH MICROSCOPIC (07/31/2024 12:28 PM EDT) COLOR URINE LT. YELLOW YELLOW TBH CLARITY URINE CLEAR CLEAR TBH SPECIFIC GRAVITY URINE 1.020 1.005 - 1.025 TBH PH URINE 5.5 5.0 - 9.0 TBH PROTEIN URINE NEGATIVE NEG/TRACE mg/dL TBH GLUCOSE URINE UA NEGATIVE NEGATIVE mg/dL TBH BILIRUBIN URINE NEGATIVE NEGATIVE TBH KETONES URINE NEGATIVE NEGATIVE mg/dL TBH BLOOD URINE NEGATIVE NEGATIVE TBH NITRITE URINE NEGATIVE NEGATIVE TBH UROBILINOGEN URINE 0.2 0.2 - 1.0 EU/dL TBH LEUKOCYTE ESTERASE URINE NEGATIVE NEGATIVE TBH TBH WBC 0-2(A) NONE SEEN #/HPF TBH TBH RBC 0-2 0 - 2 #/HPF TBH BACTERIA URINE TRACE(A) NONE SEEN #/HPF TBH MUCUS URINE SMALL(A) NONE SEEN TBH SQUAMOUS EPITHELIAL CELL URINE FEW(A) NONE/RARE #/LPF TBH CRYSTALS SEEN? None Seen None Seen #/HPF TBH CAST SEEN? SEEN(A) NONE SEEN #/LPF TBH HYALINE CASTS URINE RARE TBH 07/31/2024 12:2 8 PM EDT 07/31/2024 12:48 PM EDT Narrative CLINISYNC - 07/31/2024 1:09 PM EDT us Kenya Guardado NP CLINISYNC Final Result Performing Organization Address [facility] Co de Phone Number CLINISYNC TBH * XR lumbar spine 2 or 3 [...] TOLERATED WELL Simin at bedside for injection birth attendant Procedure, treatment alternatives, risks and benefits explained, specific risks discussed. Consent was given by the patient. Morris [facility]/BEDSIDE ORDERABLES Final Result * XR hip left 2 or 3 views (07/01/2024 10:01 AM EDT) Anatomical Region Laterality Modality Lower Extremities, Hip Left Radiograp hic Imaging Noms Provider Unallocated MD IMG XR PROCEDURES F inal Result * MM TOMOSYNTHESIS SCREENING BI (11/21/2023 3:41 PM EDT) Anatomical Region Laterality Modality Other 11/21/2023 3:41 PM EDT Narrative 11/21/2023 3:42 PM EDT [address] [address] Mammography Report Signed Patient: INA JEWELL MR#: [id number] : 1960 Acct:[id number] Age/Sex: 63 / F ADM Date: 11/21/23 Loc: MAMMO Attending Dr: Kenya Guardado NP Ordering Physician: Kenya Guardado NP Results: Date of Service: 11/21/23 Follow Up: Procedure(s): MM tomosynthesis screening BI Accession Number(s): [id number] cc: Kenya Guardado NP Patient Name: INA JEWELL MR#: [id number] : 1960 Exam Date: 11/21/2023 Ordering Doctor: [...] colon cancer at age 66. LOCATION: [facility] BREAST COMPOSITION: The breasts are heterogeneously [...] Signed By: 11/21/23 1542 DD/ 1541 TD/TT: Project Lead: Procedure Note Radiology, Radiologist, - 11/21/2023 [place] [address] Mammography Report Signed Patient: INA JEWELL LMR#: [id number] : 1960Acct:[id number] Age/Sex: 63 / FADM Date: 11/21/23 Loc: MAMMO Attending Dr: Kenya Guardado NP Ordering Physician: Kenya Guardado NPResults: Date of Service: 11/21/23Follow Up: Procedure(s): MM tomosynthesis screening BI Accession Number(s): [id number] cc: Kenya Guardado [employer] Patient Name: INA JEWELL MR#: [id number] : 1960 Exam Date: 11/21/2023 Ordering Doctor: [...] colon cancer at age 66. LOCATION: [facility] BREAST COMPOSITION: The breasts are heterogeneously [...] M.D. Signed By:11/21/23 1542 DD/ 1541 TD/TT: Project Lead: Kenya Guardado NP CLINISYNC IMAGING Final Result from Last 3 Months or Most Recently Relevant to Health Maintenance Insurance BCBS Care Teams Copper Miner Relationship Specialty Start Date End Date Orlando Beatty MD [address] [place] [address] PCP - General Family Medicine 11/08/23 Kenya Guardado NP [address] [place] [address] Nurse Practitioner Family Medicine 11/08/23
--- OUTSIDE RECORDS SUMMARY | 2024-08-15 12:24 | XMS_ITS | Encounter Summary ---
Author Organization [facility] Address [address] [place] [address] Care Team Providers Care High School Music Director Name Role Phone Orlando Beatty MD Primary Care Provider [phone] Orlando Beatty MD Primary Care Provider [phone] Kenya Guardado CENTRAL SERVICE TECH Unavailable [phone] Encounter Details Date Type Department Care Team ([facility] Contact Info) Description 11/06/2022 Abstract [facility] [address] [facility] [address] [place] [address] Morris Puri PA [address] [facility] [address] [place] [address] Social History Tobacco Use Types Packs/Day Years [...] Upcoming Encounters Date Type Department Care Team ([facility] Contact Info) Description 11/11/2024 11:00 AM EDT Office Visit [facility] [address] [place] [address] Kenya Guardado, TIFFANI [address] [place] [address] 11/14/2025 9:00 AM EDT Office Visit [facility] [address] [place] [address] Morris Puri, PA [address] [place] [address] documented as of this encounter Visit Diagnoses Not on filedocumented in this encounter Care Teams High School Music Director Relationship Specialty Start Date End Date Orlando Beatty MD PCP - General Cardiology 07/14/22 11/07/23 Orlando Beatty MD [address] [place] [address] PCP - General Family Medicine 11/08/23 Kenya Guardado, TIFFANI [address] [place] [address] Nurse Practitioner Family Medicine 11/08/23 documented as of this encounter
--- OUTSIDE RECORDS SUMMARY | 2024-08-15 12:24 | XMS_ITS | Encounter Summary ---
Author Organization [facility] Address [address] [place] [address] Care Team Providers Care Palliative Nurse Name Role Phone Orlando Beatty MD Primary Care Provider [phone] Kenya Guardado OPTIMIZATION ANALYST Unavailable [phone] Encounter Details Date Type Department Care Team (Late Contact Info) Description 11/21/2023 Clinisync Result Encounter [facility] External Department Unsolicited Kenya Guardado, TIFFANI [address] [place] [address] Social History Tobacco Use Types Packs/Day Years [...] often do you attend chur ch or cheondoism services? Never 02/06/2023 Do you belong to any clubs o r organizations such as restorationist groups, unions, fraternal or athletic groups, or [...] care, and heating? Not very hard 02/06/2023 [facility] Occupat ional [facility] - [...] place to sleep or slept in a jail (including now)? Patient refused 02/06/2023 Comments Unknown Sex and Gender Information Value Date Recorded Sex Assigned at Not on file Legal Sex Female 8:15 PM EDT Gender Identity Not on file Sexual Orientation Not on file documented as of this encounter Plan of Treatment Upcoming Encounters Date Type Department Care Team (Late st Contact Info) Description 11/11/2024 11:00 AM EDT Office Visit [facility] [address] [place] [address] Kenya Guardado NP [address] [place] [address] 11/14/2025 9:00 AM EDT Office Visit [facility] [address] [place] [address] Morris Puri PA [address] [place] [address] documented as of this encounter Procedures Procedure Name Priority Date/Time Associated Diagnosis Comments MM TOMOSYNTHESIS SCREENING BI 11/21/2023 3:41 PM EDT documented in this encounter Results * MM TOMOSYNTHESIS SCREENING BI (11/21/2023 3:41 PM EDT) Anatomical Region Laterality Modality Other 11/21/2023 3:41 PM EDT Narrative 11/21/2023 3:42 PM EDT [address] [address] Mammography Report Signed Patient: INA JEWELL MR#: [id number] : 1960 Acct:[id number] Age/Sex: 63 / F ADM Date: 11/21/23 Loc: MAMMO Attending Dr: Kenya Guardado NP Ordering Physician: Kenya Guardado NP Results: Date of Service: 11/21/23 Follow Up: Procedure(s): MM tomosynthesis screening BI Accession Number(s): [id number] cc: Kenya Guardado NP Patient Name: INA JEWELL MR#: [id number] : 1960 Exam Date: 11/21/2023 Ordering Doctor: ALPESH Guardado GLUE BONE CRUSHER RADIOLOGY REPORT PROCEDURE: MM TOMOSYNTHESIS SCREENING BI [...] at age 66. LOCATION: [facility] BREAST COMPOSITION: The breasts are heterogeneously [...] Signed By: 11/21/23 1542 DD/ 1541 TD/TT: Fuel Attendant: Procedure Note Radiology, Radiologist, MD - 11/21/2023 [place] [address] Mammography Report Signed Patient: INA JEWELL LMR#: [id number] : 1960Acct:[id number] Age/Sex: 63 / FADM Date: 11/21/23 Loc: MAMMO Attending Dr: Kenya Guardado OPTIMIZATION ANALYST Ordering Physician: Kenya Guardado NPResults: Date of Service: 11/21/23Follow Up: Procedure(s): MM tomosynthesis screening BI Accession Number(s): [id number] cc: Kenya Guardado NP Patient Name: INA JEWELL MR#: [id number] : 1960 Exam Date: 11/21/2023 Ordering Doctor: ALPESH Guardado GLUE BONE CRUSHER RADIOLOGY REPORT PROCEDURE: MM TOMOSYNTHESIS SCREENING BI [...] at age 66. LOCATION: [facility] BREAST COMPOSITION: The breasts are heterogeneously [...] M.D. Signed By:11/21/23 1542 DD/ 1541 TD/TT: Fuel Attendant: us Kenya Guardado OPTIMIZATION ANALYST [facility] Final Result documented in this encounter Visit Diagnoses Not on filedocumented in this encounter Care Teams Palliative Nurse Relationship Specialty Start Date End Date Orlando Beatty MD [address] [place] [address] PCP - General Family Medicine 11/08/23 Kenya Guardado NP [address] [place] [address] Nurse Practitioner Family Medicine 11/08/23 documented as of this encounter
--- OUTSIDE RECORDS SUMMARY | 2024-08-15 12:24 | XMS_ITS | Encounter Summary ---
Author Organization [facility] Address [address] [place] [address] Phone Care Team Providers Care Clinical Research Technician Name Role Phone Kenya Guardado DAMAGE INSIDE ADJUSTER-RN PICU Primary Care Provider Encounter Details Date Type Department Care Team (Late st Contact Info) Description 09/12/2019 Orders Only [facility] [address] [place] [address] Conversion, Onbase Social History Tobacco Use Types [...] Description 09/26/2024 1:10 PM EDT Office Visit [facility] [address] [facility] [address] [place] [address] Eric Brewster, [address] [facility] [place] [facility], [address] [place], [place] [id number] Scheduled Orders Name Type Priority Associated Diagnoses Orde r Schedule OUTSIDE LAB SCAN Lab Ordered: 09/12/2019 OUTSIDE LAB SCAN Lab Ordered: 09/12/2019 documented as of this encounter Visit Diagnoses Not on filedocumented in this encounter Care Teams Clinical Research Technician Relationship Specialty Start Date End Date Kenya Guardado APRN-RN PICU [address] [place] [address] PCP - General 03/06/99 documented as of this encounter
--- OUTSIDE RECORDS SUMMARY | 2024-08-15 12:24 | XMS_ITS | Encounter Summary ---
Author Organization [facility] Address [address] [place] [address] Phone Care Team Providers Care Converter Operator Name Role Phone Kenya Guardado SENIOR VALIDATION ENGINEER-HUMAN INTELLIGENCE Primary Care Provider Encounter Details Date Type Department Care Team (Late st Contact Info) Description 10/01/2020 Orders Only [facility] [address] [place] [address] Conversion, Onbase Social History Tobacco Use Types [...] Description 09/26/2024 1:10 PM EDT Office Visit [facility] [address] [facility] [address] [place] [address] Eric Brewster, 703 [facility] 2, [address] [place], [place] [phone] Scheduled Orders Name Type Priority Associated Diagnoses Orde r Schedule OUTSIDE LAB SCAN Lab Ordered: 10/01/2020 documented as of this encounter Visit Diagnoses Not on filedocumented in this encounter Care Teams Converter Operator Relationship Specialty Start Date End Date Kenya Guardado APRN-HUMAN INTELLIGENCE [address] [place] [address] PCP - General 03/06/99 documented as of this encounter
--- OUTSIDE RECORDS SUMMARY | 2024-08-15 12:24 | XMS_ITS | Encounter Summary ---
Author Organization [facility] Address [address] [place] [address] Care Team Providers Care Studio Sales Associate Name Role Phone Orlando Beatty MD Primary Care Provider [phone] Orlando Beatty MD Primary Care Provider [phone] Kenya Guardado NP Unavailable [phone] Encounter Details Date Type Department Care Team (Late st Contact Info) Description 02/17/2023 Orders Only [facility] [address] [place] [address] Anmol Harden MD [address] [place], [place] [address] Social History Tobacco Use Types Packs/Day Years [...] often do you attend chur ch or religion services? Never 02/06/2023 Do you belong to any clubs o r organizations such as sabianism groups, unions, fraternal or athletic groups, or [...] care, and heating? Not very hard 02/06/2023 [facility] Occupat ional Health - [...] place to sleep or slept in a retirement (including now)? Patient refused 02/06/2023 Comments Unknown [...] Visit [facility] [address] [place] [phone] Kenya Guardado NP [address] [place] [address] 11/14/2025 9:00 AM EDT Office Visit [facility] [address] [place] [address] Morris Puri PA [address] [place] [address] documented as of this encounter Procedures Procedure Name Priority Date/Time Associated Diagnosis Comments XR CHEST 1 VIEW Routine 02/11/2023 11:16 AM EST documented in this encounter Results * XR chest 1 view (02/11/2023 11:16 AM EST) Anatomical Region Laterality Modality Chest Radiographic Minoo ging Anmol Harden MD IMG XR PROCEDURES Final Resul t documented in this encounter Visit Diagnoses Not on filedocumented in this encounter Care Teams Studio Sales Associate Relationship Specialty Start Date End Date Orlando Beatty MD PCP - General Cardiology 07/14/22 11/07/23 Orlando Beatty MD [address] [place] [address] PCP - General Family Medicine 11/08/23 Kenya Guardado NP [address] [place] [address] Nurse Practitioner Family Medicine 11/08/23 documented as of this encounter
--- OUTSIDE RECORDS SUMMARY | 2024-08-15 12:24 | XMS_ITS | Encounter Summary ---
Author Organization [facility] Address [address] [place] [address] Care Team Providers Care Resource Management Planner Name Role Phone Orlando Beatty MD Primary Care Provider Kenya Guardado TUBE OPERATOR Unavailable [phone] Encounter Details Date Type Department Care Team (Late st Contact Info) Description 07/01/2024 Orders Only [facility] [address] [facility] [address] [place] [address] Unallocated, Noms Provider, [address] [place] [address] Social History Tobacco Use Types Packs/Day Years [...] How often do you attend chur or amish services? Never 02/06/2023 Do you belong to any clubs o r organizations such as spiritism groups, unions, fraternal or athletic groups, or [...] care, and heating? Not very hard 02/06/2023 [facility] Occupat ional [facility] - Occupational Stress Questionnaire Answer Date [...] 11:00 AM EDT Office Visit [facility] [address] [place] [address] Kenya Guardado NP [address] [place] [place] [address] 11/14/2025 9:00 AM EDT Office Visit [facility] [address] [place] [address] Morris Puri PA [address] [place] [address] documented as of this encounter Procedures Procedure Name Priority Date/Time Associated Diagnosis Comments XR HIP 2 OR 3 VW LEFT Routine 07/01/2024 10:01 AM EDT documented in this encounter Results * XR hip left 2 or 3 views (07/01/2024 10:01 AM EDT) Anatomical Region Laterality Modality Lower Extremities, Hip Left Radiograp hic Imaging us N[facility] Provider Unallocated MD MCLEOD XR PROCEDURES F inal Result documented in this encounter Visit Diagnoses Not on filedocumented in this encounter Care Teams Resource Management Planner Relationship Specialty Start Date End Date Orlando Beatty MD [address] [place] [address] PCP - General Family Medicine 11/08/23 Kenya Guardado NP [address] [place] [address] Nurse Practitioner Family Medicine 11/08/23 documented as of this encounter
--- OUTSIDE RECORDS SUMMARY | 2024-08-15 12:24 | XMS_ITS | Encounter Summary ---
Author Organization [facility] Address [address] [place] [address] Care Team Providers Care Natural Gas Basis Trader Name Role Phone Orlando Beatty MD Primary Care Provider [phone] Orlando Beatty MD Primary Care Provider [phone] Kenya Guardado WOUND CARE CENTER CONSULTANT Unavailable [phone] Encounter Details Date Type Department Care Team ([facility] Contact Info) Description 08/12/2022 Abstract [facility] [address] [facility] 150 [place] [address] Morris Puri PA 112 [facility] 150 [place] [address] Social History Tobacco Use Types Packs/Day Years [...] Upcoming Encounters Date Type Department Care Team ([facility] Contact Info) Description 11/11/2024 11:00 AM EDT Office Visit [facility] [address] [place] [address] Kenya Guardado, TIFFANI [address] [place] [address] 11/14/2025 9:00 AM EDT Office Visit [facility] [address] [place] [address] Morris Puri, PA [address] [place] [address] documented as of this encounter Visit Diagnoses Not on filedocumented in this encounter Care Teams Natural Gas Basis Trader Relationship Specialty Start Date End Date Orlando Beatty MD PCP - General Cardiology 07/14/22 11/07/23 Orlando Beatty MD [address] [place] [address] PCP - General Family Medicine 11/08/23 Kenya Guardado, TIFFANI [address] [place] [address] Nurse Practitioner Family Medicine 11/08/23 documented as of this encounter
[2024-08-15 12:32] LABS: Basophils Percent Auto 0.4 % (0.2-2.0); Eosinophils Absolute Auto 0.2 10^3/uL (0.0-0.7); Eosinophils Percent Auto 3.2 % (0.9-7.0); Hematocrit 31.9 % (36.0-48.0); Hemoglobin 10.5 g/dL (12.0-16.0); Immature Granulocytes Abs Auto 0.02 10^3/uL (0.00-0.03); Immature Granulocytes Pct Auto 0.4 % (0.0-0.5); Lymphocytes Percent Auto 17.7 % (20.5-60.0); Mean Corpuscular HGB Conc 32.9 g/dL (29.9-35.2); Mean Corpuscular Hemoglobin 31.4 pg (26.7-34.0); Mean Corpuscular Volume 95.5 fL (81.0-99.0); Mean Platelet Volume 8.1 fL (9.5-13.5); Monocytes Absolute Auto 0.6 10^3/uL (0.3-0.8); Neutrophils Absolute Auto 3.6 10^3/uL (1.4-6.5); Neutrophils Percent Auto 67.3 % (43.0-75.0); Platelet Count 220 10^3/uL (150-450); Red Blood Count 3.34 10^6/uL (4.20-5.40); Red Cell Distribution Width 13.8 % (11.0-15.0); White Blood Count 5.4 10^3/uL (4.0-11.0)
[2024-08-15 12:43] LABS: Anion Gap 13.2; BUN Creatinine Ratio 23.1; Calcium 9.4 mg/dL (8.5-10.1); Carbon Dioxide 26.9 mmol/L (21.0-32.0); Chloride 104 mmol/L (98-107); Estimated GFR (African America 33 (>=60 mL/min/1.73m^2); Estimated GFR (Non-African Ame 27 (>=60 mL/min/1.73m^2); Glucose 101 mg/dL (74-106); Phosphorus 4.4 mg/dL (2.6-4.7); Potassium 5.1 mmol/L (3.5-5.1); Sodium 139 mmol/L (136-145)
== END 2024-08-15 12:20 | disposition home or self-care (01) ==
LOC: LAB 12:21
PROVIDERS: PCP Nurse Practitioner; Visit Provider Nurse Practitioner
DX: E87.5 Hyperkalemia (principal); N18.31 Chronic kidney disease, stage 3a; D64.89 Other specified anemias; I12.9 Hypertensive chronic kidney disease with stage 1 through stage 4 chronic kidney disease, or unspecified chronic kidney disease
CPT/HCPCS: 36415; 80048; 84100; 85025

== ENCOUNTER 2024-08-16 12:53 | Outpatient (OUT) | payer BC, SELFPAY ==
--- OUTSIDE RECORDS SUMMARY | 2024-07-24 09:15 | XMS_ITS | Encounter Summary ---
Author Organization [facility] Address [address] [place] [address] Care Team Providers Care Airport Baggage Screener Name Role Phone Orlando Beatty MD Primary Care Provider [phone] Kenya Guardado LABORER BITUMINOUS PAVING Unavailable [phone] Reason for Visit * Reason Comments Follow-up Encounter Details Date Type Department Care Team (Late Contact Info) Description 07/24/2024 9:15 AM EDT [facility] [address] [place] [address] Morris Puri PA [address] [address] Acute hip pain, left (Primary Dx); Acute [...] week 07/31/2024 How often do you attend rastafarian or oriental orthodox serv ices? Never 07/31/2024 Do you belong to any clubs o r organizations such as rastafarian groups, unions, fraternal or athletic groups, or [...] care, and heating? Not very hard 07/31/2024 [facility] [place] of Occupat ional Health - Occupational Stress [...] place to sleep or slept in a usp (including now)? Patient refused 02/06/2023 Housing Stability Vital Sign Answer Colin e Recorded In the last 12 months, was t here a time when you were not able to pay the mortgage or rent on time? No 07/31/2024 Number of Times Moved in the Last Year Not on fi le 07/31/2024 At any time in the past 12 m [facility], were you homeless or living in a usp (including now)? No 07/31/2024 Comments Unknown Sex [...] requiring urgent evaluation. Visit was preformed using [employer]-area relief pilot speech recognition. documented in this encounter Miscellaneous Notes * Addendum Note - Kim Traylor, DANIAL - 07/24/2024 9:15 AM EDTAddended by: KIM TRAYLOR on: 08/07/2024 11:18 AM Modules accepted: Orders documented in this encounter Plan of Treatment Upcoming Encounters Date Type Department Care Team (Late st Contact Info) Description 11/11/2024 11:00 AM EDT Office Visit [facility] [address] [place] [address] Kenya Guardado NP [address] [place] [address] 11/14/2025 9:00 AM EDT [facility] [address] [place] [address] Morris Puri, BEATRIZ [address] [address] documented as of this encounter Procedures Procedure [...] left documented in this encounter Care Teams Airport Baggage Screener Relationship Specialty Start Date End Date Orlando Beatty MD [address] [place] [address] PCP - General Family Medicine 11/08/23 Kenya Guardado NP [address] [place] [address] Nurse Practitioner Family Medicine 11/08/23 documented as of this encounter
--- OUTSIDE RECORDS SUMMARY | 2024-08-07 11:00 | XMS_ITS | Encounter Summary ---
Author Organization [facility] Address [address] [place] [address] Care Team Providers Care Recreation Manager Name Role Phone Orlando Beatty MD Primary Care Provider [phone] Kenya Guardado RN STAFF Unavailable [phone] Encounter Details Date Type Department Care Team ([facility] Contact Info) Description 08/07/2024 11:00 AM EDT Office Visit [facility] [address] [place] [phone] Morris Puri, PA [address] [address] Acute hip pain, left (Primary Dx); Acute [...] week 07/31/2024 How often do you attend anglican or roman catholic serv ices? Never 07/31/2024 Do you belong to any clubs o r organizations such as anglican groups, unions, fraternal or athletic groups, or [...] care, and heating? Not very hard 07/31/2024 [facility] - Occupational Stress Questionnaire Answer [...] a snf (including now)? Patient refused 02/06/2023 Housing Stability [...] were you homeless or living in a snf (including now)? No 07/31/2024 Comments Unknown Sex and Gender Information Value Date Recorded Sex Assigned at Not on file Legal Sex Female 8:15 PM EDT Gender Identity Not on file Sexual Orientation Not on file documented as of this encounter Progress Notes * BEATRZI Cabrera - 08/07/2024 11:00 AM EDT Images [...] requiring urgent evaluation. Visit was preformed using [employer]-test pilot speech recognition. documented in this encounter Plan of Treatment Upcoming Encounters Date Type Department Care Team (Late st Contact Info) Description 11/11/2024 11:00 AM EDT Office Visit [facility] [address] [place] [phone] Kenya Guardado NP [address] [place] [address] 11/14/2025 9:00 AM EDT Office Visit [facility] [address] [place] [phone] Morris Puri PA [address] [place] [address] documented as of this encounter Visit Diagnoses Diagnosis Acute hip pain, left- Primary Acute left lumbar radiculopathy documented in this encounter Care Teams Recreation Manager Relationship Specialty Start Date End Date Orlando Beatty MD [address] [place] [phone] PCP - General Family Medicine 11/08/23 Kenya Guardado NP [address] [place] [phone] Nurse Practitioner Family Medicine 11/08/23 documented as of this encounter
--- OUTSIDE RECORDS SUMMARY | 2024-08-15 11:30 | XMS_ITS | Encounter Summary ---
Author Organization [facility] Address [address] [place] [address] Care Team Providers Care Furniture Packer Name Role Phone Orlando Beatty MD Primary Care Provider [phone] Kenya Guardado OCCUPATIONAL THERAPIST AIDE Unavailable [phone] Reason for Visit * Reason Comments Fatigue Encounter Details Date Type Department Care Team ([facility] Contact Info) Description 08/15/2024 11:30 AM EDT Office Visit [facility] [address] [place] [address] Kenya Guardado, OCCUPATIONAL THERAPIST AIDE [address] [place] [address] Hyperkalemia (Primary Dx); Essential hypertension ; Class 1 obesity due to excess calories with serious comorbidity and body mass index (BMI) of 31.0 to 31.9 in adult; Other fatigue; Anemia due to other cause, not classified [...] week 07/31/2024 How often do you attend islam or baptist serv ices? Never 07/31/2024 Do you belong to any clubs o r organizations such as islam groups, unions, fraternal or athletic groups, or [...] care, and heating? Not very hard 07/31/2024 [facility] [place] of Occupat ional Health - Occupational Stress [...] any time in the past 12 m [facility], were you homeless or living in [...] Notes * Kenya Guardado NP - 08/15/2024 12:55 PM EDTAssociated Problem(s): Other fatigue improved * Kenya Guardado NP - 08/15/2024 12:55 PM EDTAssociated Problem(s): Other specified anemias Recheck CBC * Kenya Guardado NP - 08/15/2024 11:30 AM EDT Images from the original note were not included. Ina Cancino is a 64 y.o. female presents with chief complaint of Fatigue HPI: Here for recheck from ER visit from hyperkalemia Feeling much better not as fatigued or muscle aches Continues taking meds as directed No new complaints SUBJECTIVE: MEDICATIONS: Current Outpatient Medications Medication Instructions [...] History: Diagnosis Date CHF (congestive heart failure) ([facility]) 12-07-2016 Heart disease 3 stents Hypertension DC (myocardial infarction) ([facility]) PONV (postoperative nausea and vomiting) 1982 Past Surgical History: Procedure Laterality Date SECTION, LOW TRANSVERSE 04-24-1982 12-29-1984 12-24-1985 CORONARY ANGIOPLASTY WITH STENT PLACEMENT [address] Brewster FOOT FRACTURE SURGERY 2013 Dr. wright JOINT REPLACEMENT 09/22/2022 KNEE SURGERY Left 09/24/[address] Su TOTAL HIP ARTHROPLASTY Left 08/23/2022 Dr Su family history includes Diabetes in her mother; Heart disease in her father; Hypertension in her mother; Stroke in her father. OBJECTIVE: Visit Vitals BP 132/72 (BP Location: Left arm, Patient Position: Sitting, BP Cuff Size: Adult long) Pulse 91 Temp 98.7 ??F (Temporal) Resp 18 Wt 191 lb 12.8 oz SpO2 97% BMI 30.96 kg/m?? Smoking Status Never BSA 2.01 m?? Physical Exam Vitals and nursing note reviewed. Constitutional: General: She is not in acute distress. Appearance: Normal appearance. HENT: Head: Normocephalic and atraumatic. Right Ear: External ear normal. Left Ear: External ear normal. Nose: Nose normal. Mouth/Throat: Mouth: Mucous membranes are moist. Eyes: Extraocular Movements: Extraocular movements intact. Conjunctiva/sclera: Conjunctivae normal. Cardiovascular: Rate and Rhythm: Normal rate and [...] Normal range of motion and neck supple. Skin: General: Skin is warm and dry. [...] List Items Addressed This Visit Essential hypertension - Primary Please check blood pressure daily and record DASH diet Limit caffeine Take medication as directed Contact office if chest pain, pressure, dizziness, shortness of breath, swelling legs Recommend slow position changes Meds: b diego, and raghav Relevant Orders CBC and differential Class 1 obesity due to excess calories with serious comorbidity and body mass index (BMI) of 31.0 to 31.9 in adult Discussed increase protein, less carb Exercise difficult to to joint pain-suggest aquatic Other fatigue improved Hyperkalemia Last visit labs indicated elevated CR as well as Potassium Order given for her to repeat labs: Relevant Orders CBC and differential Phosphorus Other specified anemias Recheck CBC Relevant Orders CBC and differential Phosphorus * Kenya Guardado NP - 08/15/2024 6:33 [...] 11/11/2024 11:00 AM EDT [facility] [address] [place] [address] Kenya Guardado NP [address] [place] [address] 11/14/2025 9:00 AM EDT Office Visit [facility] [address] [place] [phone] Morris Puri PA [address] [facility] [address] [place] [address] Scheduled Orders Name Type Priority Associated Diagnoses Orde r Schedule CBC and differential Lab Routine Essential hypertension Hyperkalemia Anemia due to other cause, not classified Expected: 08/15/2024 (Approximate), Expires: 08/15/2025 Phosphorus Lab Routine Hyperkalemia Anemia due to other cause, not classified Expected: 08/15/2024 (Approximate), Expires: 08/15/2025 documented as of this encounter Visit Diagnoses Diagnosis Hyperkalemia- Primary Hyperpotassemia Essential hypertension Unspecified essential hypertension Class 1 obesity due to excess calories with serious comorbidity and body mass index (BMI) of 31.0 to 31.9 in adult Other fatigue Anemia due to other cause, not classified documented in this encounter Care Teams Furniture Packer Relationship Specialty Start Date End Date Orlando Beatty MD [address] [place] [address] PCP - General Family Medicine 11/08/23 Kenya Guardado NP [address] [place] [address] Nurse Practitioner Family Medicine 11/08/23 documented as of this encounter
--- OUTSIDE RECORDS SUMMARY | 2024-08-16 12:58 | XMS_ITS | Clinical Summary ---
Author Organization [facility] Address [address] [place] [address] Phone Care Team Providers Care Piano Professor Name Role Phone LorKenya olson Jacqueline MACHINE CHAIN MAKER-SNOWMOBILE MECHANIC Primary Care Provider Allergies Active Allergy Reactions [...] 24 hr tabletIndications :Atherosclerotic heart disease of [place] coronary artery without angina pectoris TAKE 1 TABLET BY MOUTH EVERY DAY 90 tablet 3 5 Active Active Problems Problem Noted Date Diagnosed Date History of IN (myocardial infarction) 09/27/2023 BMI 30.0-30.9,adult 09/27/2023 Never smoked tobacco 09/27/2023 Atherosclerosis of coronary artery of [place] heart without angina pectoris 03/27/2023 Essential hypertension [...] Description 09/26/2024 1:10 PM EDT Office Visit [facility] [address] [facility] 250 [place] [address] Eric Brewster, 7[address] [facility] 2, [address] [place] [address] Health Maintenance Due Date Last Done Comments [...] patient's age to complete this topic [facility] Care Teams Piano Professor Relationship Specialty Start Date End Date Kenya Guardado, MACHINE CHAIN MAKER-SNOWMOBILE MECHANIC [address] [place] [address] PCP - General 03/06/99
--- OUTSIDE RECORDS SUMMARY | 2024-08-16 12:58 | XMS_ITS | Encounter Summary ---
Author Organization [facility] Address [address] [place] [address] Care Team Providers Care Screw Supervisor Name Role Phone Orlando Beatty MD Primary Care Provider Kenya Guardado BACTERIOLOGY TEACHER Unavailable [phone] Encounter Details Date Type Department Care Team ([facility] Contact Info) Description 08/01/2024 Orders Only [facility] [address] [place] [address] German Wallace MD [address] [place] [phone] (Work) Social History Tobacco Use [...] week 07/31/2024 How often do you attend latter day or confucianism serv ices? Never 07/31/2024 Do you belong to any clubs o r organizations such as latter day groups, unions, fraternal or athletic groups, or [...] care, and heating? Not very hard 07/31/2024 [facility] [place] of Occupat ional Health - Occupational Stress [...] time in the past 12 m [facility], were you homeless or living in a [...] Visit [facility] [address] [place] [address] Kenya Guardado NP [address] [place] [address] 11/14/2025 9:00 AM EDT Office Visit [facility] [address] [place] [address] Morris Puri PA [address] [facility] [address] [place] [address] documented as of this encounter Procedures Procedure Name Priority Date/Time Associated Diagnosis Comments ECG 12-LEAD Routine 08/01/2024 9:09 AM EDT documented in this encounter Results * ECG 12 lead (08/01/2024 9:09 AM EDT) us German Wallace MD ECG ORDERABLES Final Result documented in this encounter Visit Diagnoses Not on filedocumented in this encounter Care Teams Screw Supervisor Relationship Specialty Start Date End Date Orlando Beatty MD [address] [place] [address] PCP - General Family Medicine 11/08/23 Kenya Guardado NP [address] [place] [address] Nurse Practitioner Family Medicine 11/08/23 documented as of this encounter
--- OUTSIDE RECORDS SUMMARY | 2024-08-16 12:58 | XMS_ITS | Encounter Summary ---
Author Organization [facility] Address [address] [place] [address] Care Team Providers Care Rn Medical Inpatient Services Name Role Phone Orlando Beatty MD Primary Care Provider [phone] Kenya Guardado NP Unavailable [phone] Encounter Details Date Type Department Care Team (Latest Contact Info) Description 08/07/2024 Travel Social History Tobacco Use Types Packs/Day [...] week 07/31/2024 How often do you attend presybeterian or yarsani serv ices? Never 07/31/2024 Do you belong to any clubs o r organizations such as presybeterian groups, unions, fraternal or athletic groups, or [...] care, and heating? Not very hard 07/31/2024 [facility] of Occupat ional Health - Occupational Stress [...] place to sleep or slept in a fpc (including now)? Patient refused 02/06/2023 Housing Stability Vital Sign Answer Colin e Recorded In the last 12 months, was t here a time when you were not able to pay the mortgage or rent on time? No 07/31/2024 Number of Times Moved in the Last Year Not on fi le 07/31/2024 At any time in the past 12 m [facility], were you homeless or living in a fpc (including now)? No 07/31/2024 Comments Unknown Sex [...] [facility] [address] [place] [address] Kenya Guardado NP [address] [place] [address] 11/14/2025 9:00 AM EDT Office Visit [facility] [address] [place] [address] Morris Puri PA [address] [place] [address] documented as of this encounter Visit Diagnoses Not on filedocumented in this encounter Care Teams Rn Medical Inpatient Services Relationship Specialty Start Date End Date Orlando Beatty MD [address] [place] [place] [address] PCP - General Family Medicine 11/08/23 Kenya Guardado NP [address] [place] [place] [address] Nurse Practitioner Family Medicine 11/08/23 documented as of this encounter
--- OUTSIDE RECORDS SUMMARY | 2024-08-16 12:59 | XMS_ITS | Encounter Summary ---
Author Organization [facility] Address [address] [place] [address] Care Team Providers Care Order Tracer Name Role Phone Orlando Beatty MD Primary Care Provider [phone] Orlando Baetty MD Primary Care Provider [phone] Kenya Guardado NP Unavailable [phone] Encounter Details Date Type Department Care Team (Late st Contact Info) Description 02/17/2023 Orders Only [facility] [address] [place] [address] Anmol Harden MD [address] [place], [place] [address] Social History Tobacco Use Types Packs/Day Years [...] often do you attend chur ch or jewish services? Never 02/06/2023 Do you belong to [...] [facility] [address] [place] [address] Kenya Guardado NP [address] [place] [address] 11/14/2025 9:00 AM EDT Office Visit [facility] [address] [place] [address] Morris Puri PA [address] [place] [address] documented as of this encounter Procedures Procedure [...] on filedocumented in this encounter Care Teams Order Tracer Relationship Specialty Start Date End Date Orlando Beatty MD PCP - General Cardiology 07/14/22 11/07/23 Orlando Beatty MD [address] [place] [address] PCP - General Family Medicine 11/08/23 Kenya Guardado NP [address] [place] [address] Nurse Practitioner Family Medicine 11/08/23 documented as of this encounter
--- OUTSIDE RECORDS SUMMARY | 2024-08-16 12:59 | XMS_ITS | Encounter Summary ---
Author Organization [facility] Address [address] [place] [address] Care Team Providers Care Rehab Nursing Tech Name Role Phone Orlando Beatty MD Primary Care Provider [phone] Orlando Beatty MD Primary Care Provider [phone] Kenya Guardado LABORER CHEMICAL PROCESSING Unavailable [phone] Encounter Details Date Type Department Care Team ([facility] Contact Info) Description 08/12/2022 Abstract [facility] [address] [facility] 150 [place] [address] Morris Puri PA 112 [facility] 150 [place] [address] Social History Tobacco Use Types Packs/Day Years [...] Upcoming Encounters Date Type Department Care Team ([facility] Contact Info) Description 11/11/2024 11:00 AM EDT Office Visit [facility] [address] [place] [address] Kenya Guardado, TIFFANI [address] [place] [address] 11/14/2025 9:00 AM EDT Office Visit [facility] [address] [place] [address] Morris Puri, PA [address] [place] [address] documented as of this encounter Visit Diagnoses Not on filedocumented in this encounter Care Teams Rehab Nursing Tech Relationship Specialty Start Date End Date Orlando Beatty MD PCP - General Cardiology 07/14/22 11/07/23 Orlando Beatty MD [address] [place] [address] PCP - General Family Medicine 11/08/23 Kenya Guardado, TIFFANI [address] [place] [address] Nurse Practitioner Family Medicine 11/08/23 documented as of this encounter
--- OUTSIDE RECORDS SUMMARY | 2024-08-16 12:59 | XMS_ITS | Encounter Summary ---
Author Organization [facility] Address [address] [place] [address] Care Team Providers Care Plumbing Technician Name Role Phone Orlando Beatty MD Primary Care Provider [phone] Kenya Guardado HOOP PUNCH AND COILER OPERATOR Unavailable [phone] Encounter Details Date Type Department Care Team ([facility] Contact Info) Description 08/15/2024 Clinisync Result Encounter N[facility]S External Department Unsolicited Kenya Guardado, HOOP PUNCH AND COILER OPERATOR [address] [place] [address] Social History Tobacco Use Types Packs/Day Years [...] How often do you attend denominational or adventist serv ices? Never 07/31/2024 Do you belong [...] care, and heating? Not very hard 07/31/2024 [facility] Occup[facility] ional [facility] - Occupational [...] any time in the past 12 m [facility], were you homeless or living in [...] Visit [facility] [address] [place] [address] Kenya Guardado NP [address] [place] [address] 11/14/2025 9:00 AM EDT Office Visit [facility] [address] [address] Morris Puri PA [address] [facility] 150 [place] [address] documented as of this encounter Procedures Procedure Name Priority Date/Time Associated Diagnosis Comments ALL PHOSPHOROUS Routine 08/15/2024 12:29 PM EDT ALL CBC WITH AUTO DIFF Routine 08/15/2024 12:29 PM EDT ALL BASIC METABOLIC PANEL Routine 08/15/2024 12:29 PM EDT documented in this encounter Results * ALL PHOSPHOROUS (08/15/2024 12:29 PM EDT) PHOSPHORUS 4.4 2.6 - 4.7 mg/dL TBH 08/15/2024 12:2 9 PM EDT 08/15/2024 12:30 PM EDT Narrative CLINISYNC - 08/15/2024 12:44 PM EDT us Kenya Guardado NP CLINISYNC Final Result CLINIS[facility]NC TB * (ABNORMAL) ALL BASIC METABOLIC PANEL (08/15/2024 12:29 PM EDT) SODIUM 139 136 - 145 mmol/L TBH POTASSIUM 5.1 3.5 - 5.1 mmol/L TBH CHLORIDE 104 98 - 107 mmol/L TBH CARBON DIOXIDE 26.9 21.0 - 32.0 mmol/L TBH ANION GAP 13.2 TBH GLUCOSE 101 74 - 106 mg/dL TBH BLOOD UREA NITROGEN 43.0(H) 7.0 - 18.0 mg/dL TBH CREATININE 1.86(H) 0.55 - 1.02 mg/dL TBH TBH EGFR-AF ANGOLAN 33(L) >=60 mL/min/1.7 3m 2 TBH TBH EGFR-NON AF ANGOLAN 27(L) >=60 mL/min/1.7 3m 2 TBH BUN CREATININE RATIO 23.1 TBH CALCIUM 9.4 8.5 - 10.1 mg/dL TBH 08/15/2024 12:2 9 PM EDT 08/15/2024 12:30 PM EDT Narrative CARENISYNC - 08/15/2024 12:44 PM EDT us Kenya Debby NIXON CLINISYNC Final Result CLINISYNC TB * (ABNORMAL) ALL CBC WITH AUTO DIFF (08/15/2024 12:29 PM EDT) TBH WBC 5.4 4.0 - 11.0 10 3/uL TBH TBH RBC 3.34(L) 4.20 - 5.40 10 6/uL TBH TBH HGB 10.5(L) 12.0 - 16.0 g/dL TBH TBH HCT 31.9(L) 36.0 - 48.0 % TBH TBH MCV 95.5 81.0 - 99.0 fL TBH TBH MCH 31.4 26.7 - 34.0 pg TBH TBH MCHC 32.9 29.9 - 35.2 g/dL TBH TBH RDW 13.8 11.0 - 15.0 % TBH TBH PLT 220 150 - 450 10 3/uL TBH TBH MPV 8.1(L) 9.5 - 13.5 fL TBH NEUTROPHILS PERCENT AUTO 67.3 43.0 - 75.0 % TBH LYMPHOCYTES PERCENT AUTO 17.7(L) 20.5 - 60.0 % TBH MONOCYTES PERCENT AUTO 11.0 1.7 - 12.0 % TBH TBH EO % 3.2 0.9 - 7.0 % TBH BASOPHILS PERCENT AUTO 0.4 0.2 - 2.0 % TBH IMMATURE GRANULOCYTES PCT AUTO 0.4 0.0 - 0.5 % TBH NEUTROPHILS ABSOLUTE AUTO 3.6 1.4 - 6.5 10 3/uL TBH LYMPHOCYTES ABSOLUTE AUTO 1.0(L) 1.2 - 3.8 10 3/uL TBH MONOCYTES ABSOLUTE AUTO 0.6 0.3 - 0.8 10 3/uL TBH TBH EO # 0.2 0.0 - 0.7 10 3/uL TBH BASOPHILS ABSOLUTE AUTO 0.0 0.0 - 0.1 10 3/uL TBH IMMATURE GRANULOCYTES ABS AUTO 0.02 0.00 - 0.03 10 3/uL TBH 08/15/2024 12:2 9 PM EDT 08/15/2024 12:30 PM EDT Narrative CLINISYNC - 08/15/2024 12:32 PM EDT us Kenya Guardado NP CLINISYNC Final Result CLINISYNC TB documented in this encounter Visit Diagnoses Not on filedocumented in this encounter Care Teams Plumbing Technician Relationship Specialty Start Date End Date Orlando Beatty MD [address] [place] [address] PCP - General Family Medicine 11/08/23 Kenya Guardado NP [address] [place] [address] Nurse Practitioner Family Medicine 11/08/23 documented as of this encounter
--- OUTSIDE RECORDS SUMMARY | 2024-08-16 12:59 | XMS_ITS | Encounter Summary ---
Author Organization [facility] Address [address] [place] [address] Phone Care Team Providers Care Network Operations Technician Name Role Phone Kenya Guardado FARMWORKERS-RAWHIDE BONE ROLLER Primary Care Provider Encounter Details Date Type Department Care Team (Late st Contact Info) Description 10/01/2020 Orders Only [facility] [address] [place] [address] Conversion, Onbase Social History Tobacco Use Types [...] Description 09/26/2024 1:10 PM EDT Office Visit [facility] [address] [facility] [address] [place] [address] Eric Brewster, 703 [facility] 2, [address] [place], [place] [phone] Scheduled Orders Name Type Priority Associated Diagnoses Orde r Schedule OUTSIDE LAB SCAN Lab Ordered: 10/01/2020 documented as of this encounter Visit Diagnoses Not on filedocumented in this encounter Care Teams Network Operations Technician Relationship Specialty Start Date End Date Kenya Guardado APRN-RAWHIDE BONE ROLLER [address] [place] [address] PCP - General 03/06/99 documented as of this encounter
--- OUTSIDE RECORDS SUMMARY | 2024-08-16 12:59 | XMS_ITS | Clinical Summary ---
Author Organization [facility] Address [id number] [address] [place] [address] Care Team Providers Care Metal Gauge Maker Name Role Phone Kenya Guardado DIRECTOR OF PURCHASING-SYSTEM SUPPORT DEVELOPER Primary Care Provider Social History Tobacco Use [...] Not on file Insurance ANTHEM Care Teams Metal Gauge Maker Relationship Specialty Start Date End Date Kenya Guardado, DIRECTOR OF PURCHASING-SYSTEM SUPPORT DEVELOPER PCP - General Nurse Practitioner 08/09/22
--- OUTSIDE RECORDS SUMMARY | 2024-08-16 12:59 | XMS_ITS | Encounter Summary ---
Author Organization [facility] Address [address] [place] [address] Care Team Providers Care Regional Director Of Finance Name Role Phone Orlando Beatty MD Primary Care Provider Kenya Guardado GLAZIER METAL FURNITURE Unavailable [phone] Encounter Details Date Type Department Care Team ([facility] Contact Info) Description 08/08/2024 Telephone [facility] [address] [place] [address] Kenya Guardado, GLAZIER METAL FURNITURE [address] [place] [address] Social History Tobacco Use Types Packs/Day Years [...] week 07/31/2024 How often do you attend religious or yarsanism serv ices? Never 07/31/2024 Do you belong to any clubs o r organizations such as religious groups, unions, fraternal or athletic groups, or [...] care, and heating? Not very hard 07/31/2024 [facility] [place] of Occupat ional Health - Occupational Stress [...] place to sleep or slept in a alf (including now)? Patient refused 02/06/2023 Housing Stability Vital Sign Answer Colin e Recorded In the last 12 months, was t here a time when you were not able to pay the mortgage or rent on time? No 07/31/2024 Number of Times Moved in the Last Year Not on fi le 07/31/2024 At any time in the past 12 m [facility], were you homeless or living in a alf (including now)? No 07/31/2024 Comments Unknown Sex [...] [facility] [address] [place] [address] Kenya Guardado NP [address] [place] [address] 11/14/2025 9:00 AM EDT Office Visit [facility] [address] [place] [address] Morris Puri PA [address] [place] [address] documented as of this encounter Visit Diagnoses Not on filedocumented in this encounter Care Teams Regional Director Of Finance Relationship Specialty Start Date End Date Orlando Beatty MD [address] [place] [address] PCP - General Family Medicine 11/08/23 Kenya Guardado NP [address] [place] [address] Nurse Practitioner Family Medicine 11/08/23 documented as of this encounter
--- OUTSIDE RECORDS SUMMARY | 2024-08-16 12:59 | XMS_ITS | Encounter Summary ---
Author Organization [facility] Address [address] [place] [address] Phone Care Team Providers Care Functional Consultant Name Role Phone Kenya Guardado LITURGICAL MUSIC DIRECTOR-MATHEMATICAL STATISTICIAN Primary Care Provider Encounter Details Date Type Department Care Team (Late st Contact Info) Description 09/01/2023 Scanned Document [facility] [address] [place] [address] Scanning, Generic Provider Social History Tobacco Use [...] Description 09/26/2024 1:10 PM EDT Office Visit [facility] [address] [facility] [address] [place] [address] Eric Brewster, 703 [facility] 2, [address] [place], [place] [address] documented as of this encounter Visit Diagnoses Not on filedocumented in this encounter Care Teams Functional Consultant Relationship Specialty Start Date End Date Kenya Guardado APRN-MATHEMATICAL STATISTICIAN [address] [place] [address] PCP - General 03/06/99 documented as of this encounter
--- OUTSIDE RECORDS SUMMARY | 2024-08-16 12:59 | XMS_ITS | Encounter Summary ---
Author Organization [facility] Address [address] [facility] [[email or web address] [address] Care Team Providers Care Center Line Cutter Operator Name Role Phone Orlando Beatty MD Primary Care Provider [phone] Kenya Guardado LEATHER SPONGER Unavailable [phone] Encounter Details Date Type Department Care Team (Late Contact Info) Description 08/07/2024 Bamboo flowsheet [facility] [address] [place] [address] Morris Puri, PA [address] [phone] Social History Tobacco Use Types Packs/Day Years [...] week 07/31/2024 How often do you attend scientology or mandaeism serv ices? Never 07/31/2024 Do you belong to any clubs o r organizations such as scientology groups, unions, fraternal or athletic groups, or [...] care, and heating? Not very hard 07/31/2024 [facility] of Occupat ional Health - Occupational Stress [...] place to sleep or slept in a long term (including now)? Patient refused 02/06/2023 Housing Stability Vital Sign Answer Colin e Recorded In the last 12 months, was t here a time when you were not able to pay the mortgage or rent on time? No 07/31/2024 Number of Times Moved in the Last Year Not on fi le 07/31/2024 At any time in the past 12 m [facility], were you homeless or living in a long term (including now)? No 07/31/2024 Comments Unknown Sex [...] Visit [facility] [address] [place] [address] Kenya Guardado NP [address] [place] [address] 11/14/2025 9:00 AM EDT Office Visit [facility] [address] [facility] [place] [address] Morris Puri, BEATRIZ [address] [place] [address] [place] [address] documented as of this encounter Visit Diagnoses Not on filedocumented in this encounter Care Teams Center Line Cutter Operator Relationship Specialty Start Date End Date Orlando Beatty MD [address] [place] [address] PCP - General Family Medicine 11/08/23 Kenya Guardado NP [address] [place] [address] Nurse Practitioner Family Medicine 11/08/23 documented as of this encounter
--- OUTSIDE RECORDS SUMMARY | 2024-08-16 12:59 | XMS_ITS | Encounter Summary ---
Author Organization [facility] Address [address] [place] [address] Care Team Providers Care Optical Sales Associate Name Role Phone Orlando Beatty MD Primary Care Provider Kenya Guardado ROPE LAYING MACHINE OPERATOR Unavailable [phone] Encounter Details Date Type Department Care Team ([facility] Contact Info) Description 08/15/2024 Orders Only [facility] [address] [place] [address] Kenya Guardado, ROPE LAYING MACHINE OPERATOR [address] [place] [address] Stage 4 chronic kidney disease (HCC) (Primary Dx) Social History Tobacco Use Types Packs/Day Years [...] How often do you attend anabaptist or orthodoxy serv ices? Never 07/31/2024 Do you belong [...] care, and heating? Not very hard 07/31/2024 [facility] of Occupat ional Health - [...] place to sleep or slept in a prison (including now)? Patient refused 02/06/2023 Housing Stability Vital Sign Answer Colin e Recorded In the last 12 months, was t here a time when you were not able to pay the mortgage or rent on time? No 07/31/2024 Number of Times Moved in the Last Year Not on fi le 07/31/2024 At any time in the past 12 m [facility], were you homeless or living in a prison (including now)? No 07/31/2024 Comments Unknown Sex [...] Visit [facility] [address] [place] [address] Kenya Guardado NP [address] [place] [address] 11/14/2025 9:00 AM EDT Office Visit [facility] [address] [facility] [place] [address] Morris Puri, BEATRIZ [address] [facility] [place] [address] documented as of this encounter Visit Diagnoses Diagnosis Stage 4 chronic kidney disease (HCC)- Primary documented in this encounter Care Teams Optical Sales Associate Relationship Specialty Start Date End Date Orlando Beatty MD [address] [place] [address] PCP - General Family Medicine 11/08/23 Kenya Guardado NP [address] [place] [place] [address] Nurse Practitioner Family Medicine 11/08/23 documented as of this encounter
--- OUTSIDE RECORDS SUMMARY | 2024-08-16 12:59 | XMS_ITS | Encounter Summary ---
Author Organization [facility] Address [address] [place] [address] Care Team Providers Care Spike Maker Name Role Phone Orlando Beatty MD Primary Care Provider [phone] Orlando Beatty MD Primary Care Provider [phone] Kenya Guardado NP Unavailable [phone] Encounter Details Date Type Department Care Team (Late Contact Info) Description 09/08/2022 Abstract [facility] [address] [place] [address] Alexis Bo, ELECTRICAL MAINTENANCE SUPERVISOR [address] [place], [place] [address] Social History Tobacco Use Types Packs/Day Years [...] Upcoming Encounters Date Type Department Care Team ([facility] Contact Info) Description 11/11/2024 11:00 AM EDT Office Visit [facility] [address] [place] [address] Kenya Guardado, TIFFANI [address] [place] [address] 11/14/2025 9:00 AM EDT Office Visit [facility] [address] [place] [address] Morris Puri, PA [address] [place] [address] documented as of this encounter Visit Diagnoses Not on filedocumented in this encounter Care Teams Spike Maker Relationship Specialty Start Date End Date Orlando Beatty MD PCP - General Cardiology 07/14/22 11/07/23 Orlando Beatty MD [address] [place] [address] PCP - General Family Medicine 11/08/23 Kenya Guardado, TIFFANI [address] [place] [address] Nurse Practitioner Family Medicine 11/08/23 documented as of this encounter
--- OUTSIDE RECORDS SUMMARY | 2024-08-16 12:59 | XMS_ITS | Encounter Summary ---
Author Organization [facility] Address [address] [place] [address] Care Team Providers Care Concrete Mixer Truck Driver Name Role Phone Orlando Beatty MD Primary Care Provider [phone] Orlando Beatty MD Primary Care Provider [phone] Kenya Guardado NP Unavailable [phone] Encounter Details Date Type Department Care [...] often do you attend chur ch or taoist services? Never 02/06/2023 Do you belong to any clubs o r organizations such as zoroastrianism groups, unions, fraternal or athletic groups, or [...] care, and heating? Not very hard 02/06/2023 [facility] of Occupat ional Health - Occupational [...] [facility] [address] [place] [address] Kenya Guardado NP [address] [place] [place] [address] 11/14/2025 9:00 AM EDT Office Visit [facility] [address] [place] [address] Morris Puri PA [address] [facility] 150 [place] [address] documented as of this encounter Procedures Procedure Name Priority Date/Time Associated Diagnosis Comments STRESS TEST ONLY 10/19/2023 2:53 PM EDT documented in this encounter Results * Stress test (10/19/2023 2:53 PM EDT) Anatomical Region Laterality Modality Heart Other 10/19/2023 2:53 PM EDT Narrative 10/19/2023 4:59 PM EDT [facility] [address] [facility], [address], [place] [address] Exercise Stress Test Patient Name: INA JEWELL Ordering Provider: [id number] NASIM KERN Study Date: 10/19/2023 Reading Physician: [id number] Dupree MD MRN/PID: [id number] Supervising Physician: Jovanni Dupree MD Fellow: Date of /Age: 3 1960 / 63 years Fellow: Gender: F Nurse: Lorenza Aquino RN Admission Status: Pipe Stripper: NA Height: 167.64 cm Technologist: Weight: 86.18 kg Additional Staff: BSA: 1.96 m2 BMI: 30.67 kg/m2 Patient Location: Study Type: STRESS TEST ONLY Diagnosis/ICD: Old myocardial infarction-I25.2; 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 4. Poor exercise tolerance. [id number] Carina Dupree MD Electronically signed on 10/19/2023 at 4:59:33 PM Final Procedure Note Radiology, Radiologist, - 10/19/[address], [address], [place] [address] Exercise Stress Test Patient Name: INA JEWELL Ordering Provider: [id number] KERN Study Date: 10/19/2023 Reading Physician: [id number] Chawla MRN/PID: [id number] Supervising Physician: [id number] Chawla Fellow: Date of /Age: 3 1960 / 63 years Fellow: Gender: F Nurse: Jovana HANKINS Admission Status: Pipe Stripper: BONITA Height: 167.64 cm Technologist: Weight: 86.18 kg Additional Staff: BSA: 1.96 m2 BMI: 30.67 kg/m2 Patient Location: Study Type: STRESS TEST ONLY Diagnosis/ICD: Old myocardial infarction-I25.2; Atherosclerotic heart disease-I25.10 Indication: Hypertension CPT Codes: Stress Test Interpretation-98498; Stress TestSupervision-[id number] Falls Risk: Low: Patient has low risk [...] response to exercise. 4. Poor exercise tolerance. [id number] Carina Dupree MD Electronically signed on 10/19/2023 at 4:59:33 PM Final us Generic External Data Provider CV STRESS PROCEDU RES Final Result documented in this encounter Visit Diagnoses Not on filedocumented in this encounter Care Teams Concrete Mixer Truck Driver Relationship Specialty Start Date End Date Orlando Beatty MD PCP - General Cardiology 07/14/22 11/07/23 Orlando Beatty MD [address] [place] [address] PCP - General Family Medicine 11/08/23 Kenya Guardado NP [address] [place] [address] Nurse Practitioner Family Medicine 11/08/23 documented as of this encounter
--- OUTSIDE RECORDS SUMMARY | 2024-08-16 12:59 | XMS_ITS | Encounter Summary ---
Author Organization [facility] Address [address] [place] [address] Phone Care Team Providers Care Lunchroom Monitor Name Role Phone Kenya Guardado EXHAUST AND MUFFLER REPAIRER-FLASK PUSHER Primary Care Provider Encounter Details Date Type Department Care Team (Late st Contact Info) Description 08/31/2023 Scanned Document [facility] [address] [place] [address] Scanning, Generic Provider Social History Tobacco Use [...] Description 09/26/2024 1:10 PM EDT Office Visit [facility] [address] [facility] [address] [place] [address] Eric Brewster, 703 [facility] 2, [address] [place], [place] [address] documented as of this encounter Visit Diagnoses Not on filedocumented in this encounter Care Teams Lunchroom Monitor Relationship Specialty Start Date End Date Kenya Guardado APRN-FLASK PUSHER [address] [place] [address] PCP - General 03/06/99 documented as of this encounter
--- OUTSIDE RECORDS SUMMARY | 2024-08-16 12:59 | XMS_ITS | Encounter Summary ---
Author Organization [facility] Address [address] [place] [address] Care Team Providers Care Regulatory Lead Name Role Phone Orlando Beatty MD Primary Care Provider [phone] Orlando Beatty MD Primary Care Provider [phone] Kenya Guardado ORDERLY Unavailable [phone] Encounter Details Date Type Department Care Team ([facility] Contact Info) Description 11/06/2022 Abstract [facility] 112 [facility] 150 [place] [address] Morris Puri PA 112 [facility] 150 [place] [address] Social History Tobacco Use Types Packs/Day Years [...] Upcoming Encounters Date Type Department Care Team ([facility] Contact Info) Description 11/11/2024 11:00 AM EDT Office Visit [facility] [address] [place] [address] Kenya Guardado, TIFFANI [address] [place] [address] 11/14/2025 9:00 AM EDT Office Visit [facility] [address] [place] [address] Morris Puri, PA [address] [place] [address] documented as of this encounter Visit Diagnoses Not on filedocumented in this encounter Care Teams Regulatory Lead Relationship Specialty Start Date End Date Orlando Beatty MD PCP - General Cardiology 07/14/22 11/07/23 Orlando Beatty MD [address] [place] [address] PCP - General Family Medicine 11/08/23 Kenya Guardado, TIFFANI [address] [place] [address] Nurse Practitioner Family Medicine 11/08/23 documented as of this encounter
--- OUTSIDE RECORDS SUMMARY | 2024-08-16 12:59 | XMS_ITS | Encounter Summary ---
Author Organization [facility] Address [address] [place] [address] Phone Care Team Providers Care Compliance Representative Dealer Name Role Phone Kenya Guardado LEAD HOUSEKEEPER-VP PATIENT Primary Care Provider Encounter Details Date Type Department Care Team (Late st Contact Info) Description 09/12/2019 Orders Only [facility] [address] [place] [address] Conversion, Onbase Social History Tobacco Use Types [...] Description 09/26/2024 1:10 PM EDT Office Visit [facility] 7[address] [facility] 250 [place] [address] Eric Brewster, 703 [facility] 2, [address] [place], [place] [address] Scheduled Orders Name Type Priority Associated Diagnoses Orde r Schedule OUTSIDE LAB SCAN Lab Ordered: 09/12/2019 OUTSIDE LAB SCAN Lab Ordered: 09/12/2019 documented as of this encounter Visit Diagnoses Not on filedocumented in this encounter Care Teams Compliance Representative Dealer Relationship Specialty Start Date End Date Kenya Guardado APRN-VP PATIENT [address] [place] [address] PCP - General 03/06/99 documented as of this encounter
--- OUTSIDE RECORDS SUMMARY | 2024-08-16 12:59 | XMS_ITS | Encounter Summary ---
Author Organization [facility] Address [address] [place] [address] Care Team Providers Care Inside Sales Agent Name Role Phone Orlando Beatty MD Primary Care Provider [phone] Kenya Guardado METAL PATTERN MAKER Unavailable [phone] Encounter Details Date Type Department Care Team ([facility] Contact Info) Description 08/08/2024 Orders Only [facility] [address] [place] [address] Kenya Guardado, METAL PATTERN MAKER [address] [place] [address] Hyperkalemia (Primary Dx); Chronic kidney disease, stage 3a ([facility]) Social History Tobacco Use Types Packs/Day Years [...] week 07/31/2024 How often do you attend quaker or mu-ism serv ices? Never 07/31/2024 Do you belong to any clubs o r organizations such as quaker groups, unions, fraternal or athletic groups, or [...] care, and heating? Not very hard 07/31/2024 [facility] Occupat ional [facility] - Occupational Stress [...] a correction (including now)? Patient refused 02/06/2023 Housing Stability Vital Sign Answer Colin e Recorded In the last 12 months, was t here a time when you were not able to pay the mortgage or rent on time? No 07/31/2024 Number of Times Moved in the Last Year Not on fi le 07/31/2024 At any time in the past 12 m [facility], were you homeless or living in a correction (including now)? No 07/31/2024 Comments Unknown Sex [...] Visit [facility] [address] [place] [address] Kenya Guardado NP [address] [place] [address] 11/14/2025 9:00 AM EDT Office Visit [facility] [address] [place] [phone] Morris Puri PA [address] [place] [address] Scheduled Orders Name Type Priority Associated Diagnoses Orde r Schedule Basic metabolic panel Lab Routine Hyperkalemia Chronic kidney disease, stage 3a (CMS-HCC) Expected: 08/08/2024 (Approximate), Expires: 08/08/2025 documented as of this encounter Visit Diagnoses Diagnosis Hyperkalemia- Primary Hyperpotassemia Chronic kidney disease, stage 3a (CMS-HCC) documented in this encounter Care Teams Inside Sales Agent Relationship Specialty Start Date End Date Orlando Beatty MD [address] [place] [phone] PCP - General Family Medicine 11/08/23 Kenya Guardado NP [address] [place] [phone] Nurse Practitioner Family Medicine 11/08/23 documented as of this encounter
--- OUTSIDE RECORDS SUMMARY | 2024-08-16 12:59 | XMS_ITS | Encounter Summary ---
Author Organization [facility] Address [address] [place] [address] Care Team Providers Care Certified Maintenance Welder Name Role Phone Orlando Beatty MD Primary Care Provider [phone] Kenya Guardado MOBILE SALES EXPERT Unavailable [phone] Encounter Details Date Type Department Care Team (Late Contact Info) Description 11/21/2023 Clinisync Result Encounter [facility] External Department Unsolicited Kenya Guardado, TIFFANI [address] [place] [phone] Social History Tobacco Use Types Packs/Day Years [...] often do you attend chur ch or confucianist services? Never 02/06/2023 Do you belong to [...] a half-way (including now)? Patient refused 02/06/2023 Comments Unknown [...] Visit [facility] [address] [place] [address] Kenya Guardado NP [address] [place] [address] 11/14/2025 9:00 AM EDT Office Visit [facility] [address] [place] [phone] Morris Puri PA [address] [place] [address] documented as of this encounter Procedures Procedure Name Priority Date/Time Associated Diagnosis Comments MM TOMOSYNTHESIS SCREENING BI 11/21/2023 3:41 PM EDT documented in this encounter Results * MM TOMOSYNTHESIS SCREENING BI (11/21/2023 3:41 PM EDT) Anatomical Region Laterality Modality Other 11/21/2023 3:41 PM EDT Narrative 11/21/2023 3:42 PM EDT [address] [address] Mammography Report Signed Patient: INA JEWELL MR#: [id number] : 1960 Acct:[id number] Age/Sex: 63 / F ADM Date: 11/21/23 Loc: MAMMO Attending Dr: Kenya Guardado NP Ordering Physician: Kenya Guardado NP Results: Date of Service: 11/21/23 Follow Up: Procedure(s): MM tomosynthesis screening BI Accession Number(s): [id number] cc: Kenya Guardado NP Patient Name: INA JEWELL MR#: [id number] : 1960 Exam Date: 11/21/2023 Ordering Doctor: ALPESH Guardado BARN WORKER RADIOLOGY REPORT PROCEDURE: MM TOMOSYNTHESIS SCREENING BI [...] at age 66. LOCATION: [facility] BREAST COMPOSITION: The breasts are heterogeneously [...] Signed By: 11/21/23 1542 DD/ 1541 TD/TT: Regional Extension Service Specialist: Procedure Note Radiology, Radiologist, MD - 11/21/2023 [place] [address] Mammography Report Signed Patient: INA JEWELL LMR#: [id number] : 1960Acct:[id number] Age/Sex: 63 / FADM Date: 11/21/23 Loc: MAMMO Attending Dr: Kenya Guardado MOBILE SALES EXPERT Ordering Physician: Kenya Guardado NPResults: Date of Service: 11/21/23Follow Up: Procedure(s): MM tomosynthesis screening BI Accession Number(s): [id number] cc: Kenya Guardado NP Patient Name: INA JEWELL MR#: [id number] : 1960 Exam Date: 11/21/2023 Ordering Doctor: ALPESH Guardado BARN WORKER RADIOLOGY REPORT PROCEDURE: MM TOMOSYNTHESIS SCREENING BI [...] at age 66. LOCATION: [facility] BREAST COMPOSITION: The breasts are heterogeneously [...] M.D. Signed By:11/21/23 1542 DD/ 1541 TD/TT: Regional Extension Service Specialist: us Kenya Guardado MOBILE SALES EXPERT [facility] Final Result documented in this encounter Visit Diagnoses Not on filedocumented in this encounter Care Teams Certified Maintenance Welder Relationship Specialty Start Date End Date Orlando Beatty MD [address] [place] [address] PCP - General Family Medicine 11/08/23 Kenya Guardado NP [address] [place] [address] Nurse Practitioner Family Medicine 11/08/23 documented as of this encounter
--- OUTSIDE RECORDS SUMMARY | 2024-08-16 12:59 | XMS_ITS | Encounter Summary ---
Author Organization [facility] Address [address] [place] [address] Care Team Providers Care End Touching Machine Operator Name Role Phone Orlando Beatty MD Primary Care Provider [phone] Kenya Guardado AVIONICS MECHANIC Unavailable [phone] Encounter Details Date Type Department Care Team (Late st Contact Info) Description 07/01/2024 Orders Only [facility] [address] [facility] [address] [place] [address] Unallocated, Noms Provider, [address] [place] [address] Social History Tobacco Use Types Packs/Day Years [...] How often do you attend chur or protestant services? Never 02/06/2023 Do you belong to any clubs o r organizations such as rastafari groups, unions, fraternal or athletic groups, or [...] [facility] - Occupational Stress Questionnaire Answer Date [...] a usp (including now)? Patient refused 02/06/2023 Comments Unknown [...] Visit [facility] [address] [place] [address] Kenya Guardado NP [address] [place] [address] 11/14/2025 9:00 AM EDT Office Visit [facility] [address] [place] [phone] Morris Puri PA [address] [place] [address] documented as of this encounter Procedures Procedure [...] on filedocumented in this encounter Care Teams End Touching Machine Operator Relationship Specialty Start Date End Date Orlando Beatty MD [address] [place] [address] PCP - General Family Medicine 11/08/23 Kenya Guardado NP [address] [place] [address] Nurse Practitioner Family Medicine 11/08/23 documented as of this encounter
--- OUTSIDE RECORDS SUMMARY | 2024-08-16 12:59 | XMS_ITS | Encounter Summary ---
Author Organization [facility] Address [address] [place] [address] Phone Care Team Providers Care Process Helper Name Role Phone Kenya Guardado Jacqueline SURVEYOR OIL WELL DIRECTIONAL-DATA SUPPORT ANALYST Primary Care Provider Encounter Details Date Type Department Care Team (Late st Contact Info) Description 09/18/2023 Scanned Document [facility] [address] [place] [phone] Scanning, Generic Provider Social History Tobacco Use [...] Description 09/26/2024 1:10 PM EDT Office Visit [facility] [address] [facility] [address] [place] [phone] Eric Brewster, DO [address] [facility] [address] [place] [address] documented as of this encounter Procedures Procedure Name Priority Date/Time Associated Diagnosis Comments OUTSIDE IMAGING SCAN 09/18/2023 documented in this encounter Results * OUTSIDE IMAGING SCAN (09/18/2023) Anatomical Region Laterality Modality Other Narrative 09/18/2023 Ordered by an unspecified provider. us Generic Provider Scanning OUTSIDE SCAN Final Result documented in this encounter Visit Diagnoses Not on filedocumented in this encounter Care Teams Process Helper Relationship Specialty Start Date End Date Kenya Guardado, SURVEYOR OIL WELL DIRECTIONAL-DATA SUPPORT ANALYST [address] [place] [phone] PCP - General 03/06/99 documented as of this encounter
--- OUTSIDE RECORDS SUMMARY | 2024-08-16 12:59 | XMS_ITS | Clinical Summary ---
Author Organization [facility] Address [address] [place] [address] Care Team Providers Care Ocean Import Representative Name Role Phone Orlando Beatty MD Primary Care Provider [phone] Kenya Guardado CRAYON SORTING MACHINE FEEDER Unavailable [phone] Allergies Active Allergy Reactions Criticality Noted Date Comments Isosorbide Headache 03/27/2023 Oxycodone Nausea Only 08/08/2022 Oxycodone-Acetaminophen Dizziness,Other 017 Tetanus Immune Globulin Unknown 08/08/2022 Tetanus Toxoid Unknown 03/27/2023 Medications atorvastatin (Lipitor) 80 MG tablet 1 (one) time each day at the same time. Active aspirin 81 MG EC tablet 1 (one) time each day at the same time. Active nitroglycerin (Nitrostat) 0.4 MG SL tablet As needed. Active metoprolol succinate XL (Toprol-XL) 25 MG 24 hr tablet Take 25 mg by mouth in the morning. 09/25/2022 Active lisinopril 10 MG tablet 1 (one) time each day at the same time. 08/16/19 25 Discontinu ed(Side effects) Active Problems Problem Noted Date Diagnosed Date Other specified anemias 08/15/2024 Assessment & Plan (08/15/2024 12:55 PM EDT): Recheck CBC Stage 4 chronic kidney disease 08/15/2024 Hyperkalemia 08/08/2024 Assessment & Plan (08/15/2024 6:33 AM EDT): Last visit labs indicated elevated CR as well as Potassium Order given for her to repeat labs: Dizziness and giddiness 07/31/2024 Assessment & Plan (07/31/2024 1:05 PM EDT): Check labs ?anxiety Arthralgia 07/31/2024 Assessment & Plan (07/31/2024 1:06 PM EDT): Check labs Other fatigue 07/31/2024 Assessment & Plan (08/15/2024 12:55 PM EDT): improved Assessment & Plan (07/31/2024 1:07 PM EDT): Unsure if her sxs are related to anxiety or something else Polyuria 07/31/2024 Assessment & Plan (07/31/2024 1:06 PM EDT): Check labs Nausea 01/08/2024 Assessment & Plan (01/08/2024 2:08 PM EST): Zofran ODT prn Fluids, rest If unable to urinate more than 3 times daily contact office Herpes zoster 11/08/2023 Wellness examination 11/08/2023 Assessment [...] infarction) 09/27/2023 Atherosclerosis of coronary artery of [place]ock heart without angina pectoris 03/27/2023 Assessment & [...] order COVID test Fluids, rest, treat symptoms Chronic kidney disease, stage 3a 11/08/2023 08/15/2024 Assessment & Plan (11/08/2023 11:49 AM EDT): Per lab reading Gets labs done yearly through work I have requested she provide me a copy of this BMI 30.0-30.9,adult 09/27/2023 11/08/19 24 Encounters Date Type Department Care Team Description 08/15/2024 11:30 AM EDT Office Visit [facility] [address] [place] [phone] Kenya Guardado NP Hyperkalemia (Primary Dx); Essential hypertension ; Class 1 obesity due to excess calories with serious comorbidity and body mass index (BMI) of 31.0 to 31.9 in adult; Other fatigue; Anemia due to other cause, not classified 08/15/2024 Orders Only [facility] [address] [place] [address] Kenya Guardado NP Stage 4 chronic kidney disease (HCC) (Primary Dx) 08/15/2024 Clinisync Result Encounter [facility] External Department Unsolicited Kenya Guardado NP 08/15/2024 Bamboo flowsheet [facility] [address] [place] [phone] Kenya Guardado NP 08/11/2024 Travel 08/08/2024 Telephone [facility] [address] [place] [phone] Kenya Guardado NP 08/08/2024 Orders Only [facility] [address] [place] [address] Kenya Guardado NP Hyperkalemia (Primary Dx); Chronic kidney disease, stage 3a ([facility]) 08/07/2024 11:00 AM EDT Office Visit [facility] [address] [place] [phone] Morris Puri PA Acute hip pain, left (Primary Dx); Acute left lumbar radiculopathy 08/07/2024 Bamboo flowsheet [facility] [address] [place] [address] Morris Puri PA 08/07/2024 Travel 08/01/2024 Orders Only [facility] [address] [place] [address] German Wallace MD 07/31/2024 11:30 AM EDT Office Visit [facility] [address] [place] [address] Kenya Guardado NP Other fatigue (Primary Dx); Essential hypertension ; Atherosclerosis of [place] coronary artery of [place]annock heart without angina pectoris ; Mixed hyperlipidemia ; Dizziness and giddiness; Arthralgia, unspecified joint; Polyuria 07/31/2024 Telephone [facility] [address] [place] [address] Kenya Guardado NP 07/31/2024 Clinisync Result Encounter [facility] External Department Unsolicited Kenya Guardado NP 07/31/2024 Bamboo flowsheet [facility] [address] [place] [phone] Kenya Guardado NP 07/31/2024 Travel 07/25/[address] [facility] [address] [place] [phone] Morirs Puri PA MRI 07/24/2024 9:50 AM EDT Ancillary Procedure [facility] [address] [facility] [address] 07/24/2024 9:15 AM EDT Office Visit [facility] [address] [facility] [address] Morris Puri PA Acute hip pain, left (Primary Dx); Acute left lumbar radiculopathy; History of total hip replacement, left 07/24/2024 Bamboo flowsheet [facility] [address] [facility] [address] Morris Puri PA 07/24/2024 Travel 07/17/2024 Travel 07/03/2024 10:45 AM EDT Office Visit [facility] [address] [facility] [address] Morris Puri PA Acute hip pain, left (Primary Dx); History of total hip replacement, left; Trochanteric bursitis of left hip 07/03/2024 Travel 07/02/2024 Travel 07/01/2024 Orders Only [facility] [address] [place] [address] Unallocated, Noms MD Alexx 07/01/2024 Telephone [facility] [address] [place] [address] Kenya Guardado, TIFFANI Referral from Last 3 [...] week 07/31/2024 How often do you attend samaritan or moravian serv ices? Never 07/31/2024 Do you belong [...] care, and heating? Not very hard 07/31/2024 [facility] [place] of Occupat ional [facility] - Occupational Stress Questionnaire Answer [...] any time in the past 12 m [facility], were you homeless or living in [...] Visit [facility] [address] [place] [address] Kenya Guardado NP [address] [place] [address] 11/14/2025 9:00 AM EDT Office Visit [facility] [address] [place] [phone] Morris Puri PA [address] [place] [address] Health Maintenance Due Date Last Done Comments CT Colonography 1960 FIT-DNA 1960 FIT 1960 FOBT 1960 Sigmoidoscopy 1960 Pap Smear 05/29/1983 Cervical Cancer Screening 1992 HPV/Cotest 1992 Mammogram 11/20/2024 11/21/2023 Colonoscopy 12/04/2033 12/05/2023 Colorectal Cancer Screening 12/04/2033 Influenza Vaccine Completed 12/05/2023, , 01/04/2020, Additional history exists Procedures Procedure Name Priority Date/Time Associated Diagnosis Comments ALL PHOSPHOROUS Routine 08/15/2024 12:29 PM EDT ALL BASIC METABOLIC PANEL Routine 08/15/2024 12:29 PM EDT ALL CBC WITH AUTO DIFF Routine 12:29 PM EDT ECG 12-LEAD Routine 08/01/2024 9:09 AM EDT [...] PM EDT [facility] CMP (CMP) (FOR REMOTE [facility] USE) Routine 07/31/2024 12:35 PM EDT [...] Recently Relevant to Health Maintenance Results * ALL PHOSPHOROUS (08/15/2024 12:29 PM EDT) PHOSPHORUS 4.4 2.6 - 4.7 mg/dL TBH 08/15/2024 12:2 9 PM EDT 08/15/2024 12:30 PM EDT Narrative CLINISYNC - 08/15/2024 12:44 PM EDT us Kenya Guardado NP CLINISYNC Final Result CLINISYNC TB * (ABNORMAL) ALL CBC WITH AUTO DIFF (08/15/2024 12:29 PM EDT) Only the most recent of2 resultswithin the time period is included. TBH WBC 5.4 4.0 - 11.0 10 [...] Kenya Guardado NP CLINISYNC Final Result [facility]NC [facility] * (ABNORMAL) ALL BASIC METABOLIC PANEL (08/15/2024 [...] 0.55 - 1.02 mg/dL TBH TBH EGFR-AF PAKISTANI 33(L) >=60 mL/min/1.7 3m 2 TBH TBH EGFR-NON AF [place]ANI 27(L) >=60 mL/min/1.7 3m 2 TBH BUN CREATININE RATIO 23.1 TBH CALCIUM 9.4 8.5 - 10.1 mg/dL TBH 08/15/2024 12:2 9 PM EDT 08/15/2024 12:30 PM EDT Narrative CLINISYNC - 08/15/2024 12:44 PM EDT Kenya Guardado NP CLINISYNC Final Result Performing Organization Address [facility] Co de Phone Number [facility] * ECG 12 lead (08/01/2024 9:09 AM EDT) German Wallace MD ECG ORDERABLES Final Result * VITAMIN B12 (07/31/2024 12:35 PM EDT) VITAMIN B12 276 232 - 1245 pg/mL TB Comment: Performed at: [address] [id number] Geophysical Operator: Nhan Harvey PhD, Phone: [phone] 07/31/2024 12:3 5 PM EDT 07/31/2024 12:38 PM EDT Narrative CLINISYNC - 08/01/2024 4:07 AM EDT us Kneya Guardado NP LAB BLOOD ORDERABLES Final Resu lt Performing Organization Address City/[facility]/ZIP Co de Phone Number [facility] * ANTINUCLEAR ANTIBODIES, IFA (07/31/2024 12:35 PM EDT) Pathologist [facility] ANTINUCLEAR ANTIBODIES, IFA Negative . TBH Comment: Negative <1:80 Borderline 1:80 Positive >1:80 ICAP nomenclature: AC-0 For more information about Hep-2 cell patterns use ANApatterns.org, the official website for the International Consensus on Antinuclear Antibody (ISRA) Patterns (ICAP). Performed at: [address] [id number] Geophysical Operator: Nhan Harvey PhD, Phone: [phone] 07/31/2024 12:3 5 PM EDT 07/31/2024 12:38 PM EDT Narrative CLINISYNC - 08/01/2024 8:11 PM EDT us Kenya Guardado NP LAB BLOOD ORDERABLES Final Resu lt Performing Organization Address [facility] de Phone Number CLINISYNC TBH * TBH THYROID ANTIBODIES (07/31/2024 12:35 PM EDT) [facility] THYROID PEROXIDASE (TPO) AB 11 0 - 34 IU/mL TBH THYROGLOBULIN ANTIBODY <1.0 0.0 - 0.9 IU/mL TBH Comment: Thyroglobulin Antibody measured by [facility] [employer] It should be noted that the presence of thyroglobulin antibodies may not be pathogenic nor diagnostic, especially at very low levels. The assay production control coordinator has found that four percent of individuals without evidence of thyroid disease or autoimmunity will have positive TgAb levels up to 4 IU/mL. Performed at: [address] [id number] Geophysical Operator: Nhan Harvey PhD, Phone: [phone] 07/31/2024 12:3 5 PM EDT 07/31/2024 12:38 PM EDT Narrative CLINISYNC - 08/01/2024 8:11 PM EDT us Kenya Guardado NP CLINISYNC Final Result Performing Organization Address [facility] Co de Phone Number CLINISYNC TBH * HMHP IRON (07/31/2024 12:35 PM EDT) TB IRON 107.0 50.0 - 170.0 ug/dL TBH 07/31/2024 12:3 5 PM EDT 07/31/2024 12:38 PM EDT Narrative CLINISYNC - 07/31/2024 1:36 PM EDT Kenya Guardado CRAYON SORTING MACHINE FEEDER CLINISYNC Final Result CLINISYNC TBH * [facility] FERRITIN (07/31/2024 12:35 PM EDT) FERRITIN 205.0 8.0 - 252.0 ng/mL TBH 07/31/2024 12:3 5 PM EDT 07/31/2024 12:38 PM EDT Narrative CLINISYNC - 07/31/2024 2:04 PM EDT Kenya Guardado CRAYON SORTING MACHINE FEEDER CLINISYNC Final Result CLINISYNC TBH * (ABNORMAL) [facility] CMP (CMP) (FOR REMOTE [facility] USE) (07/31/2024 12:35 PM EDT) SODIUM [...] 0.55 - 1.02 mg/dL TBH TBH EGFR-AF PAKISTANI 34(L) >=60 mL/min/1. 73m 2 TBH TBH EGFR-NON AF [place]ANI 28(L) >=60 mL/min/1. 73m 2 TBH BUN [...] - 07/31/2024 4:00 PM EDT Kenya Guardado NP CLINISYNC Final Result Performing Organization Address [facility] Co de Phone Number CLINISYNC TB * ALL URIC ACID (07/31/2024 12:35 PM EDT) URIC ACID 5.1 2.6 - 6.0 mg/dL TB 07/31/2024 12:3 5 PM EDT 07/31/2024 12:38 PM EDT Narrative CLINISYNC - 07/31/2024 4:00 PM EDT Kenya Guardado NP CLINISYNC Final Result Performing Organization Address [facility] de Phone Number [facility] * ALL THYROXINE (T4) FREE (07/31/2024 12:35 PM EDT) FREE T4 0.89 0.76 - 1.46 ng/dL TB 07/31/2024 12:3 5 PM EDT 07/31/2024 12:38 PM EDT Narrative CLINISYNC - 07/31/2024 2:04 PM EDT us Kenya Guardado NP CLINISYNC Final Result Performing Organization Address [facility] Co de Phone Number CLINISYNC TB * ALL THYROID STIM HORMONE (07/31/2024 12:35 PM EDT) THYROID STIMULATING HORMONE 1.107 0.358 - 3.740 uIU/mL TBH 07/31/2024 12:3 5 PM EDT 07/31/2024 12:38 PM EDT Narrative CLINISYNC - 07/31/2024 4:00 PM EDT Kenya Debby CRAYON SORTING MACHINE FEEDER CLINISYNC Final Result CLINISYNC TB * (ABNORMAL) ALL T3 FREE (07/31/2024 12:35 PM EDT) FREE T3 2.14(L) 2.18 - 3.98 pg/mL TBH 07/31/2024 12:3 5 PM EDT 07/31/2024 12:38 PM EDT Narrative CLINISYNC - 07/31/2024 4:00 PM EDT Kenya Guardado NP CLINISYNC Final Result Performing Organization Address [facility] Co de Phone Number CLINISYNC TB * (ABNORMAL) ALL SED RATE (07/31/2024 12:35 PM EDT) TBH SED RATE 31(H) <=30 mm/hr TBH 07/31/2024 12:3 5 PM EDT 07/31/2024 12:38 PM EDT Narrative CLINISYNC - 07/31/2024 12:46 PM EDT Kenya Debby CRAYON SORTING MACHINE FEEDER CLINISYNC Final Result Performing Organization Address [facility] Co de Phone Number CLINISYNC TBH * ALL MAGNESIUM (07/31/2024 12:35 PM EDT) MAGNESIUM 2.0 1.8 - 2.4 mg/dL TBH 07/31/2024 12:3 5 PM EDT 07/31/2024 12:38 PM EDT Narrative CLINISYNC - 07/31/2024 4:00 PM EDT Kenya Debby CRAYON SORTING MACHINE FEEDER CLINISYNC Final Result Performing Organization Address [facility]/ZIP Co de Phone Number CLINISYNC TB * ALL FOLIC ACID (07/31/2024 12:35 PM EDT) FOLATE 35.20 8.60 - 58.90 ng/mL TB 07/31/2024 12:3 5 PM EDT 07/31/2024 12:38 PM EDT Narrative CLINISYNC - 07/31/2024 2:04 PM EDT Kenya Guardado NP CLINISYNC Final Result Performing Organization Address [facility] Co de Phone Number CLINISYKY TB * ALL C REACTIVE PROTEIN (07/31/2024 12:35 PM EDT) C REACTIVE PROTEIN <0.50 <=0.50 mg/dL TB 07/31/2024 12:3 5 PM EDT 07/31/2024 12:38 PM EDT Narrative CLINISYNC - 07/31/2024 4:00 PM EDT Kenya Guardado NP CLINISYNC Final Result Performing Organization Address [facility]/ZIP Co de Phone Number CLINISYNC TB * (ABNORMAL) HMHP URINALYSIS, WITH MICROSCOPIC (07/31/2024 [...] Narrative CLINISYNC - 07/31/2024 1:09 PM EDT Kenya Guardado NP CLINISYNC Final Result CLINISYKY TBH * XR lumbar spine 2 or [...] TOLERATED WELL Simin at bedside for injection manager story Procedure, treatment alternatives, risks and benefits explained, specific risks discussed. Consent was given by the patient. us Morris [facility]/BEDSIDE ORDERABLES Final Result * XR hip left 2 or 3 views (07/01/2024 10:01 AM EDT) Anatomical Region Laterality Modality Lower Extremities, Hip Left Radiograp hic Imaging Noms Provider Unallocated IMJalen XR PROCEDURES F inal Result * MM TOMOSYNTHESIS SCREENING BI (11/21/2023 3:41 PM EDT) Anatomical Region Laterality Modality Other 11/21/2023 3:41 PM EDT Narrative 11/21/2023 3:42 [place] [address] Mammography Report Signed Patient: INA JEWELL MR#: [id number] : 1960 Acct:[id number] Age/Sex: 63 / F ADM Date: 11/21/23 Loc: MAMMO Attending Dr: Kenya Guardado NP Ordering Physician: Kenya Guardado NP Results: Date of Service: 11/21/23 Follow Up: Procedure(s): MM tomosynthesis screening BI Accession Number(s): [id number] cc: Kenya Guardado NP Patient Name: INA JEWELL MR#: [id number] : 1960 Exam Date: 11/21/2023 Ordering Doctor: [...] colon cancer at age 66. LOCATION: [facility] BREAST COMPOSITION: The breasts are [...] Signed By: 11/21/23 1542 DD/ 1541 TD/TT: Director Of Donor Relations: Procedure Note Radiology, Radiologist, - 11/21/2023 [place] [address] Mammography Report Signed Patient: INA JEWELL LMR#: [id number] : 1960Acct:[id number] Age/Sex: 63 / FADM Date: 11/21/23 Loc: MAMMO Attending Dr: Kenya Guadrado NP Ordering Physician: Kenya Guardadoesults: Date of Service: 11/21/23Follow Up: Procedure(s): MM tomosynthesis screening BI Accession Number(s): [id number] cc: Kenya Guardado NP Patient Name: INA JEWELL MR#: [id number] : 1960 Exam Date: 11/21/2023 Ordering Doctor: [...] colon cancer at age 66. LOCATION: [facility] BREAST COMPOSITION: The breasts are [...] Deshawn Gonzalez M.D. Signed By:11/21/23 1542 DD/ 154 TD/TT: Director Of Donor Relations: Kenya Guardado NP CLINISYNC IMAGING Final Result from Last 3 Months or Most Recently Relevant to Health Maintenance Insurance BCBS Care Teams Ocean Import Representative Relationship Specialty Start Date End Date Orlando Beatty MD [address] [address] PCP - General Family Medicine 11/08/23 Kenya Guardado NP [address] [place] [address] Nurse Practitioner Family Medicine 11/08/23
--- OUTSIDE RECORDS SUMMARY | 2024-08-16 12:59 | XMS_ITS | Encounter Summary ---
Author Organization [facility] Address [address] [place] [address] Care Team Providers Care Guitar Repairer Name Role Phone Orlando Beatty MD Primary Care Provider Kenya Guardado NP Unavailable [phone] Encounter Details Date Type Department Care [...] week 07/31/2024 How often do you attend anabaptism or religion serv ices? Never 07/31/2024 Do you belong [...] care, and heating? Not very hard 07/31/2024 [facility] of Occupat ional Health - [...] any time in the past 12 m [facility], were you homeless or living [...] [facility] [address] [place] [address] Kenya Guardado NP [address] [place] [address] 11/14/2025 9:00 AM EDT Office Visit [facility] [address] [place] [phone] Morris Puri PA [address] [place] [address] documented as of this encounter Visit Diagnoses Not on filedocumented in this encounter Care Teams Guitar Repairer Relationship Specialty Start Date End Date Orlando Beatty MD [address] [place] [address] PCP - General Family Medicine 11/08/23 Kenya Guardado NP [address] [place] [address] Nurse Practitioner Family Medicine 11/08/23 documented as of this encounter
--- OUTSIDE RECORDS SUMMARY | 2024-08-16 12:59 | XMS_ITS | Encounter Summary ---
Author Organization [facility] Address [address] [place] [address] Care Team Providers Care Jewelry Making Instructor Name Role Phone Orlando Beatty MD Primary Care Provider Kenya Guardado RISK CONTROL CONSULTANT Unavailable [phone] Encounter Details Date Type Department Care Team ([facility] Contact Info) Description 08/15/2024 Bamboo flowsheet [facility] [address] [place] [address] Kenya Guardado, RISK CONTROL CONSULTANT [address] [place] [address] Social History Tobacco Use Types Packs/Day Years [...] week 07/31/2024 How often do you attend yazidism or pentecostalism serv ices? Never 07/31/2024 Do you belong to any clubs o r organizations such as yazidism groups, unions, fraternal or athletic groups, or [...] heating? Not very hard 07/31/2024 [facility] [place] of Occupat ional Health - Occupational Stress [...] any time in the past 12 m [facility], were you homeless or living in a [...] Visit [facility] [address] [place] [address] Kenya Guardado NP [address] [place] [address] 11/14/2025 9:00 AM EDT Office Visit [facility] [address] [place] [address] Morris Puri PA [address] [address] documented as of this encounter Visit Diagnoses Not on filedocumented in this encounter Care Teams Jewelry Making Instructor Relationship Specialty Start Date End Date Orlando Beatty MD [address] [place] [address] PCP - General Family Medicine 11/08/23 Kenya Guardado NP [address] [place] [address] Nurse Practitioner Family Medicine 11/08/23 documented as of this encounter
--- NOTE | 2024-08-16 13:03 | XR_ITS ---
The [address] [address] Patient Name: ANDREA JEWELL MRN: [id number] date: 1960 Sex: F Assigned Patient Location: US Current Patient Location: US Accession/Order Number: [id number] Exam Date: 08/16/2024 14:09 Report Date: 08/16/2024 14:12 At the request of: MIGUEL TORREZ NP Procedure: XR abdomen 1V SINGLE VIEW ABDOMEN CLINICAL DATA: Chronic kidney disease. COMPARISON: Lumbar spine 05/19/2022 Supine views of the abdomen and pelvis were obtained. There is air and stool within the colon. There is an air-containing small bowel loop at the left lower abdomen which is borderline in caliber though there is no focal thickening. No soft tissue masses or suspect renal calculi are identified. Mild degenerative change is visualized at the spine. Patient has a left hip prosthesis. XR/XR abdomen 1V IMPRESSION: NONSPECIFIC BOWEL GAS PATTERN. NO EVIDENCE OF RADIOPAQUE STONES. Impression dictated by: Tati Pinedo M.D. 08/16/2024 2:12 PM Dictation Location: [place] [address] Electronically authenticated by: [id number] Y Date: 08/16/2024 14:12
--- NOTE | 2024-08-16 13:03 | US_ITS ---
The [address] [address] Patient Name: ANDREA JEWELL MRN: [id number] date: 1960 Sex: F Assigned Patient Location: US Current Patient Location: US Accession/Order Number: [id number] Exam Date: 08/16/2024 14:05 Report Date: 08/16/2024 14:07 At the request of: MIGUEL TORREZ NP Procedure: US renal BI BILATERAL RENAL AND BLADDER ULTRASOUND CLINICAL HISTORY: Chronic kidney disease, stage 4, Hyperkalemia COMPARISON: None Estimation of renal size is approximately 9.5 cm on the right and 8.1 cm on the left. No shadowing calculi or hydronephrosis are identified. Cysts are present at the upper pole on the right measuring 2.0 x 1.7 x 2.0 cm and at the midpole measuring 1.3 x 1.8 x 1.5 cm. There are also a couple left renal cysts with the larger measuring 12 x 8 x 9 mm. There is no perinephric fluid. The urinary bladder is partially distended with a volume of 63 mL. No contour or intraluminal abnormalities are seen. US/US renal BI IMPRESSION: NO OBSTRUCTIVE UROPATHY. RENAL CYSTS. Impression dictated by: Tati Pinedo M.D. 08/16/2024 2:07 PM Dictation Location: [place] [address] Electronically authenticated by: [id number] Y Date: 08/16/2024 14:07
== END 2024-08-16 12:54 | disposition home or self-care (01) ==
PROVIDERS: PCP Nurse Practitioner; Visit Provider Nurse Practitioner
DX: N18.4 Chronic kidney disease, stage 4 (severe) (principal); E87.5 Hyperkalemia; N28.1 Cyst of kidney, acquired
CPT/HCPCS: 74018; 76775

== ENCOUNTER 2024-10-16 21:17 | Emergency (ER) | payer BC, SELFPAY ==
--- OUTSIDE RECORDS SUMMARY | 2024-10-16 21:25 | XMS_ITS | Encounter Summary ---
Author Organization [facility] Address [address] [place] [address] Phone Care Team Providers Care Roller Picker Name Role Phone Kenya Guardado COPY CENTER ASSOCIATE-FINANCIAL INSTITUTION MANAGER Primary Care Provider Encounter Details Date Type Department Care Team (Late st Contact Info) Description 08/31/2023 Scanned Document [facility] [address] [place] [phone] Scanning, Generic Provider Social History Tobacco Use [...] Care Team (Late st Contact Info) Description 09/25/2025 1:20 PM EDT Office Visit [facility] [address] [facility] [address] [place] [address] Eric Brewster, [address] [facility] [address], [address] [place], [place] [phone] documented as of this encounter Visit Diagnoses Not on filedocumented in this encounter Care Teams Roller Picker Relationship Specialty Start Date End Date Kenya Guardado APRN-FINANCIAL INSTITUTION MANAGER [address] [place] [phone] PCP - General 03/06/99 documented as of this encounter
--- OUTSIDE RECORDS SUMMARY | 2024-10-16 21:25 | XMS_ITS | Encounter Summary ---
Author Organization [facility] Address [address] [place] [address] Phone Care Team Providers Care Poultry Picking Machine Tender Name Role Phone Kenya Guardado Jacqueline PSANGLERN-FIBERGLASS BOAT PARTS FINISHER Primary Care Provider Encounter Details Date Type Department Care Team (Late st Contact Info) Description 09/18/2023 Scanned Document [facility] [address] [place] [id number] Scanning, Generic Provider Social History Tobacco Use [...] Description 09/25/2025 1:20 PM EDT Office Visit [facility] [address] [facility] [address] [place] [phone] Eric Brewster, DO [address] [facility] [address], [address] [place] [address] documented as of this encounter Procedures Procedure Name Priority Date/Time Associated Diagnosis Comments OUTSIDE IMAGING SCAN 09/18/2023 documented in this encounter Results * OUTSIDE IMAGING SCAN (09/18/2023) Anatomical Region Laterality Modality Other Narrative 09/18/2023 Ordered by an unspecified provider. us Generic Provider Scanning OUTSIDE SCAN Final Result documented in this encounter Visit Diagnoses Not on filedocumented in this encounter Care Teams Poultry Picking Machine Tender Relationship Specialty Start Date End Date Kenya Guardado, BASKET GRADER-FIBERGLASS BOAT PARTS FINISHER [address] [place] [phone] PCP - General 03/06/99 documented as of this encounter
--- OUTSIDE RECORDS SUMMARY | 2024-10-16 21:25 | XMS_ITS | Encounter Summary ---
Author Organization [facility] Address [address] [place] [address] Care Team Providers Care Carton Maker Name Role Phone Orlando Beatty MD Primary Care Provider [phone] Kenya Guardado SALES REPRESENTATIVE EDUCATION COURSES Unavailable [phone] Kenya uGardado SALES REPRESENTATIVE EDUCATION COURSES Unavailable [phone] Encounter Details Date Type Department Care Team (Late st Contact Info) Description 08/19/2024 Orders Only [facility] [address] [place] [address] Kenya Guardado SALES REPRESENTATIVE EDUCATION COURSES [address] [place] [address] Stage 4 chronic kidney disease (HCC) (Primary Dx); Anemia due to other cause, not classified [...] week 07/31/2024 How often do you attend faith or holiness serv ices? Never 07/31/2024 Do you belong to any clubs o r organizations such as faith groups, unions, fraternal or athletic groups, or [...] care, and heating? Not very hard 07/31/2024 [facility] - Occupational Stress [...] time in the past 12 m [place], were you homeless or living in a half-way (including now)? No 07/31/2024 Comments Unknown Sex and Gender Information Value Date Recorded Sex Assigned at Not on file Legal Sex Female 8:15 PM EDT Gender Identity Not on file Sexual Orientation Not on file documented as of this encounter Plan of Treatment Upcoming Encounters Date Type Department Care Team (Late st Contact Info) Description 10/18/2024 9:15 AM EDT Office Visit [facility] [address] [place] [address] Morris Puri, PA [address] [place] [address] 11/11/2024 11:00 AM EDT Office Visit [facility] [address] [place] [phone] Kenya Guardado NP [address] [place] [phone] 11/14/2025 9:00 AM EDT Office [facility] [address] [place] [address] Morris Puri PA [address] [place] [address] documented as of this encounter Visit Diagnoses Diagnosis Stage 4 chronic kidney disease (HCC)- Primary Anemia due to other cause, not classified documented in this encounter Care Teams Carton Maker Relationship Specialty Start Date End Date Orlando Beatty MD [address] [place] [phone] PCP - General Family Medicine 11/08/23 Kenya Guardado NP [address] [place] [phone] PCP - [facility] 08/04/24 Kenya Guardado NP [address] [place] [phone] Nurse Practitioner Family Medicine 11/08/23 documented as of this encounter
--- OUTSIDE RECORDS SUMMARY | 2024-10-16 21:25 | XMS_ITS | CCD ---
Author Organization [facility] Care Team Providers Care Vallez Filter Operator Name Role Phone UNKNOWN, PROVIDER Unavailable Unavailable HOWARD, VLADISLAV Unavailable Unavailable UNKNOWN, PROVIDER Unavailable Unavailable HOWARD, VLADISLAV Unavailable Unavailable Unavailable Unavailable Aichholz, Kenya Jacqueline Unavailable MISC, DR COTE Admitting Unavailable MISC, DR COTE Attending Unavailable DR JOANN COOLEY Consulting Unavailable [facility] KENYA Primary Care Unavailable Cathleen Barroso Consulting Unavailable AICHOLZ, WOMEN'S SOCCER COACH KENYA Primary Care Unavailable LAKSHMIPATHY ., NARENDRANATH Admitting Milly vailable LAKSHMIPATHY ., NARENDRANATH Attending Milly vailable DR JOANN COOLEY Admitting Unavailable MICHELE, DR JOANN Juan Attending Unavailable DR JOANN COOLEY Consulting Unavailable AICHOLZ, WOMEN'S SOCCER COACH KENYA Primary Care Unavailable DOMONIQUE TILLMAN Consulting Unavailable [facility] KENYA Primary Care Unavailable LAKSHMIPATHY ., NARENDRANATH Consulting Milly vailable LAKSHMIPATHY ., NARENDRANATH Admitting Milly vailable LAKSHMIPATHY ., NARENDRANATH Attending Milly vailable [facility] KENYA Primary Care Unavailable ARLENE HUERTAS Consulting Unavailable LAKSHMIPATHY ., NARENDRANATH Admitting Milly vailable LAKSHMIPATHY ., NARENDRANATH Attending Milly vailable LAKSHMIPATHY ., NARENDRANATH Consulting Milly vailable DR RICARDO NGUYEN V Consulting Unavailable [facility] KENYA Primary Care Unavailable FAWWAD, LACKEY H Admitting Unavailable FAWWAD, LACKEY H Attending Unavailable FAWWAD, LACKEY H Consulting Unavailable Cathleen Barroso Consulting Unavailable AICHHOLZ, WOMEN'S SOCCER COACH KENYA Primary Care Unavailable FAWWAD, LACKEY H Admitting Unavailable FAWWAD, LACKEY H Attending Unavailable FAWWAD, LACKYE H Consulting Unavailable AICHHOLZ, WOMEN'S SOCCER COACH KENYA Primary Care Unavailable BHUMIKA, DR MOORE Admitting Unavailable STEPIKE, DR MOORE Attending Unavailable STEPIKE, DR MOORE Consulting Unavailable CONCHA, DR ERIC Brooks Admitting Unavailabl e CONCHA, DR ERIC Brooks Attending Unavailabl e CONCHA, DR ERIC Brooks Consulting Unavailabl e AICHHOLZ, WOMEN'S SOCCER COACH KENYA Primary Care Unavailable WEST, DR RICARDO Damico Consulting Unavailable AICHHOLZ, WOMEN'S SOCCER COACH KENYA Admitting Unavailable AICHHOLZ, WOMEN'S SOCCER COACH KENYA Attending Unavailable AICHHOLZ, WOMEN'S SOCCER COACH KENYA Primary Care Unavailable AICHHOLZ, WOMEN'S SOCCER COACH KENYA Consulting Unavailable Aichholz, Mrs. Kenya Phillips Primary Care Unavailab chetna Cooley, MsChamp Quijano Referring Unavangozi Cooley, MsChamp Quijano Attending Unakai Kern, Dr. Eric Mckenzie Attending Unava ilable Aichholjose francisco, Mrs. Kenya Phillips Primary Care Unavailab chetna Kern, Dr. Eric Mckenzie Referring Unava ilERIC Tovar Referring Unavailable AICHLAMONT, KENYA JACQUELINE Primary Care Unavailable Orlando Beatty MD Primary Care Provider [phone] Aichholz DIRECTOR INDEPENDENT, Kenya Unavailable Aichholz CRANE ASSEMBLER-ALPESH, Kenya Phillips Primary Care Provider CALOS PURI Attending Unavailable CALOS PURI Attending Unavailable CALOS PURI Referring Unavailable AICGilbertHOLZ, KENYA Attending Unavailable CALOS PURI Attending Unavailable AICHHOLZ, KENYA Attending Unavailable AICHHOLZ, KENYA Attending Unavailable OSVALDO NICHOLE Attending Unavailable CALOS PURI Attending Unavailable CALOS PURI Referring Unavailable AICHHOLZ, KENYA Attending Unavailable Aichholz CRANE ASSEMBLER-ALPESH, Kenya Phillips Primary Care Provider ERIC KERN Attending Unavailable ERIC KERN Referring Unavailable AICHHOLJose Francisco, KENYA JACQUELINE Primary Care Unavailable Allergies Allergy Classification Reported Allergen(s) Allergy Type Date of Onset Reaction(s) Facility (14 sources) Isosorbide; Translations: [isosorbide] Drug Allergy 4 [facility] Repository (20 sources) oxyCODONE; Translations: [oxyCODONE HCl TABS] Drug Allergy 3 Nausea Only, GI Upset, Nausea/vomitin g [facility] Work Phone: (10 sources) Tetanus Toxoid Fluid SOLN; Translations: [Tetanus Toxoid Fluid SOLN] Allergy to drug (finding) Other -[facility] [facility] DO Work Phone: (1 source) Acetaminophen / oxyCODONE Drug Allergy [facility] Repository (1 source) Allopurinol Drug Allergy [address] [facility] Repository (2 sources) oxyCODONE; Translations: [OXYCODONE] Drug Allergy 4 [facility] Repository (20 sources) Tetanus vaccine; Translations: [TETANUS TOXOID] Propensity to adverse reactions to drug (disorder) 4 Unknown [facility] Repository (20 sources) Acetaminophen / oxyCODONE Drug Allergy 7 Dizziness, Other [facility] Work Phone: (20 sources) Isosorbide Drug Allergy 4 Headache [facility] Work Phone: (20 sources) Tetanus immune globulin Drug Allergy 3 Unknown [facility] Healthcare Medications Current Medications Medication Drug Class(es) Dates Sig (Normalized) Sig (Original) aspirin 81 mg delayed release oral tablet (20 sources) Platelet Aggregation Inhibitor, Nonsteroidal Anti-inflammatory Drug take 1 tablet by mouth once daily aspirin 81 mg EC tablet Take 1 tablet (81 mg) by mouth once daily. Active atorvastatin 80 mg oral tablet (20 sources) HMG-CoA Reductase Inhibitor Start: 11-30-2021 End: 09-26-2025 take 1 tablet by mouth once daily atorvastatin (Lipitor) 80 mg tablet Indications: Hyperlipidemia, unspecified Take 1 tablet (80 mg) by mouth once daily. 90 tablet 3 09/26/2024 09/26/2025 Active bisacodyl 5 mg delayed release oral [...] sources) Angiotensin Converting Enzyme Inhibitor Start: 04-13-2021 End: 09-26-2024 take 1 tablet by mouth once daily lisinopril 10 mg tablet Indications: Essential (primary) hypertension TAKE 1 TABLET BY MOUTH EVERY DAY 90 tablet 3 03/26/2024 09/26/2024 Discontinued (Discontinued by another clinician) 24 hr metoprolol succinate 25 mg extended release oral tablet (20 sources) beta-Adrenergic Diego Start: 03-26-2024 take 1 tablet by mouth once daily metoprolol succinate XL (Toprol-XL) 25 mg 24 hr tablet Indications: Atherosclerotic heart disease of lumbee coronary artery without angina pectoris TAKE 1 TABLET BY MOUTH EVERY DAY 90 tablet 3 03/26/2024 Active Start: 03-31-2023 take 1 tablet by prateek th once daily metoprolol succinate XL (Toprol-XL) 25 mg 24 hr tablet Indications: Atherosclerotic heart disease of lumbee coronary artery without angina pectoris TAKE 1 TABLET BY MOUTH EVERY DAY 90 tablet 3 03/31/2023 Active Start: 09-25-2022 take 1 tablet by prateek th every twenty-four hours in the morning metoprolol succinate XL (Toprol-XL) 25 MG 24 hr tablet Take 25 mg by mouth in the morning. 09/25/2022 Active Start: 04-12-2021 take 1 tablet by prateek th once daily Metoprolol Succinate ER 25 MG Oral Tablet Extended Release 24 Hour TAKE 1 TABLET BY MOUTH EVERY DAY Quantity: 90 Refills: 3 Ordered: 30-Mar-2022 Eric Kern DO Start : 12-Apr-2021 Active nitroglycerin 0.4 mg subling ual tablet (20 sources) Nitrate Vasodilator nitroglyceri n (Nitrostat) 0.[address] 1 tablet (0.4 mg) under the tongue every 5 minutes if needed for chest pain. Active nitroglycerin (N itrostat) 0.4 MG SL tablet As needed. Active ondansetron 4 mg disintegrating oral tablet [...] tablet 01/08/2024 01/13/2024 Active polyethylene glycol 3350 05972 mg powder for oral solution (2 sources) [...] tablet 3 11/15/2023 01/08/2024 Discontinued (Therapy completed) 5 ml bupivacaine hydrochloride 5 mg/ml injection [...] kidney disease, stage 3a (HCC)] Onset: 11-08-2023 Resolved: 08-15-2024 11-08-2023 Chronic Conditions associated with dizziness or vertigo (16 sources) Dizziness and giddiness; Translations: [Dizziness and giddiness] Onset: 07-31-2024 07-31-2024 Episodic Coronary atherosclerosis and other heart disease (20 sources) Angina pectoris, unspecified; Translations: [Coronary atherosclerosis] Onset: 05-10-2017 Chronic Coronary atherosclerosis and other heart disease (5 sources) Coronary angioplasty status; Translations: [CORONARY ANGIOPLASTY STATUS] Onset: 09-22-2021 Episodic Deficiency and other anemia (7 sources) Anemia; Translations: [Other specified anemias] Onset: 08-15-2024 08-15-2024 Episodic Disorders of lipid metabolism (20 sources) Hyperlipidemia; Translations: [Other and unspecified hyperlipidemia] Onset: 09-27-2021 11-08-2023 Chronic Essential hypertension (20 sources) Essential hypertension; Translations: [Unspecified essential hypertension] Onset: 09-21-2021 Chronic Essential hypertension (1 source) Essential hypertension Onset: 05-10-2017 Fluid and electrolyte disorders (11 sources) Hyperkalemia; Translations: [Hyperkalemia] Onset: 08-08-2024 08-08-2024 Episodic Genitourinary symptoms and ill-defined conditions (16 sources) Polyuria; Translations: [Polyuria] Onset: 07-31-2024 07-31-2024 Episodic Joint disorders and dislocations; trauma-related (20 sources) Unspecified internal derangement of left knee; Translations: [Derangement of left knee] Onset: 08-03-2021 Chronic Malaise and fatigue (18 sources) Fatigue; Translations: [Other fatigue] Onset: 07-31-2024 [...] [Trochanteric bursitis, left hip] 07-03-2024 Episodic Other infections; including parasitic (20 sources) H/O: infectious disease; Translations: [Personal history of other infectious and parasitic diseases] Onset: 03-27-2023 11-08-2023 Episodic Other infections; including parasitic (2 sources) Personal history of other infectious and parasitic diseases; Translations: [Personal history of other infectious and parasitic diseases] Onset: 03-27-2023 Episodic Other nervous system disorders (1 source) [...] Onset: 07-04-2022 Episodic Other non-traumatic joint disorders (16 sources) Joint pain; Translations: [Pain in unspecified [...] Onset: 09-27-2023 Resolved: 11-08-2023 11-08-2023 Chronic Other nutritional; endocrine; and [...] SKIN] Onset: 09-27-2021 Chronic Residual codes; unclassified (3 sources) Never smoked tobacco; Translations: [Other specified health status] Onset: 09-27-2023 09-27-2023 Episodic Residual codes; unclassified (2 sources) Other specified health status; Translations: [Other specified health status] Onset: 09-27-2023 Episodic Spondylosis; intervertebral disc disorders; other back problems (10 sources) Lumbago with sciatica, unspecified side; Translations: [...] Unclassified (1 source) Athscl heart disease of lumbee cor art w unsp ang pctrs / [...] Onset: 11-08-2023 11-08-2023 Episodic Nausea and vomiting (20 sources) Nausea; Translations: [Nausea] Onset: 01-08-2024 01-08-2024 Episodic Other connective tissue disease (4 sources) Pain in left leg; Translations: [PAIN IN LEFT LEG] Onset: 07-26-2021 Episodic Other non-traumatic joint disorders (3 sources) Pain in left knee; Translations: [PAIN IN LEFT KNEE] Onset: 07-25-2021 Episodic Other non-traumatic joint disorders (20 sources) Hip pain; Translations: [Pain in left hip] Onset: 08-25-2022 08-25-2022 Episodic Other upper respiratory infections (20 sources) Viral upper respiratory tract infection; Translations: [Acute upper respiratory infection, unspecified] Onset: 01-08-2024 Resolved: 07-31-2024 01-08-2024 Episodic Sprains and strains (1 source) Strain [...] Test Name Value Interpretation Reference Range Facility US RENAL BIon 08-16-2024 [place] [address] Ultrasound Report Signed Patient: INA JEWELL MR#: [id number] : 1960 Acct:[id number] Age/Sex: 64 / F ADM Date: 08/16/24 Loc: US Attending Dr: Kenya Guardado NP Ordering Physician: Kenya Guardado NP Date of Service: 08/16/24 Procedure(s): US renal BI Accession Number(s): [id number] cc: Kenya Guardado NP [place] [id number] Patient Name: INA JEWELL MRN: [facility]:[id number] date: 1960 Sex: F Assigned Patient Location: US Current Patient Location: US Accession/Order Number: [id number] Exam Date: 08/16/2024 14:05 Report Date: 08/16/2024 14:07 At the request of: KENYA GUARDADO NP Procedure: US renal BI BILATERAL RENAL AND BLADDER ULTRASOUND CLINICAL HISTORY: Chronic kidney disease, stage 4, Hyperkalemia COMPARISON: None Estimation of renal size is approximately 9.5 cm on the right and 8.1 cm on the left. No shadowing calculi or hydronephrosis are identified. Cysts are present at the upper pole on the right measuring 2.0 x 1.7 x 2.0 cm and at the midpole measuring 1.3 x 1.8 x 1.5 cm. There are also a couple left renal cysts with the larger measuring 12 x 8 x 9 mm. There is no perinephric fluid. The urinary bladder is partially distended with a volume of 63 mL. No contour or intraluminal abnormalities are seen. US/US renal BI IMPRESSION: NO OBSTRUCTIVE UROPATHY. RENAL CYSTS. Impression dictated by: Tati Pinedo M.D. 08/16/2024 2:07 PM Dictation Location: [place] [address] Electronically authenticated by: [id number] Y Date: 08/16/2024 14:07 Dictated By: Tati Pinedo M.D. Signed By: 08/16/24 1410 DD/ 1407 TD/TT: Wrapper Hands Sprayer: [facility] Radiology, Radiologist, MD - 08/16/2024 [place] [address] Ultrasound Report Signed Patient: INA JEWELL MR#: [id number] : 1960 Acct:[id number] Age/Sex: 64 / F ADM Date: 08/16/24 Loc: US Attending Dr: Kenya Guardado NP Ordering Physician: Kenya Guardado NP Date of Service: 08/16/24 Procedure(s): US renal BI Accession Number(s): [id number] cc: Kenya Guardado NP [place] [id number] Patient Name: INA JEWELL MRN: [id number] date: 1960 Sex: F Assigned Patient Location: US Current Patient Location: Accession/Order Number: [id number] Exam Date: 08/16/2024 14:05 Report Date: 08/16/2024 14:07 At the request of: KENYA GUARDADO NP Procedure: US renal BI BILATERAL RENAL AND BLADDER ULTRASOUND CLINICAL HISTORY: Chronic kidney disease, stage 4, Hyperkalemia COMPARISON: None Estimation of renal size is approximately 9.5 cm on the right and 8.1 cm on the left. No shadowing calculi or hydronephrosis are identified. Cysts are present at the upper pole on the right measuring 2.0 x 1.7 x 2.0 cm and at the midpole measuring 1.3 x 1.8 x 1.5 cm. There are also a couple left renal cysts with the larger measuring 12 x 8 x 9 mm. There is no perinephric fluid. The urinary bladder is partially distended with a volume of 63 mL. No contour or intraluminal abnormalities are seen. US/US renal BI IMPRESSION: NO OBSTRUCTIVE UROPATHY. RENAL CYSTS. Impression dictated by: Tati Pinedo M.D. 08/16/2024 2:07 PM Dictation Location: [place] [address] Electronically authenticated by: [id number] Y Date: 08/16/2024 14:07 Dictated By: Tati Pinedo M.D. Signed By: 08/16/24 1410 DD/ 1407 TD/TT: Wrapper Hands Sprayer: [facility] Radiology Study observation (narrative) [facility] US RENAL BIOrdered By: [facility] on 08-16-2024 [facility] Work Phone: XR ABDOMEN 1Von 08-16-2024 [place] [address] XRay Report Signed Patient: INA JEWELL MR#: [id number] : 1960 Acct:[id number] Age/Sex: 64 / F ADM Date: 08/16/24 Loc: Attending Dr: Kenya Guardado NP Ordering Physician: Kenya Guardado NP Date of Service: 08/16/24 Procedure(s): XR abdomen 1V Accession Number(s): [id number] cc: Kenya Guardado NP [place] [address] Patient Name: INA JEWELL MRN: [facility]:[id number] date: 1960 Sex: F Assigned Patient Location: US Current Patient Location: US Accession/Order Number: [id number] Exam Date: 08/16/2024 14:09 Report Date: 08/16/2024 14:12 At the request of: KENYA GUARDADO NP Procedure: XR abdomen 1V SINGLE VIEW ABDOMEN CLINICAL DATA: Chronic kidney disease. COMPARISON: Lumbar spine 05/19/2022 Supine views of the abdomen and pelvis were obtained. There is air and stool within the colon. There is an air-containing small bowel loop at the left lower abdomen which is borderline in caliber though there is no focal thickening. No soft tissue masses or suspect renal calculi are identified. Mild degenerative change is visualized at the spine. Patient has a left hip prosthesis. XR/XR abdomen 1V IMPRESSION: NONSPECIFIC BOWEL GAS PATTERN. NO EVIDENCE OF RADIOPAQUE STONES. Impression dictated by: Tati Pinedo M.D. 08/16/2024 2:12 PM Dictation Location: [place] [address] Electronically authenticated by: [id number] Y Date: 08/16/2024 14:12 Dictated By: Tati Pinedo M.D. Signed By: 08/16/24 1415 DD/ 141 TD/TT: Wrapper Hands Sprayer: [facility] Radiology, Radiologist, MD - 08/16/2024 [place] [address] XRay Report Signed Patient: INA JEWELL MR#: [id number] : 1960 Acct:[id number] Age/Sex: 64 / F ADM Date: 08/16/24 Loc: US Attending Dr: Kenya Guardado NP Ordering Physician: Kenya Guardado NP Date of Service: 08/16/24 Procedure(s): XR abdomen 1V Accession Number(s): [id number] cc: Kenya Guardado NP [place] [address] Patient Name: INA JEWELL MRN: [id number] date: 1960 Sex: F Assigned Patient Location: Current Patient Location: US Accession/Order Number: [id number] Exam Date: 08/16/2024 14:09 Report Date: 08/16/2024 14:12 At the request of: KENYA GUARDADO NP Procedure: XR abdomen 1V SINGLE VIEW ABDOMEN CLINICAL DATA: Chronic kidney disease. COMPARISON: Lumbar spine 05/19/2022 Supine views of the abdomen and pelvis were obtained. There is air and stool within the colon. There is an air-containing small bowel loop at the left lower abdomen which is borderline in caliber though there is no focal thickening. No soft tissue masses or suspect renal calculi are identified. Mild degenerative change is visualized at the spine. Patient has a left hip prosthesis. XR/XR abdomen 1V IMPRESSION: NONSPECIFIC BOWEL GAS PATTERN. NO EVIDENCE OF RADIOPAQUE STONES. Impression dictated by: Tati Pinedo M.D. 08/16/2024 2:12 PM Dictation Location: [place] [address] Electronically authenticated by: [id number] Y Date: 08/16/2024 14:12 Dictated By: Tati Pinedo M.D. Signed By: 08/16/24 1415 DD/ 141 TD/TT: Wrapper Hands Sprayer: [facility] Radiology Study observation (narrative) [facility] XR ABDOMEN 1VOrdered By: Ayan yorkogluisa Radiology on 08-16-2024 [facility] Work Phone: ALL CBC WITH AUTO DIFFon BASOPHILS ABSOLUTE AUTO 0 [facility] Basophils/100 WBC (Bld) 0.4 % 0.2 - 2.0 % [facility] Eosinophils/100 WBC (Bld) 3.2 % 0.9 - 7.0 % [facility] Erythrocyte distribution width (RBC) [Ratio] 13.8 % 11.0 - 15.0 % [facility] Hematocrit (Bld) [Volume fraction] 31.9 % Low 36.0 - 48.0 % [facility] Hemoglobin (Bld) [Mass/Vol] 10.5 g/dL Low 12.0 - 16.0 g/dL [facility] IMMATURE GRANULOCYTES ABS AUTO 0.02 [facility] Immature granulocytes/100 WBC (Bld) 0.4 % 0.0 - 0.5 % [facility] Interpretation and review of laboratory results Abnormal [facility] LYMPHOCYTES ABSOLUTE AUTO 1 Low [facility] Lymphocytes/100 WBC (Bld) 17.7 % Low 20.5 - 60.0 % [facility] MCH (RBC) [Entitic mass] 31.4 pg 26.7 - 34.0 pg [facility] MCHC (RBC) [Mass/Vol] 32.9 g/dL 29.9 - 35.2 g/dL [facility] MCV (RBC) [Entitic vol] 95.5 fL 81.0 - 99.0 fL [facility] MONOCYTES ABSOLUTE AUTO 0.6 [facility] Monocytes/100 WBC (Bld) 11 % 1.7 - 12.0 % [facility] NEUTROPHILS ABSOLUTE AUTO 3.6 [facility] Neutrophils/100 WBC (Bld) 67.3 % 43.0 - 75.0 % [facility] Platelet mean volume (Bld) [Entitic vol] 8.1 fL Low 9.5 - 13.5 fL [facility] TBH EO # 0.2 [facility] TBH PLT [address] [facility] RBC 3.34 Low [facility] WBC 5.4 [facility] ALL CBC WITH AUTO DIFFon BASOPHILS ABSOLUTE AUTO 0 [facility] Basophils/100 WBC (Bld) 0.4 % 0.2 - 2.0 % [facility] Eosinophils/100 WBC (Bld) 3.6 % 0.9 - 7.0 % [facility] Erythrocyte distribution width (RBC) [Ratio] 13.2 % 11.0 - 15.0 % [facility] Hematocrit (Bld) [Volume fraction] 31.9 % Low 36.0 - 48.0 % [facility] Hemoglobin (Bld) [Mass/Vol] 10.5 g/dL Low 12.0 - 16.0 g/dL [facility] IMMATURE GRANULOCYTES ABS AUTO 0.01 [facility] Immature granulocytes/100 WBC (Bld) 0.2 % 0.0 - 0.5 % [facility] LYMPHOCYTES ABSOLUTE AUTO 0.8 Low [facility] Lymphocytes/100 WBC (Bld) 15.9 % Low 20.5 - 60.0 % [facility] MCH (RBC) [Entitic mass] 31.4 pg 26.7 - 34.0 pg [facility] MCHC (RBC) [Mass/Vol] 32.9 g/dL 29.9 - 35.2 g/dL [facility] MCV (RBC) [Entitic vol] 95.5 fL 81.0 - 99.0 fL [facility] MONOCYTES ABSOLUTE AUTO 0.4 [facility] Monocytes/100 WBC (Bld) 8.5 % 1.7 - 12.0 % [facility] NEUTROPHILS ABSOLUTE AUTO 3.4 [facility] Neutrophils/100 WBC (Bld) 71.4 % 43.0 - 75.0 % [facility] Platelet mean volume (Bld) [Entitic vol] 8.4 fL Low 9.5 - 13.5 fL [facility] TBH EO # 0.2 [facility] TBH PLT 236 [facility] RBC 3.34 Low [facility] WBC 4.7 [facility] ALL SED RATEon 07-31-2024 TBH SED RATE 31 High NINF [facility] No Panel Informationon 07-31 Interpretation and review of laboratory results Abnormal [facility] XR Lumbar spine 2 or 3 Views on 07-24-2024 Imaging Result: AP and Lateral lumbar spine: Left hip prosthesis, No acute fracture or dislocation Slight anterolisthesis L5-S1, mild facet arthritis. Bowel gas unremarkable Impression: mild degenerative changes lumbar spine. 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 Consent was given by the patient. [facility] SARS-COV-2 AG*on 01-08-2024 SARS-CoV-2 (COVID-19) RNA SAUL+probe Ql (Unsp spec) Negative NEGATIVE [facility] Comment on above: This test has [...] is terminated or authorization is revoked sooner. [facility] Procedu re 10-19-[address], [address] [address] Exercise Stress Test Patient Name: INA JEWELL Ordering Provider: [id number] ERIC KERN Study Date: 10/19/2023 Reading Physician: [id number] Dupree MD MRN/PID: [id number] Supervising Physician: [id number] Dupree MD Fellow: Date of /Age: 3 1960 / 63 years Fellow: Gender: F Nurse: Lorenza Aquino RN Admission Status: Cartoon Artist: BONITA Height: 167.64 cm Technologist: Weight: 86.18 kg Additional Staff: BSA: 1.96 m2 BMI: 30.67 kg/m2 Patient Location: Study Type: STRESS TEST ONLY Diagnosis/ICD: Old myocardial infarction-I25.2; Atherosclerotic heart disease-I25.10 Indication: Hypertension CPT Codes: Stress Test Interpretation-78786; Stress Test Supervision-[id number] Falls Risk: Low: Patient has low risk [...] response to exercise. 4. Poor exercise tolerance. [id number] Carina Dupree MD Electronically signed on 10/19/2023 at 4:59:33 PM Final Carina Contreras MD - 10/19/[address], [place] [address] Exercise Stress Test Patient Name: INA JEWELL Ordering Provider: [id number] ERIC KERN Study Date: 10/19/2023 Reading Physician: Jovanni Dupree MD MRN/PID: [id number] Supervising Physician: Jovanni Dupree MD Fellow: Date of /Age: 3 1960 / 63 years Fellow: Gender: F Nurse: Lorenza Aquino RN Admission Status: Cartoon Artist: NA Height: 167.64 cm Technologist: Weight: 86.18 kg Additional Staff: BSA: 1.96 m2 BMI: 30.67 kg/m2 Patient Location: Study Type: STRESS TEST ONLY Diagnosis/ICD: Old myocardial infarction-I25.2; Atherosclerotic heart disease-I25.10 Indication: Hypertension CPT Codes: Stress Test Interpretation-73901; Stress Test Supervision-[id number] Falls Risk: Low: Patient has low risk [...] response to exercise. 4. Poor [place]. [id number] Cairna Dupree MD Electronically signed on 10/19/2023 at 4:59:33 PM Final [facility] Work Phone: Cardiac stress study Procedu reOrdered By: Carina Dupree on 10-19-2023 [facility] Work Phone: STRESS TEST ONLYon STRESS TEST ONLY [address], [place] [address] Exercise Stress Test Patient Name: INA JEWELL Ordering Provider: [id number] ERIC KERN Study Date: 10/19/2023 Reading Physician: [id number] Carina Dupree MD MRN/PID: [id number] Supervising Physician: [id number] Carina Dupree MD Fellow: Date of /Age: 3 1960 / 63 years Fellow: Gender: F Nurse: Lorenza Aquino RN Admission Status: Cartoon Artist: BONITA Height: 167.64 cm Technologist: Weight: 86.18 kg Additional Staff: BSA: 1.96 m2 BMI: 30.67 kg/m2 Patient Location: Study Type: STRESS TEST ONLY Diagnosis/ICD: Old myocardial infarction-I25.2; Atherosclerotic heart disease-I25.10 Indication: Hypertension CPT Codes: Stress Test Interpretation-42219; Stress Test Supervision-[id number] Falls Risk: Low: Patient has low risk [...] response to exercise. 4. Poor exercise tolerance. [id number] Carina Dupree MD Electronically signed on 10/19/2023 at 4:59:33 PM Final [facility] Office Visit (Cardiology)on 09-16-2022 Follow-up visit Diagnoses/Problems Assessed Atherosclerosis of coronary artery of lumbee heart without angina pectoris (414.01) (I25.10) Essential hypertension (401.9) (I10) History of PTCA (V45.82) (Z98.61) History of mycobacterial infection (V12.09) (Z86.19) Hyperlipidemia (272.4) (E78.5) Overweight with body mass index (BMI) of 29 to 29.9 in adult (278.02,V85.25) (E66.3,Z68.29) Orders Atherosclerosis of coronary artery of lumbee heart without angina pectoris, Essential hypertension, History of mycobacterial infection, History of PTCA, Hyperlipidemia ALT - Alanine Aminotransferase, Serum; Status:Active; Requested for:[id number]; AST; Status:Active; Requested for:[id number]; Basic Metabolic Panel; Status:Active; Requested for:22Lmi3924; CRP, High Sensitivity; Status:Active; Requested for:89Ijf1605; Lipid Panel; Status:Active; Requested for:[id number]; Atherosclerosis of coronary artery of lumbee heart without angina pectoris, History of PTCA [...] a history of SCAD status post anterior WI in 2017, with extensive revascularization of the [...] negative for complaint. Vitals Vital Signs Recorded: [id number] 10:10AM Heart Rate92, L Radial Kuweauwg447, LUE, Sitting Zwamqvmfc84, LUE, Sitting Height5 ft 6 in Uxxhtt554 lb BMI Csaexkfjna09.54 kg/m2 BSA Calculated1.93 Tobacco Useb) No Physical [...] is no (more content not included)... Normal [employer] Tobacco Screening.on 023 Tobacco use status CPHS b) No [facility] DO Work Phone: Office Visit (Cardiology)on 07-15-2022 Follow-up visit Diagnoses/Problems Assessed Atherosclerosis of coronary artery of lumbee heart without angina pectoris (414.01) (I25.10) Essential hypertension (401.9) (I10) Hyperlipidemia (272.4) (E78.5) Class 1 obesity with body mass index (BMI) of 30.0 to 30.9 in adult (278.00,V85.30) (E66.9,Z68.30) Orders Class 1 obesity with body mass index (BMI) of 30.0 to 30.9 in adult Healthy Weight Tips; Status:Complete; Done: 15Jul2022 Patient Instructions Please bring all medicines, vitamins, [...] Major clinical markers: -Acute coronary syndrome or WI within 30 days: No -Decompensated heart failure: No -Significant arrhythmia: No -Severe valvular heart disease: No 2. Intermediate clinical markers -History of ischemic heart disease (prior WI, current chest pain secondary to ischemia, use [...] Delayed Release (more content not included)... Normal [facility] Tobacco Screening.on 023 Adult depression screening assessment No [facility] [facility] DO Work Phone: Tobacco use status CPHS b) No [facility] [facility] DO Work Phone: MRI HIP [...] by: ARLENE HUERTAS Date: 2022-07-11 13:15 Normal [facility] MRI LSPINE WO CONon 06-04-19 MRI [facility] WO CON EXAMINATION: MRI [facility] WO CON HISTORY: Lumbago with sciatica COMPARISON: [...] RICARDO NGUYEN Date: 2022-06-03 15:23 [address] [facility] XR LSPINE MIN 4 VIEWSon 05-04 [...] CATHLEEN BARROSO Date: 2022-05-19 09:42 Normal [facility] CBC AUTO DIFFon 09-21-2021 BASO # 0.0 103/ul Normal 0.0-0.[address] [facility] Comment on above: Performed By: #### C BC #### [facility] [address] [place] [address] Dr. Gwendolyn Maza Basophils/100 WBC (Bld) 0.4 % Normal 0.2-2.0 [facility] Comment on above: Performed By: #### C BC #### [facility] [address] [place] [address] Dr. Gwendolyn Maza EO # 0.1 103/ul Normal 0.0-0.[address] [facility] Comment on above: Performed By: #### C BC #### [facility] [address] [place] [address] Dr. Gwendolyn Maza Eosinophils/100 WBC (Bld) 1.9 % Normal 0.9-7.0 [facility] Comment on above: Performed By: #### C BC #### [facility] [address] [place] [address] Dr. Gwendolyn Maza Erythrocyte distribution width (RBC) [Ratio] 12.2 % Normal 11.0-15.0 [facility] Comment on above: Performed By: #### C BC #### [facility] [address] [place] [address] Dr. Gwendolyn Maza Hematocrit (Bld) [Volume fraction] 38.1 % Normal 36.0-48.0 [facility] Comment on above: Performed By: #### C BC #### [facility] [address] [place] [address] [address] Gwendolyn Maza Hemoglobin (Bld) [Mass/Vol] 12.8 g/dL Normal 12.0-16.0 [facility] Comment on above: Performed By: #### C BC #### [facility] [address] [place] [address] [address] Gwendolyn Maza IG # 0.01 10e3/ul Normal 0.00-0.03 [facility] Comment on above: Performed By: #### C BC #### [facility] [address] [place] [address] Dr. Gwendolyn Maza IG % 0.2 % Normal 0.0-0.5 [facility] Comment on above: Performed By: #### C BC #### [facility] [address] [place] [address] Dr. Gwendolyn Maza LYMPH # 0.9 103/ul Critically low 1.2-3.8 [facility] Comment on above: Performed By: #### C BC #### [facility] [address] [place] [address] Dr. Gwendolyn Maza Lymphocytes/100 WBC (Bld) 17.6 % Critically low 20.5-60.0 [facility] Comment on above: Performed By: #### C BC #### [facility] [address] [place] [address] Dr. Gwendolyn Maza MANUAL DIFF REQ NO Normal [facility] Comment on above: Performed By: #### C BC #### [facility] [address] [place] [address] Dr. Gwendolyn Maza MCH (RBC) [Entitic mass] 30.3 pg Normal 26.7-34.0 [facility] Comment on above: Performed By: #### C BC #### [facility] [address] [place] [address] Dr. Gwendolyn Maza MCHC (RBC) [Mass/Vol] 33.6 g/dL Normal 29.9-35.2 [facility] Comment on above: Performed By: #### C BC #### [facility] [address] [place] [address] [address] Gwendolyn Maza MCV (RBC) [Entitic vol] 90.1 fL Normal 81.0-99.0 [facility] Comment on above: Performed By: #### C BC #### [facility] [address] [place] [address] [address] Gwendolyn Maza MONO # 0.5 103/ul Normal 0.3-0.[address] [facility] Comment on above: Performed By: #### C BC #### [facility] [address] [place] [address] [address] Gwendolyn Maza Monocytes/100 WBC (Bld) 8.5 % Normal 1.7-12.0 [facility] Comment on above: Performed By: #### C BC #### [facility] [address] [place] [address] Dr. Gwendolyn Maza NEUT # 3.8 103/ul Normal 1.4-6.5 [facility] Comment on above: Performed By: #### C BC #### [facility] [address] [place] [address] Dr. Gwendolyn Maza Neutrophils/100 WBC (Bld) 71.4 % Normal 43.0-75.0 [facility] Comment on above: Performed By: #### C BC #### [facility] [address] [place] [address] Dr. Gwendolyn Maza Platelet mean volume (Bld) [Entitic vol] 8.4 fL Critically low 9.5-13.5 [facility] Comment on above: Performed By: #### C BC #### [facility] [address] [place] [address] Dr. Gwendolyn Maza PLT 229 103/ul Normal 150-[address] [facility] Comment on above: Performed By: #### C BC #### [facility] [address] [place] [address] Dr. Gwendolyn Maza RBC 4.23 106/ul Normal 4.20-5.[address] [facility] Comment on above: Performed By: #### C BC #### [facility] [address] [place] [address] Dr. Gwendolyn Maza WBC 5.3 103/ul Normal 4.0-11.0 [facility] Comment on above: Performed By: #### C BC #### [facility] [address] [place] [address] Dr. Gwendolyn Maza Covid-19 PCR ([facility])on 09-03 SARS-CoV-2 (COVID-19) RNA SAUL+probe Ql (Unsp spec) Not detected Normal NOT DETECTED [facility] Comment on above: Result Comment: When [...] for this test is supported by the Transmission Superintendent of Health and Human Service's declaration that [...] longer be used). Performed By: #### C VDTBH #### [facility] [address] [place] [address] Dr. Gwendolyn Maza LIPID PROFILEon 09-21-2021 CHOL-HDL RATIO NORM SEE BELOW Normal [facility] Comment on above: Result Comment: 3.3 - 4.4 LOW RISK 4.4 - 7.1 AVERAGE RISK 7.1 - 11.0 MODERATE RISK >11.0 HIGH RISK Performed By: #### C BC #### [facility] [address] [place] [address] Dr. Gwendolyn Maza Cholesterol [Mass/Vol] 207 mg/dL Critically high <=200 [facility] Comment on above: Performed By: #### C BC #### [facility] [address] [place] [address] [address] Gwendolyn Maza Cholesterol in HDL [Mass/Vol] 49 mg/dL Normal 40-60 [facility] Comment on above: Performed By: #### C BC #### [facility] [address] [place] [id number] Gwendolyn Maza Cholesterol in LDL [Mass/Vol] 112.2 mg/dL Normal [facility] Comment on above: Performed By: #### C BC #### [facility] [address] [place] [address] [address] Gwendolyn Maza Cholesterol.total/Ch olesterol in HDL [Mass ratio] 4.2 {ratio} Normal [facility] Comment on above: Performed By: #### C BC #### [facility] [address] [place] [address] Dr. Gwendolyn Maza HDL NORMAL > or = 60 mg/dl - LO W CARDIOVASCULAR RISK <40 mg/dl - HIGH CARDIOVASCULAR RISK Normal [facility] Comment on above: Performed By: #### C BC #### [facility] [address] [place] [address] Dr. Gwendolyn Maza LDL CALC NORMAL SEE BELOW Normal [facility] Comment on above: Result Comment: <100 mg/dl OPTIMAL 100 - 129 mg/dl NEAR OR ABOVE OPTIMAL 130 - 159 mg/dl BORDERLINE HIGH 160 - 189 mg/dl HIGH >190 mg/dl VERY HIGH Performed By: #### C BC #### [facility] [address] [place] [address] [address] Gwendolyn Maza Triglyceride [Mass/Vol] 229 mg/dL Critically high <=[address] [facility] Comment on above: Performed By: #### C BC #### [facility] [address] [place] [address] [address] Gwendolyn Maza VLDL CALC 45.8 mg/dL Normal [facility] Comment on above: Performed By: #### C BC #### [facility] [address] [place] [id number] Gwendolyn Maza PROF CHEM 8 (BAS METB)on Anion gap [Moles/Vol] 11.5 mmol/L Normal [facility] Comment on above: Performed By: #### C BC #### [facility] [address] [place] [address] [address] Gwendolyn Maza Calcium [Mass/Vol] 9.3 mg/dL Normal 8.5-10.1 [facility] Comment on above: Performed By: #### C BC #### [facility] [address] [place] [address] [address] Gwendolyn Maza Chloride [Moles/Vol] 104 mmol/L Normal 98-[address] [facility] Comment on above: Performed By: #### C BC #### [facility] [address] [place] [address] [address] Gwendolyn Maza CO2 [Moles/Vol] 28.9 mmol/L Normal 21.0-32.0 [facility] Comment on above: Performed By: #### C BC #### [facility] [address] [place] [address] [address] Gwendolyn Maza Creatinine [Mass/Vol] 1.21 mg/dL Critically high 0.55-1.02 [facility] Comment on above: Performed By: #### C BC #### [facility] [address] [place] [address] [address] Gwendolyn Maza EGFR-AF NAURUAN 55 mL/min/1.73m2 Critically low >=60 [facility] Comment on above: Performed By: #### C BC #### [facility] [address] [place] [address] [address] Gwendolyn Maza EGFR-NON AF NAURUAN 46 mL/min/1.73m2 Critically low >=[address] [facility] Comment on above: Performed By: #### C BC #### [facility] [address] [place] [address] [address] Gwendolyn Maza Glucose [Mass/Vol] 105 mg/dL Normal 74-106 [facility] Comment on above: Performed By: #### C BC #### [facility] [address] [place] [address] [address] Gwendolyn Maza Potassium [Moles/Vol] 4.4 mmol/L Normal 3.5-5.1 [facility] Comment on above: Performed By: #### C BC #### [facility] [address] [place] [address] [address] Gwendolyn Maza Sodium [Moles/Vol] 140 mmol/L Normal 136-145 [facility] Comment on above: Performed By: #### C BC #### [facility] [address] [place], [place] [address] Dr. Gwendolyn Maza Urea nitrogen [Mass/Vol] 23.0 mg/dL Critically high 7.0-18.0 [facility] Comment on above: Performed By: #### C BC #### [facility] [address] [place] [address] [address] Gwendolyn Maza Urea nitrogen/Creatinine [Mass ratio] 19.0 mg/mg Normal [facility] Comment on above: Performed By: #### C BC #### [facility] [address] [place] [address] [address] Gwendolyn Mcnally 09-21-2021 AST [Catalytic activity/Vol] 20 U/L Normal 15-37 [facility] Comment on above: Performed By: #### C BC #### [facility] [address] [place] [address] [address] Gwendolyn Jarrett 09-21-2021 ALT [Catalytic activity/Vol] 44 U/L Normal 14-59 [facility] Comment on above: Performed By: #### C BC #### [facility] [address] [place] [address] Dr. Gwendolyn Maza PHQ-2 VITALSon 09-07-2021 Adult depression screening assessment No [facility] DO Work Phone: Fall risk assessment c) Not medically indicated [facility] [facility] DO Work Phone: Tobacco use status CPHS b) No [facility] DO Work Phone: MRI KNEE LT [...] by: RICARDO NGUYEN Date: 2021-08-03 16:42 Normal [facility] US TUCKER DOP LEG LTon 07-27-19 [...] by: CATHLEEN BARROSO Date: 2021-07-26 11:03 Normal [facility] XR KNEE LT 4V or >on [...] by: DOMONIQUE TILLMAN Date: 2021-07-25 00:58 Normal [facility] Vital Signs Date Time Vital Sign Value Performing Clinician Facility 09-26-2024 [id number] Body height 167.6 cm Eric Kern DO Work Phone: [facility] 09-26-2024 13:11-0400 Body mass index (BMI) [Ratio] 30.6 kg/m2 Eric Kern DO Work Phone: [facility] 09-26-2024 13:11-0400 Body weight 86 kg Eric Kern DO Work Phone: [facility] 09-26-2024 13:11-0400 Diastolic blood pressure 76 mm[Hg] Eric Kern DO Work Phone: [facility] 09-26-2024 13:11-0400 Heart rate 84 /min Eric Kern DO Work Phone: [facility] 09-26-2024 13:11-0400 Systolic blood pressure 106 mm[Hg] Eric Kern DO Work Phone: [facility] 08-15-2024 11:40-0400 Body mass index (BMI) [Ratio] 30.96 kg/m2 Kenya Debby DIRECTOR [employer] Work Phone: [facility] 08-15-2024 11:40-0400 Body temperature 98.71 [degF] Kenya Lorhtashaz DIRECTOR [employer] Work Phone: [facility] 08-15-2024 11:40-0400 Body weight 87 kg Kenya Aichtashaz DIRECTOR [employer] Work Phone: [facility] 08-15-2024 11:40-0400 Diastolic blood pressure 72 mm[Hg] Kenya Aichtashaz DIRECTOR [employer] Work Phone: [facility] 08-15-2024 11:40-0400 Heart rate 91 /min Kenya Aichholz DIRECTOR [employer] Work Phone: [facility] 08-15-2024 11:40-0400 Respiratory rate 18 /min Kenya Parishz DIRECTOR [employer] Work Phone: [facility] 08-15-2024 11:40-0400 SaO2% (BldA) [Mass fraction] 97 % Kenya Kadenholz DIRECTOR [employer] Work Phone: [facility] 08-15-2024 11:40-0400 Systolic blood pressure 132 mm[Hg] Kenya Aichholz DIRECTOR [employer] Work Phone: [facility] 07-31-2024 11:27-0400 Body mass index (BMI) [Ratio] 30.83 kg/m2 Kenya Aichholz DIRECTOR [employer] Work Phone: [facility] 07-31-2024 11:27-0400 Body temperature 98.49 [degF] Kenya Aichholz DIRECTOR [employer] Work Phone: [facility] 07-31-2024 11:27-0400 Body weight 86.64 kg Kenya Lorhholz DIRECTOR [employer] Work Phone: [facility] 07-31-2024 11:27-0400 Diastolic blood pressure 80 mm[Hg] Kenya oLrhholz DIRECTOR [employer] Work Phone: [facility] 07-31-2024 11:27-0400 Heart rate 86 /min Kenya Aichholz DIRECTOR [employer] Work Phone: [facility] 07-31-2024 11:27-0400 Respiratory rate 19 /min Kenya Aichholz DIRECTOR [employer] Work Phone: [facility] 07-31-2024 11:27-0400 SaO2% (BldA) [Mass fraction] 98 % Kenya Kadenholz DIRECTOR [employer] Work Phone: [facility] 07-31-2024 11:27-0400 Systolic blood pressure 122 mm[Hg] Kenya Aichholz DIRECTOR [employer] Work Phone: [facility] 01-08-2024 13:39-0500 Body height 167.6 cm Kenya Aichholz DIRECTOR [employer] Work Phone: [facility] 01-08-2024 13:39-0500 Body mass index (BMI) [Ratio] 31.09 kg/m2 Kenya Aichholz DIRECTOR [employer] Work Phone: [facility] 01-08-2024 13:39-0500 Body temperature 97.59 [degF] Kenya Guardado DIRECTOR [employer] Work Phone: [facility] 01-08-2024 13:39-0500 Body weight 87.36 kg Kenya Guardado DIRECTOR [employer] Work Phone: [facility] 01-08-2024 13:39-0500 Diastolic blood pressure 102 mm[Hg] Kenya Guardado DIRECTOR [employer] Work Phone: [facility] 01-08-2024 13:39-0500 Heart rate 78 /min Kenya Guardado DIRECTOR [employer] Work Phone: [facility] 01-08-2024 13:39-0500 Respiratory rate 18 /min Kenya Guardado DIRECTOR [employer] Work Phone: [facility] 01-08-2024 13:39-0500 SaO2% (BldA) [Mass fraction] 96 % Kenya Guardado DIRECTOR [employer] Work Phone: [facility] 01-08-2024 13:39-0500 Systolic blood pressure 160 mm[Hg] Kenya Guardado DIRECTOR [employer] Work Phone: [facility] 11-13-2023 10:12-0400 Body height 167.6 cm [employer] DO Work Phone: [facility] 11-13-2023 10:12-0400 Body mass index (BMI) [Ratio] 30.86 kg/m2 [employer] DO Work Phone: [facility] 11-13-2023 10:12-0400 Body weight 86.73 kg [employer] DO Work Phone: [facility] 11-13-2023 10:12-0400 Diastolic blood pressure 72 mm[Hg] [employer] DO Work Phone: [facility] 11-13-2023 10:12-0400 Heart rate 85 /min [employer] DO Work Phone: [facility] 11-13-2023 10:12-0400 Respiratory rate 16 /min Osvaldo Nichole DO Work Phone: [facility] 11-13-2023 10:12-0400 SaO2% (BldA) [Mass fraction] 95 % Osvaldo Nichole DO Work Phone: [facility] 11-13-2023 10:12-0400 Systolic blood pressure 124 mm[Hg] Osvaldo Nichole DO Work Phone: [facility] 11-08-2023 11:06-0400 Body height 167.6 cm Kenya Aichholz DIRECTOR [employer] Work Phone: [facility] 11-08-2023 11:06-0400 Body mass index (BMI) [Ratio] 31.15 kg/m2 Kenya Aichholz DIRECTOR [employer] Work Phone: [facility] 11-08-2023 11:06-0400 Body temperature 97.81 [degF] Kenya Aichholz DIRECTOR [employer] Work Phone: [facility] 11-08-2023 11:06-0400 Body weight 87.54 kg Kenya Aichholz DIRECTOR [employer] Work Phone: [facility] 11-08-2023 11:06-0400 Diastolic blood pressure 82 mm[Hg] Kenya Aichholz DIRECTOR [employer] Work Phone: [facility] 11-08-2023 11:06-0400 Heart rate 82 /min Kenya Aichholz DIRECTOR [employer] Work Phone: [facility] 11-08-2023 11:06-0400 Respiratory rate 18 /min Kenya Aichholz DIRECTOR [employer] Work Phone: [facility] 11-08-2023 11:06-0400 SaO2% (BldA) [Mass fraction] 96 % Kenya Aichholz DIRECTOR [employer] Work Phone: [facility] 11-08-2023 11:06-0400 Systolic blood pressure 122 mm[Hg] Kenya Aichholz DIRECTOR [employer] Work Phone: [facility] 10-19-2023 14:21-0400 Diastolic blood pressure 76 mm[Hg] Madelaine 1 [facility] 10-19-2023 14:21-0400 Heart rate 77 /min Madelaine 1 [facility] 10-19-2023 14:21-0400 Systolic blood pressure 112 mm[Hg] Madelaine 1 [facility] 09-16-2022 10:10-0400 Body height 167.64 cm Kenya Phillips Lorgilbertholjose francisco Work Phone: [facility] DO Work Phone: 09-16-2022 10:10-0400 Body mass index (BMI) [Ratio] 29.54 kg/m2 Kenya Jacqueline Horowitzgilbertholz Work Phone: [facility] DO Work Phone: 09-16-2022 10:10-0400 Body surface area Derived from formula 1.93 m2 Kenya Jacqueline Horowitzgilbertholz Work Phone: [facility] DO Work Phone: 09-16-2022 10:10-0400 Body weight 83.01 kg Kenya Phillips Lorgilbertholz Work Phone: [facility] DO Work Phone: 09-16-2022 10:10-0400 Diastolic blood pressure 60 mm[Hg] Kenya Jacqueline Horowitzgilbertholz Work Phone: [facility] [facility] DO Work Phone: 09-16-2022 10:10-0400 Heart rate 92 /min Kenya Jacqueline Alfonsoholz Work Phone: [facility] DO Work Phone: 09-16-2022 10:10-0400 Systolic blood pressure 104 mm[Hg] Kenya Alfonsoholz Work Phone: [facility] DO Work Phone: 07-15-2022 09:18-0400 Body height 167.64 cm Kenya Alfonsoholz Work Phone: [facility] DO Work Phone: 07-15-2022 09:18-0400 Body mass index (BMI) [Ratio] 30.34 kg/m2 Kenya Phillips Aicgilbertholz Work Phone: [facility] DO Work Phone: 07-15-2022 09:18-0400 Body surface area Derived from formula 1.95 m2 Kenya Horowitzhholz Work Phone: [facility] DO Work Phone: 07-15-2022 09:18-0400 Body weight 85.28 kg Kenya Alfonsoholz Work Phone: [facility] DO Work Phone: 07-15-2022 09:18-0400 Diastolic blood pressure 84 mm[Hg] Kenya Horowitzhholz Work Phone: [facility] DO Work Phone: 07-15-2022 09:18-0400 Heart rate 101 /min Kenya Horowitzhholz Work Phone: [facility] DO Work Phone: 07-15-2022 09:18-0400 Systolic blood pressure 108 mm[Hg] Kenya Horowitzhholz Work Phone: [facility] DO Work Phone: 09-07-2021 10:41-0400 Body height 167.64 cm Kenya Horowitzhholz Work Phone: [facility] 250 DO Work Phone: 09-07-2021 10:41-0400 Body mass index (BMI) [Ratio] 29.38 kg/m2 Kenya Guardado Work Phone: [facility] 250 DO Work Phone: 09-07-2021 10:41-0400 Body surface area Derived from formula 1.92 m2 Kenya Guardado Work Phone: [facility] [employer] 250 DO Work Phone: 09-07-2021 10:41-0400 Body weight 82.56 kg Kenya Guardado Work Phone: [facility] [employer] 250 DO Work Phone: 09-07-2021 10:41-0400 Diastolic blood pressure 68 mm[Hg] Kenya Guardado Work Phone: [facility] [employer] 250 DO Work Phone: 09-07-2021 10:41-0400 Heart rate 72 /min Kenya Guardado Work Phone: [facility] [employer] 250 DO Work Phone: 09-07-2021 10:41-0400 Systolic blood pressure 110 mm[Hg] Kenya Guardado Work Phone: [facility] [employer] 250 DO Work Phone: Encounters Encounter Date Encounter Type Care Provider Facility Start: 09-26-2024 End: 09-26-2024 Office outpatient visit 25 minutes Eric Kern DO Work Phone: [facility] Comment on above: History of WI (myoca rdial infarction); Atherosclerosis of coronary artery of lumbee heart without angina pectoris, unspecified vessel or lesion type; Essential hypertension; History of PTCA; Mixed hyperlipidemia; History of mycobacterial infection; BMI 30.0-30.9,adult; Never smoked tobacco; Hyperlipidemia, unspecified Start: 09-26-2024 End: 09-26-2024 ambulatory [facility] Start: 08-16-2024 End: 08-16-2024 Clinisync Result Encounter Kenya Alfonsolamont DIRECTOR INDEPENDENT Work Phone: [facility] Unsolicited Start: 08-16-2024 End: 08-16-2024 Clinisync Result Encounter Kenya Kadenholz DIRECTOR INDEPENDENT Work Phone: [facility] Unsolicited Start: 08-15-2024 End: 08-15-2024 Bamboo flowsheet Kenya Aichholz DIRECTOR INDEPENDENT Work Phone: [facility] Start: 08-15-2024 End: 08-15-2024 Bamboo flowsheet Kenya Aichholz DIRECTOR INDEPENDENT Work Phone: [facility] Start: 08-15-2024 End: 08-15-2024 Clinisync Result Encounter Kenya Kadenholz DIRECTOR INDEPENDENT Work Phone: [facility] Unsolicited Start: 08-15-2024 End: 08-15-2024 Office outpatient visit 15 minutes Kenya Kadenholz DIRECTOR INDEPENDENT Work Phone: [facility] Comment on above: Hyperkalemia (Primar y Dx); Essential hypertension ; Class 1 obesity due to excess calories with serious comorbidity and body mass index (BMI) of 31.0 to 31.9 in adult; Other fatigue; Anemia due to other cause, not classified Start: 08-15-2024 End: 08-15-2024 ambulatory KENYA KADENHOLZ Not Available Start: 08-08-2024 End: 08-08-2024 Orders Only Kenya Aichholz DIRECTOR INDEPENDENT Work Phone: [facility] Comment on above: Hyperkalemia (Primar y Dx); Chronic kidney disease, stage 3a (HCC) ([facility]/HCC) Start: 08-07-2024 End: 08-07-2024 Bamboo flowsheet Calos HENDERSON Work Phone: [facility] Start: 08-07-2024 End: 08-07-2024 Bamboo flowsheet Calos HENDERSON Work Phone: [facility] Start: 08-07-2024 End: 08-07-2024 Office outpatient visit 10 minutes Calos HENDERSON Work Phone: [facility] Comment on above: Acute hip pain, left (Primary Dx); Acute left lumbar radiculopathy Start: 08-07-2024 End: 08-07-2024 ambulatory CALOS PURI Not Available Start: 07-31-2024 End: 07-31-2024 Bamboo flowsheet Kenya Guardado DIRECTOR INDEPENDENT Work Phone: [facility] Start: 07-31-2024 End: 07-31-2024 Bamboo flowsheet Kenya Guardado DIRECTOR INDEPENDENT Work Phone: [facility] Start: 07-31-2024 End: 07-31-2024 Clinisync Result Encounter Kenya Guardado DIRECTOR INDEPENDENT Work Phone: [facility] External Department Unsolicited Start: 07-31-2024 End: 07-31-2024 Office outpatient visit 25 minutes Kenya Guardado DIRECTOR INDEPENDENT Work Phone: [facility] Comment on above: Other fatigue (Prima ry Dx); Essential hypertension (CMS/HCC); Atherosclerosis of lumbee coronary artery of lumbee heart without angina pectoris (CMS/HCC); Mixed hyperlipidemia (CMS/HCC); Dizziness and giddiness; Arthralgia, unspecified joint; Polyuria Start: 07-31-2024 End: 07-31-2024 ambulatory KENYA DEBBY Not Available Start: 07-24-2024 End: 07-24-2024 Bamboo flowsheet Calos HENDERSON Work Phone: [facility] Start: 07-24-2024 End: 07-24-2024 Bamboo flowsheet Calos HENDERSON Work Phone: [facility] Start: 07-24-2024 End: 07-24-2024 Office outpatient visit 15 minutes Calos HENDERSON Work Phone: [facility] Comment on above: Acute hip pain, left (Primary Dx); Acute left lumbar radiculopathy; History of total hip replacement, left Start: 07-24-2024 End: 07-24-2024 ambulatory CALOS PURI Not Available Start: 07-03-2024 End: 07-03-2024 Office outpatient visit 25 minutes Calos HENDERSON Work Phone: [facility] Comment on above: Acute hip pain, left (Primary Dx); History of total hip replacement, left; Trochanteric bursitis of left hip Start: 07-03-2024 End: 07-03-2024 ambulatory CALOS PURI Not Available Start: 01-08-2024 End: 01-08-2024 Bamboo flowsheet Kenya Guardado DIRECTOR INDEPENDENT Work Phone: [facility] Start: 01-08-2024 End: 01-08-2024 Bamboo flowsheet Kenya Guardado DIRECTOR INDEPENDENT Work Phone: [facility] Start: 01-08-2024 End: 01-08-2024 Clinisync Result Encounter Kenya Guardado NP Work Phone: [facility] External Department Unsolicited Start: 01-08-2024 End: 01-08-2024 Office outpatient visit 15 minutes Kenya Guardado NP Work Phone: [facility] Comment on above: Viral upper respirat ory illness (Primary Dx); Class 1 obesity due to excess calories with serious comorbidity and body mass index (BMI) of 31.0 to 31.9 in adult; Essential hypertension (CMS/HCC); Nausea Start: 01-08-2024 End: 01-08-2024 ambulatory KENYA GUARDADO Not Available Start: 12-11-2023 End: 01-23-2024 Telephone encounter Alexis Bo DIRECTOR INDEPENDENT Work Phone: [facility] Start: 11-15-2023 End: 11-15-2023 Bamboo flowsheet Calos HENDERSON Work Phone: [facility] Start: 11-15-2023 End: 11-15-2023 Bamboo flowsheet Calos HENDERSON Work Phone: [facility] Start: 11-15-2023 End: 11-15-2023 ambulatory CALOS PURI Not Available Start: 11-15-2023 End: 11-15-2023 Office outpatient visit 15 minutes Calos Puri PA Work Phone: [facility] Comment on above: Status post left hip replacement (Primary Dx); Left hip pain Start: 11-13-2023 End: 11-13-2023 Bamboo flowsheet Osvaldo Jeannine DO Work Phone: [facility] Start: 11-13-2023 End: 11-13-2023 Bamboo flowsheet Osvaldo Jeannine DO Work Phone: [facility] Start: 11-13-2023 End: 11-13-2023 Patient encounter procedure Osvaldo Jeannine DO Work Phone: [facility] Comment on above: Encounter for screen ing colonoscopy (Primary Dx) Start: 11-13-2023 End: 11-13-2023 ambulatory OSVALDO JEANNINE Not Available Start: 11-08-2023 End: 11-08-2023 Bamboo flowsheet Kenya Guardado DIRECTOR INDEPENDENT Work Phone: [facility] Start: 11-08-2023 End: 11-08-2023 Bamboo flowsheet Kenya Guardado DIRECTOR INDEPENDENT Work Phone: [facility] Start: 11-08-2023 End: 11-08-2023 ambulatory KENYA GUARDADO Not Available Start: 11-08-2023 End: 11-08-2023 Patient encounter status Kenya Guardado DIRECTOR INDEPENDENT Work Phone: [facility] Start: 11-08-2023 End: 11-08-2023 Periodic preventive med est patient 40-64yrs Kenya Guardado DIRECTOR INDEPENDENT Work Phone: [facility] Comment on above: Wellness examination (Primary Dx); [...] by physician Madelaine High Stress Room 1 [facility] Comment on above: History of WI (myoca rdial infarction); History of PTCA; Atherosclerosis of coronary artery of lumbee heart without angina pectoris, unspecified vessel or lesion type Start: 10-19-2023 End: 10-19-2023 ambulatory ERIC KERN [facility] Start: 09-16-[address] Eric Kern Facility: Start: 09-16-2022 Office outpatient vi sit 15 minutes Kenya Jacqueline Guardado Work Phone: [facility] 250 DO Work Phone: Start: 09-16-2022 Patient encounter procedure Kenya Phillips Debby Work Phone: [facility] 250 DO Work Phone: Start: 07-15-2022 Office outpatient vi sit 25 minutes Kenya Jacqueline Lugoz Work Phone: [facility] 250 DO Work Phone: Start: 07-15-2022 ambulatory Mrs. Kenya Phillips Debby Facility: Start: 07-11-2022 End: 07-12-2022 ambulatory ALPESH GUARDADO Facility:H1 Start: 07-08-2022 ambulatory ALPESH GUARDADO [facility] ity:H1 Start: 06-30-2022 End: 07-01-2022 ambulatory ALPESH GUARDADO Facility:H1 Start: 06-03-2022 End: 06-04-[address] RICARDO NGUYEN Facility:H1 Start: 05-19-2022 End: 05-20-2022 ambulatory Cathleen Vjeugenio Facility:H1 Start: 03-30-2022 Rx Renewal Kenya Kee lz Work Phone: [facility] 250 DO Work Phone: Start: 02-08-2022 Rx Renewal Kenya Kee lz Work Phone: [facility] 250 DO Work Phone: Start: 09-27-2021 Encounter for preprocedural laboratory examination DR TERESA SU [facility] Start: 09-21-2021 End: 09-22-2021 Encounter for preprocedural laboratory examination ALPESH GUARDADO Facility:H1 Start: 09-21-2021 End: 09-22-2021 ambulatory ALPESH GUARDADO Facility:H1 Start: 09-07-2021 Office outpatient vi sit 25 minutes Kenyadennis Horowtizgilbertlamont Work Phone: [facility] 250 DO Work Phone: Start: 08-03-2021 End: 08-04-[address] RICARDO NGUYEN Facility:H1 Start: 07-26-2021 End: 07-27-[address] DOCTOR GARCIA Facility:H1 Start: 07-25-2021 End: 07-25-[address] JOANN COOLEY Facility:H1 Start: 04-12-2021 Rx Renewal Eric mckinley DO Work Phone: [facility] 250 DO Work Phone: Start: 02-15-2021 Rx Renewal Eric mckinley DO Work Phone: [facility] 250 DO Work Phone: Start: 05-10-2017 Ambulatory PROVIDER UNKNOWN Facili ty:[id number] Start: 01-11-2017 Ambulatory PROVIDER UNKNOWN Facili ty:[id number] Procedures Date Procedure Procedure Detail Performing Clinician Start: 08-16-2024 XR ABDOMEN 1V Kenya olmos DIRECTOR INDEPENDENT Work Phone: Start: 08-16-2024 US RENAL BI Kenya Kim russ DIRECTOR INDEPENDENT Work Phone: Start: 08-15-2024 ALL CBC WITH AUTO DIFF Kenya Parishz DIRECTOR INDEPENDENT Work Phone: Start: 07-31-2024 ALL CBC WITH AUTO DIFF Kenya Kadenholz DIRECTOR INDEPENDENT Work Phone: Start: 07-31-2024 ALL SED RATE Kenya Kim arturoz DIRECTOR INDEPENDENT Work Phone: Start: 07-24-2024 Radex spine lumbosac ral 2/3 views Calos Puri PA Work Phone: Start: 07-03-2024 LARGE JOINT ARTHROCENTESIS Calos Puri PA Work Phone: Start: 01-08-2024 SARS-COV-2 AG* Kenya rosalesoljose francisco DIRECTOR INDEPENDENT Work Phone: Start: 12-05-2023 Colonoscopy Kenya Kim arturoz DIRECTOR INDEPENDENT Work Phone: Start: 11-21-2023 Mammography Kenya Lorbobby arturoz DIRECTOR INDEPENDENT Work Phone: Start: 10-19-2023 Cv strs tst xers&/or rx cont ecg trcg only Eric Kern DO Work Phone: Start: 03-27-2023 History of percutane ous transluminal coronary angioplasty History of PTCA Madelaine 1 Cardiac catheterization Kenya Horowitzhtashaz Work Phone: section Kenya Horowitz hholz Work Phone: History of percutane ous transluminal coronary angioplasty History of PTCA Kenya Horowitzhholz Work Phone: History of percutane ous transluminal coronary angioplasty History of PTCA Madelaine 1 History of percutane ous transluminal coronary angioplasty History of PTCA Eric Kern DO Work Phone: Operative procedure on foot Kenya Horowitzhtashaz Work Phone: Percutaneous translu ana coronary angioplasty Kenya Phillips Debby Work Phone: Total replacement of hip Jigna Phillips Debby Work Phone: NEGATED: Highlighted row has not occurred! Total colonoscopy Kenya Phillips Lorgilbertlamont Work Phone: Plan of Treatment Date Care Activity Detail Author Start: 12-04-2033 Screening for malignant neoplasm of colon [facility] Start: 11-14-2025 End: 11-14-2025 Patient encounter procedure 11/14/2025 9:00 AM EDT Office Visit [facility] [address] [facility] [place] [address] Calos Puri PA [address] [facility] [address] [place] [address] [facility] Start: 09-25-2025 End: 09-25-2025 Patient encounter procedure 09/25/2025 1:20 PM EDT Office Visit [facility] [address] [place] [phone] Eric Kern, [address] [place], [place] [id number] [facility] Start: 11-20-2024 Screening for malignant neoplasm of breast Mammogram [facility] Start: 11-11-2024 End: 11-11-2024 Patient encounter procedure 11/11/2024 11:00 AM EDT Office Visit [facility] [address] [place] [address] Kenya Guardado, TIFFANI [address] [place] [address] [facility] Start: 11-08-2024 Yearly Adult Physical Yearly Adult Physical [facility] Start: 11-04-2024 Influenza vaccination Influenza Vaccine (#1) [facility] Start: 09-26-2024 End: 09-26-2024 Patient encounter procedure 09/26/2024 9:10 AM EDT Office Visit [facility] [address] [place] [address] Eric Kern DO [address] [place] [address] [facility] Start: 08-15-2024 End: 08-15-2025 CBC W Auto Differential panel - Blood CBC and differential Lab Routine Essential hypertension Hyperkalemia Anemia due to other cause, not classified Expected: 08/15/2024 (Approximate), Expires: 08/15/2025 [facility] Work Phone: Comment on above: Expected: 08/15/2024 (Approximate), Expi res: 08/15/2025 Start: 08-15-2024 End: 08-15-2025 Phosphate [Moles/volume] in Serum or Plasma Phosphorus Lab Routine Hyperkalemia Anemia due to other cause, not classified Expected: 08/15/2024 (Approximate), Expires: 08/15/2025 [facility] Comment on above: Expected: 08/15/2024 (Approximate), Expi res: 08/15/2025 Start: 08-15-2024 End: 08-15-2024 Patient encounter procedure [facility] Comment on above: Essential hypertension (Primary Dx); Class 1 obesity due to excess calories with serious comorbidity and body mass index (BMI) of 31.0 to 31.9 in adult; Other fatigue; Hyperkalemia Start: 08-08-2024 End: 08-08-2025 Basic metabolic 1998 panel - Serum or Plasma Basic metabolic panel Lab Routine Hyperkalemia Chronic kidney disease, stage 3a (HCC) (CMS/HCC) Expected: 08/08/2024 (Approximate), Expires: 08/08/2025 [facility] Work Phone: Comment on above: Expected: 08/08/2024 (Approximate), Expi res: 08/08/2025 Start: 08-07-2024 End: 08-07-2024 Patient encounter procedure [facility] Comment on above: Acute hip pain, left (Primary Dx) Start: 07-31-2024 End: 07-31-2025 C reactive protein [Mass/volume] in Serum or Plasma C-reactive protein Lab Routine Arthralgia, unspecified joint Expected: 07/31/2024 (Approximate), Expires: 07/31/2025 [facility] Comment on above: Expected: 07/31/2024 (Approximate), Expi res: 07/31/2025 Start: 07-31-2024 End: 07-31-2025 CBC W Auto Differential panel - Blood [facility] Comment on above: Expected: 07/31/2024 (Approximate), Expi res: 07/31/2025 Start: 07-31-2024 End: 07-31-2025 Cobalamin (Vitamin B12) [Mass/volume] in Serum or Plasma Vitamin B12 Lab Routine Other fatigue Expected: 07/31/2024 (Approximate), Expires: 07/31/2025 [facility] Comment on above: Expected: 07/31/2024 (Approximate), Expi res: 07/31/2025 Start: 07-31-2024 End: 07-31-2025 Comprehensive metabolic 2000 panel - Serum or Plasma Comprehensive metabolic panel Lab Routine Essential hypertension (CMS/HCC) Mixed hyperlipidemia (CMS/HCC) Expected: 07/31/2024 (Approximate), Expires: 07/31/2025 [facility] Work Phone: Comment on above: Expected: 07/31/2024 (Approximate), Expi res: 07/31/2025 Start: 07-31-2024 End: 07-31-2025 Erythrocyte sedimentation rate Sedimentation rate, automated Lab Routine Arthralgia, unspecified joint Expected: 07/31/2024 (Approximate), Expires: 07/31/2025 [facility] Comment on above: Expected: 07/31/2024 (Approximate), Expi res: 07/31/2025 Start: 07-31-2024 End: 07-31-2025 Ferritin [Mass/volume] in Serum or Plasma Ferritin Lab Routine Other fatigue Expected: 07/31/2024 (Approximate), Expires: 07/31/2025 [facility] Comment on above: Expected: 07/31/2024 (Approximate), [...] Other fatigue Expected: 07/31/2024 (Approximate), Expires: 07/31/2025 [facility] Comment on above: Expected: 07/31/2024 (Approximate), Expi res: 07/31/2025 Start: 07-31-2024 End: 07-31-2025 Urate [Mass/volume] in Serum or Plasma Uric acid Lab Routine Arthralgia, unspecified joint Expected: 07/31/2024 (Approximate), Expires: 07/31/2025 [facility] Comment on above: Expected: 07/31/2024 (Approximate), Expi res: 07/31/2025 Start: 07-31-2024 End: 07-31-2025 Urinalysis complete panel - Urine Urinalysis with reflex microscopic (clean catch) Lab Routine Polyuria Expected: 07/31/2024 (Approximate), Expires: 07/31/2025 [facility] Comment on above: Expected: 07/31/2024 (Approximate), Expi res: 07/31/2025 Start: 07-31-2024 End: 07-31-2024 Patient encounter procedure [facility] Comment on above: Essential hypertension (CMS/HCC) (Primar y Dx); Atherosclerosis of lumbee coronary artery of lumbee heart without angina pectoris (CMS/HCC); Mixed hyperlipidemia (CMS/HCC) Start: 07-24-2024 End: 07-24-2025 MR Lumbar spine WO contrast MR lumbar spine wo contrast Imaging Routine Acute left lumbar radiculopathy Expected: 07/24/2024 (Approximate), Expires: 07/24/2025 [facility] Work Phone: Comment on above: Expected: 07/24/2024 (Approximate), Expi res: 07/24/2025 Start: 07-24-2024 End: 07-24-2024 Patient encounter procedure [facility] Comment on above: Arrived Start: 01-08-2024 End: 01-08-2024 Patient encounter procedure 01/08/2024 1:40 PM EST Office Visit [facility] [address] [place] [address] Kenya Guardado NP [address] [place] [address] Arrived [facility] Comment on above: Arrived Start: 01-03-2024 Influenza vaccination Influenza Vaccine (#1) [facility] Comment on above: Postponed from 11/05/2023 (Patient Does Not Have Time) Start: 11-15-2023 End: 11-15-2023 Patient encounter procedure 11/15/2023 8:45 AM EDT Office Visit [facility] [address] [place] [phone] Calos Puri, PA [address] [place] [address] [facility] Start: 11-13-2023 End: 11-13-2023 Patient encounter procedure 11/13/2023 10:00 AM EDT Office Visit [facility] [address] [place] [phone] Osvaldo Nichole DO [address] [place] [phone] Arrived [facility] Comment on above: Arrived Start: 11-08-2023 End: 11-07-2024 CBC W Auto Differential panel - Blood CBC and differential Lab Routine Wellness examination Expected: 11/08/2023 (Approximate), Expires: 11/07/2024 [facility] Work Phone: Comment on above: Expected: 11/08/2023 (Approximate), Expi res: 11/07/2024 Start: 11-08-2023 End: 11-07-2024 Comprehensive metabolic 2000 panel - Serum or Plasma Comprehensive metabolic panel Lab Routine Wellness examination Expected: 11/08/2023 (Approximate), Expires: 11/07/2024 [facility] Comment on above: Expected: 11/08/2023 (Approximate), Expi res: 11/07/2024 Start: 11-08-2023 End: 11-07-2024 Lipid 1996 panel - Serum or Plasma Lipid panel Lab Routine Wellness examination Expected: 11/08/2023 (Approximate), Expires: 11/07/2024 [facility] Comment on above: Expected: 11/08/2023 (Approximate), Expi res: 11/07/2024 Start: 11-08-2023 End: 01-07-2025 MG Breast - bilateral Screening Bilateral screening mammogram Imaging Routine Encounter for screening mammogram for malignant neoplasm of breast Expected: 11/08/2023 (Approximate), Expires: 01/07/2025 [facility] Comment on above: Expected: 11/08/2023 (Approximate), Expi res: 01/07/2025 Start: 11-08-2023 End: 11-07-2024 Urinalysis complete panel - Urine Urinalysis with reflex microscopic (clean catch) Lab Routine Wellness examination Expected: 11/08/2023 (Approximate), Expires: 11/07/2024 [facility] Comment on above: Expected: 11/08/2023 (Approximate), Expi res: 11/07/2024 Start: 11-05-2023 COVID-19 Vaccine ( season) COVID-19 Vaccine ( season) [facility] Start: 11-05-2023 Influenza vaccination Influenza Vaccine (#1) [facility] Start: 09-27-2023 FUV, Provider: Eric Kern, Status: Alejo, Time: 9:00 AM FUV, Provider: Eric Kern, Status: Alejo, Time: 9:00 AM [place] [address] DO Work Phone: Start: 11-04-2022 COVID-19 Vaccine ( season) COVID-19 Vaccine ( season) [facility] Start: 09-07-2022 FUV, Provider: Eric Kern, Status: Alejo, Time: 9:40 AM FUV, Provider: Eric Kern, Status: Pen, Time: 9:40 AM [facility] [employer] 250 DO Work Phone: Start: 2022 RSV High Risk: (Elderly (60+) or Population) (1 - Risk 60-74 years 1-dose series) RSV High Risk: (Elderly (60+) or Population) (1 - Risk 60-74 years 1-dose series) [facility] Start: 2022 RSV patients and/or patients aged 60+ years (1 - 1-dose 60+ series) RSV patients and/or patients aged 60+ years (1 - 1-dose 60+ series) [facility] Start: 09-07-2021 FUV, Provider: Eric Kern, Status: Pen, Time: 10:15 AM FUV, Provider: Eric Kern, Status: Pen, Time: 10:15 AM [facility] [employer] 250 DO Work Phone: Start: 03-06-2018 Pneumococcal vaccination Pneumococcal Vaccine (2 of 2 - PCV) [facility] Start: 03-06-2018 Pneumococcal Vaccine: Pediatrics (0 to 5 Years) and At-Risk Patients (6 to 64 Years) (2 of 2 - PCV) Pneumococcal Vaccine: Pediatrics (0 to 5 Years) and At-Risk Patients (6 to 64 Years) (2 of 2 - PCV) [facility] Start: 2012 Zoster Vaccines (1 of 2) Zoster Vaccines (1 of 2) [facility] Start: 2002 Screening for malignant neoplasm of breast Mammogram [facility] Start: 1992 Screening for malignant neoplasm of cervix [facility] Start: 1984 DTaP/Tdap/Td Vaccines (1 - Tdap) DTaP/Tdap/Td Vaccines (1 - Tdap) [facility] Start: 05-29-1983 Screening for malignant neoplasm of cervix [facility] Start: 1980 Diabetes mellitus screening Diabetes Screening [facility] Start: 1980 Hepatitis C screening Hepatitis C Screening [facility] Start: 05-29-1963 MMR Vaccines (1 of 1 - Standard series) MMR Vaccines (1 of 1 - Standard series) [facility] Start: 1962 Creatinine measurement Creatinine Level [facility] Start: 1962 Echocardiography Echocardiogram [facility] Start: 1962 HIV screening HIV Screening [facility] Start: 1962 Lipid panel Lipid Panel [facility] Start: 1962 Potassium measurement Potassium Level [facility] Start: 1962 Screening for malignant neoplasm of colon [facility] Start: 1962 Yearly Adult Physical Yearly Adult Physical [facility] XR Hip - left 3 Views XR hip lef t 2 or 3 views Imaging Routine Left hip pain 11/15/2023 8:56 AM EDT [facility] Work Phone: Immunizations Immunization Date Immunization Notes Care Provider Fa edilia 12-05-2023 influenza virus vacc ine, unspecified formulation Kenya Guardado DIRECTOR INDEPENDENT Work Phone: [facility] 12-04-2020 influenza, seasonal, injectable Kenya Guardado Work Phone: [place] [address] DO Work Phone: Comment on above: Series: 12-04-2020 influenza virus vacc ine, unspecified formulation Madelaine 1 [facility] Work Phone: 01-04-2020 influenza, injectabl e, quadrivalent, preservative free Kenya Guardado Work Phone: [facility] 250 DO Work Phone: 12-05-2019 influenza virus vacc ine, unspecified formulation Kenya Guardado Work Phone: [facility] 250 DO Work Phone: 12-05-2019 influenza, seasonal, injectable Madelaine [address] [place] [address] Work Phone: 01-08-2019 influenza virus vacc ine, split virus (incl. purified surface antigen) Kenya Guardado DIRECTOR INDEPENDENT Work Phone: [facility] 01-07-2019 influenza, high dose seasonal, preservative-free Kenya Aichholz DIRECTOR INDEPENDENT Work Phone: [facility] 12-04-2018 influenza virus vacc ine, unspecified formulation Kenya Phillips Aichholz Work Phone: [facility] 250 DO Work Phone: 04-02-2017 influenza virus vacc ine, unspecified formulation Kenya Phillips Aichholz Work Phone: [facility] 250 DO Work Phone: 03-06-2017 pneumococcal polysaccharide vaccine, 23 valent Kenya Jacqueline Aichholz Work Phone: [facility] 250 DO Work Phone: 10-04-2016 pneumococcal polysaccharide vaccine, 23 valent Kenya Aichholz DIRECTOR INDEPENDENT Work Phone: [facility] 12-05-2015 influenza virus vacc ine, unspecified formulation Kenya Phillips Aichholz Work Phone: [place] [address] DO Work Phone: Payers Date [facility] Category [id number] 2020 [facility] [id number] 2020 Unknown 1960 Unknown [id number] 2.16.840.1.694073.3.579. 2.593 1960 Unknown [id number] 2.16.840.1.381257.3.579. 2.593 1962 Unknown [id number] 2.16.840.1.531221.3.579. 2.593 1962 Unknown [id number] 2.16.840.1.025552.3.579. 2.593 1962 Unknown [id number] 2.16.840.1.830193.3.579. 2.593 1962 Unknown [id number] 2.16.840.1.989827.3.579. 2.593 1962 Unknown [id number] 2.16.840.1.062961.3.579. 2.593 1962 Unknown [id number] 2.16.840.1.343130.3.579. 2.593 1962 Unknown [id number] 2.16.840.1.557798.3.579. 2.593 1962 Unknown [id number] 2.16.840.1.230281.3.579. 2.593 1962 Unknown [id number] 2.16.840.1.844835.3.579. 2.356 1962 Unknown [id number] 2.16.840.1.652112.3.579. 2.356 1962 Unknown [id number] 2.16.840.1.406985.3.579. 2.1246 1962 Unknown [id number] 2.16.840.1.869428.3.579. 2.1258 1962 Unknown [id number] 2.16.840.1.038121.3.579. 2.1258 1962 Unknown [id number] 2.16.840.1.221087.3.579. 2.1258 1962 Unknown [id number] 2.16.840.1.080018.3.579. 2.1258 1962 Unknown [id number] 2.16.840.1.670500.3.579. 2.1258 1962 Unknown [id number] 2.16.840.1.008688.3.579. 2.1258 1962 Unknown [id number] 2.16.840.1.430818.3.579. 2.1258 1962 Unknown [id number] 2.16.840.1.588643.3.579. 2.1258 1962 Unknown [id number] 2.16.840.1.544694.3.579. 2.1258 1962 Unknown [id number] 2.16.840.1.422523.3.579. 2.1258 1962 Unknown [id number] 2.16.840.1.374445.3.579. 2.1258 1962 Unknown [id number] 2.16840.1.737121.3.579. 2.1244 1959 Unknown [id number] 1959 Unknown [id number] Unknown [id number] Social History Date Type Detail Facility Start: 02-06-2023 End: 09-26-2024 No alcohol use No alcohol use [facility] Comment on above: pop and tea occasion ally; Start: 08-08-2022 End: 09-27-2023 Tobacco smoking status OHIS Never smoked tobacco [facility] Work Phone: Start: 08-08-2022 End: 09-27-2023 Tobacco use and exposure Smokeless tobacco non-user [facility] Work Phone: Start: 11-13-2023 End: 09-26-2024 Alcoholic beverage intake Lifetime non-drinker (finding) [facility] Work Phone: Start: 02-06-2023 End: 09-26-2024 Humiliation, Afraid, Rape, and Kick questionnaire [HARK] [facility] Start: 01-28-2022 Within the last year , have you been afraid of your partner or ex-partner? Patient declined [facility] Do you belong to any clubs or organizations such as sikhism groups, unions, fra[employer]are [employer] or athletic groups, or school groups? No [...] Not at all [facility] (I/We) worried wheth er (my/our) food would run out before (I/we) got money to buy more. Sometimes true [facility] The food that (I/we) bought just didn't last, and (I/we) didn't have money to get more. Never true [facility] Start: 11-08-2023 Alcohol Comment caffine: soda 2 20oz bottles daily [facility] Start: 1960 Sex assigned at Not on file [facility] Work Phone: Start: 10-09-2023 End: 10-19-2023 Exposure to SARS-CoV-2 (event) Not sure [facility] How often do you nee d to have someone help you when you read instructions, pamphlets, or other written material from your doctor or pharmacy [SILS] Rarely [facility] Functional Status Date Assessment Result Facility 07-31-2024 Total score [AUDIT-C] 0 08/01/19 7:58 AM EDT Mychart, Generic [facility] 07-31-2024 How often to you hav e a drink containing alcohol? Never 07/31/2024 7:58 AM EDT Mychart, Generic Never [facility] 07-31-2024 Functional status Patient does n ot drink 07/31/2024 7:58 AM EDT [facility], Generic Patient does not drink [facility] 07-31-2024 How often do you hav e 6 or more drinks on 1 occasion? Never 07/31/2024 7:58 AM EDT [facility] Clinical Notes 05-19-2022 to 09-26-2024 Eric Kern, DO - 09/26/2024 1:10 PM EDTPatient Billy Guardado, DIRECTOR INDEPENDENT - 08/15/2024 12:55 PM EDAsad Guardado, DIRECTOR INDEPENDENT - 08/15/2024 12:55 PM Suzanne Guardado, DIRECTOR INDEPENDENT - 08/15/2024 11:30 AM EDT Note Date & Type Note Facility 09-26-2024 History of Present illness Narrative Chief Complaint Patient presents with Annual Exam 1 year, coronary artery disease Subjective Ina Jewell is a 64 y.o. female 64-year-old female returns for annual cardiovascular follow-up, she is doing well from a cardiovascular standpoint, she denies any angina or nitrate usage, hospitalizations. This past year she had an episode of hyperkalemia and acute kidney injury, diagnosed with stage IV kidney disease; lisinopril has been discontinued and metoprolol is been titrated upwards. Blood pressure is under excellent control. We have no follow-up labs; however reviewed available labs from [facility]. Sed rate was elevated mildly, serum creatinine was approximately 1.84 Patient has a history of anterior WI associated with S. C. A. D. Approximately 8 years ago, underwent extensive revascularization of the mid to distal LAD and has done well since She underwent routine treadmill stress testing in 2023 details are reviewed, she performed at level 2 of the Adis protocol; however inadequate heart rate however no evidence of ischemia at that level of exercise that she was capable of of that time. This was considered indeterminate/negative stress test. Renal ultrasound also reviewed. Pertinent issues today: Acute kidney disease, scad, prior WI, hyperlipidemia, hypertension all of which are reviewed and addressed Will obtain appropriate lipid panel, continue current therapies, follow-up 1 year Review of Systems All other systems reviewed and are negative. Vitals: 09/26/24 1311 BP: 106/76 BP Location: Right arm Patient Position: Sitting Pulse: 84 Weight: 86 kg (189 lb 9.6 oz) Height: 1.676 m (5' 6 ) Objective Physical Exam Constitutional: Appearance: Normal appearance. HENT: Nose: Nose normal. Neck: Vascular: No carotid bruit. Cardiovascular: Rate and Rhythm: Normal rate. Pulses: Normal pulses. Heart sounds: Normal heart sounds. Pulmonary: Effort: Pulmonary effort is normal. Abdominal: General: Bowel sounds are normal. Palpations: Abdomen is soft. Musculoskeletal: General: Normal range of motion. Cervical back: Normal range of motion. Right lower leg: No edema. Left lower leg: No edema. Skin: General: Skin is warm and dry. Neurological: General: No focal deficit present. Mental Status: She is alert. Psychiatric: Mood and Affect: Mood normal. Behavior: Behavior normal. Thought Content: Thought content normal. Judgment: Judgment normal. Allergies Isosorbide, Oxycodone, and Tetanus toxoid Current Medications Current Outpatient Medications Medication Instructions aspirin 81 mg EC tablet 1 tablet, Daily atorvastatin (LIPITOR) 80 mg, oral, Daily metoprolol succinate XL (TOPROL-XL) 25 mg, oral, Daily nitroglycerin (NITROSTAT) 0.4 mg, Every 5 min PRN Assessment/Plan 1. History of WI (myocardial infarction) Follow Up In Cardiology 2. Atherosclerosis of coronary artery of lumbee heart without angina pectoris, unspecified vessel or lesion type 3. Essential hypertension 4. History of PTCA 5. Mixed hyperlipidemia 6. History of mycobacterial infection 7. BMI 30.0-30.9,adult 8. Never smoked tobacco Scribe Attestation By signing my name below, Judi Pimentel RN , Scribe attest that this documentation has been prepared under the direction and in the presence of Eric Kern DO. Provider Attestation - Scribe documentation All medical record entries made by the Scribe were at my direction and personally dictated by me. I have reviewed the chart and agree that the record accurately reflects my personal performance of the history, physical exam, discussion and plan. documented in this encounter [facility] Work Phone: 09-26-2024 Instructions Judi Lewis RN - 09/26/2024 1:10 PM EDT Please bring all medicines, vitamins, and herbal supplements with you when you come to the office. Prescriptions will not be filled unless you are compliant with your follow up appointments or have a follow up appointment scheduled as per instruction of your physician. Refills should be requested at the time of your visit. BMI was above normal measurement. Current weight: 86 kg (189 lb 9.6 oz) Weight change since last visit (-) denotes wt loss -0.8 lbs Weight loss needed to achieve BMI 25: 35 Lbs Weight loss needed to achieve BMI 30: 4.1 Lbs Provided instructions on dietary changes Provided instructions on exercise. documented in this encounter [facility] Work Phone: 08-15-2024 History of Present illness Narrative Associated Problem(s): Other fatigue improved Associated Problem(s): Other specified anemias Recheck CBC Images from the original note were not [...] Diagnosis Date CHF (congestive heart failure) ([facility]) 12-07-2016 Heart disease 3 stents Hypertension WI (myocardial infarction) ([facility]) PONV (postoperative nausea and vomiting) 1982 [...] Size: Adult long) Pulse 91 Temp 98.7 F (Temporal) Resp 18 Wt 191 lb 12.8 oz SpO2 97% BMI 30.96 kg/m Smoking Status Never BSA 2.01 m [...] CBC Relevant Orders CBC and differential Phosphorus Associated Problem(s): Hyperkalemia Last visit labs indicated elevated CR as well as Potassium Order given for her to repeat labs: Associated Problem(s): Class 1 obesity due to excess calories with serious comorbidity and body mass index (BMI) of 31.0 to 31.9 in adult Discussed increase protein, less carb Exercise difficult to to joint pain-suggest aquatic Associated Problem(s): Essential hypertension Please check blood pressure daily and record DASH diet Limit caffeine Take medication as directed Contact office if chest pain, pressure, dizziness, shortness of breath, swelling legs Recommend slow position changes Meds: b diego, and raghav documented in this encounter [facility] 08-15-2024 Instructions Kenya Guardado NP - 08/15/2024 11:30 AM EDT Get updated blood work, documented in this encounter [facility] 08-15-2024 Evaluation note Diagnosis Wellness examination- Primary Chronic kidney disease, stage 3a ([facility]) Encounter for screening mammogram for malignant neoplasm of breast Colon cancer screening Special screening for malignant neoplasms, colon Essential hypertension Unspecified essential hypertension Class 1 obesity due to excess calories with serious comorbidity and body mass index (BMI) of 31.0 to 31.9 in adult Viral upper respiratory illness- Primary Class 1 obesity due to excess calories with serious comorbidity and body mass index (BMI) of 31.0 to 31.9 in adult Essential hypertension Unspecified essential hypertension Nausea Nausea alone Other fatigue- Primary Essential hypertension Unspecified essential hypertension Atherosclerosis of lumbee coronary artery of lumbee heart without angina pectoris Mixed hyperlipidemia Mixed hyperlipidemia Dizziness and giddiness Arthralgia, unspecified joint Polyuria Hyperkalemia- Primary Hyperpotassemia Essential hypertension Unspecified essential hypertension Class 1 obesity due to excess calories with serious comorbidity and body mass index (BMI) of 31.0 to 31.9 in adult Other fatigue Anemia due to other cause, not classified documented in this encounter [facility] [id number] Telephone encounter Note* Telephone Encounter - Kenya Guardado NP - 08/08/2024 2:12 PM EDT Please contact pt and I would like to know if she is feeling better since her last visit, and I want to order a fu blood test to see how potassium and kidneys are doing LA [facility] [id number] Miscellaneous Notes* Telephone Encounter - Kenya Guardado NP - 08/08/2024 2:12 PM EDT Please contact pt and I would like to know if she is feeling better since her last visit, and I want to order a fu blood test to see how potassium and kidneys are doing LA documented in this encounterSaint [facility]'s East [id number] History of Present illness Narrative* BEATRIZ Cabrera - 08/07/2024 11:00 AM EDT Images from the original note were not included. Orthopedic Office note: NAME: Ina Jewell : 1960 EST PT WITH LT HIP -HERE FOR MRI LUMBAR SPINE RESULTS TBH (NOT DONE DUE TO COST) HX LT JULIANO 08/23/[address] SU XRAY LUMBAR EPIC 07/24/24 XRAY LT HIP [...] requiring urgent evaluation. Visit was preformed using [employer]-pilot plant research technician speech recognition. documented in this encounterSaint Luke's East [id number] History of Present illness Narrative* Kenya Guardado NP - 07/31/2024 1:07 PM EDTAssociated Problem(s): Other fatigue Unsure if her sxs are related to anxiety or something else * Kenya Guardado NP - 07/31/2024 1:06 PM EDTAssociated Problem(s): Arthralgia Check labs * Kenya Guardado NP - 07/31/2024 1:06 PM EDTAssociated Problem(s): Polyuria Check labs * Kenya Guardado NP - 07/31/2024 1:05 PM EDTAssociated Problem(s): Dizziness and giddiness Check labs ?anxiety * YUMIKO MCCALL - 07/31/2024 11:30 AM EDT Pt states in the last 6+ weeks she has felt tired, fatigue, no energy. She feels over exerted easily. States that even walking short distances she feels winded, SOB, and exhausted. She feels that herpace has even gotten slower. Pt does feel a tightness in her chest only happens after walking for alittle while. Pt states if she puts her hands/arms over her head any length of time she feels lightheaded, dizzy, and nausea. Pt also feels hopeless, down, and anxious. BP difference in right and left arm Left- 90/70 Right 122/80 * Kenya Guardado NP - 07/31/2024 11:30 AM EDT Images from the original note were not included. Ina Jewell is a 64 y.o. female presents with chief complaint of Fatigue HPI: Pt states in the last 6+ weeks she has felt tired, fatigue, no energy. She feels over exerted easily. States that even walking short distances she feels winded, SOB, and exhausted. She feels that herpace has even gotten slower. Pt does feel a tightness in her chest only happens after walking for alittle while. Pt states if she puts her [...] gradually worsening. Associated symptoms include arthralgias, fatigue andmyalgias. Pertinent negatives include no abdominal pain, chest [...] History: Diagnosis Date CHF (congestive heart failure) ([facility]) 12-07-2016 Heart disease 3 stents Hypertension ([facility]) WI (myocardial infarction) ([facility]) PONV (postoperative nausea and vomiting) 1982 [...] This Visit Atherosclerosis of coronary artery of lumbee heart without angina pectoris (CMS/HCC) Current meds: asa, statin, raghav, b diego Does not feel any sxs similar to her WI Relevant Orders CBC and differential CBC and [...] Orders Urinalysis with reflex microscopic (clean catch) * Kenya Guardado NP - 07/31/2024 6:49 [...] EDTAssociated Problem(s): Atherosclerosis of coronary artery of lumbee heart without angina pectoris (C MS/HCC) Current meds: asa, statin, raghav, b diego Does not feel any sxs similar to her WI documented in this encounterSaint Luke's East [id number] Evaluation note* Diagnosis Wellness examination- Primary Chronic kidney disease, stage 3a (HCC) ([facility]/HCC) Encounter for screening mammogram for malignant neoplasm of breast Colon cancer screening Special screening for malignant neoplasms, colon Essential hypertension ([facility]/HCC) Unspecified essential hypertension Class 1 obesity due [...] Nausea alone Other fatigue- Primary Essential hypertension ([facility]/HCC) Unspecified essential hypertension Atherosclerosis of lumbee coronary artery of lumbee heart without angina pectoris (CMS/HCC) Mixed hyperlipidemia ([facility]/HCC) Mixed hyperlipidemia Dizziness and giddiness Arthralgia, unspecified joint Polyuria documented in this encounter [facility] [id number] History of Present illness Narrative* BEATRIZ Cabrera [...] requiring urgent evaluation. Visit was preformed using [employer]-pilot plant research technician speech recognition. documented in this encounterSaint Luke's East [id number] Evaluation note* Diagnosis Wellness examination- Primary Chronic kidney disease, stage 3a (HCC) ([facility]) Encounter for screening mammogram for malignant neoplasm of breast Colon cancer screening Special screening for malignant neoplasms, colon Essential hypertension ([facility]HCC) Unspecified essential hypertension Class 1 obesity due to excess calories with serious comorbidity and body mass index (BMI) of 31.0 to 31.9 in adult Viral upper respiratory illness- Primary Class 1 obesity due to excess calories with serious comorbidity and body mass index (BMI) of 31.0 to 31.9 in adult Essential hypertension ([facility]/HCC) Unspecified essential hypertension Nausea Nausea alone Acute hip pain, left- Primary Acute left lumbar radiculopathy History of total hip replacement, left documented in this encounter [facility] [id number] History of Present illness Narrative* BEATRIZ Cabrera - 07/03/2024 10:45 AM EDTAssociated Order(s): L Inj/Asp: L greater trochanteric bursa Images from the original note were not included. 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 Visit was preformed using [employer]-pilot plant research technician speech recognition. documented in this encounterSaint Luke's East [id number] Evaluation note* Diagnosis Wellness examination- Primary Chronic kidney disease, stage 3a (HCC) ([facility]/HCC) Encounter for screening mammogram for malignant neoplasm of breast Colon cancer screening Special screening for malignant neoplasms, colon Essential hypertension ([facility]) Unspecified essential hypertension Class 1 obesity due [...] of left hip documented in this encounter [facility] [id number] History of Present illness Narrative* Kenya Guardado [...] 01/08/2024 2:07 PM ESTAssociated Problem(s): Essential hypertension (CMS/HCC) Elevated, secondary to not [...] History: Diagnosis Date CHF (congestive heart failure) ([facility]) 12-07-2016 Heart disease 3 stents Hypertension ([facility]) WI (myocardial infarction) ([facility]) PONV (postoperative nausea and vomiting) 1982 [...] or covid vaccine done documented in this encounterSaint Luke's East [id number] Instructions* Patient Instructions* Kenya Guardado NP - 01/08/2024 1:40 PM EST Fluids, rest, Test for covid Ondansartan for nausea Follow up if not better If respiratory distress go to ER documented in this encounterSaint Luke's East [id number] Telephone encounter Note* Telephone Encounter - Jyoti Mckenzie - 12/11/2023 12:[address] Castanon office called they nee a note for this patient stating that she has to take antibiotic before cleaning. [facility] [id number] Miscellaneous Notes* Telephone Encounter - Jyoti Mckenzie - 12/11/2023 12:[address] Castanon office called they nee a note for this patient stating that she has to take antibiotic before cleaning. documented in this encounterSaint Luke's East [id number] History of Present illness Narrative* BEATRIZ Cabrera [...] for requiring urgent evaluation. documented in this encounterSaint Luke's East [id number] History of Present illness Narrative* Osvaldo Nichole DO - 11/13/2023 10:00 AM EDT General Surgery H&P Ina Jewell 1960 Ina Sykeswig is a 63 y.o. female presents with [...] History: Diagnosis Date CHF (congestive heart failure) ([facility]) 12-07-2016 Heart disease 3 stents Hypertension ([facility]) WI (myocardial infarction) ([facility]) PONV (postoperative nausea and vomiting) 1982 Social [...] you, Lo Nichole DO documented in this encounterSaint Luke's East [id number] History of Present illness Narrative* Kenya Guardado [...] EDTAssociated Problem(s): Atherosclerosis of coronary artery of lumbee heart without angina pectoris ([facility] MS/HCC) Stable, had recent stress and cardiology fu * Kenya Guardado NP - 11/08/2023 11:49 [...] Diagnosis Date Heart disease 3 stents Hypertension ([facility]/HCC) WI (myocardial infarction) (CMS/HCC) Past Surgical History: Procedure Laterality Date CORONARY [...] to joint pain-suggest aquatic documented in this encounterSaint Luke's East [id number] NoteCONSULTATION PROCEDURE DATE: 06/30/2022 PROCEDURE: Left trochanteric [...] Patient reports reduction in her pain symptoms.[facility] [id number] Note CONSULTATION CONSULTATION DATE: 06/30/2022 TO: Kenya [...] our patients to inform us about any [id number] medications or herbal remedies/nutritional supplements/alternative remedies. 2. [...] treatment options with their primary care provider.[facility] [id number] NotePROCEDURE: XR HIP LT 2 3V W [...] Electronically authenticated by: CATHLEEN BARROSO Date: 2022-05-19 09:43[facility]* Diagnosis Wellness examination- Primary Chronic kidney disease, stage 3a (HCC) ([facility]) Encounter for screening mammogram for malignant neoplasm [...] 31.0 to 31.9 in adult Essential hypertension ([facility]/HCC) Unspecified essential hypertension Nausea Nausea alone documented in this encounter [facility] HealthcareEvaluation note* Diagnosis History of WI (myocardial infarction) Old myocardial infarction History of PTCA Postsurgical percutaneous transluminal coronary angioplasty status Atherosclerosis of coronary artery of lumbee heart without angina pectoris, unspecified vessel or lesion type documented in this encounter [facility] Work Phone: Evaluation note* Diagnosis Wellness examination- Primary Chronic kidney disease, stage 3a (HCC) ([facility]) Encounter for screening mammogram for malignant neoplasm of breast Colon cancer screening Special screening for malignant neoplasms, colon Essential hypertension (CMS/HCC) Unspecified essential hypertension Class 1 obesity due to excess calories with serious comorbidity and body mass index (BMI) of 31.0 to 31.9 in adult documented in this encounter [facility] HealthcareEvaluation note* Diagnosis Encounter for screening colonoscopy- Primary documented in this encounter [facility] HealthcareEvaluation note* Diagnosis Status post left hip replacement- Primary Left hip pain Pain in joint, pelvic region and thigh documented in this encounter [facility] HealthcareEvaluation note* Diagnosis Wellness examination- Primary Chronic kidney disease, stage 3a (HCC) ([facility]) Encounter for screening mammogram for malignant neoplasm of breast Colon cancer screening Special screening for malignant neoplasms, colon Essential hypertension ([facility]/HCC) Unspecified essential hypertension Class 1 obesity due [...] hypertension (CMS/HCC) Unspecified essential hypertension Atherosclerosis of lumbee coronary artery of lumbee heart without angina pectoris (CMS/HCC) Mixed hyperlipidemia ([facility]/HCC) Mixed hyperlipidemia Dizziness and giddiness Arthralgia, unspecified joint Polyuria Hyperkalemia- Primary Hyperpotassemia Chronic kidney disease, stage 3a (HCC) ([facility]/HCC) documented in this encounter [facility] HealthcareEvaluation note* Diagnosis Wellness examination- Primary Chronic kidney disease, stage 3a (HCC) ([facility]/HCC) Encounter for screening mammogram for malignant neoplasm of breast Colon cancer screening Special screening for malignant neoplasms, colon Essential hypertension ([facility]/HCC) Unspecified essential hypertension Class 1 obesity due [...] hypertension (CMS/HCC) Unspecified essential hypertension Atherosclerosis of lumbee coronary artery of lumbee heart without angina pectoris (CMS/HCC) Mixed hyperlipidemia ([facility]/HCC) Mixed hyperlipidemia Dizziness and giddiness Arthralgia, unspecified joint Polyuria Acute hip pain, left- Primary Acute left lumbar radiculopathy documented in this encounter [facility] HealthcareEvaluation note* Diagnosis History of WI (myocardial infarction) Old myocardial infarction Atherosclerosis of coronary artery of lumbee heart without angina pectoris, unspecified vessel or lesion type Essential hypertension Unspecified essential hypertension History of PTCA Postsurgical percutaneous transluminal coronary angioplasty status Mixed hyperlipidemia History of mycobacterial infection BMI 30.0-30.9,adult Never smoked tobacco Hyperlipidemia, unspecified documented in this encounter [facility] Work Phone: History of Present illness Narrative* The patient states she has been generally doing well since the last visit. Comorbid Illnesses: hypertension and hyperlipidemia. * Symptoms: denies chest pain at rest, denies exertional chest pain, denies dyspnea, denies fatigue, denies exercise intolerance, denies palpitations, denies edema, denies orthopnea, denies dizziness and denies orthostatic dizziness. * Associated symptoms: no syncope. * Her symptoms do not limit her activities. * Disease Monitoring: -[facility] [address] DO Work Phone: Reason for referral (narrative)* Consultation (Routine) - Pending Review Specialty Diagnoses / Procedures Referred By Alonso dash Referred To Contact General Surgery Diagnoses Colon cancer screening Procedures RI OFFICE/OUTPATIENT NEW HIGH MDM 60 MINUTES eKnya Guardado NP [address] [place] [address] Osvaldo Nichole DO [address] [facility] [address] [place] [address] Referral ID Status Reason Start Date Expiration Date Visits Requested Visits Authorized [id number] Pending Review Specialty Services Required 11/08/2023 05/06/2024 1 1 [facility] Summary Purpose Family History No Family History [...] or recurrent coronary events. 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 Intermediate clinical markers * -History of ischemic heart disease (prior WI, current chest pain secondary to ischemia, use [...] risk to proceed with much-needed procedure. INA JEWELL is being seen for an annual follow-up of.* INA JEWELL is being seen for an annual follow-up of. * Patient is a 62-year-old female returns for follow-up she is doing very well. She is already undergone knee and hip replacement without any adverse consequences or major adverse cardiac events. She has a history of SCAD status post anterior WI in 2017, with extensive revascularization of the [...] Referred To Contact Cardiology Diagnoses History of WI (myocardial infarction) History of PTCA Atherosclerosis of coronary artery of lumbee heart without angina pectoris, unspecified vessel or lesion type Procedures Stress Test RI CV STRS TST XERS&/OR RX CONT ECG TRCG ONLY Eric Kern, [address] [facility] 2, [facility] [address] [place] [address] Referral ID Status Reason Start Date Expiration Date V isits Requested Visits Authorized [id number] Authorized 09/27/2023 09/26/2024 1 1 Additional Source Comments INFORMATION SOURCE (unrecogn ized section and content) DATE CREATED AUTHOR 08/25/2017 [facility] DATE CREATED AUTHOR AUTHOR'S ORGANIZ ATION 07/15/2022 [facility] DATE CREATED AUTHOR AUTHOR'S ORGANIZ ATION 09/17/2022 [facility] DATE CREATED AUTHOR AUTHOR'S ORGANIZ ATION 09/17/2022 [facility] DATE CREATED AUTHOR AUTHOR'S ORGANIZ ATION 10/24/2023 [facility] DATE CREATED AUTHOR AUTHOR'S ORGANIZ ATION 08/18/2024 [facility] EPIC DATE CREATED AUTHOR AUTHOR'S ORGANIZ ATION 09/28/2024 [facility] Cartoon Artist Teams (unrecognized sec tion and content) Vallez Filter Operator Relationship Specialty Start Date End Date Orlando Beatty MD [address] [place] [address] PCP - General Family Medicine 11/08/23 Kenya Guardado NP [address] [place] [address] Nurse Practitioner Family Medicine 11/08/23 Vallez Filter Operator Relationship Specialty Start Date End Date Orlando Beatty MD [address] [place] [address] PCP - General Family Medicine 11/08/23 Kenya Guardado NP [address] [place] [address] Nurse Practitioner Family Medicine 11/08/23 Vallez Filter Operator Relationship Specialty Start Date End Date Orlando Beatty MD [address] [place] [address] PCP - General Family Medicine 11/08/23 Kenya Guardado NP [address] [place] [address] Nurse Practitioner Family Medicine 11/08/23 Vallez Filter Operator Relationship Specialty Start Date End Date Orlando Beatty MD [address] [place] [address] PCP - General Family Medicine 11/08/23 Kenya Guardado NP [address] [place] [address] Nurse Practitioner Family Medicine 11/08/23 Vallez Filter Operator Relationship Specialty Start Date End Date Kenya Guardado CRANE ASSEMBLER-WOM[employer]'S [employer] [address] [place] [facility] [place] [address] PCP - General 03/06/99 Vallez Filter Operator Relationship Specialty Start Date End Date Orlando Beatty MD [address] [place] [address] PCP - General Family Medicine 11/08/23 Kenya Guardado NP [address] [place] [address] Nurse Practitioner Family Medicine 11/08/23 Vallez Filter Operator Relationship Specialty Start Date End Date Orlando Beatty MD [address] [place] [address] PCP - General Family Medicine 11/08/23 Kenya Guardado NP [address] [place] [address] Nurse Practitioner Family Medicine 11/08/23 Vallez Filter Operator Relationship Specialty Start Date End Date Orlando Beatty MD [address] [place] [address] PCP - General Family Medicine 11/08/23 Kenya Guardado NP [address] [place] [address] Nurse Practitioner Family Medicine 11/08/23 Vallez Filter Operator Relationship Specialty Start Date End Date Orlando Beatty MD [address] [place] [address] PCP - General Family Medicine 11/08/23 Kenya Guardado NP [address] [place] [address] Nurse Practitioner Family Medicine 11/08/23 Vallez Filter Operator Relationship Specialty Start Date End Date Orlando Beatty MD [address] [place] [address] PCP - General Family Medicine 11/08/23 Kenya Guardado NP [address] [place] [address] Nurse Practitioner Family Medicine 11/08/23 Vallez Filter Operator Relationship Specialty Start Date End Date Orlando Beatty MD [address] [place] [address] PCP - General Family Medicine 11/08/23 Kenya Guardado NP [address] [place] [address] Nurse Practitioner Family Medicine 11/08/23 Vallez Filter Operator Relationship Specialty Start Date End Date Orlando Beatty MD [address] [place] [address] PCP - General Family Medicine 11/08/23 Kenya Guardado NP [address] [place] [address] Nurse Practitioner Family Medicine 11/08/23 Vallez Filter Operator Relationship Specialty Start Date End Date Orlando Beatty MD [address] [place] [address] PCP - General Family Medicine 11/08/23 Kenya Guardado NP [address] [place] [address] Nurse Practitioner Family Medicine 11/08/23 Vallez Filter Operator Relationship Specialty Start Date End Date Orlando Beatty MD [address] [place] [address] PCP - General Family Medicine 11/08/23 Kenya Guardado NP [address] [place] [address] Nurse Practitioner Family Medicine 11/08/23 Vallez Filter Operator Relationship Specialty Start Date End Date Orlando Beatty MD [address] [place] [address] PCP - General Family Medicine 11/08/23 Kenya Guardado NP [address] [place] [address] Nurse Practitioner Family Medicine 11/08/23 Vallez Filter Operator Relationship Specialty Start Date End Date Orlando Beatty MD [address] [place] [address] PCP - General Family Medicine 11/08/23 Kenya Guardado NP [address] [place] [address] Nurse Practitioner Family Medicine 11/08/23 Vallez Filter Operator Relationship Specialty Start Date End Date Orlando Beatty MD [address] [place] [address] PCP - General Family Medicine 11/08/23 Kenya Guardado NP [address] [place] [address] Nurse Practitioner Family Medicine 11/08/23 Vallez Filter Operator Relationship Specialty Start Date End Date Orlando Beatty MD [address] [place] [address] PCP - General Family Medicine 11/08/23 Kenya Guardado NP [address] [place] [address] Nurse Practitioner Family Medicine 11/08/23 Vallez Filter Operator Relationship Specialty Start Date End Date Orlando Beatty MD [address] [place] [address] PCP - General Family Medicine 11/08/23 Kenya Guardado NP [address] [place] [address] Nurse Practitioner Family Medicine 11/08/23 Vallez Filter Operator Relationship Specialty Start Date End Date Orlando Beatty MD [address] [place] [address] PCP - General Family Medicine 11/08/23 Kenya Guardado NP [address] [place] [address] Nurse Practitioner Family Medicine 11/08/23 Vallez Filter Operator Relationship Specialty Start Date End Date Orlando Beatty MD [address] [place] [address] PCP - General Family Medicine 11/08/23 Kenya Guardado NP [address] [place] [address] Nurse Practitioner Family Medicine 11/08/23 Vallez Filter Operator Relationship Specialty Start Date End Date Orlando Beatty MD [address] [place] [address] PCP - General Family Medicine 11/08/23 Kenya Guardado NP [address] [place] [address] Nurse Practitioner Family Medicine 11/08/23 Vallez Filter Operator Relationship Specialty Start Date End Date Kenya Guardado, CRANE ASSEMBLER-[employer] [address] [place] [address] PCP - General 03/06/99 Reason for Visit (unrecogniz ed section and content) Specialty Diagnoses / Procedures Referred By Contac t Referred To Contact Cardiology Diagnoses History of WI (myocardial infarction) History of PTCA Atherosclerosis of coronary artery of lumbee heart without angina pectoris, unspecified vessel or lesion type Procedures Stress Test RI CV STRS TST XERS&/OR RX CONT ECG TRCG ONLY Eric Kern, DO [address] [place] [address] 2, [place] [id number] Referral ID Status Reason Start Date Expiration Date V isits Requested Visits Authorized [id number] Authorized 09/27/2023 09/26/2024 1 1 Reason Comments [...] Pain Reason Comments Follow-up Reason Comments Fatigue Reason Comments Annual Exam 1 year, coronary art diallo disease Specialty Diagnoses / Procedures Referred By Alonso dash Referred To Contact Cardiology Diagnoses History of WI (myocardial infarction) Procedures Follow Up In Cardiology Eric Kern, [place] [address], [place] [id number] Phone: tel: fax: Eric Kern, [address] [facility] 2, [place] [id number] Phone: tel: fax: Referral ID Status Reason Start Date Expiration Date V isits Requested Visits Authorized [id number] Authorized 09/27/2023 09/26/2024 1 1 FOR RECORDS PERTAINING TO PATIENTS WHO ARE [...] BE BASED ON THE PRIMARY CLINICAL RECORDS. [employer] provides no warranty or guarantee of the accuracy or completeness of information in this document.
--- OUTSIDE RECORDS SUMMARY | 2024-10-16 21:25 | XMS_ITS | Clinical Summary ---
[facility] Address [id number] [address] [place] [address] Care Team Providers Care Dredge Mate Name Role Phone Kenya Guardado GEOSPATIAL APPLICATIONS DEVELOPER-DEPORTATION EXAMINER Primary Care Provider Social History Tobacco Use [...] Not on file Insurance ANTHEM Care Teams Dredge Mate Relationship Specialty Start Date End Date Kenya Guardado, GEOSPATIAL APPLICATIONS DEVELOPER-DEPORTATION EXAMINER PCP - General Nurse Practitioner 08/09/22
--- OUTSIDE RECORDS SUMMARY | 2024-10-16 21:25 | XMS_ITS | Encounter Summary ---
Author Organization [facility] Address [address] [place] [address] Phone Care Team Providers Care Manager Of Customer Billing Name Role Phone Kenya Guardado ARTS ADMINISTRATOR OR MANAGER-GRAVITY METER OBSERVER Primary Care Provider Encounter Details Date Type Department Care Team (Late st Contact Info) Description 09/01/2023 Scanned Document [facility] [address] [place] [id number] Scanning, Generic Provider Social History Tobacco Use [...] Description 09/25/2025 1:20 PM EDT Office Visit [facility] [address] [facility] [address] [place] [address] Eric Brewster, [address] [facility] 2, [address] [place], [place] [phone] documented as of this encounter Visit Diagnoses Not on filedocumented in this encounter Care Teams Manager Of Customer Billing Relationship Specialty Start Date End Date Kenya Guardado APRN-GRAVITY METER OBSERVER [address] [place] [address] PCP - General 03/06/99 documented as of this encounter
--- OUTSIDE RECORDS SUMMARY | 2024-10-16 21:25 | XMS_ITS | Encounter Summary ---
Author Organization [facility] Address [address] [place] [address] Care Team Providers Care Commercial Development Manager Name Role Phone Orlando Beatty MD Primary Care Provider [phone] Kenya Guardado HALL PORTER Unavailable [phone] Kenya Guardado NP Unavailable [phone] Encounter Details Date Type Department Care Team (Latest Contact Info) Description 10/11/2024 Travel Social History Tobacco Use Types Packs/Day [...] How often do you attend scientology or mosque serv ices? Never 07/31/2024 Do you belong [...] care, and heating? Not very hard 07/31/2024 [facility] - Occupational Stress [...] a custodial (including now)? Patient refused 02/06/2023 Housing Stability [...] were you homeless or living in a custodial (including now)? No 07/31/2024 Comments Unknown Sex and Gender Information Value Date Recorded Sex Assigned at Not on file Legal Sex Female 8:15 PM EDT Gender Identity Not on file Sexual Orientation Not on file documented as of this encounter Plan of Treatment Upcoming Encounters Date Type Department Care Team (Late st Contact Info) Description 10/18/2024 9:15 AM EDT Office Visit [facility] [address] [place] [address] Morris Puri PA [address] [place] [address] 11/11/2024 11:00 AM EDT Office Visit [facility] [address] [place] [address] Kenya Guardado NP [address] [place] [address] 11/14/2025 9:00 AM EDT Office Visit [facility] [address] [place] [address] Morris Puri PA [address] [place] [address] documented as of this encounter Visit Diagnoses Not on filedocumented in this encounter Care Teams Commercial Development Manager Relationship Specialty Start Date End Date Orlando Beatty MD [address] [place] [address] PCP - General Family Medicine 11/08/23 Kenya Guardado NP [address] [place] [address] PCP - [facility] 08/04/24 Kenya Guardado NP [address] [place] [address] Nurse Practitioner Family Medicine 11/08/23 documented as of this encounter
--- OUTSIDE RECORDS SUMMARY | 2024-10-16 21:25 | XMS_ITS | Encounter Summary ---
Author Organization [facility] Address [address] [place] [address] Care Team Providers Care Wagon Driver Salesperson Name Role Phone Orlando Beatty MD Primary Care Provider [phone] Kenya Guardado RESIDENT PHYSICIAN IN RADIOLOGY Unavailable [phone] Kenya Guardado RESIDENT PHYSICIAN IN RADIOLOGY Unavailable [phone] Encounter Details Date Type Department Care Team (Late st Contact Info) Description 08/18/2024 Orders Only [facility] [address] [place] [address] Kenya Guardado RESIDENT PHYSICIAN IN RADIOLOGY [address] [place] [address] Stage 4 chronic kidney disease (HCC) (Primary [...] week 07/31/2024 How often do you attend moravian or moravian serv ices? Never 07/31/2024 Do you belong to any clubs o r organizations such as moravian groups, unions, fraternal or athletic groups, or [...] and heating? Not very hard 07/31/2024 [facility] [place] [facility] Occupat ional Health - Occupational Stress [...] any time in the past 12 m [facility], were you homeless or living in a [...] Office Visit [facility] [address] [place] [address] Morris Puri, PA [address] [place] [address] 11/11/2024 11:00 AM EDT Office Visit [facility] [address] [place] [address] Kenya Guaraddo NP [address] [place] [address] 11/14/2025 9:00 AM EDT [facility] [address] [place] [address] Morris Puri PA [address] [place] [address] documented as of this encounter Visit Diagnoses Diagnosis Stage 4 chronic kidney disease (HCC)- Primary Anemia due to other cause, not classified documented in this encounter Care Teams Wagon Driver Salesperson Relationship Specialty Start Date End Date Orlando Beatty MD [address] [place] [address] PCP - General Family Medicine 11/08/23 Kenya Guardado NP [address] [place] [address] PCP - [facility] 08/04/24 Kenya Guardado NP [address] [place] [address] Nurse Practitioner Family Medicine 11/08/23 documented as of this encounter
--- OUTSIDE RECORDS SUMMARY | 2024-10-16 21:25 | XMS_ITS | Encounter Summary ---
Author Organization [facility] Address [address] [place] [address] Care Team Providers Care Truck Driver Rubbish Collector Name Role Phone Orlando Beatty MD Primary Care Provider [phone] Orlando Beatty MD Primary Care Provider [phone] Kenya Guardado SENIOR MARKETING ENGINEER Unavailable [phone] Kenya Guardado NP Unavailable [phone] Encounter Details Date Type Department Care [...] often do you attend chur ch or moravian services? Never 02/06/2023 Do you belong to any clubs o r organizations such as pentecostal groups, unions, fraternal or athletic groups, or [...] care, and heating? Not very hard 02/06/2023 [facility] [...] Description 10/18/2024 9:15 AM EDT Office Visit [facility] [address] [place] [address] Morris Puri PA [address] [place] [address] 11/11/2024 11:00 AM EDT [facility] [address] [place] [phone] Kenya Guardado NP [address] [place] [address] 11/14/2025 9:00 AM EDT Office Visit [facility] [address] [place] [phone] Morris Puri PA [address] [place] [address] documented as of this encounter Procedures Procedure Name Priority Date/Time Associated Diagnosis Comments STRESS TEST ONLY 10/19/2023 2:53 PM EDT documented in this encounter Results * Stress test (10/19/2023 2:53 PM EDT) Anatomical Region Laterality Modality Heart Other 10/19/2023 2:53 PM EDT Narrative 10/19/2023 4:59 PM EDT [place] [address] Exercise Stress Test Patient Name: INA JEWELL Ordering Provider: [id number] NASIM KERN Study Date: 10/19/2023 Reading Physician: [id number] Dupree MD MRN/PID: [id number] Supervising Physician: [id number] Dupree MD Fellow: Date of /Age: 3 1960 / 63 years Fellow: Gender: F Nurse: Lorenza Aquino RN Admission Status: Licensed Pesticide Applicator: NA Height: 167.64 cm Technologist: Weight: 86.18 kg Additional Staff: BSA: 1.96 m2 BMI: 30.67 kg/m2 Patient Location: Study Type: STRESS TEST ONLY Diagnosis/ICD: Old myocardial infarction-I25.2; Atherosclerotic heart disease-I25.10 Indication: Hypertension CPT Codes: Stress Test Interpretation-39269; Stress Test Supervision-01521 Falls Risk: Low: Patient has low risk [...] response to exercise. 4. Poor exercise tolerance. [id number] Carina Dupree MD Electronically signed on 10/19/2023 at 4:59:33 PM Final Procedure Note Radiology, Radiologist, - 10/19/[address], [address] [facility], [place] [address] Exercise Stress Test Patient Name: INA JEWELL Ordering Provider: [id number] KERN Study Date: 10/19/2023 Reading Physician: [id number] Chawla MRN/PID: [id number] Supervising Physician: [id number] Chawla Fellow: Date of /Age: 3 1960 / 63 years Fellow: Gender: F Nurse: Jovana HANKINS Admission Status: Licensed Pesticide Applicator: BONITA Height: 167.64 cm Technologist: Weight: 86.18 kg Additional Staff: BSA: 1.96 m2 BMI: 30.67 kg/m2 Patient Location: Study Type: STRESS TEST ONLY Diagnosis/ICD: Old myocardial infarction-I25.2; Atherosclerotic heart disease-I25.10 Indication: Hypertension CPT Codes: Stress Test Interpretation-19163; Stress TestSupervision-63598 Falls Risk: Low: Patient has low risk [...] response to exercise. 4. Poor exercise tolerance. [id number] Carina Dupree MD Electronically signed on 10/19/2023 at 4:59:33 PM Final us Generic External Data Provider CV STRESS PROCEDU RES Final Result documented in this encounter Visit Diagnoses Not on filedocumented in this encounter Care Teams Truck Driver Rubbish Collector Relationship Specialty Start Date End Date Orlando Beatty MD PCP - General Cardiology 07/14/22 11/07/23 Orlando Beatty MD [address] [place] [address] PCP - General Family Medicine 11/08/23 Kenya Guardado NP [address] [place] [address] PCP - [place] [employer] 08/04/24 Kenya Guardado NP [address] [place] [address] Nurse Practitioner Family Medicine 11/08/23 documented as of this encounter
--- OUTSIDE RECORDS SUMMARY | 2024-10-16 21:25 | XMS_ITS | Encounter Summary ---
Author Organization [facility] Address [address] [facility] [place] [address] Care Team Providers Care Business Analyst Manager Name Role Phone Orlando Beatty MD Primary Care Provider [phone] Orlando Beatty MD Primary Care Provider [phone] Kenya Guardado NP Unavailable [phone] Kenya Guardado NP Unavailable [phone] Encounter Details Date Type Department Care Team ([facility] Contact Info) Description 09/08/2022 Abstract [facility] [address] [place] [address] Alexis Bo NP [address] [place], [place] [phone] Social History Tobacco Use Types Packs/Day Years [...] Encounters Date Type Department Care Team (Late Contact Info) Description 10/18/2024 9:15 AM EDT Office Visit [facility] [address] [place] [phone] Morris Puri PA [address] [place] [phone] 11/11/2024 11:00 AM EDT Office Visit [facility] [address] [place] [address] Kenya Guardado NP [address] [place] [phone] 11/14/2025 9:00 AM EDT Office Visit [facility] [address] [place] [address] Morris Puri PA [address] [place] [address] documented as of this encounter Visit Diagnoses Not on filedocumented in this encounter Care Teams Business Analyst Manager Relationship Specialty Start Date End Date Orlando Beatty MD PCP - General Cardiology 07/14/22 11/07/23 Orlando Beatty MD [address] [place] [phone] PCP - General Family Medicine 11/08/23 Kenya Guardado NP [address] [place] [address] PCP - [employer] 08/04/24 Kenya Guardado NP [address] [place] [address] Nurse Practitioner Family Medicine 11/08/23 documented as of this encounter
--- OUTSIDE RECORDS SUMMARY | 2024-10-16 21:25 | XMS_ITS | Clinical Summary ---
Author Organization [facility] Address [address] [place] [address] Care Team Providers Care Experience Planning Strategist Name Role Phone Orlando Beatty MD Primary Care Provider Kenya Guardado FITNESS SUPERVISOR Unavailable [phone] Kenya Guardado FITNESS SUPERVISOR Unavailable [phone] Allergies Active Allergy Reactions Criticality Noted [...] to to joint pain-suggest aquatic History of VA (myocardial infarction) 09/27/2023 Atherosclerosis of coronary artery of [place] heart without angina pectoris 03/27/2023 Assessment & Plan (07/31/2024 1:05 PM EDT): Current meds: asa, statin, raghav, b diego Does not feel any sxs similar to her VA Assessment & Plan (11/08/2023 11:50 AM EDT): [...] copy of this BMI 30.0-30.9,adult 09/27/2023 11/08/19 Encounters Date Type Department Care Team Description 10/11/2024 Travel 09/16/2024 Telephone [facility] [address] [place] [address] Kenya Guardado NP 08/19/2024 Telephone [facility] [address] [place] [address] Kenya Guardado NP 08/19/2024 Orders Only [facility] [address] [place] [address] Kenya Guardado NP Stage 4 chronic kidney disease (HCC) (Primary Dx); Anemia due to other cause, not classified 08/18/2024 Orders Only [facility] [address] [place] [address] Kenya Guardado NP Stage 4 chronic kidney disease (HCC) (Primary Dx); Anemia due to other cause, not classified 08/16/2024 Clinisync Result Encounter [facility] External Department Unsolicited Kenya Guardado NP 08/16/2024 Clinisync Result Encounter NOMS External Department Unsolicited Kenya Guardado NP 08/15/2024 11:30 AM EDT Office Visit [facility] [address] [place] [address] Kenya Guardado NP Hyperkalemia (Primary Dx); Essential hypertension ; Class 1 obesity due to excess calories with serious comorbidity and body mass index (BMI) of 31.0 to 31.9 in adult; Other fatigue; Anemia due to other cause, not classified 08/15/2024 Orders Only [facility] [address] [place] [address] Kenya Guardado NP Stage 4 chronic kidney disease (HCC) (Primary Dx) 08/15/2024 Clinisync Result Encounter NOMS External Department Unsolicited Kenya Guardado NP 08/15/2024 Bamboo flowsheet [facility] [address] [place] [address] Kenya Guardado NP 08/11/2024 Travel 08/08/2024 Telephone [facility] [address] [place] [address] Kenya Guardado NP 08/08/2024 Orders Only [facility] [address] [place] [address] Kenya Guardado NP Hyperkalemia (Primary Dx); Chronic kidney disease, stage 3a ([facility]) 08/07/2024 11:00 AM EDT Office Visit [facility] [address] [place] [phone] Morris Puri PA Acute hip pain, left (Primary Dx); Acute left lumbar radiculopathy 08/07/2024 Bamboo flowsheet [facility] [place] [phone] Morris Puri PA 08/07/2024 Travel 08/01/2024 Orders Only [facility] [address] [place] [address] German Wallace MD 07/31/2024 11:30 AM EDT Office Visit [facility] [address] [place] [phone] Kenya Guardado, TIFFANI Other fatigue (Primary Dx); Essential hypertension ; Atherosclerosis of [place] coronary artery of [place] heart without angina pectoris ; Mixed hyperlipidemia ; Dizziness and giddiness; Arthralgia, unspecified joint; Polyuria 07/31/2024 Telephone [facility] [address] [place] [phone] Kenya Guardado, TIFFANI 07/31/2024 Clinisync Result Encounter NOMS External Department Unsolicited Kenya Guardado, TIFFANI 07/31/2024 Bamboo flowsheet [facility] [address] [place] [phone] Kenya Guardado, TIFFANI 07/31/2024 Travel 07/25/2024 Telephone [facility] [address] [place] [address] Morris Puri PA MRI 07/24/2024 9:50 AM EDT Ancillary Procedure [facility] [place] [phone] 07/24/2024 9:15 AM EDT Office Visit [facility] [place] [phone] Morris Puri PA Acute hip pain, left (Primary Dx); Acute left lumbar radiculopathy; History of total hip replacement, left 07/24/2024 [facility] [place] [address] Morris Puri PA 07/24/2024 Travel 07/17/2024 Travel from Last 3 Months Immunizations Immunization Administration [...] week 07/31/2024 How often do you attend pentecostalism or christian serv ices? Never 07/31/2024 Do you belong to any clubs o r organizations such as pentecostalism groups, unions, fraternal or athletic groups, or [...] care, and heating? Not very hard 07/31/2024 [facility] [...] any time in the past 12 m [facility] [place], were you homeless or living in a [...] 10/18/2024 9:15 AM EDT Office Visit [facility] [address] [place] [address] Morris Puri PA [address] [place] [address] 11/11/2024 11:00 AM EDT Office Visit [facility] [address] [place] [address] Kenya Guardado NP [address] [place] [address] 11/14/2025 9:00 AM EDT [facility] [address] [place] [address] Morris Puri PA [address] [place] [address] Health Maintenance Due Date Last Done Comments CT Colonography 1962 FIT-DNA 1962 FIT 1962 FOBT 1960 Sigmoidoscopy 1962 Pap Smear 05/29/1983 Cervical Cancer Screening 1992 HPV/Cotest 1992 Influenza Vaccine (#1) 2024 , 12/04/2020, 01/04/2020, Additional history exists Mammogram 11/20/2024 11/21/2023 Colonoscopy 12/04/2033 12/05/2023, 12/05/2023 Colorectal Cancer Screening 12/04/2033 Procedures Procedure Name Priority Date/Time Associated Diagnosis Comments XR ABDOMEN 1V 08/16/2024 2:12 PM EDT US RENAL BI 08/16/2024 2:07 PM EDT ALL PHOSPHOROUS Routine 08/15/2024 12:29 PM EDT ALL BASIC METABOLIC PANEL Routine 08/15/2024 12:29 PM EDT ALL CBC WITH AUTO DIFF Routine 08/15/2024 12:29 PM EDT ECG 12-LEAD Routine 08/01/2024 9:09 AM EDT ANTINUCLEAR ANTIBODIES, IFA Routine 07/31/2024 12:35 PM EDT TBH THYROID ANTIBODIES Routine 07/31/2024 12:35 PM EDT VITAMIN B12 Routine 07/31/2024 12:35 PM EDT ALL THYROID STIM HORMONE Routine 07/31/2024 12:35 PM EDT ALL T3 FREE Routine 07/31/2024 12:35 PM EDT ALL C REACTIVE PROTEIN Routine 07/31/2024 12:35 PM EDT ALL MAGNESIUM Routine 07/31/2024 12:35 PM EDT ALL URIC ACID Routine 07/31/2024 12:35 PM EDT [facility] CMP (CMP) (FOR REMOTE [facility] USE) Routine 07/31/2024 12:35 PM EDT ALL THYROXINE (T4) FREE Routine 07/31/2024 12:35 PM EDT ALL FOLIC ACID Routine 07/31/2024 12:35 PM EDT [facility] FERRITIN Routine 07/31/2024 12:35 PM EDT [facility] IRON Routine 07/31/2024 12:35 PM EDT ALL SED RATE Routine 07/31/2024 12:35 PM EDT ALL CBC WITH AUTO DIFF Routine 07/31/2024 12:35 PM EDT [facility] URINALYSIS, WITH MICROSCOPIC Routine 07/31/2024 12:28 PM EDT XR LUMBAR SPINE 2-3 VIEWS Routine 07/24/2024 9:46 AM EDT Acute left lumbar radiculopathy MM TOMOSYNTHESIS SCREENING BI 11/21/2023 3:41 PM EDT from Last 3 Months or Most Recently Relevant to Health Maintenance Results * XR ABDOMEN 1V (08/16/2024 2:12 PM EDT) Anatomical Region Laterality Modality Other 08/16/2024 2:12 PM EDT Narrative 08/16/2024 2:15 [place] [address] XRay Report Signed Patient: INA JEWELL MR#: [id number] : 1960 Acct:[id number] Age/Sex: 64 / F ADM Date: 08/16/24 Loc: US Attending Dr: Kenya Guardado NP Ordering Physician: Kenya Guardado NP Date of Service: 08/16/24 Procedure(s): XR abdomen 1V Accession Number(s): [id number] cc: Kenya Guardado NP [facility] [place] [id number] Patient Name: INA JEWELL MRN: [id number] date: 1960 Sex: F Assigned Patient Location: Current Patient Location: Accession/Order Number: [id number] Exam Date: 08/16/2024 14:09 Report Date: 08/16/2024 [...] Pinedo M.D. 08/16/2024 2:12 PM Dictation Location: [place] [address] Electronically authenticated by: [id number] Y Date: 08/16/2024 14:12 Dictated By: Tati Pinedo M.D. Signed By: 08/16/24 1415 DD/ 141 TD/TT: Title Processor: Procedure Note Radiology, Radiologist, - 08/16/2024 [place] [address] XRay Report Signed Patient: INA JEWELL LMR#: [id number] : 1960Acct:[id number] Age/Sex: 64 / FADM Date: 08/16/24 Loc: US Attending Dr: Kenya Guardado NP Ordering Physician: Kenya Guardado NP Date of Service: 08/16/24 Procedure(s): XR abdomen 1V Accession Number(s): [id number] cc: Kenya Guardado NP [facility] [place] [address] Patient Name: INA JEWELL MRN: [id number] date: 1960 Sex: F Assigned Patient Location: Current Patient Location: Accession/Order Number: [id number] Exam Date: 08/16/2024 14:09 Report Date: 08/16/2024 14:12 At the request of: KENYA GUARDADO NP Procedure: XR abdomen 1V SINGLE VIEW ABDOMEN CLINICAL DATA: Chronic kidney disease. COMPARISON: Lumbar spine 05/19/2022 Supine views of the abdomen and pelvis were obtained. There is air andstool within the colon. There is an air-containing small bowel loop at the left lower abdomen which is borderline in caliber though there is no focal thickening. No soft tissue masses or suspect renal calculi areidentified. Mild degenerative change is visualized at the spine. Patient has a lefthip prosthesis. XR/XR abdomen 1V IMPRESSION: NONSPECIFIC BOWEL GAS PATTERN. NO EVIDENCE OF RADIOPAQUE STONES. Impression dictated by: Tati Pinedo M.D. 08/16/2024 2:12 PM Dictation Location: [place] [address] Electronically authenticated by: [id number] Y Date: 4:12 Dictated By: Tati Pinedo M.D. Signed By:08/16/24 1415 DD/ 141 TD/TT: Title Processor: Kenya Guardado NP [facility] Final Result * US RENAL BI (08/16/2024 2:07 PM EDT) Anatomical Region Laterality Modality Other 08/16/2024 2:07 PM EDT Narrative 08/16/2024 2:10 [place] [address] Ultrasound Report Signed Patient: INA JEWELL MR#: [id number] : 1960 Acct:[id number] Age/Sex: 64 / F ADM Date: 08/16/24 Loc: US Attending Dr: Kenya Guardado NP Ordering Physician: Kenya Guardado NP Date of Service: 08/16/24 Procedure(s): US renal BI Accession Number(s): [id number] cc: Kenya Guardado NP [place] [id number] Patient Name: INA JEWELL MRN: [id number] date: 1960 Sex: F Assigned Patient Location: US Current Patient Location: US Accession/Order Number: [id number] Exam Date: 08/16/2024 14:05 Report Date: 08/16/2024 [...] Pinedo M.D. 08/16/2024 2:07 PM Dictation Location: [place] [address] Electronically authenticated by: [id number] Y Date: 08/16/2024 14:07 Dictated By: Tati Pinedo M.D. Signed By: 08/16/24 1410 DD/ 1407 TD/TT: Title Processor: Procedure Note Radiology, Radiologist, MD - 08/16/2024 [place] [address] Ultrasound Report Signed Patient: INA JEWELL LMR#: [id number] : 1960Acct:[id number] Age/Sex: 64 / FADM Date: 08/16/24 Loc: US Attending Dr: Kenya Guardado NP Ordering Physician: Kenya Guardado NP Date of Service: 08/16/24 Procedure(s): US renal BI Accession Number(s): [id number] cc: Kenya Guardado NP [address] [address] Patient Name: INA JEWELL MRN: [id number] date: 1960 Sex: F Assigned Patient Location: Current Patient Location: US Accession/Order Number: [id number] Exam Date: 08/16/2024 14:05 Report Date: 08/16/2024 14:07 At the request of: KENYA GUARDADO NP Procedure: US renal BI BILATERAL RENAL AND BLADDER ULTRASOUND CLINICAL HISTORY: Chronic kidney disease, stage 4, Hyperkalemia COMPARISON: None Estimation of renal size is approximately 9.5 cm on the right and 8.1 cmon the left. No shadowing calculi or hydronephrosis are identified. Cystsare present at the upper pole on the right measuring 2.0 x 1.7 x 2.0 cm and atthe midpole measuring 1.3 x 1.8 x 1.5 cm. There are also a couple left renal cysts with the larger measuring 12 x 8 x 9 mm. There is no perinephricfluid. The urinary bladder is partially distended with a volume of 63 mL. Nocontour or intraluminal abnormalities are seen. US/US renal BI IMPRESSION: NO OBSTRUCTIVE UROPATHY. RENAL CYSTS. Impression dictated by: Tati Pinedo M.D. 08/16/2024 2:07 PM Dictation Location: [place] [address] Electronically authenticated by: [id number] Y Date: 4:07 Dictated By: Tati Pinedo M.D. Signed By:08/16/24 1410 DD/ 1407 TD/TT: Title Processor: Kenya Guardado NP [facility] Final Result * ALL PHOSPHOROUS (08/15/2024 12:29 PM EDT) PHOSPHORUS 4.4 2.6 - 4.7 mg/dL TBH 08/15/2024 12:2 9 PM EDT 08/15/2024 12:30 PM EDT Narrative [facility] - 08/15/2024 12:44 PM EDT Kenya Guardado NP [facility] Final Result [facility] * (ABNORMAL) ALL CBC WITH AUTO DIFF [...] us Kenya Guardado NP [facility] Final Result [facility] * (ABNORMAL) ALL BASIC METABOLIC PANEL [...] 0.55 - 1.02 mg/dL TBH TBH EGFR-AF [place] 33(L) >=60 mL/min/1.7 3m 2 TBH TBH EGFR-NON AF [place] 27(L) >=60 mL/min/1.7 3m 2 TBH BUN CREATININE RATIO 23.1 TBH CALCIUM 9.4 8.5 - 10.1 mg/dL [facility] 08/15/2024 12:2 9 PM EDT 08/15/2024 12:30 PM EDT Narrative [facility] - 08/15/2024 12:44 PM EDT us Kenya Guardado NP [facility] Final Result Performing Organization Address [facility]/ZIP Co de Phone Number [facility] * ECG 12 lead (08/01/2024 9:09 AM EDT) German Wallace MD ECG ORDERABLES Final Result * VITAMIN B12 (07/31/2024 12:35 PM EDT) VITAMIN B12 276 232 - 1245 pg/mL TBH Comment: Performed at: [facility] [id number] Concrete Paving Supervisor: Nhan Harvey PhD, Phone: [phone] 07/31/2024 12:3 5 PM EDT 07/31/2024 12:38 PM EDT Narrative [facility] - 08/01/2024 4:07 AM EDT us Kenya Guardado NP LAB BLOOD ORDERABLES Final Resu lt [facility] * ANTINUCLEAR ANTIBODIES, IFA (07/31/2024 12:35 PM EDT) ANTINUCLEAR ANTIBODIES, IFA Negative . TBH Comment: Negative <1:80 Borderline 1:80 Positive >1:80 ICAP nomenclature: AC-0 For more information about Hep-2 cell patterns use ANApatterns.org, the official website for the International Consensus on Antinuclear Antibody (ISRA) Patterns (ICAP). Performed at: [address] [id number] Con[employer] Paving Supervisor: Nhan Harvey PhD, Phone: [phone] 07/31/2024 12:3 5 PM EDT 07/31/2024 12:38 PM EDT Narrative [facility]IN[facility] - 08/01/2024 8:11 PM EDT Kenya Guardado FITNESS SUPERVISOR LAB BLOOD ORDERABLES Final Resu lt Performing Organization Address [facility]/ZIP Co de Phone Number [facility] * [facility] THYROID ANTIBODIES (07/31/2024 12:35 PM EDT) THYROID PEROXIDASE (TPO) AB 11 0 - 34 IU/mL TBH THYROGLOBULIN ANTIBODY <1.0 0.0 - 0.9 IU/mL TBH Comment: Thyroglobulin Antibody measured by [employer] Methodology It should be noted that the presence of thyroglobulin antibodies may not be pathogenic nor diagnostic, especially at very low levels. The assay toy designer has found that four percent of individuals without evidence of thyroid disease or autoimmunity will have positive TgAb levels up to 4 IU/mL. Performed at: [address] [id number] Concrete Paving Supervisor: Nhan Harvey PhD, Phone: [phone] 07/31/2024 12:3 5 PM EDT 07/31/2024 12:38 PM EDT Narrative [facility]IN[facility] - 08/01/2024 8:11 PM EDT us Kenya Guardado NP [facility] Final Result Performing Organization Address City/[facility]/ZIP Co de Phone Number [facility] TB * [facility] IRON (07/31/2024 12:35 PM EDT) Pathologist [facility] TB IRON 107.0 50.0 - 170.0 ug/dL TBH 07/31/2024 12:3 5 PM EDT 07/31/2024 12:38 PM EDT Narrative [facility]IN[facility] - 07/31/2024 1:36 PM EDT Kenya Horowitzwesley FITNESS SUPERVISOR [facility] Final Result [facility] * [facility] FERRITIN (07/31/2024 12:35 PM EDT) FERRITIN 205.0 8.0 - 252.0 ng/mL TBH 07/31/2024 12:3 5 PM EDT 07/31/2024 12:38 PM EDT Narrative [facility]IN[facility] - 07/31/2024 2:04 PM EDT Kenya Alfonsotashaamaris FITNESS SUPERVISOR [facility] Final Result [facility] * (ABNORMAL) [facility] CMP (CMP) (FOR REMOTE [facility] USE) (07/31/2024 12:35 PM EDT) SODIUM 140 [...] 0.55 - 1.02 mg/dL TBH TBH EGFR-AF [place] 34(L) >=60 mL/min/1. 73m 2 TBH TBH EGFR-NON AF [place] 28(L) >=60 mL/min/1. 73m 2 TBH BUN [...] - 07/31/2024 4:00 PM EDT us Kenya Debby FITNESS SUPERVISOR CLINIS[facility] Final Result [facility] TB * ALL URIC ACID (07/31/2024 12:35 PM EDT) URIC ACID 5.1 2.6 - 6.0 mg/dL TB 07/31/2024 12:3 5 PM EDT 07/31/2024 12:38 PM EDT Narrative CLINIS[facility]NC - 07/31/2024 4:00 PM EDT us Kenya Debby FITNESS SUPERVISOR [facility] Final Result [facility] * ALL THYROXINE (T4) FREE (07/31/2024 12:35 PM EDT) FREE T4 0.89 0.76 - 1.46 ng/dL TB 07/31/2024 12:3 5 PM EDT 07/31/2024 12:38 PM EDT Narrative CLINISYNC - 07/31/2024 2:04 PM EDT Kenya Guardado FITNESS SUPERVISOR [facility] Final Result Performing Organization Address City/[facility]/ZIP Co de Phone Number [facility] TB * ALL THYROID STIM HORMONE (07/31/2024 12:35 PM EDT) THYROID STIMULATING HORMONE 1.107 0.358 - 3.740 uIU/mL TBH 07/31/2024 12:3 5 PM EDT 07/31/2024 12:38 PM EDT Narrative CLINIS[facility] - 07/31/2024 4:00 PM EDT us Kenya Guardado FITNESS SUPERVISOR CLIN[facility] Final Result [facility] * (ABNORMAL) ALL T3 FREE (07/31/2024 12:35 PM EDT) FREE T3 2.14(L) 2.18 - 3.98 pg/mL TBH 07/31/2024 12:3 5 PM EDT 07/31/2024 12:38 PM EDT Narrative CLINISYNC - 07/31/2024 4:00 PM EDT us Kenya Guardado FITNESS SUPERVISOR [facility] Final Result Performing Organization Address [facility]/ZIP Co de Phone Number [facility] * (ABNORMAL) ALL SED RATE (07/31/2024 12:35 PM EDT) TBH SED RATE 31(H) <=30 mm/hr TBH 07/31/2024 12:3 5 PM EDT 07/31/2024 12:38 PM EDT Narrative CLINIS[facility]NC - 07/31/2024 12:46 PM EDT us Kenya Guardado FITNESS SUPERVISOR CLIN[facility] Final Result [facility] * ALL MAGNESIUM (07/31/2024 12:35 PM EDT) MAGNESIUM 2.0 1.8 - 2.4 mg/dL TBH 07/31/2024 12:3 5 PM EDT 07/31/2024 12:38 PM EDT Narrative CLINISYNC - 07/31/2024 4:00 PM EDT us Kenyadennis Guardado FITNESS SUPERVISOR CLIN[facility] Final Result [facility] TB * ALL FOLIC ACID (07/31/2024 12:35 PM EDT) FOLATE 35.20 8.60 - 58.90 ng/mL TB 07/31/2024 12:3 5 PM EDT 07/31/2024 12:38 PM EDT Narrative CLINISYNC - 07/31/2024 2:04 PM EDT Kenya Guardado FITNESS SUPERVISOR [facility] Final Result Performing Organization Address [facility]/ZIP Co de Phone Number [facility] * ALL C REACTIVE PROTEIN (07/31/2024 12:35 PM EDT) Pathologist [facility] C REACTIVE PROTEIN <0.50 <=0.50 mg/dL TB 07/31/2024 12:3 5 PM EDT 07/31/2024 12:38 PM EDT Narrative CLINISYNC - 07/31/2024 4:00 PM EDT Kenya Guardado NP [facility] Final Result Performing Organization Address [facility] Co de Phone Number [facility] * (ABNORMAL) [facility] URINALYSIS, WITH MICROSCOPIC (07/31/2024 12:28 PM EDT) [...] Kenya Guardado NP [facility] Final Result [facility] * XR lumbar spine 2 [...] IMG XR PROCEDURES Final Resul t * MM TOMOSYNTHESIS SCREENING BI (11/21/2023 3:41 PM EDT) Anatomical Region Laterality Modality Other 11/21/2023 3:41 PM EDT Narrative 11/21/2023 3:42 [place] [address] Mammography Report Signed Patient: INA JEWELL MR#: [id number] : 1960 Acct:[id number] Age/Sex: 63 / F ADM Date: 11/21/23 Loc: MAMMO Attending Dr: Kenya Guardado NP Ordering Physician: Kenya Guardado NP Results: Date of Service: 11/21/23 Follow Up: Procedure(s): MM tomosynthesis screening BI Accession Number(s): [id number] cc: Kenya Guardado NP Patient Name: INA JEWELL MR#: [id number] : 1960 Exam Date: 11/21/2023 Ordering Doctor: [...] colon cancer at age 66. LOCATION: [facility] BREAST COMPOSITION: The breasts are heterogeneously dense,which [...] Signed By: 11/21/23 1542 DD/ 1541 TD/TT: Title Processor: Procedure Note Radiology, Radiologist, MD - 11/21/2023 [place] [address] Mammography Report Signed Patient: INA JEWELL LMR#: [id number] : 1960Acct:[id number] Age/Sex: 63 / FADM Date: 11/21/23 Loc: MAMMO Attending Dr: Kenya Guardado NP Ordering Physician: Kenya Guardado NPResults: Date of Service: 11/21/23Follow Up: Procedure(s): MM tomosynthesis screening BI Accession Number(s): [id number] cc: Kenya Guardado NP Patient Name: INA JEWELL MR#: [id number] : 1960 Exam Date: 11/21/2023 Ordering Doctor: [...] colon cancer at age 66. LOCATION: [facility] BREAST COMPOSITION: The breasts are heterogeneously dense,which [...] M.D. Signed By:11/21/23 1542 DD/ 1541 TD/TT: Title Processor: Kenya Guardado NP [facility] Final Result from Last 3 Months or Most Recently Relevant to Health Maintenance Insurance [facility] Care Teams Experience Planning Strategist Relationship Specialty Start Date End Date Orlando Beatty MD [address] [place] [phone] PCP - General Family Medicine 11/08/23 Kenya Guardado NP [address] [place] [phone] PCP - [facility] 08/04/24 Kenya Guardado NP [address] [place] [phone] Nurse Practitioner Family Medicine 11/08/23
--- OUTSIDE RECORDS SUMMARY | 2024-10-16 21:25 | XMS_ITS | Clinical Summary ---
Author Organization [facility] Address [address] [place] [address] Phone Care Team Providers Care Entertainment Agent Name Role Phone Kenya Guardado Jacqueline WARP BLEACHING VAT TENDER-DOCUMENT PREPARER MICROFILMING Primary Care Provider Allergies Active Allergy Reactions Criticality Noted Date Comments Isosorbide Headache 03/27/2023 Oxycodone GI Upset,Nausea/vomiting 03/27/2023 Tetanus Toxoid Unknown 03/27/2023 Medications aspirin 81 mg EC tablet Take 1 tablet (81 mg) by mouth once daily. Active nitroglycerin (Nitrostat) 0.[address] 1 tablet (0.4 mg) under the tongue every 5 minutes if needed for chest pain. Active metoprolol succinate XL (Toprol-XL) 25 mg 24 hr tabletIndication s:Atheroscleroti c heart disease of [place] coronary artery without angina pectoris TAKE 1 TABLET BY MOUTH EVERY DAY 90 tablet 3 03/26/19 25 Active Additional Information Patient taking differently: 1.5 tabletoral Daily, Reported on 09/26/2024 atorvastatin (Lipitor) 80 mg tabletIndication s:Hyperlipidemia , unspecified Take 1 tablet (80 mg) by mouth once daily. 90 tablet 3 09/27/19 25 026 Active atorvastatin (Lipitor) 80 mg tabletIndication s:Hyperlipidemia , unspecified Take 1 tablet (80 mg) by mouth once daily. 90 tablet 3 11/09/19 24 025 Discontinu ed(Reorder ) lisinopril 10 mg tabletIndication s:Essential (primary) hypertension TAKE 1 TABLET BY MOUTH EVERY DAY 90 tablet 3 03/26/19 25 025 Discontinu ed(Discont inued by another clinician) Active Problems Problem Noted Date Diagnosed Date History of IA (myocardial infarction) 09/27/2023 BMI 30.0-30.9,adult 09/27/2023 Never smoked tobacco 09/27/2023 Atherosclerosis of coronary artery of [place] heart without angina pectoris 03/27/2023 Essential hypertension 03/27/2023 History of mycobacterial infection 03/27/2023 History of PTCA 03/27/2023 Hyperlipidemia 03/27/2023 Encounters Date Type Department Care Team Description 09/26/2024 1:10 PM EDT Office Visit [facility] [address] [address] Eric Brewster, History of IA (myocardial infarction); Atherosclerosis of coronary artery of [place] heart without angina pectoris, unspecified vessel or lesion type; Essential hypertension; History of PTCA; Mixed hyperlipidemia; History of mycobacterial infection; BMI 30.0-30.9,adult; Never smoked tobacco; Hyperlipidemia, unspecified 09/26/2024 Travel from Last 3 Months Immunizations Immunization Administration Dates Next Due Flu vaccine, trivalent, pres ervative free, HIGH-DOSE, age 65y+ (Fluzone) 01/07/2019 Influenza, Split (incl. ravinder fied surface antigen) 01/08/2019 Influenza, Unspecified 12/05/2023,2018,04/02/2017,12/04 Influenza, seasonal, injectable 12/04/2020,12/04 Pneumococcal polysaccharide vaccine, 23-valent, age 2 years and older (PNEUMOVAX 23) 03/06/2017,10/04/2016 Family History Medical History Relation Name Comments [...] Sign Reading Time Taken Comments Blood Pressure 106/76 09/26/2024 1:11 PM EDT Pulse 84 09/26/2024 1:11 PM EDT Temperature - - Respiratory Rate - - Oxygen Saturation - - Inhaled Oxygen Concentration - - Weight 86 kg (189 lb 9.6 oz) 09/26/2024 1:11 PM EDT Height 167.6 cm (5' 6 ) 09/26/2024 1:11 PM EDT Body Mass Index 30.6 09/26/2024 1:11 PM EDT Plan of Treatment Upcoming Encounters Date Type Department Care Team (Late st Contact Info) Description 09/25/2025 1:20 PM EDT Office Visit [facility] [address] [facility] [address] [place] [address] Eric Brewster DO [address] [facility] [address] [place] [address] Health Maintenance Due Date Last Done Comments CT Colonography 1960 Creatinine Level 1960 Echocardiogram 1960 FIT-DNA (Cologuard) 1962 FIT 1960 HIV Screening 1960 Lipid Panel 1960 Potassium Level 1962 Sigmoidoscopy 1962 MMR Vaccines (1 of 1 - Standard series) 05/29/1963 Diabetes Screening 1980 Hepatitis C Screening 1980 Cervical Cancer Screening 05/29/1983 HPV/Cotest 05/29/1983 Pap Smear 05/29/1983 DTaP/Tdap/Td Vaccines (1 - Tdap) 1984 Mammogram 2002 Zoster Vaccines (1 of 2) 2012 Pneumococcal Vaccine (2 of 2 - PCV) 03/06/2018 03/06/2017, 10/04/2016 RSV High Risk: (Elderly (60+) or Population) (1 - Risk 60-74 years 1-dose series) 2022 COVID-19 Vaccine (1 - season) 2023 Influenza Vaccine (#1) 2024 , 12/04/2020, 01/04/2020, Additional history exists Yearly Adult Physical 11/08/2024 11/08/2023 Colonoscopy 12/04/2033 12/05/2023 Colorectal Cancer Screening 12/04/2033 HIB Vaccines Aged Out No longer eligi [...] patient's age to complete this topic Insurance [facility] Care Teams Entertainment Agent Relationship Specialty Start Date End Date Kenya Guardado, WARP BLEACHING VAT TENDER-DOCUMENT PREPARER MICROFILMING [address] [place] [phone] PCP - General 03/06/99
[2024-10-16 21:26] VITALS: BP 122/75; PULSE 99; TEMP 36.7; O2SAT 97; BMI 29.5
--- OUTSIDE RECORDS SUMMARY | 2024-10-16 21:26 | XMS_ITS | Encounter Summary ---
Author Organization [facility] Address [address] [place] [address] Phone Care Team Providers Care Orthopaedic Doctor Name Role Phone Kenya Guardado SUPERVISOR HEAVY EQUIPMENT-SHEET HEATER Primary Care Provider Encounter Details Date Type Department Care Team (Late st Contact Info) Description 09/12/2019 Orders Only [facility] [address] [place] [address] Conversion, Onbase Social History Tobacco Use Types [...] Description 09/25/2025 1:20 PM EDT Office Visit [facility] 703 [facility] [address] [place] [address] Eric Brewster, 703 [facility] [address], [address] [place], [place] [phone] Scheduled Orders Name Type Priority Associated Diagnoses Orde r Schedule OUTSIDE LAB SCAN Lab Ordered: 09/12/2019 OUTSIDE LAB SCAN Lab Ordered: 09/12/2019 documented as of this encounter Visit Diagnoses Not on filedocumented in this encounter Care Teams Orthopaedic Doctor Relationship Specialty Start Date End Date Kenya Guardado APRN-SHEET HEATER [address] [place] [address] PCP - General 03/06/99 documented as of this encounter
--- OUTSIDE RECORDS SUMMARY | 2024-10-16 21:26 | XMS_ITS | Encounter Summary ---
Author Organization [facility] Address [address] [place] [address] Care Team Providers Care Computing Services Director Name Role Phone Orlando Beatty MD Primary Care Provider [phone] Kenya Guardado UNIVERSAL BRANCH CONSULTANT Unavailable [phone] Kenya Guardado UNIVERSAL BRANCH CONSULTANT Unavailable [phone] Encounter Details Date Type Department Care Team (Late st Contact Info) Description 07/01/2024 Orders Only [facility] [address] [facility] [address] [place] [address] Unallocated, Noms Provider, [address] [place] [address] Social History Tobacco Use Types Packs/Day Years [...] often do you attend chur ch or anabaptist services? Never 02/06/2023 Do you belong to [...] 02/06/2023 [facility] - Occupational Stress Questionnaire Answer Date [...] Description 10/18/2024 9:15 AM EDT Office Visit [facility] [address] [place] [address] Morris Puri PA [address] [place] [address] 11/11/2024 11:00 AM EDT Office Visit [facility] [address] [place] [address] Kenya Guardado NP [address] [place] [address] 11/14/2025 9:00 AM EDT Office Visit [facility] [address] [place] [address] Morris Puri, PA [address] [facility] [place] [address] documented as of this encounter Procedures Procedure Name Priority Date/Time Associated Diagnosis Comments XR HIP 2 OR 3 VW LEFT Routine 07/01/2024 10:01 AM EDT documented in this encounter Results * XR hip left 2 or 3 views (07/01/2024 10:01 AM EDT) Anatomical Region Laterality Modality Lower Extremities, Hip Left Radiograp hic Imaging us Noms Provider Unallocated IMJalen XR PROCEDURES F inal Result documented in this encounter Visit Diagnoses Not on filedocumented in this encounter Care Teams Computing Services Director Relationship Specialty Start Date End Date Orlando Beatty MD [address] [place] [address] PCP - General Family Medicine 11/08/23 Kenya Guardado NP [address] [place] [address] PCP - [facility] 08/04/24 Kenya Guardado NP [address] [place] [address] Nurse Practitioner Family Medicine 11/08/23 documented as of this encounter
--- OUTSIDE RECORDS SUMMARY | 2024-10-16 21:26 | XMS_ITS | Encounter Summary ---
Author Organization [facility] Address [address] [place] [address] Care Team Providers Care Copier Operator Name Role Phone Orlando Beatty MD Primary Care Provider [phone] Kenya Guardado CONSOLE ASSEMBLER Unavailable [phone] Kenya Guardado CONSOLE ASSEMBLER Unavailable [phone] Encounter Details Date Type Department Care Team (Late st Contact Info) Description 11/21/2023 Clinisync Result Encounter [facility] External Department Unsolicited Kenya Guardado, CONSOLE ASSEMBLER [address] [place] [address] Social History Tobacco Use Types Packs/Day Years [...] How often do you attend chur or zoroastrianism services? Never 02/06/2023 Do you belong to [...] care, and heating? Not very hard 02/06/2023 [facility] Occupat ional [facility] - Occupational Stress Questionnaire Answer Date Recorded [...] place to sleep or slept in a long-term (including now)? Patient refused 02/06/2023 Comments Unknown Sex and Gender Information Value Date Recorded Sex Assigned at Not on file Legal Sex Female 8:15 PM EDT Gender Identity Not on file Sexual Orientation Not on file documented as of this encounter Plan of Treatment Upcoming Encounters Date Type Department Care Team (Late st Contact Info) Description 10/18/2024 9:15 AM EDT Office Visit [facility] [address] [place] [address] Morris Puri PA [address] [place] [address] 11/11/2024 11:00 AM EDT Office Visit [facility] [address] [place] [address] Kenya Guardado NP [address] [place] [address] 11/14/2025 9:00 AM EDT Office Visit [facility] [address] [place] [address] Morris Puri PA [address] [place] [address] documented as of this encounter Procedures Procedure Name Priority Date/Time Associated Diagnosis Comments MM TOMOSYNTHESIS SCREENING BI 11/21/2023 3:41 PM EDT documented in this encounter Results * MM TOMOSYNTHESIS SCREENING BI (11/21/2023 3:41 PM EDT) Anatomical Region Laterality Modality Other 11/21/2023 3:41 PM EDT Narrative 11/21/2023 3:42 [place] [address] Mammography Report Signed Patient: INA JEWELL MR#: [id number] : 1960 Acct:[id number] Age/Sex: 63 / F ADM Date: 11/21/23 Loc: MAMMO Attending Dr: Kenya Guardado NP Ordering Physician: Kenya Guardado NP Results: Date of Service: 11/21/23 Follow Up: Procedure(s): MM tomosynthesis screening BI Accession Number(s): [id number] cc: Kenya Guardado NP Patient Name: INA JEWELL MR#: [id number] : 1960 Exam Date: 11/21/2023 Ordering Doctor: [...] colon cancer at age 66. LOCATION: [facility] BREAST COMPOSITION: The breasts are heterogeneously dense,which [...] Signed By: 11/21/23 1542 DD/ 1541 TD/TT: Med Aide: Procedure Note Radiology, Radiologist, MD - 11/21/2023 [place] [address] Mammography Report Signed Patient: INA JEWELL LMR#: [id number] : 1960Acct:[id number] Age/Sex: 63 / FADM Date: 11/21/23 Loc: MAMMO Attending Dr: Kenya Guardado NP Ordering Physician: Kenya Guardado NPResults: Date of Service: 11/21/23Follow Up: Procedure(s): MM tomosynthesis screening BI Accession Number(s): [id number] cc: Kenya Guardado NP Patient Name: INA JEWELL MR#: [id number] : 1960 Exam Date: 11/21/2023 Ordering Doctor: ALPESH Guardado DEPUTY COMMISSIONER RADIOLOGY REPORT PROCEDURE: MM TOMOSYNTHESIS SCREENING BI [...] colon cancer at age 66. LOCATION: [facility] BREAST COMPOSITION: The breasts are heterogeneously dense,which [...] M.D. Signed By:11/21/23 1542 DD/ 1541 TD/TT: Med Aide: us Kenya Guardado NP [facility] Final Result documented in this encounter Visit Diagnoses Not on filedocumented in this encounter Care Teams Copier Operator Relationship Specialty Start Date End Date Orlando Beatty MD [address] [place] [address] PCP - General Family Medicine 11/08/23 Kenya Guardado NP [address] [place] [address] PCP - [facility] 08/04/24 Kenya Guardado NP [address] [place] [address] Nurse Practitioner Family Medicine 11/08/23 documented as of this encounter
--- OUTSIDE RECORDS SUMMARY | 2024-10-16 21:26 | XMS_ITS | Encounter Summary ---
Author Organization [facility] Address [address] [place] [address] Care Team Providers Care Program Director Group Work Name Role Phone Orlando Beatty MD Primary Care Provider [phone] Kenya Guardado BOARDING ROOM FIXER Unavailable [phone] Kenya Guardado BOARDING ROOM FIXER Unavailable [phone] Encounter Details Date Type Department Care Team (Late st Contact Info) Description 08/15/2024 Orders Only [facility] [address] [place] [address] Kenya Guardado BOARDING ROOM FIXER [address] [place] [address] Stage 4 chronic kidney disease (HCC) (Primary [...] week 07/31/2024 How often do you attend judaism or lutheran serv ices? Never 07/31/2024 Do you belong to any clubs o r organizations such as judaism groups, unions, fraternal or athletic groups, or [...] care, and heating? Not very hard 07/31/2024 [facility] Occupat ional Health - Occupational Stress [...] EDT Office Visit [facility] [address] [place] [address] Morris Puri PA [address] [place] [address] 11/11/2024 11:00 AM EDT Office Visit [facility] [address] [place] [address] Kenya Guardado NP [address] [place] [address] 11/14/2025 9:00 AM EDT Office Visit [facility] [address] [facility] [place] [address] Morris Puri PA [address] [facility] [place] [address] documented as of this encounter Visit Diagnoses Diagnosis Stage 4 chronic kidney disease (HCC)- Primary documented in this encounter Care Teams Program Director Group Work Relationship Specialty Start Date End Date Orlando Beatty MD [address] [place] [address] PCP - General Family Medicine 11/08/23 Kenya Guardado NP [address] [place] [address] PCP - [facility] 08/04/24 Kenya Guardado NP [address] [place] [address] Nurse Practitioner Family Medicine 11/08/23 documented as of this encounter
--- OUTSIDE RECORDS SUMMARY | 2024-10-16 21:26 | XMS_ITS | Encounter Summary ---
Author Organization [facility] Address [address] [place] [address] Phone Care Team Providers Care Court Assistant Name Role Phone Kenya Guardado PLUSH WEAVER-CHILD CARE WORKER Primary Care Provider Encounter Details Date Type Department Care Team (Late st Contact Info) Description 10/01/2020 Orders Only [facility] [address] [place] [address] Conversion, Onbase Social History Tobacco Use Types [...] Description 09/25/2025 1:20 PM EDT Office Visit [facility] 703 [facility] [address] [place] [address] Eric Brewster, 703 [facility], [address] [place], [place] [address] Scheduled Orders Name Type Priority Associated Diagnoses Orde r Schedule OUTSIDE LAB SCAN Lab Ordered: 10/01/2020 documented as of this encounter Visit Diagnoses Not on filedocumented in this encounter Care Teams Court Assistant Relationship Specialty Start Date End Date Kenya Guardado APRN-CHILD CARE WORKER [address] [place] [address] PCP - General 03/06/99 documented as of this encounter
--- OUTSIDE RECORDS SUMMARY | 2024-10-16 21:26 | XMS_ITS | Encounter Summary ---
Author Organization [facility] Address [address] [place] [address] Care Team Providers Care Sexer Name Role Phone Orlando Beatty MD Primary Care Provider [phone] Orlando Beatty MD Primary Care Provider Kenya Guardado JAIL MANAGER Unavailable [phone] Kenya Guardado JAIL MANAGER Unavailable [phone] Encounter Details Date Type Department Care Team (Late st Contact Info) Description 08/12/2022 Abstract [facility] [address] [facility] [address] [place] [address] Morris Puri, PA [address] [place] [address] Social History Tobacco Use Types [...] 10/18/2024 9:15 AM EDT Office Visit [facility] [address] [facility] [place] [address] Morris Puri PA [address] [place] [address] 11/11/2024 11:00 AM EDT Office Visit [facility] [address] [place] [address] Kenya Guardado NP [address] [place] [address] 11/14/2025 9:00 AM EDT Office Visit [facility] [address] [place] [place] [address] Morris Puri PA [address] [place] [address] documented as of this encounter Visit Diagnoses Not on filedocumented in this encounter Care Teams Sexer Relationship Specialty Start Date End Date Orlando Beatty MD PCP - General Cardiology 07/14/22 11/07/23 Orlando Beatty MD [address] [place] [address] PCP - General Family Medicine 11/08/23 Kenya Guardado NP [address] [place] [address] PCP - [place] [employer] 08/04/24 Kenya Guardado NP [address] [place] [address] Nurse Practitioner Family Medicine 11/08/23 documented as of this encounter
--- OUTSIDE RECORDS SUMMARY | 2024-10-16 21:26 | XMS_ITS | Encounter Summary ---
Author Organization [facility] Address [address] [place] [address] Care Team Providers Care Casualty Underwriter Name Role Phone Orlando Beatty MD Primary Care Provider [phone] Orlando Beatty MD Primary Care Provider Kenya Guardado MACHINE STOPPAGE FREQUENCY CHECKER Unavailable [phone] Kenya Guardado MACHINE STOPPAGE FREQUENCY CHECKER Unavailable [phone] Encounter Details Date Type Department Care Team (Late st Contact Info) Description 11/06/2022 Abstract [facility] [address] [facility] [address] [place] [address] Morris Puri, PA [address] [place] [address] Social History Tobacco Use Types [...] 10/18/2024 9:15 AM EDT Office Visit [facility] [address] [facility] [place] [address] Morris Puri PA [address] [place] [address] 11/11/2024 11:00 AM EDT Office Visit [facility] [address] [place] [address] Kenya Guardado NP [address] [place] [address] 11/14/2025 9:00 AM EDT Office Visit [facility] [address] [facility] [place] [address] Morris Puri PA [address] [place] [address] documented as of this encounter Visit Diagnoses Not on filedocumented in this encounter Care Teams Casualty Underwriter Relationship Specialty Start Date End Date Orlando Beatty MD PCP - General Cardiology 07/14/22 11/07/23 Orlando Beatty MD [address] [place] [address] PCP - General Family Medicine 11/08/23 Kenya Guardado NP [address] [place] [address] PCP - [place] [employer] 08/04/24 Kenya Guardado NP [address] [place] [address] Nurse Practitioner Family Medicine 11/08/23 documented as of this encounter
--- OUTSIDE RECORDS SUMMARY | 2024-10-16 21:26 | XMS_ITS | Encounter Summary ---
Author Organization [facility] Address [address] [place] [address] Care Team Providers Care Air Press Operator Name Role Phone Orlando Beatty MD Primary Care Provider [phone] Orlando Beatty MD Primary Care Provider Kenya Guardado SOFTWARE MANAGER Unavailable [phone] Kenya Guardado SOFTWARE MANAGER Unavailable [phone] Encounter Details Date Type Department Care Team (Late st Contact Info) Description 02/17/2023 Orders Only [facility] [address] [place] [address] Anmol Harden MD [address] [facility] [place], [place] [address] Social History Tobacco Use Types Packs/Day Years [...] often do you attend chur ch or restoration services? Never 02/06/2023 Do you belong to any clubs o r organizations such as taoist groups, unions, fraternal or athletic groups, or [...] care, and heating? Not very hard 02/06/2023 [facility] of Occupat ional Health - Occupational [...] senior living (including now)? Patient refused 02/06/2023 Comments Unknown [...] Visit [facility] [address] [place] [address] Morris Puri PA [address] [place] [address] 11/11/2024 11:00 AM EDT Office Visit [facility] [address] [place] [address] Kenya Guardado NP [address] [place] [address] 11/14/2025 9:00 AM EDT Office Visit [facility] [address] [place] [address] Morris Puri PA [address] [place] [address] documented as of this encounter Procedures [...] on filedocumented in this encounter Care Teams Air Press Operator Relationship Specialty Start Date End Date Orlando Beatty MD PCP - General Cardiology 07/14/22 11/07/23 Orlando Beatty MD [address] [place] [address] PCP - General Family Medicine 11/08/23 Kenya Guardado NP [address] [place] [address] PCP - [employer] [employer] 08/04/24 Kenya Guardado NP [address] [place] [address] Nurse Practitioner Family Medicine 11/08/23 documented as of this encounter
--- NOTE | 2024-10-16 21:31 | XR_ITS ---
[place] [address] Patient Name: ANDREA JEWELL MRN: [id number] date: 1960 Sex: F Assigned Patient Location: ER Current Patient Location: ER Accession/Order Number: [id number] Exam Date: 10/16/2024 22:43 Report Date: 10/16/2024 22:45 At the request of: ALYCE CHE MD Procedure: XR knee RT 4V 4 views right knee plain film COMPARISON: 08/17/2020 HISTORY: Acute right knee pain for 2 months ACUTE FINDINGS: No acute findings DEGENERATIVE CHANGE: Mild medial joint space narrowing with marginal spurring SOFT TISSUE FINDINGS: Unremarkable JOINT EFFUSION: None POSTOP CHANGES: None BONE MINERALIZATION: Adequate XR/XR knee RT 4V IMPRESSION: Similar Mild medial degeneration. Impression dictated by: Anmol Jose M.D. 10/16/2024 10:45 PM Dictation Location: [place] [address] Electronically authenticated by: [id number] Y Date: 10/16/2024 22:45
--- NOTE | 2024-10-16 22:55 | PC.NURSE ---
patient states she was walking and twisted her knee outward. states now is having alot of pain. unable to bear full weight.
--- NOTE | 2024-10-16 23:06 | ED.LOWEXI1 ---
HPI HPI - Extremity Injury (Lower) General Chief Complaint: Extremity Injury, Lower Stated Complaint: R KNEE PAIN Time Seen by Provider: 10/16/24 23:06 Source: patient Mode of arrival: Wheelchair History of Present Illness HPI Narrative: right knee pain for past couple of months. Has upcoming appointment with orthopedics in a couple of days. At work tonight she believes she twisted and experienced acute pain of the knee. Hurts now to weight bear. denies pain elsewhere Related Data Home Medications ?Medication ?Instructions ?Recorded ?Confirmed aspirin 81 mg capsule 81 mg PO DAILY 02/11/23 07/31/24 atorvastatin 80 mg tablet 80 mg PO DAILY 02/11/23 07/31/24 lisinopril 10 mg tablet 10 mg PO DAILY 02/11/23 07/31/24 metoprolol succinate 25 mg 25 mg PO DAILY 02/11/23 07/31/24 tablet,extended release 24 hr nitroglycerin 0.4 mg sublingual 0.4 mg sublingual Q5M 11/27/23 07/31/24 tablet Allergies Allergy/AdvReac Type Severity Reaction Status Date / Time isosorbide AdvReac Severe Headache Verified 07/31/24 23:14 oxycodone AdvReac Severe Dizziness Verified 07/31/24 23:14 tetanus and diphtheria AdvReac Intermediate Dizziness Verified 07/31/24 23:14 toxoids Review of Systems ROS Status of ROS 10 or more systems reviewed and unremarkable except as noted in history and below [facility] Medical History (Updated 10/16/24 @ 23:17 by German Wallace MD) Foot fracture ?S92.909A - Unspecified fracture of unspecified foot, initial encounter for closed fracture (ICD-10) PONV (postoperative nausea and vomiting) ?R11.2 - Nausea with vomiting, unspecified (ICD-10) ?Z98.890 - Other specified postprocedural states (ICD-10) Myocardial infarction ?I21.9 - Acute myocardial infarction, unspecified (ICD-10) HTN (hypertension) ?I10 - Essential (primary) hypertension (ICD-10) Heart disease ?I51.9 - Heart disease, unspecified (ICD-10) CHF (congestive heart failure) ?I50.9 - Heart failure, unspecified (ICD-10) Surgical History (Updated 12/05/23 @ 11:03 by Aimee Negro RN) Hx of total hip arthroplasty ?Z96.649 - Presence of unspecified artificial hip joint (ICD-10) H/O coronary angioplasty ?Z98.61 - Coronary angioplasty status (ICD-10) H/O section ?Z98.891 - History of uterine scar from previous surgery (ICD-10) Family History (Updated 12/05/23 @ 11:03 by Aimee Negro RN) Other Family history of diabetes mellitus Family history of hypertension Family history of stroke Glaucoma Heart disease Social History (Updated 12/05/23 @ 11:02 by Aimee Negro RN) Within the past year, how often did you have a drink containing alcohol: never Score interpretation: A score less than 3 is consistent with normal alcohol consumption. Smoking status: Never smoker Second hand tobacco smoke exposure: Yes Non-prescribed substance use: denies use Previous occupational history: [employer] Highest level of school completed/degree received: high school graduate Little interest or pleasure in doing things: not at all Feeling down, depressed, or hopeless: not at all Exam Constitutional Vital Signs, click to edit/add: Last Vital Signs Temp 98.1 F 10/16/24 21:26 Pulse 99 H 10/16/24 21:26 Resp 18 10/16/24 21:26 BP 122/75 10/16/24 21:26 Pulse Ox 97 10/16/24 21:26 O2 Del Method Room Air 10/16/24 21:26 Common normals: no apparent distress, average body habitus, oriented x3, no limitations, healthy appearing, alert and well nourished [facility] Common normals: normocephalic Eye Common normals: EOMs intact bilaterally Respiratory Common normals: normal respiratory effort, no retractions and no use of accessory muscles Cardio Common normals: regular rate, regular rhythm, S1 normal heart sound and S2 normal heart sound Extremity Common normals: normal to inspection Other: right medial joint tenderness and inferior patella tendon tenderness. No obvious effusion. right hip and ankle exam neg Neuro Common normals: oriented x3, CN's II-XII intact bilaterally and moves all extremities Psych Appearance: grossly normal Course Vital Signs Vital signs: Vital Signs Temperature 98.1 F 10/16/24 21:26 Pulse Rate 99 H 10/16/24 21:26 Respiratory Rate 18 10/16/24 21:26 Blood Pressure 122/75 08/13/25 21:26 Pulse Oximetry 97 10/16/24 21:26 Oxygen Delivery Method Room Air 10/16/24 21:26 Temperature 98.1 F 10/16/24 21:26 Pulse Rate 99 H 10/16/24 21:26 Respiratory Rate 18 10/16/24 21:26 Blood Pressure 122/75 10/16/24 21:26 Pulse Oximetry 97 10/16/24 21:26 Oxygen Delivery Method Room Air 10/16/24 21:26 MDM - Extremity Injury (Lower) MDM Narrative Medical decision making narrative: presents with acute right knee pain while at work. discomfort of the knee for past 2 months and is scheduled to see orthopedics in a couple of days. Tonight acute pain. Believes she twisted the knee and felt a pop. Exam with mild focal tenderness. Clinically she may have a meniscus tear. Will place in a knee immobilizer and have her follow up with ortho Discharge Plan Discharge Chief Complaint: Extremity Injury, Lower Clinical Impression: Acute pain of right knee Patient Disposition: Home, Self-Care Prescriptions / Home Meds: No Action atorvastatin 80 mg tablet 80 mg PO DAILY lisinopril 10 mg tablet 10 mg PO DAILY metoprolol succinate 25 mg tablet extended release 24 hr 25 mg PO DAILY aspirin 81 mg capsule 81 mg PO DAILY nitroglycerin 0.4 mg tablet, sublingual 0.4 mg sublingual Q5M Rx Instructions: do not exceed 3 doses per episode Print Language: Tuvaluan Instructions: Knee Pain (ED) Additional Instructions: follow up with orthopedics as planned Referrals: Kenya Guardado NP [Primary Care Provider, Family Practice] - 1 week
== END 2024-10-16 23:59 | disposition home or self-care (01) ==
PROVIDERS: Emergency Provider Internal Medicine; PCP Nurse Practitioner
DX: M25.561 Pain in right knee (principal)
CPT/HCPCS: 73564; 99283

== ENCOUNTER 2025-02-20 10:59 | Outpatient (OUT) | payer BC, SELFPAY ==
--- OUTSIDE RECORDS SUMMARY | 2025-02-11 05:00 | XMS_ITS | Continuity of Care Document ---
Author Organization [facility] Address [address] [place] [address] Phone Care Team Providers Care Parts Sales Representative Name Role Phone Kenya Guardado CONSUMER EDUCATOR-C Primary Care Provider Kenya Guardado NP-C Attending Provider Care Teams Patient Care Team Team Status: Active Member Role/Relationship Status Dates Kenya Guardado NP-C Primary Care Provider Active Patient Care Team Team Status: Inactive Member Role/Relationship Status Dates Kenya Guardado NP-Brendan Primary Care Provider Active Start: February 11, 2025 End: February 11, 2025Kenya Guardado NP-CAttending ProviderActiveStart: February 11, 2025 End: February 11, 2025 Chief Complaint and Reason for Visit Chief Complaint Admit Date 3M February 11, 2025 9 :16am Reason for Visit Admit Date Anemia February 11, 2025 9 :16am CAD involving [place] coronar y artery without angina pectoris February 11, 2025 9:16am CKD stage 3b, GFR 30-44 ml/min February 11, 2025 9:16am Essential hypertension February 11 9:16am Mixed hyperlipidemia February 11, 2025 9:16am Obesity due to excess calories February 11, 2025 9:16am Allergies, Adverse Reactions, Alerts Allergen Type Severity Reaction Last Updated Verified Status oxycodone Allergy Mild nausea February 11, 2025 9:37am Yes Active acetaminophen Allergy Unknown Dizziness February 9:37am Yes Active Tetanus Vaccines and Toxoid Allergy Unknown Unknown Reaction February 11, 2025 9:37am Yes Active isosorbide Adverse Reaction Mild Headache February 11, 2025 9:37am Yes Active Social History Smoking Status Status Start Date End Date Date of Observa tion Never smoked tobacco (finding) December 31, 2016 8:46am Observation Status Observation Response Date of Response Legal Sex Female (finding) [facility] 1960 Family History Relationship Condition Age at Onset Recorded Date/T isreal mother Chronic obstructive pulmonary disease Unk nown Diabetes mellitusUnknownHigh blood cholesterolUnknownHypertensionUnknownfather Myocardial infarctionUnknownHeart diseaseUnknownbrotherHeart diseaseUnknown HypertensionUnknownMyocardial infarctionUnknownmaternal grandfatherMalignant neoplasmUnknownMyocardial infarctionUnknownmotherMalignant neoplasmUnknown HypertensionUnknown Problems Active Problems Problem Diagnosis/Recorded Date Onset Date Status C omments Hx of acute myocardial infarction November 11, 2024 6:40am Unknown Active CKD stage 3b, GFR 30-44 ml/minDecember 2024 6:07amUnknownActiveCAD involving [place] coronary artery without angina pectorisSeptember 2024 6:40amUnknownActiveColon cancer screeningSeptember 2024 6:41amUnknownActive AVN (avascular necrosis of bone)November 11, 2024 6:39amUnknownActive Osteoarthritis of left hipSept2024 6:39amUnknownActiveAnemiaSept2024 6:42amUnknownActiveDizziness and giddinessSeptember 2024 6:41am UnknownActiveMixed hyperlipidemiaSept2024 6:41amUnknownActiveStatus post total hip replacement, leftSept2024 6:39amUnknownActiveEssential hypertensionSept2024 6:40amUnknownActiveRight knee meniscal tear November 11, 2024 10:44amUnknownActiveArthritis of right footSept2024 6:39amUnknownActiveObesity due to excess caloriesSept2024 6:41am UnknownActiveInactive/Resolved Problems Problem Diagnosis/Recorded Date Onset Date Status C jonna Shinriley December 31, 2016 8:08am Unknown Resolved Problem List clean-up per request of Phys. MARÍA Dailey Stage 4 chronic kidney disease November 11, 2024 6:42am Unknown Resolved HyperkalemiaS2024 6:42amUnknownResolved Medications Medication Status Dose Units Route Directions Qty Days Refills S tart Date Stop Date End Date Reason(s) Instructions Adherence Prasugrel Hcl 10 mg Tablet Discontinued 10 MG PO Daily December 30, 2016 11:00pmNovember 11, 2024 6:43amAcyclovir 800 mg tablet Otwmqynswqvm607RAJE.N3084Qpncfsi2016 11:00pmJanuary 09, 2017 12:00am January 10, 2017 12:04amOxycodone-Acetaminophen (Percocet) 5-325 mg tablet Vsuabezdiwtc2DERVOAHCDJ 4-6 HOURS as needed for cnip989OqzjvpjDecember 31, 2016 November 11, 2024 6:43amHydrocodone-Acetaminophen (Townsend) 5-325 mg tablet Ceffjogqrepc0WGYQWFETAS 4-6 HOURS as needed for zhmt806YxjmntvDecember 31, 2016 November 11, 2024 6:42amAtorvastatin 80 mg RvwmyyLlpara61NITNZdvht reyehvj2513 6December 08, 2016 11:00pmComplies with drug therapyAspirin 81 mg Tablet,Delayed Release (Dr/Ec)Mboeao05QOQCJqwsh66Mqlskkq 5th, 2017 11:00pmComplies with drug therapyNitroglycerin 0.4 mg Tablet, SublingualActive0.2DILVQTFTRBHIF5O as needed for Chest Cifw32031WkdswalDecember 08, 2016 11:00pmComplies with drug therapyLisinopril 5 mg AawwdvAndioubbtcol0YNHLJmeeu52714Jyfnjqm 5th, 2017 11:00pmNovember 11, 2024 6:43amMetoprolol Tartrate 25 mg XhqlkbFwcvuhwscecn09KCBHPvfen qjxzi32520 December 08, 2016 11:00pmNovember 11, 2024 6:43amTicagrelor (Brilinta) 90 mg BzvgkxUbuhwdcuuvxv50DJJPIxfde whqaw0755820Iokquzu 5th, 2017 11:00pmOctober 2016 7:49amMetoprolol Succinate 25 mg tablet extended release 24 hrDiscontinued 25MGPODailySeptember 2024 11:00pmSeptember 2024 10:34amMetoprolol Succinate 25 mg tablet extended release 24 oiVcuwcshetmva54.5MGPODailySeptember 2024 10:33amDecember 2024 9:40amCAD involving [place] coronary artery without angina pectoris Primary hypertension Atherosclerotic heart disease of [place] coronary artery without angina pectoris Essential (primary) hypertensionMetoprolol Succinate 25 mg tablet extended release 24 huSkkmku05DAWDPqvldSvbeouag 2024 9:39amCAD involving [place] coronary artery without angina pectoris Primary hypertension Atherosclerotic heart disease of [place] coronary artery without angina pectoris Essential (primary) hypertensionComplies with drug therapy Medical Equipment Device Date Implanted Device Details CL CLOSURE DEVICE ANGIOSEAL 6F December 07, 2016 CL STENT XIENCE ALP 2.5 X 38October 2016CL STENT XIENCE ALP 2.75 X 28 December 07, 2016CL STENT XIENCE ALP 2.75 X 38October 2016 Vital Signs Vital Reading Result Reference Range Collection Date/Time Height 65 [in_i] February 11, 2025 9:59vyDsktoa94.73 kgDece2024 9:23amBody Temperature 98.6 [degF]97.6-99.0Dece2024 9:23amHeart Ldyl625 /omg47-556IyvhpaapFebruary 11, 2025 9:23amRespiratory rate18 /zno69-63Vwguxgzj 9th, 2025 9:23amOxygen saturation by Pulse dlidhflx62 %95-100Dece2024 9:23amBP Ebvqehgg376 mm[Hg]100-140Dece2024 9:23amBP Skfndwxpy372 mm[Hg]60-100Decemb2024 9:23amBMI (Body Mass Index)33.6 kg/s1Hbfefwkb2024 9:23am Advance Directives Advance Directive Response Recorded Date/ Time Advance Directives No December 07, 2016 12:32pm Insurance Providers Guarantor Ina Jewell Address [address] [id number] Info.Home Phone: Coverage Status Update:2025 Payer Group Member ID Coverage Type Subscriber Relationship to Subscriber Effective Date Expiration Date Jonah SOLORIO Id: [id number] Ludwig Id: [id number] [address] [address] Home Phone: Self Encounters Encounter Location(s) Arrival/Admit Date Discharge/Departure Date Discharge/Departure Disposition Provider(s) Departed Physician/ Provider Office Visit -[facility] Family Medicine [place] February 11, 2025 9:16am February 11, 2025 10:00am Discharged to home care or self care (routine discharge) Kenya Guardado CONSUMER EDUCATOR-C Recent Diagnosis Onset Date Admit Date Anemia Unknown February 11 9:16am CAD involving [place] coronar y artery without angina pectoris Unknown February 11, 2025 9:16am CKD stage 3b, GFR 30-44 ml/min Unknown D 2024 9:16am Essential hypertension Unknown February 11, 2025 9:16am Mixed hyperlipidemia Unknown February 9:16am Obesity due to excess calories Unknown D 2024 9:16am Assessments Diagnosis Onset Date Resolution Status Admit Date Anemia acuteDece2024 9:16amCAD involving [place] coronary artery without angina pectorisacuteDece2024 9:16amCKD stage 3b, GFR 30-44 ml/minacute February 11, 2025 9:16amEssential hypertensionacuteDece2024 9:16am Mixed hyperlipidemiaacuteDece2024 9:16amObesity due to excess calories acuteDece2024 9:16am Plan of Treatment Author Kenya Guardado [facility] 2024 6:13amPlease check blood pressure daily and record DASH diet Limit caffeine Take medication as directed Contact office if chest pain, pressures, dizziness, shortness of breath, swelling in the legs Recommend slow position changes if you develop dizziness with position changes med: b diego, continue b diego, statin cont with cardiology once a year last stress: 10/19/23 normal NOH Discussed with patient their BMI (actual vs recommended). We have discussed lifestyle modifications: attempts to perform phsyical activity as chronic conditions allow, monitor dietary intake: increasing protein/fruits/veggies and lowering carb intake (unless contraindicated). Limit sodas, juices, sugary drinks, as well as alcohol consumption. on statin therapy check labs yearly and prn dose change recommend diet low in fat and processed foods avoid nephrotoxic drugs when possible control blood pressure if still elevation, consider SGLT 2 therapy will check updated labs Hgb in 08/28 10.5, hx of low end normal Vit b12 as well Future Tests Future scheduled test information is unavailable Pending Tests Test Name Ordered Date Scheduled Date Comprehensive Metabolic Panel February 11, 2025 6:10am MM screening mammo BI w/CADDeceer 2024 6:11am Future Visits Future appointment information is unavailable Future Procedures Procedure Name Ordered Date Scheduled Date Dipstick and Microscopic February 11, 2025 6:10 am Complete Blood Count Auto DiffDecember 2024 6:10amIron and TIBC Profile February 11, 2025 6:10amFerritinDecember 2024 6:11amLipid PanelDecember 2024 6:10amFree T4 (Free Thyroxine)February 11, 2025 6:10amTransferrin February 11, 2025 6:11amThyroid Stimulating HormoneDecember 2024 6:10am Vit. B12/Folate ProfileDeceer 2024 6:11amVitamin D 25 Hydroxy Total February 11, 2025 6:10amAMB POC Ur Microalb/Creat RatDecember 2024 6:10am Future Medications Future medication information is unavailable Patient Instructions Patient instructions are unavailable
--- NOTE | 2025-02-20 11:01 | MM_ITS ---
Patient Name: ANDREA JEWELL MR#: [id number] : 1960 Exam Date: 02/20/2025 Ordering Doctor: ALPESH TORREZ CNP RADIOLOGY REPORT PROCEDURE: MM TOMOSYNTHESIS SCREENING BI COMPARISON: MM TOMOSYNTHESIS SCREENING BI, 11/21/2023. MG MAMM SCREEN 3D RENE CAD, 12/07/2020. MG MAMM SCREEN RENE W CAD, 09/10/2019. MG MAMM RENE DIAG W CAD DIG, 07/20/2012. INDICATIONS: Screening Calculator Name NCI Breast Cancer Risk Assessment Tool 5 Year Breast Cancer Risk 1.20% Lifetime Breast Cancer Risk 5.50% Personal Breast Cancer No Personal Ovarian Cancer No Treatments None Family Cancers Grandfather-maternal with lung cancer at age ~45; Grandmother-maternal with colon cancer at age ~64. LOCATION: [facility] BREAST COMPOSITION: There are scattered areas of fibroglandular density. FINDINGS: DIAGNOSTIC CATEGORY 1--NEGATIVE. RIGHT BREAST: No significant suspicious finding. LEFT BREAST: No significant suspicious finding. RECOMMENDATIONS: ROUTINE MAMMOGRAM AND CLINICAL EVALUATION IN 12 MONTHS. Dictated by: Amilcar Wooten DO on 02/20/2025 at 12:03 Approved by: Amilcar Wooten DO on 02/20/2025 at 13:23
== END 2025-02-20 11:00 | disposition home or self-care (01) ==
LOC: MAMMO 10:59
PROVIDERS: PCP Nurse Practitioner; Visit Provider Nurse Practitioner
DX: Z12.31 Encounter for screening mammogram for malignant neoplasm of breast (principal); Z80.1 Family history of malignant neoplasm of trachea, bronchus and lung; Z80.0 Family history of malignant neoplasm of digestive organs
CPT/HCPCS: 77063; 77067